=== PATIENT | female | born 1955 | race Caucasian/White ===

== ENCOUNTER → 2017-07-18 | Outpatient (CLI) | payer BC | LOC: RESP 10:21 | PROVIDERS: ATTEND Internal Medicine Endocrinology, Diabetes & Metabolism | DX: J45.909 Unspecified asthma, uncomplicated (principal) | CPT/HCPCS: 94060; 94727; 94729 ==

== ENCOUNTER 2018-08-12 12:48 | Inpatient (IN) | payer MEDICARE, BC ==
[~2018-08-12] VITALS: Ht 160 cm; Wt 75.9 kg
--- OUTSIDE RECORDS SUMMARY | 2018-08-12 12:55 | XMS REPORT | Continuity of Care Document ---
Author Author [facility] Interface Address Unknown Phone Unavailable Problems Problem Status Onset Date Classification Date Reported Comments Source CCL / ALPINE PATROLLER LEFT COMMON FEMORAL SFA / LEFT Active 08/02/2018 [facility] S02.2XXA FRACTURE OF NASAL BONES, INITIA Active 08/24/2017 [facility] Encounter for screening for malignant neoplasm of colon 07/27/2017 10/26/2017 [facility] COLORECTAL CANCER SCREENING Active 07/10/2017 [facility] COLON CONSULT - PRE OP COLOSTOMY REVERSA Active 07/06/2017 [facility] I50.9 Active 02/26/2017 [facility] ABD ABSCESS Active 11/17/2016 [facility] R10 - ABDOMINAL AND PELVIC PAIN [facility] ACUTE DIVERTICULITIS, ABDOMINAL PAIN/FEV Active 11/08/2016 [facility] ABDOMINAL PAIN/FEVER Active 11/08/2016 [facility] CHRONIC SYSTOLIC HF Active 05/24/2016 [facility] CCL/SINGLE CHAMBER ICD IMPLANT/MEDTRONIC Active 05/24/2016 [facility] PAD, CLAUDICATION Active 05/01/2016 [facility] CCL/LEFT LEG ANGIO/ALPINE PATROLLER/STENT/DX: PAD, CL Active 05/01/2016 [facility] CCL/BILATERAL LOWER EXTREMITY ANGIO/RIGH Active 04/04/2016 [facility] R91.1 - SOLITARY PULMONARY NODULE Active 07/06/2015 [facility] M[facility] CCL / R Active 09/02/2014 [facility] DX: DYSPNEA L HEART FAILURE Active 09/02/2014 [facility] 786.05 Active 07/08/2014 [facility] V12.69, 786.05 Active 07/08/2014 [facility] Asthma Resolved Problem 08/09/2018 TURNER Augustine,[facility] Cardiomyopathy Resolved Problem 08/09/2018 [facility], [facility] COPD (<span ID="[id number]</span>) Resolved Problem 08/09/2018 [facility] Claudication Resolved Problem 08/09/2018 [facility] CHF (<span ID="[id number]">Confirmed</span>) Resolved Problem 08/09/2018 [facility] Diabetes mellitus Resolved Problem 08/09/2018 [facility] Shortness of breath Resolved Problem 08/09/2018 [facility] Hyperlipemia Resolved Problem 08/09/2018 [facility] Hypertension Resolved Problem 08/09/2018 [facility] Skin cancer Resolved Problem 08/09/2018 [facility] Obesity Resolved Problem 08/09/2018 [facility] Peripheral vascular disease Resolved Problem 08/09/2018 [facility] Psoriasis Resolved Problem 11/17/2016 [facility] Asthma Resolved Problem 03/04/2017 OP[facility] Gilbert,[facility] Diverticulosis of large intestine without perforation or abscess without bleeding 10/15/2017 [facility] Obesity, unspecified 10/15/2017 [facility] Body mass index 27.0-27.9, adult 10/15/2017 [facility] Hypertensive heart disease with heart failure 10/26/2017 [facility] Chronic systolic heart failure 10/15/2017 [facility] Hyperlipidemia, unspecified 10/15/2017 [facility] Cardiomyopathy, unspecified 10/26/2017 [facility] Chronic obstructive pulmonary disease, unspecified 10/15/2017 [facility] Type 2 diabetes mellitus with diabetic peripheral angiopathy without gangrene 10/15/2017 [facility] Presence of cardiac pacemaker 10/15/2017 [facility] Nicotine dependence, cigarettes, uncomplicated 10/15/2017 [facility] Presence of automatic cardiac defibrillator 10/26/2017 [facility] Eczema Resolved Problem 08/09/2018 [facility] Heart failure, unspecified 10/26/2017 [facility] Peripheral vascular disease, unspecified 10/26/2017 [facility] Obstructive sleep apnea (pediatric) 10/26/2017 [facility] Emphysema, unspecified 10/26/2017 [facility] Gastro-esophageal reflux disease without esophagitis 10/26/2017 [facility] Prediabetes 10/26/2017 [facility] Acquired absence of other specified parts of digestive tract 10/26/2017 [facility] Colostomy status 10/26/2017 [facility]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 10/26/2017 [facility] USP use of aspirin 10/26/2017 [facility] Parastomal hernia without obstruction or gangrene 09/26/2017 [facility] Peritoneal adhesions (postinfection) 09/26/2017 [facility] Elevated white blood cell count, unspecified 09/26/2017 [facility] Personal history of nicotine dependence 09/26/2017 [facility] DVTRCLI OF INTEST, PART UNSP, W/O PERF O Active [facility] Medications Medication Details Route Status Patient Instructions Ordering Provider Order Date Source Morphine 2 mg, Route: IVP, ONCE, Dosing Weight 66.818, kg, Start date: 08/07/18 15:04:00 CDT, Stop date: 08/07/18 15:04:00 CDT Inactive 08/07/2018 [facility] clopidogrel 75 MG Oral Tablet [Plavix] 75 mg=1 tab, PO, Daily, # 90 tab, 3 Refill(s) Active 08/07/2018 [facility] Nitroglycerin 0.4 mg, 1 tab, Route: SL, Drug form: TAB, Q5Min, Dosing Weight 66.818, kg, PRN Chest Pain, Start date: 08/07/18 14:41:00 CDT, Duration: 3 doses or times, Stop date: Limited # of timesNotes: (Same as: Nitroquick, Nitrostat) "Do Not Crush" Sublingual tablet Inactive 08/07/2018 [facility] normal saline 0.9% IV 250 mL 250 mL, Rate: 250 ml/hr, Infuse over: 1 hr, Route: IV, Dosing Weight 66.818 kg, Total Volume: 250, Start date: 08/07/18 12:28:00 CDT, Duration: 30 day, Stop date: 09/06/18 12:27:00 CDT, 1.74, m2 Inactive 08/07/2018 [facility] Docusate Sodium 100 MG Oral Capsule [Colace] 100 mg=1 cap, PO, BID, # 60 cap, 0 Refill(s) Active 09/17/2017 [facility] gabapentin 300 MG Oral Capsule 300 mg=1 cap, PO, Q8H, # 90 cap, 0 Refill(s) Active 09/17/2017 [facility] tramadol hydrochloride 50 MG Oral Tablet 50 mg=1 tab, PO, Q4H, PRN Pain Score 1-5, # 24 tab, 0 Refill(s) Active 09/17/2017 [facility] vitamin A 10,000 units oral capsule 10,000 IntlUnit=1 cap, PO, Daily, # 30 cap, 0 Refill(s) Active 09/17/2017 [facility] Oxycodone Hydrochloride 5 MG Oral Tablet 10 mg, 2 tab, Route: PO, Drug form: TAB, Q4H, Dosing Weight 72.727, kg, PRN Pain Score 6-10, Start date: 09/17/17 11:32:00 CDT, Duration: 30 day, Stop date: 10/17/17 11:31:00 CDTNotes: (Same as: Roxicodone) Inactive 09/17/2017 [facility] tramadol hydrochloride 50 MG Oral Tablet 50 mg, 1 tab, Route: PO, Drug form: TAB, Q4H, Dosing Weight 72.727, kg, Start date: 09/17/17 4:00:00 CDT, Duration: 30 day, Stop date: 10/17/17 0:00:00 CDTNotes: Not to exceed 400mg/day. (Same As: Ultram) Inactive 09/17/2017 [facility] Albuterol 0.833 MG/ML / Ipratropium Mcgehee 0.167 MG/ML Inhalant Solution [DuoNeb] 3 ml, Route: NEB, Drug Form: SOLN, Dosing Weight 72.727, kg, RQ4H, Start date: 09/15/17 11:00:00 CDT, Duration: 30 day, Stop date: 10/15/17 7:00:00 CDTNotes: (Same as: Duoneb) No Longer Active 09/15/2017 [facility] 24 HR tramadol hydrochloride 100 MG Extended Release Tablet 100 mg, 2 tab, Route: PO, Drug form: TAB, Q12H, Priority: NOW, Start date: 09/15/17 10:30:00 CDT, Duration: 30 day, Stop date: 10/15/17 9:00:00 CDTNotes: Not to exceed 400mg/day. (Same As: Ultram) No Longer Active 09/15/2017 [facility] potassium chloride 20 mEq oral tablet, extended release 40 mEq, 2 tab, Route: PO, Drug form: ERTAB, ONCE, Dosing Weight 72.727, kg, Start date: 09/14/17 18:36:00 CDT, Stop date: 09/14/17 18:36:00 CDTNotes: (Same as: K-Dur 20) "Do Not Crush" For patients unable to swallow tablet, dissolve in one half glass of water. Allow about 2 minutes for the tablets to disintegrate. Stir before giving to prepare slurry and administer. Please exclude Patient’s with feeding tube less than 14 [place] (Dobhoff, J-tube etc) and pediatric and patients. With food and full glass of water Inactive 09/14/2017 [facility] carvedilol 6.25 mg, Route: PO, Drug form: TAB, BID, Dosing Weight 72.727, kg, Start date: 09/13/17 17:00:00 CDT, Duration: 30 day, Stop date: 10/13/17 9:00:00 CDT Inactive 09/13/2017 [facility] remove patch 1 patch, Route: TOP, Bedtime, Drug form: ERFILM, Start date: 09/13/17 15:00:00 CDT, Duration: 30 day, Stop date: 10/12/17 15:00:00 CDT No Longer Active 09/13/2017 [facility] albuterol 90 mcg/inh inhalation aerosol 2 puff, Route: INHALATION, Drug Form: AERO/A, Dosing Weight 72.727, kg, QID, PRN Shortness of breath, Start date: 09/13/17 12:59:00 CDT, Duration: 30 day, Stop date: 10/13/17 12:58:00 CDTNotes: Albuterol 90 microgram/inh 8gm HFA WASTE: Aerosol - Return to Pharmacy Same as: Rufus Jessica No Longer Active 09/13/2017 [facility] Aspirin 81 MG Enteric Coated Tablet 81 mg, 1 tab, Route: PO, Drug form: CHEWTAB, Daily, Dosing Weight 72.727, kg, Start date: 09/13/17 11:00:00 CDT, Duration: 30 day, Stop date: 10/13/17 9:00:00 CDTNotes: Take with food. No Longer Active 09/13/2017 [facility] Ativan 1 mg, 1 tab, Route: PO, Drug form: TAB, BID, Dosing Weight 72.727, kg, Start date: 09/13/17 11:00:00 CDT, Duration: 30 day, Stop date: 10/13/17 9:00:00 CDTNotes: (Same as: Ativan) No Longer Active 09/13/2017 [facility] Vitamin D3 1000 intl units oral tablet 1,000 IntlUnit, 1 tab, Route: PO, Drug form: TAB, Daily, Dosing Weight 72.727, kg, Start date: 09/13/17 11:00:00 CDT, Duration: 30 day, Stop date: 10/13/17 9:00:00 CDTNotes: Same as : Vitamin D3 No Longer Active 09/13/2017 [facility] budesonide-formoterol 80 mcg-4.5 mcg/inh inhalation aerosol with adapter 2 inhalation, Route: INHALATION, Drug Form: AERO/A, RBID, Start date: 09/13/17 10:56:00 CDT, Duration: 30 day, Stop date: 10/13/17 8:00:00 CDTNotes: (Same as: Symbicort) WASTE: Aerosol - Return to Pharmacy No Longer Active 09/13/2017 [facility] Acetaminophen 325 MG / Oxycodone Hydrochloride 10 MG Oral Tablet [Percocet 10/325] 1 tab, PO, Q8H, PRN Pain Score 1-3, # 20 tab, 0 Refill(s) No Longer Active 09/13/2017 [facility] Fluticasone propionate 0.1 MG/ACTUAT / salmeterol 0.05 MG/ACTUAT Dry Powder Inhaler 2 inhalation, Route: INHALER, Drug Form: PWDR, Dosing Weight 72.727, kg, RBID, Start date: 09/13/17 10:17:00 CDT, Duration: 30 day, Stop date: 10/13/17 8:00:00 CDT Inactive 09/13/2017 [facility] phenol 1 spray, Route: TOP, ONCE, Drug form: SPRY, PRN as needed for sore throat, Start date: 09/13/17 10:15:00 CDTNotes: Chloraseptic Philipp (Same as: Chloraseptic, Sore Throat Philipp) WASTE: F/P - Black; E - Municipal Trash Bin No Longer Active 09/13/2017 [facility] Albuterol 0.83 MG/ML Inhalant Solution 1.245 mg, 1.5 mL, Route: PO, Drug form: SOLN, RQ4H, Dosing Weight 72.727, kg, PRN Wheezing, Start date: 09/13/17 10:12:00 CDT, Duration: 30 day, Stop date: 10/13/17 10:11:00 CDTNotes: SEE RT DOCUMENTATION (Same as: Proventil) Inactive 09/13/2017 [facility] pantoprazole 40 mg, Route: IVP, Drug form: INJ, Daily, Dosing Weight 72.727, kg, Start date: 09/13/17 10:00:00 CDT, Duration: 30 day, Stop date: 10/13/17 9:00:00 CDTNotes: For IV push reconstitute with 10 ml 0.9% sodium chloride and push over 2 minutes. (Same as: Protonix) No Longer Active 09/13/2017 [facility] Lidocaine 0.05 MG/MG Transdermal Patch 1 patch, Route: TOP, Daily, Drug form: FILM, Start date: 09/13/17 9:00:00 CDT, Duration: 30 day, Stop date: 10/12/17 9:00:00 CDT Inactive 09/13/2017 [facility] Protonix 40 mg, 1 tab, Route: PO, Drug form: ECTAB, Daily, Start date: 09/13/17 9:00:00 CDT, Duration: 30 day, Stop date: 10/12/17 9:00:00 CDT Inactive 09/13/2017 [facility] Vitamin A 10,000 unit, 1 cap, Route: PO, Drug form: CAP, Daily, Dosing Weight 72.727, kg, Start date: 09/13/17 9:00:00 CDT, Duration: 2 week, Stop date: 09/26/17 9:00:00 CDT No Longer Active 09/13/2017 [facility] Lisinopril 5 mg, 1 tab, Route: PO, Drug form: TAB, Daily, Dosing Weight 72.727, kg, Start date: 09/13/17 9:00:00 CDT, Stop date: 10/12/17 9:00:00 CDTNotes: (Same as: Prinivil, Zestril) No Longer Active 09/13/2017 [facility] Docusate Sodium 100 MG Oral Capsule [Colace] 100 mg, 1 cap, Route: PO, Drug form: CAP, BID, Dosing Weight 72.727, kg, Start date: 09/13/17 9:00:00 CDT, Stop date: 10/12/17 17:00:00 CDTNotes: (Same as: Colace) (Do Not Crush) No Longer Active 09/13/2017 [facility] carvedilol 6.25 mg, 1 tab, Route: PO, Drug form: TAB, Q12H, Dosing Weight 72.727, kg, Start date: 09/13/17 9:00:00 CDT, Duration: 30 day, Stop date: 10/12/17 21:00:00 CDT No Longer Active 09/13/2017 [facility] Prednisone 10 mg, 1 tab, Route: PO, Drug form: TAB, Daily, Dosing Weight 72.727, kg, Start date: 09/13/17 9:00:00 CDT, Duration: 30 day, Stop date: 10/12/17 9:00:00 CDT No Longer Active 09/13/2017 [facility] Lidocaine 0.05 MG/MG Transdermal Patch 1 patch, Route: TOP, Daily, Drug form: FILM, Start date: 09/13/17 3:00:00 CDT, Duration: 30 day, Stop date: 10/12/17 3:00:00 CDTNotes: Apply only once for up to 12 hours in a 24-hour period (12 hours on and 12 hours off). (Same as: Lidoderm) "Remove old patch before application of new patch" No Longer Active 09/13/2017 [facility] Morphine 2 mg, 0.5 mL, Route: IVP, Drug form: SOLN, Q2H, Dosing Weight 72.727, kg, PRN Pain Score 7-10, Start date: 09/13/17 1:11:00 CDT, Duration: 30 day, Stop date: 10/13/17 1:10:00 CDTNotes: (Same as:MORPhine Sulfate) No Longer Active 09/13/2017 [facility] gabapentin 300 MG Oral Capsule 300 mg, 1 cap, Route: PO, Drug form: CAP, Q8H, Dosing Weight 72.727, kg, (CrCl > 60 ml/min), Start date: 09/13/17 0:00:00 CDT, Stop date: 10/12/17 16:00:00 CDTNotes: (Same as: Neurontin) No Longer Active 09/13/2017 [facility] Tramadol 100 mg, 2 tab, Route: PO, Drug form: TAB, Q6H, Dosing Weight 72.727, kg, Start date: 09/13/17 0:00:00 CDT, Duration: 30 day, Stop date: 10/12/17 18:00:00 CDT Inactive 09/13/2017 [facility] Ofirmev 1,000 mg, 100 mL, Route: IVPB, Drug form: INJ, Q6H, Dosing Weight 72.727, kg, for > or=50 kg, Start date: 09/13/17 0:00:00 CDT, Duration: 30 day, Stop date: 10/14/17 18:00:00 CDTNotes: MEDICATION WASTE Product Size: 1000 mg Product Wasted: ___ mg No Longer Active 09/13/2017 [facility] Pravastatin 20 mg, 1 tab, Route: PO, Drug form: TAB, Bedtime, Dosing Weight 72.727, kg, Start date: 09/12/17 21:00:00 CDT, Duration: 30 day, Stop date: 10/11/17 21:00:00 CDTNotes: (Same as: Pravachol) No Longer Active 09/13/2017 [facility] ondansetron (ANES) Route: IV, Drug form: INJ, ONCE, Stop date: 09/12/17 20:06:00 CDT Inactive 09/13/2017 [facility] Ondansetron 4 mg, 2 mL, Route: IVP, Drug form: INJ, ONCE, Dosing Weight 72.727, kg, PRN Nausea & Vomiting, Start date: 09/12/17 20:03:00 CDTNotes: (Same as: Zofran) MEDICATION WASTE Product Size: 4 mg Product Wasted: ___ mg Inactive 09/13/2017 [facility] Naloxone 0.4 mg, 1 mL, Route: IVP, Drug form: INJ, Q2MIN, Dosing Weight 72.727, kg, PRN Narcotic Reversal, Start date: 09/12/17 20:03:00 CDT, Duration: 8 doses or times, Stop date: 09/13/17 0:00:00 CDTNotes: Same as Narcan Inactive 09/13/2017 [facility] Flumazenil 0.2 mg, 2 mL, Route: IVP, Drug form: INJ, PRN, Dosing Weight 72.727, kg, PRN Benzodiazepine Reversal, Initial dose, Start date: 09/12/17 20:03:00 CDT, Duration: 1 day, Stop date: 09/13/17 20:02:00 CD TNotes: (Same as: Romazicon) Inactive 09/13/2017 [facility] Hydromorphone 0.5 mg, 0.25 mL, Route: IVP, Drug form: INJ, Q5Min, Dosing Weight 72.727, kg, PRN Pain Score 7-10, Start date: 09/12/17 20:03:00 CDT, Duration: 4 doses or times, Stop date: 09/13/17 0:00:00 CDTNotes: Same as Dilaudid Inactive 09/13/2017 [facility] Ketorolac 30 mg, Route: IVP, ONCE, Dosing Weight 72.727, kg, Start date: 09/12/17 20:03:00 CDT, Stop date: 09/12/17 20:03:00 CDT Inactive 09/13/2017 [facility] Flagyl 500 mg, 100 mL, Route: IVPB, Drug form: INJ, ABXQ8H, Dosing Weight 72.727, kg, Start date: 09/12/17 20:00:00 CDT, Duration: 3 day, Stop date: 09/15/17 13:00:00 CDT, ABX Indication: Intra-abdominal Infec tionNotes: (Same as: Flagyl) Avoid alcohol. No Longer Active 09/13/2017 [facility] Ancef 2 gm, 20 mL, Route: IVPB, Drug form: SOLN, ABXQ8H, Dosing Weight 72.727, kg, Start date: 09/12/17 20:00:00 CDT, Stop date: 09/15/17 14:00:00 CDT, ABX Indication: Intra-abdominal InfectionNotes: (Same as Ancef) No Longer Active 09/13/2017 [facility] Enoxaparin 40 mg, 0.4 mL, Route: SUB-Q, Drug form: INJ, rttrQ64D, Dosing Weight 72.727, kg, Start date: 09/12/17 20:00:00 CDT, Stop date: 10/11/17 20:00:00 CDTNotes: (Same as: Lovenox) No Longer Active 09/13/2017 [facility] ketAMINE (ANES) Route: IV, Drug form: INJ, ONCE, Stop date: 09/12/17 19:43:00 CDT Inactive 09/13/2017 [facility] dexmedetomidine (ANES) + Sodium Chloride 0.9% IV (ANES) 98 mL Route: IV, Drug form: INJ, ONCE, Stop date: 09/12/17 19:33:00 CDT Inactive 09/13/2017 [facility] Morphine 2 mg, 0.5 mL, Route: IVP, Drug form: SOLN, Q4H, Dosing Weight 72.727, kg, PRN Pain Score 7-10, Start date: 09/12/17 19:23:00 CDT, Duration: 30 day, Stop date: 10/12/17 19:22:00 CDTNotes: (Same as:MORPhine Sulfate) No Longer Active 09/13/2017 [facility] Oxycodone Hydrochloride 5 MG Oral Tablet 5 mg, 5 mL, Route: PO, Drug form: LIQ, Q4H, Dosing Weight 72.727, kg, PRN Pain Score 4-6, Start date: 09/12/17 19:23:00 CDT, Stop date: 10/12/17 19:22:00 CDTNotes: (Same as: 'Roxicodone) No Longer Active 09/13/2017 [facility] Isolyte S PH 7.4 1,000 mL 1,000 mL, Rate: 125 ml/hr, Infuse over: 8 hr, Route: IV, Dosing Weight 72.727 kg, Total Volume: 1,000, Start date: 09/12/17 19:19:00 CDT, Duration: 30 day, Stop date: 10/12/17 19:18:00 CDT, 1.82, [id number]: (Same as: Isolyte S PH 7.4) No Longer Active 09/13/2017 [facility] rocuronium (ANES) Route: IV, Drug form: INJ, ONCE, Stop date: 09/12/17 17:53:00 CDT Inactive 09/12/2017 [facility] niCARdipine (ANES) + sodium chloride (ANES) 9 mL Route: IV, Drug form: INJ, ONCE, Stop date: 09/12/17 16:38:00 CDT Inactive 09/12/2017 [facility] dexmedetomidine (ANES) + Sodium Chloride 0.9% IV (ANES) 98 mL Route: IV, Drug form: INJ, ONCE, Stop date: 09/12/17 16:38:00 CDT Inactive 09/12/2017 [facility] esmolol (ANES) Route: IV, Drug form: INJ, ONCE, Stop date: 09/12/17 16:12:00 CDT Inactive 09/12/2017 [facility] metoprolol (ANES) Route: IV, Drug form: INJ, ONCE, Stop date: 09/12/17 16:12:00 CDT Inactive 09/12/2017 [facility] hydromorphone (ANES) Route: IV, Drug form: INJ, ONCE, Stop date: 09/12/17 16:02:00 CDT Inactive 09/12/2017 [facility] hydromorphone (ANES) Route: IV, Drug form: INJ, ONCE, Stop date: 09/12/17 15:12:00 CDT Inactive 09/12/2017 [facility] propofol (ANES) Route: IV, Drug form: INJ, ONCE, Stop date: 09/12/17 15:12:00 CDT Inactive 09/12/2017 [facility] lidocaine (ANES) Route: IV, Drug form: INJ, ONCE, Stop date: 09/12/17 15:12:00 CDT Inactive 09/12/2017 [facility] midazolam (ANES) Route: IV, Drug form: SOLN, ONCE, Stop date: 09/12/17 15:12:00 CDT Inactive 09/12/2017 [facility] ketAMINE (ANES) Route: IV, Drug form: INJ, ONCE, Stop date: 09/12/17 15:07:00 CDT Inactive 09/12/2017 [facility] hydrocortisone (ANES) Route: IV, Drug form: INJ, ONCE, Stop date: 09/12/17 14:57:00 CDT Inactive 09/12/2017 [facility] ertapenem (ANES) Route: IV, Drug form: INJ, ONCE, Stop date: 09/12/17 14:57:00 CDT Inactive 09/12/2017 [facility] Lactated Ringers Injection IV (ANES) 1000 mL Route: IV, Total Volume: 1,000, Start date: 09/12/17 13:57:00 CDT, Stop date: 09/12/17 14:57:00 CDT Inactive 09/12/2017 [facility] INVanz 1 gm, Route: IV, Drug form: INJ, PRE OP, Start date: 09/12/17 12:00:00 CDT, Duration: 1 day, Stop date: 09/13/17 11:59:00 CDT, ABX Indication: Surgical ProphylaxisNotes: (Same as: INVanz) Refrigerate. NOT COMPATIBLE WITH D5W. Stable in refrigerator for 24 hours MEDICATION WASTE Product Size: 1000 mg Product Wasted: ___ mg No Longer Active 09/12/2017 [facility] Naloxone 0.4 mg, 1 mL, Route: IVP, Drug form: INJ, Q2MIN, Dosing Weight 72.727, kg, PRN Narcotic Reversal, Start date: 07/20/17 10:32:00 MONUMENT LETTERER, Duration: 8 doses or times, Stop date: 07/21/17 0:00:00 CSTNotes: Same as Narcan No Longer Active 07/20/2017 [facility] Ondansetron 4 mg, 2 mL, Route: IVP, Drug form: INJ, ONCE, Dosing Weight 72.727, kg, PRN Nausea & Vomiting, Start date: 07/20/17 10:32:00 CSTNotes: (Same as: Zofran) MEDICATION WASTE Product Size: 4 mg Product Wasted: ___ mg No Longer Active 07/20/2017 [facility] Hydralazine 10 mg, 0.5 mL, Route: IVP, Drug form: INJ, Q20Min, Dosing Weight 72.727, kg, PRN Elevated BP, Start date: 07/20/17 10:32:00 MONUMENT LETTERER, Duration: 2 doses or times, Stop date: 07/21/17 0:00:00 CSTNotes: (Same as: Apresoline) Push over 5 minutes No Longer Active 07/20/2017 [facility] Flumazenil 0.2 mg, 2 mL, Route: IVP, Drug form: INJ, PRN, Dosing Weight 72.727, kg, PRN Benzodiazepine Reversal, Initial dose, Start date: 07/20/17 10:32:00 MONUMENT LETTERER, Duration: 30 day, Stop date: 08/19/17 11:31:00 C DTNotes: (Same as: Romazicon) No Longer Active 07/20/2017 [facility] Acetaminophen 1,000 mg, 2 tab, Route: PO, Drug form: TAB, ONCE, Dosing Weight 72.727, kg, PRN Pain Score 1-3, Start date: 07/20/17 10:32:00 CSTNotes: Max acetaminophen 4000 mg/day (4 gm/day). (Same as: Tylenol Extra Strength) No Longer Active 07/20/2017 [facility] Carisoprodol 350 MG Oral Tablet [Soma] 350 mg=1 tab, PO, QID, 0 Refill(s) Active 07/18/2017 [facility] Lorazepam 1 MG Oral Tablet [Ativan] 1 mg=1 tab, PO, TID, 0 Refill(s) Active 07/18/2017 [facility] pantoprazole 20 MG Enteric Coated Tablet [Protonix] 20 mg=1 tab, PO, Daily, 0 Refill(s) Active 07/18/2017 [facility] Vitamin D3 1000 intl units oral tablet 1,000 IntlUnit=1 tab, PO, Daily, # 30 tab, 0 Refill(s) Active 07/18/2017 [facility] Ventolin HFA 2 puff, INHALATION, QID, 0 Refill(s) Active 07/18/2017 [facility] GoLYTELY oral powder for reconstitution 240 mL, PO, Q15Min, # 4,000 mL, 0 Refill(s), Pharmacy: [facility] [id number] Active 07/09/2017 [facility] Amoxicillin 875 MG / Clavulanate 125 MG Oral Tablet [Augmentin 875-mg] 1 tab, PO, Q12H, X 5 day, # 10 tab, 0 Refill(s) Active 11/29/2016 [facility] psyllium 3.4 g/3.7 g oral powder 3.4 gm=, PO, Daily, X 30 day, # 300 gm, 0 Refill(s) Active 11/29/2016 [facility] Docusate Sodium 100 MG Oral Capsule 100 mg=1 cap, PO, Q12H, # 60 cap, 0 Refill(s) Active 11/29/2016 [facility] gabapentin 300 MG Oral Capsule 300 mg=1 cap, PO, TID, # 90 cap, 0 Refill(s) Active 11/29/2016 [facility] acetaminophen 500 mg oral tablet 1,000 mg=2 tab, PO, Q6H, PRN Pain Score 4-6, not to exceed 3000 mg/day Only take as needed for pain, X 14 day, # 112 tab, 0 Refill(s) Active 11/29/2016 [facility] Oxycodone Hydrochloride 5 MG Oral Tablet 10 mg=2 tab, PO, Q4H, PRN Pain Score 6-10, 0 Refill(s) Active 11/29/2016 [facility] senna 8.6 mg oral tablet 8.6 mg=1 tab, PO, BID, X 14 day, # 28 tab, 0 Refill(s) Active 11/29/2016 [facility] tramadol hydrochloride 50 MG Oral Tablet 100 mg=2 tab, PO, Q6Hnow, X 30 day, # 240 tab, 0 Refill(s) Active 11/29/2016 [facility] Unasyn 3 gm, 1 ea, Route: IVPB, Drug form: PDR/INJ, ABXQ6H, Start date: 11/28/16 12:00:00 CDT, Duration: 30 day, Stop date: 12/28/16 6:00:00 CDTNotes: Dosing based on Ampicillin component (Same as: Unasyn) No Longer Active 11/28/2016 [facility] Dilaudid 0.5 mg, 0.25 mL, Route: IV, Drug form: INJ, Q24H, Dosing Weight 68.182, kg, PRN Other -See Comment, Start date: 11/26/16 12:41:00 CDT, Duration: 10 day, Stop date: 12/06/16 12:40:00 CDTNotes: Same as: Dilaudid Inactive 11/26/2016 [facility] Celebrex 200 mg, 1 cap, Route: PO, Drug form: CAP, BID, Dosing Weight 68.182, kg, Start date: 11/25/16 17:00:00 CDT, Duration: 30 day, Stop date: 12/25/16 9:00:00 CDTNotes: NSAID. Please check indication. Not for seizure. (Same As: CeleBREX) No Longer Active 11/25/2016 [facility] gabapentin 300 MG Oral Capsule 300 mg, 1 cap, Route: PO, Drug form: CAP, Q12H, Dosing Weight 68.182, kg, (CrCl 30 - 59 ml/min), Start date: 11/25/16 14:00:00 CDT, Duration: 30 day, Stop date: 12/25/16 9:00:00 CDTNotes: (Same as: Neurontin) No Longer Active 11/25/2016 [facility] Oxycodone Hydrochloride 5 MG Oral Tablet 10 mg, 2 tab, Route: PO, Drug form: TAB, Q4H, Dosing Weight 68.182, kg, PRN Pain Score 6-10, Start date: 11/25/16 12:45:00 CDT, Duration: 30 day, Stop date: 12/25/16 12:44:00 CDTNotes: (Same as: Roxicodone) No Longer Active 11/25/2016 [facility] Oxycodone Hydrochloride 5 MG Oral Tablet 10 mg, 2 tab, Route: PO, Drug form: TAB, Q6H, Dosing Weight 68.182, kg, PRN Pain Score 7-10, Start date: 11/25/16 10:47:00 CDT, Duration: 30 day, Stop date: 12/25/16 10:46:00 CDTNotes: (Same as: Roxicodone) Inactive 11/25/2016 [facility] Ampicillin 1 gm, Route: IVPB, Drug form: PDR/INJ, ABXQ6H, Dosing Weight 68.182, kg, Start date: 11/24/16 18:00:00 CDT, Duration: 30 day, Stop date: 12/24/16 14:00:00 CDTNotes: (Same as: Von) MEDICATION WASTE Product Size: 1000 mg Product Wasted: ___ mg No Longer Active 11/24/2016 [facility] Ibuprofen 400 MG Oral Tablet 400 mg, 1 tab, Route: PO, Drug form: TAB, Q6H-02, Dosing Weight 68.182, kg, Start date: 11/24/16 14:00:00 CDT, Duration: 30 day, Stop date: 12/24/16 8:00:00 CDTNotes: (Same as: Motrin) "Do Not Crush" Give with food. No Longer Active 11/24/2016 [facility] ketOROLAC 30 mg/mL injectable solution 30 mg, 1 mL, Route: IV, Drug form: INJ, ONCE, Dosing Weight 68.182, kg, Start date: 11/24/16 9:37:00 CDT, Stop date: 11/24/16 9:37:00 CDTNotes: (Same as:Toradol) IV bolus must be given >15 seconds. Give IM administration slowly and deeply into the muscle. Not for use > 4 days MEDICATION WASTE Product Size: 30 mg Product Wasted: ___ mg Inactive 11/24/2016 [facility] Ketorolac 15 mg, 1 mL, Route: IVP, Drug form: INJ, Q6H, Dosing Weight 68.182, kg, PRN Pain Score 4-6, Start date: 11/24/16 8:27:00 CDT, Duration: 4 day, Stop date: 11/28/16 8:26:00 CDTNotes: (Same as:Toradol) IV bolus must be given >15 seconds. Give IM administration slowly and deeply into the muscle. Not for use > 4 days. Inactive 11/24/2016 [facility] Unasyn 1.5 gm, 1 ea, Route: IVPB, Drug form: PDR/INJ, ABXQ6H, Dosing Weight 68.182, kg, Start date: 11/23/16 12:00:00 CDT, Duration: 7 day, Stop date: 11/30/16 6:00:00 CDTNotes: Dosing based on Ampicillin component (Same as: Unasyn) No Longer Active 11/23/2016 [facility] Fluconazole 400 mg, 2 tab, Route: PO, Drug form: TAB, [id number], Dosing Weight 68.182, kg, Start date: 11/22/16 12:00:00 CDT, Stop date: 11/24/16 12:00:00 CDTNotes: (Same as: Diflucan) No Longer Active 11/22/2016 [facility] Psyllium 3.4 gm, 1 pkt, Route: PO, Drug Form: PDR/REC, Dosing Weight 68.182, kg, Daily, Start date: 11/22/16 9:00:00 CDT, Duration: 30 day, Stop date: 12/21/16 9:00:00 CDTNotes: (Same as: Metamucil) Mix in 8 oz liquid with meal. No Longer Active 11/22/2016 [facility] Pravastatin 20 mg, 1 tab, Route: PO, Drug form: TAB, Bedtime, Dosing Weight 68.182, kg, Start date: 11/21/16 21:00:00 CDT, Duration: 30 day, Stop date: 12/20/16 21:00:00 CDTNotes: (Same as: Pravachol) No Longer Active 11/22/2016 [facility] Oxycodone Hydrochloride 5 MG Oral Tablet 5 mg, 1 tab, Route: PO, Drug form: TAB, Q6H, Dosing Weight 68.182, kg, Start date: 11/21/16 12:00:00 CDT, Duration: 30 day, Stop date: 12/21/16 6:00:00 CDTNotes: (Same as: Roxicodone) No Longer Active 11/21/2016 [facility] Acetaminophen 1,000 mg, 2 tab, Route: PO, Drug form: TAB, Q6H, Dosing Weight 68.182, kg, Start date: 11/21/16 12:00:00 CDT, Duration: 30 day, Stop date: 12/21/16 6:00:00 CDTNotes: Max acetaminophen 4000 mg/day (4 gm/day). (Same as: Tylenol Extra Strength) No Longer Active 11/21/2016 [facility] Miralax 17 gm, 1 pkt, Route: PO, Drug form: PWDR, Daily, Dosing Weight 68.182, kg, Start date: 11/21/16 9:00:00 CDT, Duration: 30 day, Stop date: 12/20/16 9:00:00 CDTNotes: Dissolve in 8 oz of water or juice. (Same as: Miralax) No Longer Active 11/21/2016 [facility] Docusate Sodium 100 MG Oral Capsule 100 mg, 1 cap, Route: PO, Drug form: CAP, BID, Dosing Weight 68.182, kg, Start date: 11/21/16 9:00:00 CDT, Duration: 30 day, Stop date: 12/20/16 17:00:00 CDTNotes: (Same as: Colace) (Do Not Crush) No Longer Active 11/21/2016 [facility] Zosyn 3.375 gm, Route: IVPB, Drug form: PDR/INJ, ABXQ8H, Dosing Weight 68.182, kg, CrCl >=20 ml/min infuse over 4 hours, Start date: 11/21/16 9:00:00 CDT, Duration: 4 day, Stop date: 11/25/16 1:00:00 CDT, ABX Indication: Intra-abdominal InfectionNotes: (Same as: Zosyn) Dosing based on Piperacillin component MEDICATION WASTE Product Size: 3375 mg Product Wasted: ___ mg No Longer Active 11/21/2016 [facility] aspirin 81 mg tablet, enteric coated 81 mg, 1 tab, Route: PO, Drug form: CHEWTAB, Daily, Dosing Weight 68.182, kg, Start date: 11/21/16 9:00:00 CDT, Duration: 30 day, Stop date: 12/20/16 9:00:00 CDTNotes: Take with food. No Longer Active 11/21/2016 [facility] Lisinopril 5 mg, 1 tab, Route: PO, Drug form: TAB, Daily, Dosing Weight 68.182, kg, Start date: 11/21/16 9:00:00 CDT, Duration: 30 day, Stop date: 12/20/16 9:00:00 CDTNotes: (Same as: Prinivil, Zestril) No Longer Active 11/21/2016 [facility] Lovenox 40 mg, 0.4 mL, Route: SUB-Q, Drug form: INJ, [id number], Dosing Weight 68.182, kg, Start date: 11/21/16 9:00:00 CDT, Duration: 30 day, Stop date: 12/20/16 9:00:00 CDTNotes: (Same as: Lovenox) No Longer Active 11/21/2016 [facility] sennosides, [facility] 8.6 mg, 1 tab, Route: PO, Drug Form: TAB, Dosing Weight 68.182, kg, BID, Start date: 11/21/16 9:00:00 CDT, Duration: 30 day, Stop date: 12/20/16 17:00:00 CDTNotes: (Same as: Senokot) No Longer Active 11/21/2016 [facility] Oxycodone Hydrochloride 5 MG Oral Tablet 5 mg, 1 tab, Route: PO, Drug form: TAB, Q6H, Dosing Weight 68.182, kg, PRN Pain Score 4-6, Start date: 11/21/16 8:21:00 CDT, Duration: 30 day, Stop date: 12/21/16 8:20:00 CDTNotes: (Same as: Roxicodone) No Longer Active 11/21/2016 [facility] Albuterol 0.833 MG/ML / Ipratropium Mcgehee 0.167 MG/ML Inhalant Solution 3 ml, Route: NEB, Drug Form: SOLN, Dosing Weight 68.182, kg, PRN, PRN Respiratory Protocol, Start date: 11/21/16 8:16:00 CDT, Duration: 30 day, Stop date: 12/21/16 8:15:00 CDTNotes: (Same as: Duoneb) No Longer Active 11/21/2016 [facility] Oxycodone Hydrochloride 5 MG Oral Tablet 5 mg, Route: PO, Drug form: TAB, Q6H, Dosing Weight 68.182, kg, PRN Pain Score 4-6, Start date: 11/21/16 8:14:00 CDT, Duration: 30 day, Stop date: 12/21/16 8:13:00 CDT Inactive 11/21/2016 [facility] Ofirmev 1 gm, Route: IV, Drug form: SOLN, Q6H, Dosing Weight 68.182, kg, PRN Pain Score 1-3, Start date: 11/21/16 8:10:00 CDT, Duration: 30 day, Stop date: 12/21/16 8:09:00 CDT, pain Inactive 11/21/2016 [facility] Hydrocortisone 100 mg, 2 mL, Route: IV, Drug form: PDR/INJ, ONCE, Dosing Weight 68.182, kg, Start date: 11/21/16 6:30:00 CDT, Stop date: 11/21/16 6:30:00 CDTNotes: (Same as: Solu-CORTEF) Inactive 11/21/2016 [facility] Insulin regular 8 unit, 0.08 mL, Route: SUB-Q, Drug form: SOLN, PRN, Dosing Weight 68.182, kg, PRN Abnormal Lab Result, Start date: 11/21/16 6:19:00 CDT, Duration: 30 day, Stop date: 12/21/16 6:18:00 CDT, For FSBG 175 mg/dL - 199 mg/dLNotes: (Same as: Humulin R) Roll in palms of hands gently; Do not shake vigorously. "single patient use only" (Restricted to patients requiring a dose > 60 units) WASTE: F/P - Black; E - Municipal Trash Bin Stable for 28 days at room temperature Expires in days from Date No Longer Active 11/21/2016 [facility] Dextrose 50% Syringe 12.5 gm, 25 mL, Route: IVP, Drug Form: INJ, Dosing Weight 68.182, kg, PRN, PRN Abnormal Lab Result, Start date: 11/21/16 6:19:00 CDT, Duration: 30 day, Stop date: 12/21/16 6:18:00 CDT, For FSBG 40 mg/dL - 60 mg/dL No Longer Active 11/21/2016 [facility] ketOROLAC 15 mg/mL injectable solution 15 mg, 1 mL, Route: IVP, Drug form: INJ, Q6H, Dosing Weight 68.182, kg, Start date: 11/21/16 6:00:00 CDT, Duration: 4 day, Stop date: 11/25/16 0:00:00 CDTNotes: (Same as:Toradol) IV bolus must be given >15 seconds. Give IM administration slowly and deeply into the muscle. Not for use > 4 days. Inactive 11/21/2016 [facility] Methadone 10 mg, Route: IV, ONCE, Dosing Weight 68.182, kg, Start date: 11/21/16 5:55:00 CDT, Stop date: 11/21/16 5:55:00 CDT Inactive 11/21/2016 [facility] Zofran 4 mg, 2 mL, Route: IV, Drug form: INJ, Q6H, Dosing Weight 68.182, kg, PRN Nausea, Start date: 11/21/16 5:50:00 CDT, Duration: 30 day, Stop date: 12/21/16 5:49:00 CDTNotes: (Same as: Zofran) MEDICATION WASTE Product Size: 4 mg Product Wasted: ___ mg No Longer Active 11/21/2016 [facility] Methadone 10 mg, 1 tab, Route: PO, Drug form: TAB, ONCE, Dosing Weight 68.182, kg, Start date: 11/21/16 5:48:00 CDT, Stop date: 11/21/16 5:48:00 CDTNotes: (Same as: Dolophine) Inactive 11/21/2016 [facility] Ofirmev 650 mg, 65 mL, Route: IV, Drug form: SOLN, Q6H, Dosing Weight 68.182, kg, PRN Pain Score 1-3, Start date: 11/21/16 4:25:00 CDT, Duration: 30 day, Stop date: 12/21/16 4:24:00 CDT, painNotes: (Same as: Ofirmev) Inactive 11/21/2016 [facility] Zofran 4 mg, 2 mL, Route: IV, Drug form: INJ, Q6H, Dosing Weight 68.182, kg, Start date: 11/21/16 0:00:00 CDT, Duration: 30 day, Stop date: 12/20/16 18:00:00 CDTNotes: (Same as: Zofran) MEDICATION WASTE Product Size: 4 mg Product Wasted: ___ mg Inactive 11/21/2016 [facility] Acetaminophen 1,000 mg, 100 mL, Route: IV, Drug form: INJ, Q6H, Dosing Weight 68.182, kg, Start date: 11/21/16 0:00:00 CDT, Duration: 30 day, Stop date: 12/20/16 18:00:00 CDTNotes: Infuse over 15 minutes Do not exce ed 4gm/day of acetaminophen MEDICATION WASTE Product Size: 1000 mg Product Wasted: ___ mg No Longer Active 11/21/2016 [facility] Methadone 10 mg, 1 mL, Route: IV, Drug form: INJ, Q6H, Dosing Weight 68.182, kg, Start date: 11/21/16 0:00:00 CDT, Duration: 30 day, Stop date: 12/20/16 18:00:00 CDTNotes: (Same as: Dolophine) Inactive 11/21/2016 [facility] Ketorolac 15 mg, 1 mL, Route: IVP, Drug form: INJ, Q6H, Dosing Weight 68.182, kg, Start date: 11/21/16 0:00:00 CDT, Duration: 4 day, Stop date: 11/24/16 18:00:00 CDTNotes: (Same as:Toradol) IV bolus must be given >15 seconds. Give IM administration slowly and deeply into the muscle. Not for use > 4 days. No Longer Active 11/21/2016 [facility] Lovenox 30 mg, 0.3 mL, Route: SUB-Q, Drug form: INJ, Q12H, Dosing Weight 68.182, kg, Start date: 11/20/16 23:19:00 CDT, Duration: 30 day, Stop date: 12/20/16 16:00:00 CDTNotes: (Same as: Lovenox) No Longer Active 11/21/2016 [facility] Hydrocortisone 100 mg, 2 mL, Route: IV, Drug form: PDR/INJ, ONCE, Dosing Weight 68.182, kg, Start date: 11/20/16 22:30:00 CDT, Stop date: 11/20/16 22:30:00 CDTNotes: (Same as: Apryl-JULIA) Inactive 11/21/2016 [facility] Morphine 1 mg, 0.5 mL, Route: IVP, Drug form: INJ, Q2H, Dosing Weight 68.182, kg, PRN Pain Score 4-6, Start date: 11/20/16 21:50:00 CDT, Duration: 30 day, Stop date: 12/20/16 21:49:00 CDTNotes: (Same as:MORPhine Sulfate) No Longer Active 11/21/2016 [facility] Isolyte S (PH 7.4) 1000 mL 1,000 mL 1,000 mL, Rate: 50 ml/hr, Infuse over: 20 hr, Route: IV, Dosing Weight 68.182 kg, Total Volume: 1,000, Start date: 11/20/16 21:28:00 CDT, Duration: 30 day, Stop date: 12/20/16 21:27:00 CDTNotes: (Same as: Isolyte S PH 7.4) No Longer Active 11/21/2016 [facility] Tramadol 100 mg, 2 tab, Route: PO, Drug form: TAB, Q6Hnow, Dosing Weight 68.182, kg, Start date: 11/20/16 21:00:00 CDT, Duration: 30 day, Stop date: 12/20/16 15:00:00 CDTNotes: Not to exceed 400mg/day. (Same As: Ultram) No Longer Active 11/21/2016 [facility] Ketorolac 30 mg, 1 mL, Route: IVP, Drug form: INJ, Q6Hnow, Dosing Weight 68.182, kg, Start date: 11/20/16 21:00:00 CDT, Duration: 4 day, Stop date: 11/24/16 15:00:00 CDTNotes: (Same as:Toradol) IV bolus must be given >15 seconds. Give IM administration slowly and deeply into the muscle. Not for use > 4 days MEDICATION WASTE Product Size: 30 mg Product Wasted: ___ mg Inactive 11/21/2016 [facility] Ofirmev 650 mg, Route: IV, Drug form: INJ, Q4H, Dosing Weight 68.182, kg, PRN Pain Score 4-6, for > or=50 kg, Start date: 11/20/16 20:32:00 CDT, Duration: 30 day, Stop date: 12/20/16 20:31:00 CDT Inactive 11/21/2016 [facility] Morphine 1 mg, 0.5 mL, Route: IVP, Drug form: INJ, Q2H, Dosing Weight 68.182, kg, PRN Pain Score 7-10, Start date: 11/20/16 20:31:00 CDT, Duration: 30 day, Stop date: 12/20/16 20:30:00 CDTNotes: (Same as:MORPhine Sulfate) No Longer Active 11/21/2016 [facility] Oxycodone Hydrochloride 5 MG Oral Tablet 5 mg, 1 tab, Route: PO, Drug form: TAB, Q4H, Dosing Weight 68.182, kg, PRN Pain Score 4-6, Start date: 11/20/16 20:05:00 CDT, Duration: 30 day, Stop date: 12/20/16 20:04:00 CDTNotes: (Same as: Roxicodone) Inactive 11/21/2016 [facility] Oxycodone Hydrochloride 5 MG Oral Tablet 5 mg, Route: PO, Drug form: TAB, Q4H, Dosing Weight 68.182, kg, PRN Pain Score 4-6, Start date: 11/20/16 19:38:00 CDT, Duration: 30 day, Stop date: 12/20/16 19:37:00 CDT Inactive 11/21/2016 [facility] celecoxib 200 mg, Route: PO, Q12H, Dosing Weight 68.182, kg, Priority: NOW, Start date: 11/20/16 19:38:00 CDT, Duration: 48 hr, Stop date: 11/22/16 9:00:00 CDT Inactive 11/21/2016 [facility] Acetaminophen 1,000 mg, Route: PO, Q6H, Dosing Weight 68.182, kg, Priority: NOW, Start date: 11/20/16 19:38:00 CDT, Duration: 30 day, Stop date: 12/20/16 18:00:00 CDT Inactive 11/21/2016 [facility] Ketorolac 30 mg, 1 mL, Route: IVP, Drug form: INJ, Q6H, Dosing Weight 68.182, kg, PRN Pain Score 4-6, Start date: 11/20/16 19:29:00 CDT, Duration: 4 day, Stop date: 11/24/16 19:28:00 CDTNotes: (Same as:Toradol) IV bolus must be given >15 seconds. Give IM administration slowly and deeply into the muscle. Not for use > 4 days MEDICATION WASTE Product Size: 30 mg Product Wasted: ___ mg Inactive 11/21/2016 [facility] Flumazenil 0.2 mg, 2 mL, Route: IVP, Drug form: INJ, PRN, Dosing Weight 68.182, kg, PRN Benzodiazepine Reversal, Initial dose, Start date: 11/20/16 16:40:00 CDT, Stop date: 11/21/16 0:00:00 CDTNotes: (Same as: Romazicon) Inactive 11/20/2016 [facility] Naloxone 0.4 mg, 1 mL, Route: IVP, Drug form: INJ, Q2MIN, Dosing Weight 68.182, kg, PRN Narcotic Reversal, Start date: 11/20/16 16:40:00 CDT, Duration: 8 doses or times, Stop date: 11/21/16 0:00:00 CDTNotes: Same as Narcan Inactive 11/20/2016 [facility] Ondansetron 4 mg, 2 mL, Route: IVP, Drug form: INJ, ONCE, Dosing Weight 68.182, kg, PRN Nausea & Vomiting, Start date: 11/20/16 16:40:00 CDTNotes: (Same as: Zofran) MEDICATION WASTE Product Size: 4 mg Product Wasted: ___ mg Inactive 11/20/2016 [facility] Hydromorphone 0.5 mg, 0.25 mL, Route: IVP, Drug form: INJ, Q5Min, Dosing Weight 68.182, kg, PRN Pain Score 7-10, Start date: 11/20/16 16:40:00 CDT, Duration: 4 doses or times, Stop date: 11/21/16 0:00:00 CDTNotes: Same as: Dilaudid Inactive 11/20/2016 [facility] albuterol (ANES) Route: INHALATION, Drug form: AERO/A, ONCE, Stop date: 11/20/16 16:29:00 CDT Inactive 11/20/2016 [facility] neostigmine (ANES) Route: IV, Drug form: INJ, ONCE, Stop date: 11/20/16 16:29:00 CDT Inactive 11/20/2016 [facility] glycopyrrolate (ANES) Route: IV, Drug form: INJ, ONCE, Stop date: 11/20/16 16:29:00 CDT Inactive 11/20/2016 [facility] ondansetron (ANES) Route: IV, Drug form: INJ, ONCE, Stop date: 11/20/16 16:29:00 CDT Inactive 11/20/2016 [facility] metoprolol (ANES) Route: IV, Drug form: INJ, ONCE, Stop date: 11/20/16 16:15:00 CDT Inactive 11/20/2016 [facility] rocuronium (ANES) Route: IV, Drug form: INJ, ONCE, Stop date: 11/20/16 15:55:00 CDT Inactive 11/20/2016 [facility] acetaminophen (ANES) (ANES) Route: IV, Drug form: INJ, Start date: 11/20/16 15:52:00 CDT, Stop date: 11/20/16 16:52:00 CDT Inactive 11/20/2016 [facility] fentaNYL (ANES) Route: IV, Drug form: INJ, ONCE, Stop date: 11/20/16 15:50:00 CDT Inactive 11/20/2016 [facility] sodium chloride 0.9% 50 ml INJ (ANES) + dexmedetomidine (ANES) (ANES) Route: IV, Drug form: INJ, Start date: 11/20/16 15:20:00 CDT, Stop date: 11/20/16 16:20:00 CDT Inactive 11/20/2016 [facility] metoprolol (ANES) Route: IV, Drug form: INJ, ONCE, Stop date: 11/20/16 15:11:00 CDT Inactive 11/20/2016 [facility] rocuronium (ANES) Route: IV, Drug form: INJ, ONCE, Stop date: 11/20/16 14:51:00 CDT Inactive 11/20/2016 [facility] hydrocortisone (ANES) Route: IV, Drug form: INJ, ONCE, Stop date: 11/20/16 14:24:00 CDT Inactive 11/20/2016 [facility] propofol (ANES) Route: IV, Drug form: INJ, ONCE, Stop date: 11/20/16 14:19:00 CDT Inactive 11/20/2016 [facility] rocuronium (ANES) Route: IV, Drug form: INJ, ONCE, Stop date: 11/20/16 14:19:00 CDT Inactive 11/20/2016 [facility] lidocaine (ANES) Route: IV, Drug form: INJ, ONCE, Stop date: 11/20/16 14:19:00 CDT Inactive 11/20/2016 [facility] fentaNYL (ANES) Route: IV, Drug form: INJ, ONCE, Stop date: 11/20/16 14:19:00 CDT Inactive 11/20/2016 [facility] midazolam (ANES) Route: IV, Drug form: SOLN, ONCE, Stop date: 11/20/16 14:19:00 CDT Inactive 11/20/2016 [facility] piperacillin-tazobactam (ANES) (ANES) Route: IV, Drug form: INJ, Start date: 11/20/16 13:45:00 CDT, Stop date: 11/20/16 14:45:00 CDT Inactive 11/20/2016 [facility] LR 1000 mL INJ (ANES) Route: IV, Total Volume: 1,000, Start date: 11/20/16 13:15:00 CDT, Stop date: 11/20/16 14:15:00 CDT Inactive 11/20/2016 [facility] heparin 5,000 unit, 1 mL, Route: SUB-Q, Drug form: INJ, Q8H, Dosing Weight 68.182, kg, Start date: 11/19/16 12:00:00 CDT, Duration: 30 day, Stop date: 12/19/16 4:00:00 CDTNotes: porcine heparin No Longer Active 11/19/2016 [facility] carvedilol 6.25 mg, 1 tab, Route: PO, Drug form: TAB, BID, Dosing Weight 68.182, kg, Start date: 11/18/16 21:00:00 CDT, Duration: 30 day, Stop date: 12/18/16 9:00:00 CDTNotes: Give with food. (Same As: Coreg) No Longer Active 11/19/2016 [facility] Prednisone 10 mg, 1 tab, Route: PO, Drug form: TAB, Daily, Dosing Weight 68.182, kg, Start date: 11/18/16 9:00:00 CDT, Duration: 30 day, Stop date: 12/17/16 9:00:00 CDTNotes: (Same as: PredniSONE) Take with food. No Longer Active 11/18/2016 [facility] pantoprazole 40 mg, 1 tab, Route: PO, Drug form: ECTAB, Daily, Dosing Weight 68.182, kg, Start date: 11/18/16 9:00:00 CDT, Duration: 30 day, Stop date: 12/17/16 9:00:00 CDTNotes: Tablet should not be chewed or cr ushed. (Same as: Protonix) No Longer Active 11/18/2016 [facility] Iohexol 100 mL, Route: IVP, Drug Form: SOLN, Dosing Weight 68.182, kg, ONCALL, STAT, Start date: 11/18/16 1:49:00 CDT, Duration: 1 doses or times, Dose=2.2ml/kg, Max aotp=[id number] -- "To be infused by Radiology Staff ONLY"Notes: (same as:Omnipaque 350). WASTE: F/P - Black; E - Municipal Trash Bin No Longer Active 11/18/2016 [facility] Acetaminophen 650 mg, 2 tab, Route: PO, Drug form: TAB, Q6H, Dosing Weight 68.182, kg, PRN For Temp > 100.4 F, Start date: 11/17/16 21:09:00 CDT, Duration: 30 day, Stop date: 12/17/16 21:08:00 CDTNotes: Do not exceed 4 gm/day. (Same as: Tylenol) No Longer Active 11/18/2016 [facility] Morphine 2 mg, 1 mL, Route: IVP, Drug form: INJ, Q4H, Dosing Weight 68.182, kg, PRN Pain Score 7-10, Start date: 11/17/16 21:03:00 CDT, Duration: 30 day, Stop date: 12/17/16 21:02:00 CDTNotes: (Same as:MORPhine Sulfate) No Longer Active 11/18/2016 [facility] Acetaminophen 325 MG / Hydrocodone Bitartrate 5 MG Oral Tablet [Purdy 5/325] 1 tab, Route: PO, Drug Form: TAB, Dosing Weight 68.182, kg, Q4H, PRN Pain Score 1-3, Start date: 11/17/16 21:02:00 CDT, Duration: 30 day, Stop date: 12/17/16 21:01:00 CDTNotes: (Same as: Purdy 325/5) Do not exceed 4gm/day of acetaminophen. No Longer Active 11/18/2016 [facility] Lactated Ringers 1,000 mL 1,000 mL, Rate: 125 ml/hr, Infuse over: 8 hr, Route: IV, Dosing Weight 68.182 kg, Total Volume: 1,000, Start date: 11/17/16 18:58:00 CDT, Duration: 30 day, Stop date: 12/17/16 18:57:00 CDT No Longer Active 11/17/2016 [facility] Symbicort 160/4.5 inhalation aerosol with adapter 2 puff, Route: INHALATION, Drug Form: AERO/A, Dosing Weight 68.182, kg, RBID, Start date: 11/17/16 18:23:00 CDT, Duration: 30 day, Stop date: 12/17/16 8:00:00 CDTNotes: (Same as: Symbicort) WASTE: Aerosol - Return to Pharmacy No Longer Active 11/17/2016 [facility] Zosyn 3.375 gm, Route: IVPB, Drug form: PDR/INJ, [id number], Dosing Weight 68.182, kg, CrCl >=20 ml/min infuse over 4 hours, Start date: 11/17/16 18:00:00 CDT, Duration: 14 day, Stop date: 12/01/16 10:00:00 CDT, ABX Indication: Intra-abdominal InfectionNotes: (Same as: Zosyn) Dosing based on Piperacillin component MEDICATION WASTE Product Size: 3375 mg Product Wasted: ___ mg No Longer Active 11/17/2016 [facility] tramadol hydrochloride 50 MG Oral Tablet 100 mg, 2 tab, Route: PO, Drug form: TAB, Q6H, Dosing Weight 68.182, kg, PRN Pain Score 4-6, Start date: 11/17/16 17:58:00 CDT, Duration: 30 day, Stop date: 12/17/16 17:57:00 CDTNotes: Not to exceed 400mg/day. (Same As: Ultram) No Longer Active 11/17/2016 [facility] Fluticasone propionate 0.1 MG/ACTUAT / salmeterol 0.05 MG/ACTUAT Dry Powder Inhaler 2 inhalation, Route: INHALER, Drug Form: AERO, Dosing Weight 68.182, kg, RBID, Start date: 11/17/16 17:58:00 CDT, Duration: 30 day, Stop date: 12/17/16 8:00:00 CDTNotes: Non-Formulary Drug (Same as: Advair) No Longer Active 11/17/2016 [facility] Fluticasone propionate 0.1 MG/ACTUAT / salmeterol 0.05 MG/ACTUAT Dry Powder Inhaler 2 inhalation, INHALER, RBID, 0 Refill(s) Active 11/14/2016 [facility] tramadol hydrochloride 50 MG Oral Tablet 100 mg=2 tab, PO, Q6H, PRN Pain Score 4-6, X 7 day, # 56 tab, 0 Refill(s) Active 11/14/2016 [facility] psyllium 3.4 g/3.7 g oral powder 3.4 gm=, PO, Daily, X 30 day, # 300 gm, 0 Refill(s) Active 11/14/2016 [facility] ciprofloxacin 500 mg oral tablet 500 mg=1 tab, PO, [id number], X 7 day, # 14 tab, 0 Refill(s) Active 11/14/2016 [facility] clopidogrel 75 mg oral tablet 75 mg=1 tab, PO, Q24H, 0 Refill(s) Active 11/14/2016 [facility] Docusate Sodium 100 MG Oral Capsule 100 mg=1 cap, PO, Q12H, # 60 cap, 0 Refill(s) Active 11/14/2016 [facility] carvedilol 6.25 mg oral tablet 6.25 mg=1 tab, PO, BID, 0 Refill(s) Active 11/14/2016 [facility] aspirin 81 mg tablet, enteric coated 81 mg=1 tab, PO, Daily, 0 Refill(s) Active 11/14/2016 [facility] Metronidazole 500 MG Oral Tablet 500 mg=1 tab, PO, Q8H, X 7 day, # 21 tab, 0 Refill(s) Active 11/14/2016 [facility] methocarbamol 500 mg oral tablet 1,000 mg=2 tab, PO, Q8H, X 14 day, # 84 tab, 0 Refill(s) Active 11/14/2016 [facility] predniSONE 10 mg oral tablet 10 mg=1 tab, PO, Daily, 0 Refill(s) Active 11/14/2016 [facility] pravastatin 20 mg oral tablet 20 mg=1 tab, PO, Bedtime, 0 Refill(s) Active 11/14/2016 [facility] pantoprazole 40 mg oral enteric coated tablet 40 mg=1 tab, PO, Daily, 0 Refill(s) Active 11/14/2016 [facility] lisinopril 5 mg oral tablet 5 mg=1 tab, PO, Daily, 0 Refill(s) Active 11/14/2016 [facility] glycerin adult rectal suppository 1 supp, Route: WA, Drug Form: SUPP, Dosing Weight 70.909, kg, ONCE, NOW, Start date: 11/14/16 10:24:00 CDT, Stop date: 11/14/16 10:24:00 CDT Inactive 11/14/2016 [facility] Celebrex 200 mg, 1 cap, Route: PO, Drug form: CAP, BID, Dosing Weight 70.909, kg, Start date: 11/13/16 17:00:00 CDT, Duration: 30 day, Stop date: 12/13/16 9:00:00 CDTNotes: NSAID. Please check indication. Not for seizure. (Same As: CeleBREX) No Longer Active 11/13/2016 [facility] Acetaminophen 325 mg, 1 tab, Route: PO, Drug form: TAB, Q6H, Dosing Weight 70.909, kg, PRN Pain Score 1-3, Start date: 11/13/16 15:50:00 CDT, Duration: 30 day, Stop date: 12/13/16 15:49:00 CDTNotes: Do not exceed 4 gm/day. (Same as: Tylenol) No Longer Active 11/13/2016 [facility] Roxicodone 5 mg, 1 tab, Route: PO, Drug form: TAB, Q6H, PRN Pain Score 7-10, Start date: 11/13/16 9:33:00 CDT, Duration: 30 day, Stop date: 12/13/16 9:32:00 CDTNotes: (Same as: Roxicodone) Inactive 11/13/2016 [facility] Metamucil 3.4 gm, 1 pkt, Route: PO, Drug Form: PDR/REC, Dosing Weight 70.909, kg, Daily, Start date: 11/13/16 9:00:00 CDT, Duration: 30 day, Stop date: 12/12/16 9:00:00 CDTNotes: (Same as: Metamucil) Mix in 8 oz liquid with meal. No Longer Active 11/13/2016 [facility] Ibuprofen 400 mg, Route: PO, Drug form: TAB, Q4H, Dosing Weight 70.909, kg, PRN Pain Score 1-3, Start date: 11/13/16 8:56:00 CDT, Duration: 30 day, Stop date: 12/13/16 8:55:00 CDT Inactive 11/13/2016 [facility] Tramadol 100 mg, 2 tab, Route: PO, Drug form: TAB, Q6H, Dosing Weight 70.909, kg, PRN Pain Score 4-6, Start date: 11/13/16 8:55:00 CDT, Duration: 30 day, Stop date: 12/13/16 8:54:00 CDTNotes: Not to exceed 400mg/day. (Same As: Ultram) No Longer Active 11/13/2016 [facility] Flagyl 500 mg, 1 tab, Route: PO, Drug form: TAB, Q8H, Dosing Weight 70.909, kg, Start date: 11/11/16 16:00:00 CDT, Duration: 7 day, Stop date: 11/18/16 8:00:00 CDT, ABX Indication: Intra-abdominal InfectionNotes: (Same as: Flagyl) Take with food/ avoid alcohol No Longer Active 11/11/2016 [facility] Robaxin 1,000 mg, 2 tab, Route: PO, Drug form: TAB, Q8H, Start date: 11/11/16 16:00:00 CDT, Duration: 30 day, Stop date: 12/11/16 8:00:00 CDTNotes: (Same as:Robaxin) No Longer Active 11/11/2016 [facility] Lisinopril 5 mg, 1 tab, Route: PO, Drug form: TAB, Daily, Dosing Weight 70.909, kg, Start date: 11/11/16 14:00:00 CDT, Duration: 30 day, Stop date: 12/11/16 9:00:00 CDTNotes: (Same as: Prinivil, Zestril) No Longer Active 11/11/2016 [facility] fluticasone-salmeterol 2 inhalation, Route: INHALER, Drug Form: AERO, RBID, Start date: 11/11/16 14:00:00 CDT, Duration: 30 day, Stop date: 12/11/16 8:00:00 CDTNotes: Non-Formulary Drug (Same as: Advair) No Longer Active 11/11/2016 [facility] Cipro 500 mg, 1 tab, Route: PO, Drug form: TAB, [id number], Dosing Weight 70.909, kg, Start date: 11/11/16 10:00:00 CDT, Duration: 7 day, Stop date: 11/17/16 22:00:00 CDT, ABX Indication: Intra-abdominal Infecti onNotes: May interfere w/enteral feedings - Take 1 hr before or 2 hrs after antacids, dairy pdt & minerals. On empty stomach. No Longer Active 11/11/2016 [facility] clopidogrel 75 mg, Route: PO, Drug form: TAB, Daily, Dosing Weight 70.909, kg, Start date: 11/11/16 9:00:00 CDT, Duration: 30 day, Stop date: 12/10/16 9:00:00 CDT No Longer Active 11/11/2016 [facility] Hydrocortisone 5 mg, Route: PO, Daily, Dosing Weight 70.909, kg, Start date: 11/11/16 9:00:00 CDT, Duration: 30 day, Stop date: 12/10/16 9:00:00 CDT No Longer Active 11/11/2016 [facility] Advair Diskus 100 mcg-50 mcg inhalation powder 1 puff, Route: INHALATION, Drug Form: PWDR, Dosing Weight 70.909, kg, BID, Start date: 11/11/16 9:00:00 CDT, Duration: 30 day, Stop date: 12/10/16 17:00:00 CDT Inactive 11/11/2016 [facility] Pravastatin 20 mg, 1 tab, Route: PO, Drug form: TAB, Bedtime, Dosing Weight 70.909, kg, Start date: 11/10/16 21:00:00 CDT, Duration: 30 day, Stop date: 12/09/16 21:00:00 CDTNotes: (Same as: Pravachol) No Longer Active 11/11/2016 [facility] clopidogrel 75 mg, 1 tab, Route: PO, Drug form: TAB, Q24H, Dosing Weight 70.909, kg, Start date: 11/10/16 17:13:00 CDT, Duration: 30 day, Stop date: 12/09/16 17:13:00 CDTNotes: (Same As: Plavix) No Longer Active 11/10/2016 [facility] Prednisone 10 mg, 1 tab, Route: PO, Drug form: TAB, Daily, Dosing Weight 70.909, kg, Start date: 11/10/16 9:00:00 CDT, Stop date: 12/11/16 9:00:00 CDTNotes: (Same as: PredniSONE) Take with food. No Longer Active 11/10/2016 [facility] pantoprazole 40 mg, 1 tab, Route: PO, Drug form: ECTAB, Daily, Dosing Weight 70.909, kg, Start date: 11/10/16 9:00:00 CDT, Duration: 30 day, Stop date: 12/09/16 9:00:00 CDTNotes: Tablet should not be chewed or cr ushed. (Same as: Protonix) No Longer Active 11/10/2016 [facility] Advair Diskus 100 mcg-50 mcg inhalation powder 1 puff, Route: INHALATION, Drug Form: PWDR, Dosing Weight 70.909, kg, BID, Start date: 11/10/16 9:00:00 CDT, Duration: 30 day, Stop date: 12/09/16 17:00:00 CDT Inactive 11/10/2016 [facility] Symbicort 160/4.5 inhalation aerosol with adapter 2 inhalation, Route: INHALATION, Drug Form: AERO/A, Dosing Weight 70.909, kg, BID, Start date: 11/10/16 9:00:00 CDT, Duration: 30 day, Stop date: 12/09/16 17:00:00 CDTNotes: (Same as: Symbicort) WASTE: Aerosol - Return to Pharmacy No Longer Active 11/10/2016 [facility] carvedilol 6.25 mg, 1 tab, Route: PO, Drug form: TAB, BID, Dosing Weight 70.909, kg, Start date: 11/10/16 9:00:00 CDT, Duration: 30 day, Stop date: 12/09/16 17:00:00 CDTNotes: Give with food. (Same As: Coreg) No Longer Active 11/10/2016 [facility] aspirin 81 mg tablet, enteric coated 81 mg, 1 tab, Route: PO, Drug form: CHEWTAB, Daily, Dosing Weight 70.909, kg, Start date: 11/10/16 9:00:00 CDT, Duration: 30 day, Stop date: 12/09/16 9:00:00 CDTNotes: Take with food. No Longer Active 11/10/2016 [facility] predniSONE 5 mg oral tablet 10 mg=2 tab, PO, Daily, Give with food., # 30 tab, 0 Refill(s) No Longer Active 11/10/2016 [facility] Lovenox 40 mg, 0.4 mL, Route: SUB-Q, Drug form: INJ, [id number], Dosing Weight 70.909, kg, Priority: Routine, Start date: 11/09/16 16:00:00 CDT, Duration: 30 day, Stop date: 12/08/16 16:00:00 CDTNotes: (Same as: Lovenox) No Longer Active 11/09/2016 [facility] Miralax 17 gm, 1 pkt, Route: PO, Drug form: PWDR, Daily, Dosing Weight 70.909, kg, Start date: 11/09/16 9:00:00 CDT, Duration: 30 day, Stop date: 12/08/16 9:00:00 CDTNotes: Dissolve in 8 oz of water or juice. (Same as: Miralax) No Longer Active 11/09/2016 [facility] cefepime 1 gm, Route: IVPB, Drug form: INJ, [id number], Dosing Weight 70.909, kg, (CrCl >/=50 ml/min), Start date: 11/08/16 23:00:00 CDT, Duration: 14 day, Stop date: 11/22/16 11:00:00 CDT, ABX Indication: Intra- abdominal InfectionNotes: (Same As: Maxipime) MEDICATION WASTE Product Size: 1000 mg Product Wasted: ___ mg No Longer Active 11/09/2016 [facility] Ofirmev 1,000 mg, 100 mL, Route: IV, Drug form: INJ, Q6H, Dosing Weight 70.909, kg, for > or=50 kg, Priority: STAT, Start date: 11/08/16 22:01:00 CDT, Duration: 48 hr, Stop date: 11/10/16 18:00:00 CDTNotes: Infuse over 15 minutes Do not exceed 4gm/day of acetaminophen MEDICATION WASTE Product Size: 1000 mg Product Wasted: ___ mg No Longer Active 11/09/2016 [facility] Dilaudid 0.2 mg, 0.1 mL, Route: IVP, Drug form: INJ, Q3H, Dosing Weight 70.909, kg, PRN Pain Score 7-10, Start date: 11/08/16 21:59:00 CDT, Duration: 30 day, Stop date: 12/08/16 21:58:00 CDTNotes: Same as: Dilaudid No Longer Active 11/09/2016 [facility] Flagyl 500 mg, 100 mL, Route: IVPB, Drug form: INJ, [id number], Dosing Weight 70.909, kg, Start date: 11/08/16 19:00:00 CDT, Duration: 14 day, Stop date: 11/22/16 10:00:00 CDT, ABX Indication: Intra-abdominal Infe ctionNotes: (Same as: Flagyl) Avoid alcohol. No Longer Active 11/09/2016 [facility] Hydrocortisone 100 mg, 2 mL, Route: IV, Drug form: PDR/INJ, Q8H, Dosing Weight 70.909, kg, Priority: NOW, Start date: 11/08/16 18:24:00 CDT, Duration: 30 day, Stop date: 12/08/16 18:00:00 CDTNotes: (Same as: Apple FUNG) No Longer Active 11/08/2016 [facility] Ofirmev 1,000 mg, 100 mL, Route: IV, Drug form: INJ, Q6H, Dosing Weight 70.909, kg, for > or=50 kg, Start date: 11/08/16 18:00:00 CDT, Stop date: 11/10/16 12:00:00 CDTNotes: Infuse over 15 minutes Do not exceed 4gm/day of acetaminophen MEDICATION WASTE Product Size: 1000 mg Product Wasted: ___ mg Inactive 11/08/2016 [facility] Docusate 100 mg, 1 cap, Route: PO, Drug form: CAP, Q12H, Dosing Weight 70.909, kg, Start date: 11/08/16 17:00:00 CDT, Stop date: 12/08/16 9:00:00 CDTNotes: (Same as: Colace) (Do Not Crush) No Longer Active 11/08/2016 [facility] Insulin regular 5 unit, 0.05 mL, Route: SUB-Q, Drug form: SOLN, Sliding Scale, Dosing Weight 70.909, kg, PRN Blood Glucose Results, Start date: 11/08/16 16:48:00 CDT, Stop date: 12/08/16 16:47:00 CDTNotes: (Same as: Rony Beth) Roll in palms of hands gently; Do not shake vigorously. "single patient use only" (Restricted to patients requiring a dose > 60 units) WASTE: F/P - Black; E - Municipal Trash Bin Stable for 28 days at room temperature Expires in days from Date No Longer Active 11/08/2016 [facility] Glucagon 1 mg, Route: IM, Drug form: PDR/INJ, PRN, Dosing Weight 70.909, kg, PRN Blood Glucose Results, Start date: 11/08/16 16:48:00 CDT, Stop date: 12/08/16 16:47:00 CDT No Longer Active 11/08/2016 [facility] Dextrose 50% Syringe 12.5 gm, 25 mL, Route: IVP, Drug Form: INJ, Dosing Weight 70.909, kg, PRN, PRN Blood Glucose Results, Start date: 11/08/16 16:48:00 CDT, Stop date: 12/08/16 16:47:00 CDT No Longer Active 11/08/2016 [facility] Robaxin 1,000 mg, 10 mL, Route: IV, Drug form: INJ, Q8H, Dosing Weight 70.909, kg, Start date: 11/08/16 16:00:00 CDT, Stop date: 12/08/16 8:00:00 CDTNotes: (Same as:Robaxin) No Longer Active 11/08/2016 [facility] Fluconazole 200 mg, 100 mL, Route: IVPB, Drug form: INJ, [id number], Dosing Weight 70.909, kg, Start date: 11/08/16 16:00:00 CDT, Stop date: 11/21/16 16:00:00 CDTNotes: (Same as: Diflucan) No Longer Active 11/08/2016 [facility] Rocephin 1 gm, Route: IVPB, Drug form: PDR/INJ, [id number], Dosing Weight 70.909, kg, Start date: 11/08/16 16:00:00 CDT, Duration: 14 day, Stop date: 11/21/16 16:00:00 CDT, ABX Indication: Intra-abdominal Infection Notes: (Same As: Rocephin). Use with 100 mL NS and infuse over 30 min MEDICATION WASTE Product Size: 1000 mg Product Wasted: ___ mg Inactive 11/08/2016 [facility] Saline Flush 0.9% 10 ml, Route: IVP, Drug Form: INJ, Dosing Weight 70.909, kg, PRN, PRN Line Flush, Start date: 11/08/16 15:30:00 CDT, Stop date: 12/08/16 15:29:00 CDTNotes: (Same as: BD Posiflush) No Longer Active 11/08/2016 [facility] Lactated Ringers 1,000 mL 1,000 mL, Rate: 75 ml/hr, Infuse over: 13.3 hr, Route: IV, Dosing Weight 70.909 kg, Total Volume: 1,000, Start date: 11/08/16 15:30:00 CDT, Stop date: 12/08/16 15:29:00 CDT No Longer Active 11/08/2016 [facility] Bisacodyl 10 mg, 1 supp, Route: WA, Drug form: SUPP, Daily, Dosing Weight 70.909, kg, PRN Constipation, Start date: 11/08/16 15:30:00 CDT, Stop date: 12/08/16 15:29:00 CDTNotes: (Same As: Dulcolax, Bisco-Lax) No Longer Active 11/08/2016 [facility] Dilaudid 0.2 mg, 0.1 mL, Route: IVP, Drug form: INJ, Q3H, Dosing Weight 70.909, kg, PRN Pain Score 7-10, Start date: 11/08/16 15:30:00 CDT, Stop date: 12/08/16 15:29:00 CDTNotes: Same as: Dilaudid Inactive 11/08/2016 [facility] Lovenox 40 mg, 0.4 mL, Route: SUB-Q, Drug form: INJ, [id number], Dosing Weight 70.909, kg, Priority: STAT, Start date: 11/08/16 15:30:00 CDT, Stop date: 12/07/16 15:30:00 CDTNotes: (Same as: Lovenox) No Longer Active 11/08/2016 [facility] Tylenol 1,000 mg, Route: PO, ONCE, Dosing Weight 70.909, kg, Start date: 11/08/16 14:40:00 CDT, Stop date: 11/08/16 14:40:00 CDT Inactive 11/08/2016 [facility] Albuterol 0.833 MG/ML / Ipratropium Mcgehee 0.167 MG/ML Inhalant Solution [DuoNeb] 3 ml, Route: NEB, Drug Form: SOLN, Dosing Weight 70.909, kg, PRN, PRN Respiratory Protocol, Start date: 11/08/16 12:32:00 CDT, Stop date: 12/08/16 12:31:00 CDTNotes: (Same as: Duoneb) No Longer Active 11/08/2016 [facility] iodixanol 100 mL, Route: IVP, Drug Form: SOLN, Dosing Weight 70.909, kg, ONCALL, STAT, Start date: 11/08/16 11:18:00 CDT, Duration: 1 doses or times, Dose=2.2ml/kg, Max [id number] -- "To be infused by Radiology Staff ONLY" Inactive 11/08/2016 [facility] cefepime 1 gm, Route: IVPB, Drug form: INJ, ONCE, Dosing Weight 70.909, kg, Priority: STAT, Start date: 11/08/16 10:45:00 CDT, Duration: 1 doses or times, Stop date: 11/08/16 10:45:00 CDT, ABX Indication: Intra- abdominal InfectionNotes: (Same As: Maxipime) MEDICATION WASTE Product Size: 1000 mg Product Wasted: ___ mg Inactive 11/08/2016 [facility] Vancomycin 1,500 mg, Route: IVPB, ONCE, Dosing Weight 70.909, kg, Priority: STAT, Start date: 11/08/16 10:45:00 CDT, Duration: 1 doses or times, Stop date: 11/08/16 10:45:00 CDT, ABX Indication: Intra-abdominal In fectionNotes: TIME CRITICAL MEDICATION (Same As: Vancocin) Infusion rate 2001 mg: infuse over 2.5 hours MEDICATION WASTE Product Size: 1000 mg Product Wasted: ___ mg Inactive 11/08/2016 [facility] Flagyl 500 mg, 100 mL, Route: IVPB, Drug form: INJ, ONCE, Dosing Weight 70.909, kg, Priority: STAT, Start date: 11/08/16 10:45:00 CDT, Duration: 1 doses or times, Stop date: 11/08/16 10:45:00 CDT, ABX Indication: Intra-abdominal InfectionNotes: (Same as: Flagyl) Avoid alcohol. Inactive 11/08/2016 [facility] Saline Flush 0.9% 10 mL, Route: IVP, Drug Form: INJ, Dosing Weight 70.909, kg, PRN, PRN Line Flush, Start date: 11/08/16 10:44:00 CDT, Stop date: 12/08/16 10:43:00 CDTNotes: Same as: BD Posiflush Sterile No Longer Active 11/08/2016 [facility] Sodium Chloride 0.154 MEQ/ML Injectable Solution 2,250 mL, 2045.45 ml/hr, Infuse Over: 1.1 hr, Route: IV, 2,250, Drug form: INJ, ONCE, Priority: STAT, Dosing Weight 70.909 kg, Start date: 11/08/16 10:44:00 CDT, Duration: 1 doses or times, Stop date: 11/08/16 10:44:00 CDT Inactive 11/08/2016 [facility] Zofran 4 mg, 2 mL, Route: IVP, Drug form: INJ, ONCE, Dosing Weight 70.909, kg, Priority: STAT, Start date: 11/08/16 10:44:00 CDT, Stop date: 11/08/16 10:44:00 CDTNotes: (Same as: Zofran) MEDICATION WASTE Product Size: 4 mg Product Wasted: ___ mg Inactive 11/08/2016 [facility] pantoprazole 40 mg, 1 tab, Route: PO, Drug form: ECTAB, Daily, Dosing Weight 70.455, kg, Start date: 06/07/16 9:00:00 MONUMENT LETTERER, Duration: 30 day, Stop date: 07/06/16 9:00:00 CSTNotes: Tablet should not be chewed or cr ushed. (Same as: Protonix) Inactive 06/07/2016 [facility] Lisinopril 5 mg, 1 tab, Route: PO, Drug form: TAB, Daily, Dosing Weight 70.455, kg, Start date: 06/07/16 9:00:00 MONUMENT LETTERER, Duration: 30 day, Stop date: 07/06/16 9:00:00 CSTNotes: (Same as: Prinivil, Zestril) Inactive 06/07/2016 [facility] Advair Diskus 100 mcg-50 mcg inhalation powder 1 puff, Route: INHALATION, Drug Form: PWDR, Dosing Weight 70.455, kg, BID, Start date: 06/07/16 9:00:00 MONUMENT LETTERER, Duration: 30 day, Stop date: 07/06/16 17:00:00 MONUMENT LETTERER No Longer Active 06/07/2016 [facility] clopidogrel 75 mg, 1 tab, Route: PO, Drug form: TAB, Daily, Dosing Weight 70.455, kg, Start date: 06/07/16 9:00:00 MONUMENT LETTERER, Duration: 30 day, Stop date: 07/06/16 9:00:00 CSTNotes: (Same As: Plavix) Inactive 06/07/2016 [facility] carvedilol 6.25 mg, 1 tab, Route: PO, Drug form: TAB, BID, Dosing Weight 70.455, kg, Start date: 06/07/16 9:00:00 MONUMENT LETTERER, Duration: 30 day, Stop date: 07/06/16 17:00:00 CSTNotes: Give with food. (Same As: Coreg) Inactive 06/07/2016 [facility] Symbicort 160/4.5 inhalation aerosol with adapter 2 inhalation, Route: INHALATION, Drug Form: AERO/A, Dosing Weight 70.455, kg, BID, Start date: 06/07/16 9:00:00 MONUMENT LETTERER, Duration: 30 day, Stop date: 07/06/16 17:00:00 CSTNotes: (Same as: Symbicort) WASTE: Aerosol - Return to Pharmacy Inactive 06/07/2016 [facility] aspirin 81 mg tablet, enteric coated 81 mg, 1 tab, Route: PO, Drug form: ECTAB, Daily, Dosing Weight 70.455, kg, Start date: 06/07/16 9:00:00 MONUMENT LETTERER, Duration: 30 day, Stop date: 07/06/16 9:00:00 CSTNotes: Do not crush or chew. (Same As: Ecotrin) Inactive 06/07/2016 [facility] Chantix 1 mg, 2 tab, Route: PO, Drug form: TAB, Daily, Dosing Weight 70.455, kg, Start date: 06/07/16 9:00:00 MONUMENT LETTERER, Duration: 30 day, Stop date: 07/06/16 9:00:00 CSTNotes: Same as Chantix Inactive 06/07/2016 [facility] Prednisone 40 mg, 2 tab, Route: PO, Drug form: TAB, Daily, Dosing Weight 70.455, kg, Start date: 06/07/16 9:00:00 MONUMENT LETTERER, Duration: 30 day, Stop date: 07/06/16 9:00:00 CSTNotes: Take with food. Inactive 06/07/2016 [facility] Acetaminophen 300 MG / Codeine Phosphate 30 MG Oral Tablet 2 tab, PO, Q4H, PRN Pain Score 4-6, X 5 day, # 60 tab, 0 Refill(s) Active 06/07/2016 [facility] Pravastatin 20 mg, 1 tab, Route: PO, Drug form: TAB, Bedtime, Dosing Weight 70.455, kg, Start date: 06/06/16 21:00:00 MONUMENT LETTERER, Duration: 30 day, Stop date: 07/05/16 21:00:00 CSTNotes: (Same as: Pravachol) No Longer Active 06/07/2016 [facility] Vancomycin 1,000 mg, Route: IVPB, Drug form: INJ, [id number], Dosing Weight 70.455, kg, Time Critical Medication, Start date: 06/06/16 17:00:00 MONUMENT LETTERER, Duration: 1 day, Stop date: 06/07/16 9:00:00 CSTNotes: TIME CRITI LESLIE MEDICATION (Same As: Vancocin) Infusion rate 2001 mg: infuse over 2.5 hours MEDICATION WASTE Product Size: 1000 mg Product Wasted: ___ mg No Longer Active 06/06/2016 [facility] acetaminophen-codeine #3 2 tab, Route: PO, Drug Form: TAB, Dosing Weight 70.455, kg, Q4H, PRN Pain Score 7-10, Start date: 06/06/16 12:24:00 MONUMENT LETTERER, Duration: 30 day, Stop date: 07/06/16 12:23:00 CSTNotes: Do not exceed 4gm/day of acetaminophen. (Same as: Tylenol with Codeine # 3) No Longer Active 06/06/2016 [facility] Ondansetron 4 mg, 2 mL, Route: IVP, Drug form: INJ, Q8H, Dosing Weight 70.455, kg, PRN Nausea & Vomiting, Start date: 06/06/16 12:24:00 MONUMENT LETTERER, Duration: 30 day, Stop date: 07/06/16 12:23:00 CSTNotes: (Same as: Zofran) MEDICATION WASTE Product Size: 4 mg Product Wasted: ___ mg No Longer Active 06/06/2016 [facility] Chantix 1 mg oral tablet 1 mg=1 tab, PO, Daily, # 30 tab, 0 Refill(s) Active 06/06/2016 [facility] pravastatin 20 mg oral tablet 20 mg=1 tab, PO, Bedtime, # 90 tab, 1 Refill(s) Active 06/06/2016 [facility] Cefazolin 2 gm, 100 mL, Route: IVPB, Drug form: INJ, ONCE, Dosing Weight 70.455, kg, Start date: 06/06/16 6:06:00 MONUMENT LETTERER, Duration: 1 doses or times, Stop date: 06/06/16 6:06:00 MONUMENT LETTERER, Surgical Prophylaxis Only; For patients Notes: Same as: Ancef Inactive 06/06/2016 [facility] sodium chloride 0.9% 1000 ml INJ 1,000 mL 1,000 mL, Rate: 50 ml/hr, Infuse over: 20 hr, Route: IV, Dosing Weight 70.455 kg, Total Volume: 1,000, Start date: 06/06/16 6:04:00 MONUMENT LETTERER, Duration: 30 day, Stop date: 07/06/16 6:03:00 MONUMENT LETTERER No Longer Active 06/06/2016 [facility] pantoprazole 40 mg, 1 tab, Route: PO, Drug form: ECTAB, Daily, Dosing Weight 71.364, kg, Start date: 05/09/16 9:00:00 MONUMENT LETTERER, Duration: 30 day, Stop date: 06/07/16 9:00:00 CSTNotes: Tablet should not be chewed or cr ushed. (Same as: Protonix) No Longer Active 05/09/2016 [facility] multivitamin Route: PO, Drug Form: TAB, Dosing Weight 71.364, kg, Daily, Start date: 05/09/16 9:00:00 MONUMENT LETTERER, Duration: 30 day, Stop date: 06/07/16 9:00:00 MONUMENT LETTERER No Longer Active 05/09/2016 [facility] Lisinopril 5 mg, 1 tab, Route: PO, Drug form: TAB, Daily, Dosing Weight 71.364, kg, Start date: 05/09/16 9:00:00 MONUMENT LETTERER, Duration: 30 day, Stop date: 06/07/16 9:00:00 CSTNotes: (Same as: Prinivil, Zestril) No Longer Active 05/09/2016 [facility] clopidogrel 75 mg, 1 tab, Route: PO, Drug form: TAB, Daily, Dosing Weight 71.364, kg, Start date: 05/09/16 9:00:00 MONUMENT LETTERER, Duration: 30 day, Stop date: 06/07/16 9:00:00 CSTNotes: (Same As: Plavix) No Longer Active 05/09/2016 [facility] aspirin 81 mg tablet, enteric coated 81 mg, 1 tab, Route: PO, Drug form: ECTAB, Daily, Dosing Weight 71.364, kg, Start date: 05/09/16 9:00:00 MONUMENT LETTERER, Duration: 30 day, Stop date: 06/07/16 9:00:00 CSTNotes: Do not crush or chew. (Same As: Ecotrin) No Longer Active 05/09/2016 [facility] Vitamin B 12 1,000 microgram, Route: SL, Drug form: TAB, Daily, Dosing Weight 71.364, kg, Start date: 05/09/16 9:00:00 MONUMENT LETTERER, Duration: 30 day, Stop date: 06/07/16 9:00:00 MONUMENT LETTERER No Longer Active 05/09/2016 [facility] Plavix 75 mg, Route: PO, Drug form: TAB, Daily, Dosing Weight 71.364, kg, Start date: 05/09/16 9:00:00 MONUMENT LETTERER, Duration: 30 day, Stop date: 06/07/16 9:00:00 MONUMENT LETTERER No Longer Active 05/09/2016 [facility] Aspirin 81 mg, Route: PO, Daily, Dosing Weight 71.364, kg, Start date: 05/09/16 9:00:00 MONUMENT LETTERER, Duration: 30 day, Stop date: 06/07/16 9:00:00 MONUMENT LETTERER No Longer Active 05/09/2016 [facility] carvedilol 6.25 mg, 1 tab, Route: PO, Drug form: TAB, Q12H, Dosing Weight 71.364, kg, Start date: 05/08/16 21:00:00 MONUMENT LETTERER, Duration: 30 day, Stop date: 06/07/16 9:00:00 CSTNotes: Give with food. (Same As: Coreg) Inactive 05/09/2016 [facility] Morphine 2 mg, 1 mL, Route: IVP, Drug form: INJ, ONCE, Dosing Weight 71.364, kg, Start date: 05/08/16 20:11:00 MONUMENT LETTERER, Stop date: 05/08/16 20:11:00 CSTNotes: (Same as:MORPhine Sulfate) Inactive 05/09/2016 [facility] aspirin 81 mg tablet, enteric coated 81 mg=1 tab, PO, Daily, 0 Refill(s) Active 05/09/2016 [facility] cilostazol 100 mg oral tablet 100 mg, PO, BID, 0 Refill(s) Active 05/09/2016 [facility] cyanocobalamin 1000 mcg with salcaprozate sodium oral tablet 1,000 microgram, SL, Daily, 0 Refill(s) Active 05/09/2016 [facility] clopidogrel 75 mg oral tablet 75 mg=1 tab, PO, Daily, 0 Refill(s) Active 05/09/2016 [facility] carvedilol 6.25 mg oral tablet 6.25 mg=1 tab, PO, Q12H, 0 Refill(s) Active 05/09/2016 [facility] Symbicort 160/4.5 inhalation aerosol with adapter 2 puff, INHALATION, BID, 0 Refill(s) Active 05/09/2016 [facility] Vitamin B12 with Folic Acid sublingual tablet 50, PO, Daily, 0 Refill(s) Active 05/09/2016 [facility] Dextromethorphan / Doxylamine / Pseudoephedrine 10 mL, PO, Q6H, 0 Refill(s) Active 05/09/2016 [facility] Advair Diskus 100 mcg-50 mcg inhalation powder 1 puff, INHALATION, BID, 0 Refill(s) Active 05/09/2016 [facility] Dextromethorphan / Doxylamine / Pseudoephedrine 10 mL, Route: PO, Dosing Weight 71.364, kg, Q6H, Start date: 05/08/16 18:00:00 MONUMENT LETTERER, Duration: 30 day, Stop date: 06/07/16 12:00:00 MONUMENT LETTERER Inactive 05/09/2016 [facility] Chantix 1 mg, Route: PO, Drug form: TAB, BID, Dosing Weight 71.364, kg, Start date: 05/08/16 17:00:00 MONUMENT LETTERER, Duration: 30 day, Stop date: 06/07/16 9:00:00 MONUMENT LETTERER Inactive 05/08/2016 [facility] Advair Diskus 100 mcg-50 mcg inhalation powder 1 puff, Route: INHALATION, Drug Form: PWDR, Dosing Weight 71.364, kg, BID, Start date: 05/08/16 17:00:00 MONUMENT LETTERER, Duration: 30 day, Stop date: 06/07/16 9:00:00 MONUMENT LETTERER Inactive 05/08/2016 [facility] cilostazol 100 mg, Route: PO, Drug form: TAB, BID, Dosing Weight 71.364, kg, Start date: 05/08/16 17:00:00 MONUMENT LETTERER, Duration: 30 day, Stop date: 06/07/16 9:00:00 MONUMENT LETTERER Inactive 05/08/2016 [facility] Symbicort 160/4.5 inhalation aerosol with adapter 2 puff, Route: INHALATION, Drug Form: AERO/A, Dosing Weight 71.364, kg, BID, Start date: 05/08/16 17:00:00 MONUMENT LETTERER, Duration: 30 day, Stop date: 06/07/16 9:00:00 MONUMENT LETTERER Inactive 05/08/2016 [facility] Nitroglycerin 0.4 mg, 1 tab, Route: SL, Drug form: TAB, Q5Min, Dosing Weight 71.364, kg, PRN Chest Pain, Start date: 05/08/16 16:31:00 MONUMENT LETTERER, Duration: 3 doses or times, Stop date: Limited # of timesNotes: (Same as: Nitroquick, Nitrostat) "Do Not Crush" Sublingual tablet Inactive 05/08/2016 [facility] Sodium Chloride 0.154 MEQ/ML Injectable Solution 250 mL, 250 ml/hr, Infuse Over: 1 hr, Route: IV, 250, Drug form: INJ, ONCE, Dosing Weight 71.364 kg, Start date: 05/08/16 16:31:00 MONUMENT LETTERER, Duration: 1 doses or times, Stop date: 05/08/16 16:31:00 MONUMENT LETTERER Inactive 05/08/2016 [facility] Prednisone 40 mg, 2 tab, Route: PO, Drug form: TAB, Daily, Dosing Weight 72.273, kg, Start date: 04/11/16 9:00:00 MONUMENT LETTERER, Duration: 30 day, Stop date: 05/10/16 9:00:00 MONUMENT LETTERER Inactive 04/11/2016 [facility] pantoprazole 40 mg, 1 tab, Route: PO, Drug form: ECTAB, Daily, Dosing Weight 72.273, kg, Start date: 04/11/16 9:00:00 MONUMENT LETTERER, Duration: 30 day, Stop date: 05/10/16 9:00:00 CSTNotes: Tablet should not be chewed or cr ushed. (Same as: Protonix) Inactive 04/11/2016 [facility] Lisinopril 5 mg, 1 tab, Route: PO, Drug form: TAB, Daily, Dosing Weight 72.273, kg, Start date: 04/11/16 9:00:00 MONUMENT LETTERER, Duration: 30 day, Stop date: 05/10/16 9:00:00 CSTNotes: (Same as: Prinivil, Zestril) Inactive 04/11/2016 [facility] Vitamin B 12 1,000 microgram, 1 tab, Route: PO, Drug form: TAB, Daily, Dosing Weight 72.273, kg, Start date: 04/11/16 9:00:00 MONUMENT LETTERER, Duration: 30 day, Stop date: 05/10/16 9:00:00 CSTNotes: (Same As: Vitamin B-12) Inactive 04/11/2016 [facility] Aspirin 81 mg, 1 tab, Route: PO, Drug form: CHEWTAB, Daily, Dosing Weight 72.273, kg, Start date: 04/11/16 9:00:00 MONUMENT LETTERER, Duration: 30 day, Stop date: 05/10/16 9:00:00 CSTNotes: Take with food. Inactive 04/11/2016 [facility] clopidogrel 75 MG Oral Tablet [Plavix] 75 mg=1 tab, PO, Daily, # 90 tab, 1 Refill(s) Active 04/11/2016 [facility] cilostazol 100 mg, 1 tab, Route: PO, Drug form: TAB, BID, Dosing Weight 72.273, kg, Start date: 04/10/16 21:00:00 MONUMENT LETTERER, Duration: 30 day, Stop date: 05/10/16 9:00:00 CSTNotes: Non-Formulary Drug. (Same As: Pletal) No Longer Active 04/11/2016 [facility] Chantix 1 mg, 2 tab, Route: PO, Drug form: TAB, BID, Dosing Weight 72.273, kg, Start date: 04/10/16 21:00:00 MONUMENT LETTERER, Duration: 30 day, Stop date: 05/10/16 9:00:00 CSTNotes: Same as Chantix No Longer Active 04/11/2016 [facility] carvedilol 6.25 mg, 1 tab, Route: PO, Drug form: TAB, BID, Dosing Weight 72.273, kg, Start date: 04/10/16 21:00:00 MONUMENT LETTERER, Duration: 30 day, Stop date: 05/10/16 9:00:00 MONUMENT LETTERER No Longer Active 04/11/2016 [facility] Symbicort 160/4.5 inhalation aerosol with adapter 2 inhalation, Route: INHALATION, Drug Form: AERO/A, Dosing Weight 72.273, kg, RBID, Start date: 04/10/16 20:00:00 MONUMENT LETTERER, Duration: 30 day, Stop date: 05/10/16 8:00:00 CSTNotes: (Same as: Symbicort) WASTE: Aerosol - Return to Pharmacy No Longer Active 04/11/2016 [facility] Morphine 2 mg, Route: IVP, ONCE, Dosing Weight 72.273, kg, Start date: 04/10/16 18:18:00 MONUMENT LETTERER, Stop date: 04/10/16 18:18:00 MONUMENT LETTERER Inactive 04/11/2016 [facility] Advair Diskus 100 mcg-50 mcg inhalation powder 1 puff, Route: INHALATION, Drug Form: PWDR, Dosing Weight 72.273, kg, BID, Start date: 04/10/16 17:00:00 MONUMENT LETTERER, Duration: 30 day, Stop date: 05/10/16 9:00:00 MONUMENT LETTERER Inactive 04/10/2016 [facility] cilostazol 100 mg oral tablet 100 mg, PO, BID, # 90 tab, 1 Refill(s) Active 04/10/2016 [facility] Nitroglycerin 0.4 mg, 1 tab, Route: SL, Drug form: TAB, Q5Min, Dosing Weight 72.273, kg, PRN Chest Pain, Start date: 04/10/16 16:41:00 MONUMENT LETTERER, Duration: 3 doses or times, Stop date: Limited # of timesNotes: (Same as: Nitroquick, Nitrostat) "Do Not Crush" Sublingual tablet No Longer Active 04/10/2016 [facility] Sodium Chloride 0.154 MEQ/ML Injectable Solution 250 mL, Rate: 20 ml/hr, Infuse over: 12.5 hr, Route: IV, Dosing Weight 72.273 kg, Total Volume: 250, Start date: 04/10/16 16:41:00 MONUMENT LETTERER, Duration: 24 hr, Stop date: 04/11/16 16:40:00 MONUMENT LETTERER No Longer Active 04/10/2016 [facility] sodium chloride 0.9% 1000 ml INJ 1,000 mL 1,000 mL, Rate: 50 ml/hr, Infuse over: 20 hr, Route: IV, Dosing Weight 72.273 kg, Total Volume: 1,000, Start date: 04/10/16 13:09:00 MONUMENT LETTERER, Duration: 30 day, Stop date: 05/10/16 13:08:00 MONUMENT LETTERER No Longer Active 04/10/2016 [facility] sodium chloride 0.9% 1000 ml INJ 250 mL 250 mL, Rate: 250 ml/hr, Infuse over: 1 hr, Route: IV, Dosing Weight 72.273 kg, Total Volume: 250, Start date: 04/10/16 13:07:00 MONUMENT LETTERER, Duration: 1 doses or times, Stop date: 04/10/16 14:06:00 MONUMENT LETTERER Inactive 04/10/2016 [facility] carvedilol 6.25 mg oral tablet 6.25 mg=1 tab, PO, BID, 0 Refill(s) Active 04/10/2016 [facility] predniSONE 20 mg oral tablet 40 mg=2 tab, PO, Daily, 0 Refill(s) Active 04/10/2016 [facility] Advair Diskus 100 mcg-50 mcg inhalation powder 1 puff, INHALATION, BID, 0 Refill(s) Active 04/10/2016 [facility] Sodium Chloride 0.154 MEQ/ML Injectable Solution 750 mL, Rate: 75 ml/hr, Infuse over: 10 hr, Route: IV, Dosing Weight 72.727 kg, Total Volume: 750, Start date: 09/10/14 10:49:00, Duration: 1 doses or times, Stop date: 09/10/14 20:48:00 Inactive 09/10/2014 [facility] Hydroxyzine Hydrochloride 25 MG Oral Tablet 25 mg=1 tab, PO, QID, PRN Itching, # 40 tab, 0 Refill(s) Active 09/10/2014 [facility] Ephedrine hydrochloride 12.5 MG / Guaifenesin 200 MG Oral Tablet [Primatene] PO, 0 Refill(s) Active 09/10/2014 [facility] pantoprazole 40 mg oral enteric coated tablet 40 mg=1 tab, PO, Daily, # 30 tab, 0 Refill(s) Active 09/10/2014 [facility] Vitamin B-12 1000 mcg sublingual tablet 1,000 microgram=1 tab, SL, Daily, 0 Refill(s) Active 09/10/2014 [facility] Loratadine 10 MG Oral Tablet [Claritin] 10 mg=1 tab, PO, Daily, 0 Refill(s) Active 09/10/2014 [facility] One-A-Day 50+ oral tablet 1 tab, PO, Daily, # 30 tab, 0 Refill(s) Active 09/10/2014 [facility] predniSONE 10 mg oral tablet 10 mg=1 tab, PO, as directed, 0 Refill(s)Special Instructions: as directed Active 09/10/2014 [facility] Aspirin Low Dose 81 mg oral tablet =1 tab, PO, Daily, 0 Refill(s) Active 09/10/2014 [facility] Symbicort 160/4.5 inhalation aerosol with adapter 2 puff, INHALATION, BID, # 6 gm, 0 Refill(s) Active 09/10/2014 [facility] Chantix 1 mg oral tablet 1 mg=1 tab, PO, BID, # 60 tab, 0 Refill(s) Active 09/10/2014 [facility] lisinopril 5 mg oral tablet 5 mg=1 tab, PO, Daily, # 30 tab, 0 Refill(s) Active 09/10/2014 [facility] Sodium Chloride 0.154 MEQ/ML Injectable Solution 250 mL, 250 ml/hr, Infuse Over: 1 hr, Route: IV, 250, Drug form: INJ, ONCE, Priority: Routine, Dosing Weight 72.727 kg, Start date: 09/10/14 7:14:00, Duration: 1 doses or times, Stop date: 09/10/14 7:14:00 Inactive 09/10/2014 [facility] Allergies, Adverse Reactions, Alerts Substance Category Reaction Severity Reaction type Status Date Reported Comments Source chlorhexidine topical Assertion Drug allergy Active [facility] statins Assertion Drug allergy Active [facility] Immunizations Immunization Date Given Site Status Last Updated Comments Source Results Order Name Results Value Reference Range Date Interpretation Comments Source HEMATOLOGY POC Activated Clotting Time 179 s 08/07/2018 [facility] BLOOD BANK RESULTS ABO/Rh A POS 08/07/2018 [facility] BLOOD BANK RESULTS Antibody Scrn Negative (08/07/18 10:43 AM) 08/07/2018 [facility] ELECTROLYTES AGAP 9.9 meq/L 10.0 - 20.0 08/07/2018 [facility] ELECTROLYTES eGFR 85 mL/min/1.73m2 08/07/2018 Result Comment: The eGFR is calculated using the CKD-EPI formula. In most young, healthy individuals the eGFR will be >90 mL/min/1.73m2. The eGFR declines with age. An eGFR of 60-89 may be normal in some populations, particularly the elderly, for whom the CKD-EPI formula has not been extensively validated. Use of the eGFR is not recommended in the following populations: Individuals with unstable creatinine concentrations, including patients and those with serious co-morbid conditions. Patients with extremes in muscle mass or diet. The data above are obtained from the National Kidney Disease Education Program (NKDEP) which additionally recommends that when the eGFR is used in patients with extremes of body mass index for purposes of drug dosing, the eGFR should be multiplied by the estimated BMI. [facility] ELECTROLYTES Chloride Lvl 109 meq/L 95 - 109 08/07/2018 [facility] ELECTROLYTES CO2 25 meq/L 24 - 32 08/07/2018 [facility] ELECTROLYTES Creatinine Lvl 0.75 mg/dL 0.50 - 1.40 08/07/2018 [facility] ELECTROLYTES Potassium Lvl 3.9 meq/L 3.5 - 5.1 08/07/2018 [facility] ELECTROLYTES Sodium Lvl 140 meq/L 135 - 145 08/07/2018 [facility] ELECTROLYTES BUN 23 mg/dL 7 - 22 08/07/2018 [facility] ELECTROLYTES Glucose Lvl 92 mg/dL 70 - 99 08/07/2018 [facility] ELECTROLYTES Calcium Lvl 9.1 mg/dL 8.5 - 10.5 08/07/2018 [facility] HEMATOLOGY PT 12.8 s 12.0 - 14.7 08/07/2018 [facility] HEMATOLOGY PTT 27.3 s 22.9 - 35.8 08/07/2018 [facility] HEMATOLOGY INR 0.98 0.85 - 1.17 08/07/2018 [facility] HEMATOLOGY MCV 96.6 fL 80.0 - 98.0 08/07/2018 [facility] HEMATOLOGY Hct 42.1 % 36.0 - 48.0 08/07/2018 [facility] HEMATOLOGY MCHC 32.8 g/dL 32.0 - 36.0 08/07/2018 [facility] HEMATOLOGY MCH 31.7 pg 27.0 - 31.0 08/07/2018 [facility] HEMATOLOGY RDW 14.5 % 11.5 - 14.5 08/07/2018 [facility] HEMATOLOGY Platelet 292 K/CMM 133 - 450 08/07/2018 [facility] HEMATOLOGY MPV 9.7 fL 7.4 - 10.4 08/07/2018 [facility] HEMATOLOGY Hgb 13.8 g/dL 12.0 - 16.0 08/07/2018 [facility] HEMATOLOGY RBC 4.36 M/CMM 4.20 - 5.40 08/07/2018 [facility] HEMATOLOGY WBC 13.1 K/CMM 3.7 - 10.4 08/07/2018 [facility] HEMATOLOGY RBC Morph Normal (08/07/18 10:43 AM) 08/07/2018 [facility] HEMATOLOGY Atypical Lymphs 0.0 % <=0.0 % 08/07/2018 [facility] HEMATOLOGY Eosinophils 1.0 % 0.0 - 4.0 08/07/2018 [facility] HEMATOLOGY Monocytes 7.0 % 2.0 - 12.0 08/07/2018 [facility] HEMATOLOGY Plt Morph Normal (08/07/18 10:43 AM) 08/07/2018 [facility] HEMATOLOGY Lymphocytes 27.0 % 20.0 - 40.0 08/07/2018 [facility] HEMATOLOGY Segs 65.0 % 45.0 - 75.0 08/07/2018 [facility] HEMATOLOGY Eosinophils # 0.1 K/CMM 0.0 - 0.5 08/07/2018 [facility] HEMATOLOGY Bands 0.0 % 0.0 - 11.0 08/07/2018 [facility] HEMATOLOGY Neutrophils # 8.5 K/CMM 1.5 - 8.1 08/07/2018 [facility] HEMATOLOGY Lymphocytes # 3.5 K/CMM 1.0 - 5.5 08/07/2018 [facility] HEMATOLOGY Monocytes # 0.9 K/CMM 0.0 - 0.8 08/07/2018 [facility] HEMATOLOGY Basophils 0.8 % 0.0 - 1.0 09/17/2017 [facility] HEMATOLOGY Segs-Bands # 6.7 K/CMM 1.5 - 8.1 09/17/2017 [facility] HEMATOLOGY Eosinophils 3.1 % 0.0 - 4.0 09/17/2017 [facility] HEMATOLOGY Monocytes 7.7 % 2.0 - 12.0 09/17/2017 [facility] HEMATOLOGY Lymphocytes 27.2 % 20.0 - 40.0 09/17/2017 [facility] HEMATOLOGY Segs 61.2 % 45.0 - 75.0 09/17/2017 [facility] HEMATOLOGY Eosinophils # 0.3 K/CMM 0.0 - 0.5 09/17/2017 [facility] HEMATOLOGY Basophils # 0.1 K/CMM 0.0 - 0.2 09/17/2017 [facility] HEMATOLOGY Monocytes # 0.8 K/CMM 0.0 - 0.8 09/17/2017 [facility] HEMATOLOGY Lymphocytes # 3.0 K/CMM 1.0 - 5.5 09/17/2017 [facility] HEMATOLOGY RDW 17.8 % 11.5 - 14.5 09/17/2017 [facility] HEMATOLOGY Platelet 388 K/CMM 133 - 450 09/17/2017 [facility] HEMATOLOGY MCHC 32.2 g/dL 32.0 - 36.0 09/17/2017 [facility] HEMATOLOGY MCV 87.9 fL 80.0 - 98.0 09/17/2017 [facility] HEMATOLOGY MCH 28.3 pg 27.0 - 31.0 09/17/2017 [facility] HEMATOLOGY MPV 8.7 fL 7.4 - 10.4 09/17/2017 [facility] HEMATOLOGY WBC 11.0 K/CMM 3.7 - 10.4 09/17/2017 [facility] HEMATOLOGY Hgb 10.5 g/dL 12.0 - 16.0 09/17/2017 [facility] HEMATOLOGY Hct 32.6 % 36.0 - 48.0 09/17/2017 [facility] HEMATOLOGY RBC 3.71 M/CMM 4.20 - 5.40 09/17/2017 [facility] ELECTROLYTES AGAP 12.5 meq/L 10.0 - 20.0 09/16/2017 [facility] ELECTROLYTES eGFR 105 mL/min/1.73m2 09/16/2017 Result Comment: The eGFR is calculated using the CKD-EPI formula. In most young, healthy individuals the eGFR will be >90 mL/min/1.73m2. The eGFR declines with age. An eGFR of 60-89 may be normal in some populations, particularly the elderly, for whom the CKD-EPI formula has not been extensively validated. Use of the eGFR is not recommended in the following populations: Individuals with unstable creatinine concentrations, including patients and those with serious co-morbid conditions. Patients with extremes in muscle mass or diet. The data above are obtained from the National Kidney Disease Education Program (NKDEP) which additionally recommends that when the eGFR is used in patients with extremes of body mass index for purposes of drug dosing, the eGFR should be multiplied by the estimated BMI. [facility] ELECTROLYTES CO2 24 meq/L 24 - 32 09/16/2017 [facility] ELECTROLYTES Chloride Lvl 110 meq/L 95 - 109 09/16/2017 [facility] ELECTROLYTES Calcium Lvl 8.0 mg/dL 8.5 - 10.5 09/16/2017 [facility] ELECTROLYTES BUN 6 mg/dL 7 - 22 09/16/2017 [facility] ELECTROLYTES Glucose Lvl 88 mg/dL 70 - 99 09/16/2017 [facility] ELECTROLYTES Creatinine Lvl 0.49 mg/dL 0.50 - 1.40 09/16/2017 [facility] ELECTROLYTES Sodium Lvl 143 meq/L 135 - 145 09/16/2017 [facility] ELECTROLYTES Potassium Lvl 3.5 meq/L 3.5 - 5.1 09/16/2017 [facility] HEMATOLOGY Monocytes # 0.8 K/CMM 0.0 - 0.8 09/16/2017 [facility] HEMATOLOGY Lymphocytes # 2.6 K/CMM 1.0 - 5.5 09/16/2017 [facility] HEMATOLOGY Eosinophils # 0.4 K/CMM 0.0 - 0.5 09/16/2017 [facility] HEMATOLOGY Segs-Bands # 8.3 K/CMM 1.5 - 8.1 09/16/2017 [facility] HEMATOLOGY Monocytes 6.3 % 2.0 - 12.0 09/16/2017 [facility] HEMATOLOGY Segs 68.6 % 45.0 - 75.0 09/16/2017 [facility] HEMATOLOGY Lymphocytes 21.7 % 20.0 - 40.0 09/16/2017 [facility] HEMATOLOGY Eosinophils 3.1 % 0.0 - 4.0 09/16/2017 [facility] HEMATOLOGY Basophils 0.3 % 0.0 - 1.0 09/16/2017 [facility] HEMATOLOGY MPV 9.4 fL 7.4 - 10.4 09/16/2017 [facility] HEMATOLOGY Platelet 309 K/CMM 133 - 450 09/16/2017 [facility] HEMATOLOGY RDW 17.7 % 11.5 - 14.5 09/16/2017 [facility] HEMATOLOGY MCHC 31.9 g/dL 32.0 - 36.0 09/16/2017 [facility] HEMATOLOGY MCH 28.0 pg 27.0 - 31.0 09/16/2017 [facility] HEMATOLOGY MCV 87.9 fL 80.0 - 98.0 09/16/2017 [facility] HEMATOLOGY Hct 29.0 % 36.0 - 48.0 09/16/2017 [facility] HEMATOLOGY Hgb 9.3 g/dL 12.0 - 16.0 09/16/2017 [facility] HEMATOLOGY WBC 12.1 K/CMM 3.7 - 10.4 09/16/2017 [facility] HEMATOLOGY RBC 3.30 M/CMM 4.20 - 5.40 09/16/2017 [facility] CHEM PANEL eGFR 102 mL/min/1.73m2 09/15/2017 Result Comment: The eGFR is calculated using the CKD-EPI formula. In most young, healthy individuals the eGFR will be >90 mL/min/1.73m2. The eGFR declines with age. An eGFR of 60-89 may be normal in some populations, particularly the elderly, for whom the CKD-EPI formula has not been extensively validated. Use of the eGFR is not recommended in the following populations: Individuals with unstable creatinine concentrations, including patients and those with serious co-morbid conditions. Patients with extremes in muscle mass or diet. The data above are obtained from the National Kidney Disease Education Program (NKDEP) which additionally recommends that when the eGFR is used in patients with extremes of body mass index for purposes of drug dosing, the eGFR should be multiplied by the estimated BMI. [facility] CHEM PANEL Calcium Lvl 7.8 mg/dL 8.5 - 10.5 09/15/2017 [facility] CHEM PANEL AGAP 10.9 meq/L 10.0 - 20.0 09/15/2017 [facility] CHEM PANEL Creatinine Lvl 0.53 mg/dL 0.50 - 1.40 09/15/2017 [facility] CHEM PANEL Chloride Lvl 108 meq/L 95 - 109 09/15/2017 [facility] CHEM PANEL CO2 28 meq/L 24 - 32 09/15/2017 [facility] CHEM PANEL Sodium Lvl 143 meq/L 135 - 145 09/15/2017 [facility] CHEM PANEL Potassium Lvl 3.9 meq/L 3.5 - 5.1 09/15/2017 [facility] CHEM PANEL Glucose Lvl 103 mg/dL 70 - 99 09/15/2017 [facility] CHEM PANEL BUN 9 mg/dL 7 - 22 09/15/2017 [facility] HEMATOLOGY MCHC 32.0 g/dL 32.0 - 36.0 09/15/2017 [facility] HEMATOLOGY MCH 28.3 pg 27.0 - 31.0 09/15/2017 [facility] HEMATOLOGY MCV 88.4 fL 80.0 - 98.0 09/15/2017 [facility] HEMATOLOGY Hct 28.2 % 36.0 - 48.0 09/15/2017 [facility] HEMATOLOGY Hgb 9.1 g/dL 12.0 - 16.0 09/15/2017 [facility] HEMATOLOGY WBC 15.0 K/CMM 3.7 - 10.4 09/15/2017 [facility] HEMATOLOGY RBC 3.19 M/CMM 4.20 - 5.40 09/15/2017 [facility] HEMATOLOGY MPV 9.2 fL 7.4 - 10.4 09/15/2017 [facility] HEMATOLOGY RDW 17.6 % 11.5 - 14.5 09/15/2017 [facility] HEMATOLOGY Platelet 312 K/CMM 133 - 450 09/15/2017 [facility] HEMATOLOGY Basophils 0.5 % 0.0 - 1.0 09/15/2017 [facility] HEMATOLOGY Monocytes # 1.1 K/CMM 0.0 - 0.8 09/15/2017 [facility] HEMATOLOGY Lymphocytes # 1.9 K/CMM 1.0 - 5.5 09/15/2017 [facility] HEMATOLOGY Basophils # 0.1 K/CMM 0.0 - 0.2 09/15/2017 [facility] HEMATOLOGY Eosinophils # 0.2 K/CMM 0.0 - 0.5 09/15/2017 [facility] HEMATOLOGY Segs-Bands # 11.8 K/CMM 1.5 - 8.1 09/15/2017 [facility] HEMATOLOGY Monocytes 7.1 % 2.0 - 12.0 09/15/2017 [facility] HEMATOLOGY Lymphocytes 12.8 % 20.0 - 40.0 09/15/2017 [facility] HEMATOLOGY Eosinophils 1.1 % 0.0 - 4.0 09/15/2017 [facility] HEMATOLOGY Segs 78.5 % 45.0 - 75.0 09/15/2017 [facility] Chest 1view DX Chest 1view DX EXAM: XR CHEST 1 VIEW DATE: 09/15/2017 INDICATION: - sob . Comparison is made with 09/13/2017 FINDINGS: The gastric tube has been removed. Cardiomediastinal silhouette and single lead implantable cardiac defibrillator pacemaker in the right ventricle are unchanged. There is a small left pleural effusion. The right costophrenic sulcus is sharp. There is platelike atelectasis at both lung bases. The remainder the lungs are clear IMPRESSION: The gastric tube has been removed. 09/15/2017 - - Read by: Eliane Pierre MD Dictated Date/time: 09/15/17 10:53 Electronically Signed by: Eliane Pierre MD 09/15/17 10:54 FINAL REPORT [facility] CHEM PANEL eGFR 87 mL/min/1.73m2 09/14/2017 Result Comment: The eGFR is calculated using the CKD-EPI formula. In most young, healthy individuals the eGFR will be >90 mL/min/1.73m2. The eGFR declines with age. An eGFR of 60-89 may be normal in some populations, particularly the elderly, for whom the CKD-EPI formula has not been extensively validated. Use of the eGFR is not recommended in the following populations: Individuals with unstable creatinine concentrations, including patients and those with serious co-morbid conditions. Patients with extremes in muscle mass or diet. The data above are obtained from the National Kidney Disease Education Program (NKDEP) which additionally recommends that when the eGFR is used in patients with extremes of body mass index for purposes of drug dosing, the eGFR should be multiplied by the estimated BMI. [facility] CHEM PANEL Chloride Lvl 105 meq/L 95 - 109 09/14/2017 [facility] CHEM PANEL Potassium Lvl 3.4 meq/L 3.5 - 5.1 09/14/2017 [facility] CHEM PANEL Sodium Lvl 143 meq/L 135 - 145 09/14/2017 [facility] CHEM PANEL CO2 28 meq/L 24 - 32 09/14/2017 [facility] CHEM PANEL Calcium Lvl 8.0 mg/dL 8.5 - 10.5 09/14/2017 [facility] CHEM PANEL AGAP 13.4 meq/L 10.0 - 20.0 09/14/2017 [facility] CHEM PANEL Glucose Lvl 90 mg/dL 70 - 99 09/14/2017 [facility] CHEM PANEL Creatinine Lvl 0.74 mg/dL 0.50 - 1.40 09/14/2017 [facility] CHEM PANEL BUN 12 mg/dL 7 - 22 09/14/2017 [facility] CHEM PANEL Magnesium Lvl 2.1 mg/dL 1.8 - 2.4 09/13/2017 [facility] CHEM PANEL Phosphorus 3.5 mg/dL 2.5 - 4.5 09/13/2017 [facility] Chest 1view DX Chest 1view DX EXAM: XR CHEST 1 VIEW DATE: 09/13/2017 3:00 AM CDT INDICATION: - postop COMPARISON: Chest radiograph 11/18/2016 TECHNIQUE: AP chest FINDINGS: Lines, tubes and hardware: Enteric tube has been placed with the tip overlying the proximal stomach and sidehole overlying the gastroesophageal junction. A left chest AICD is present. Lungs and pleura: A left basilar opacity is present with blunting of the left costophrenic sulcus. The right costophrenic sulcus is sharp. There is mild right basilar subsegmental atelectasis. Heart and mediastinum: Cardiomediastinal silhouette is stable. The mediastinal contours are normal. Bones: No acute bony abnormality is identified. IMPRESSION: 1. Left basilar opacity and blunting of the left costophrenic sulcus may represent a combination of effusion, atelectasis, and/or pneumonia. 2. Enteric tube sidehole overlies the gastroesophageal junction. Recommend further advancement for optimal positioning. 09/13/2017 - - This report was dictated by a Supervisor Uranium Processing/Fellow. I have personally reviewed the images as well as the Resident's interpretation and agree with the findings. Read by: Cecil Cast MD Resident: Cecil Cast MD Dictated Date/time: 09/13/17 11:01 Electronically Signed by: Isaias Purcell MD 09/14/17 18:36 FINAL REPORT [facility] URINE AND STOOL UA Ketones TR 09/13/2017 [facility] URINE AND STOOL UA Urobilinogen <=1.0 mg/dL 0.1 - 1.0 09/13/2017 [facility] URINE AND STOOL UA Glucose Negative mg/dL Negative mg/dL 09/13/2017 [facility] URINE AND STOOL UA Blood Moderate *ABN* (09/12/17 9:09 PM) Negative 09/13/2017 [facility] URINE AND STOOL UA Bili Negative *NA* (09/12/17 9:09 PM) Negative 09/13/2017 [facility] URINE AND STOOL UA Protein >=300 mg/dL Negative mg/dL 09/13/2017 [facility] URINE AND STOOL UA Spec Grav 1.017 <=1.030 09/13/2017 [facility] URINE AND STOOL UA Color Yellow *NA* (09/12/17 9:09 PM) Yellow 09/13/2017 [facility] URINE AND STOOL UA pH 6.0 5.0 - 8.0 09/13/2017 [facility] URINE AND STOOL UA Turbidity Slight *ABN* (09/12/17 9:09 PM) Clear 09/13/2017 [facility] URINE AND STOOL UA RBC 87 /HPF 0 - 2 09/13/2017 [facility] URINE AND STOOL UA Hyal Cast 3 /LPF 0 - 2 09/13/2017 [facility] URINE AND STOOL UA Bacteria Occasional /HPF None Seen /HPF 09/13/2017 [facility] URINE AND STOOL UA Mucus Few /LPF None Seen /LPF 09/13/2017 [facility] URINE AND STOOL UA Nitrite Negative (09/12/17 9:09 PM) Negative 09/13/2017 [facility] URINE AND STOOL UA WBC 10 /HPF 0 - 5 09/13/2017 [facility] URINE AND STOOL UA Leuk Est Negative (09/12/17 9:09 PM) Negative 09/13/2017 [facility] URINE AND STOOL UA Sq Epi None Seen 09/13/2017 [facility] BLOOD BANK RESULTS ABO/Rh A POS 09/12/2017 [facility] BLOOD BANK RESULTS Antibody Scrn Negative (09/12/17 12:20 PM) 09/12/2017 [facility] CHEM PANEL A/G Ratio 0.7 0.7 - 1.6 09/12/2017 [facility] CHEM PANEL Globulin 4.6 g/dL 2.7 - 4.2 09/12/2017 [facility] CHEM PANEL B/C Ratio 16 6 - 25 09/12/2017 [facility] CHEM PANEL Alk Phos 92 unit/L 39 - 136 09/12/2017 [facility] CHEM PANEL Bili Total 0.5 mg/dL 0.2 - 1.3 09/12/2017 [facility] CHEM PANEL Albumin Lvl 3.4 g/dL 3.5 - 5.0 09/12/2017 [facility] CHEM PANEL Total Protein 8.0 g/dL 6.4 - 8.4 09/12/2017 [facility] CHEM PANEL AST 11 unit/L 0 - 37 09/12/2017 [facility] CHEM PANEL ALT 21 unit/L 0 - 65 09/12/2017 [facility] HEMATOLOGY Basophils # 0.1 K/CMM 0.0 - 0.2 09/12/2017 [facility] CARDIAC ENZYMES BNP 11 pg/mL <=100 pg/mL 07/18/2017 [facility] CHEM PANEL eGFR 80 mL/min/1.73m2 07/18/2017 Result Comment: The eGFR is calculated using the CKD-EPI formula. In most young, healthy individuals the eGFR will be >90 mL/min/1.73m2. The eGFR declines with age. An eGFR of 60-89 may be normal in some populations, particularly the elderly, for whom the CKD-EPI formula has not been extensively validated. Use of the eGFR is not recommended in the following populations: Individuals with unstable creatinine concentrations, including patients and those with serious co-morbid conditions. Patients with extremes in muscle mass or diet. The data above are obtained from the National Kidney Disease Education Program (NKDEP) which additionally recommends that when the eGFR is used in patients with extremes of body mass index for purposes of drug dosing, the eGFR should be multiplied by the estimated BMI. [facility] CHEM PANEL Calcium Lvl 9.9 mg/dL 8.5 - 10.5 07/18/2017 [facility] CHEM PANEL CO2 29 meq/L 24 - 32 07/18/2017 [facility] CHEM PANEL Chloride Lvl 101 meq/L 95 - 109 07/18/2017 [facility] CHEM PANEL Creatinine Lvl 0.79 mg/dL 0.50 - 1.40 07/18/2017 [facility] CHEM PANEL Potassium Lvl 5.3 meq/L 3.5 - 5.1 07/18/2017 [facility] CHEM PANEL Sodium Lvl 139 meq/L 135 - 145 07/18/2017 [facility] CHEM PANEL BUN 13 mg/dL 7 - 22 07/18/2017 [facility] CHEM PANEL Glucose Lvl 118 mg/dL 70 - 99 07/18/2017 [facility] CHEM PANEL AGAP 14.3 meq/L 10.0 - 20.0 07/18/2017 [facility] HEMATOLOGY Platelet 395 K/CMM 133 - 450 07/18/2017 [facility] HEMATOLOGY MPV 11.0 fL 7.4 - 10.4 07/18/2017 [facility] HEMATOLOGY MCV 86.3 fL 80.0 - 98.0 07/18/2017 [facility] HEMATOLOGY Hgb 12.3 g/dL 12.0 - 16.0 07/18/2017 [facility] HEMATOLOGY Hct 37.9 % 36.0 - 48.0 07/18/2017 [facility] HEMATOLOGY MCH 28.0 pg 27.0 - 31.0 07/18/2017 [facility] HEMATOLOGY MCHC 32.5 g/dL 32.0 - 36.0 07/18/2017 [facility] HEMATOLOGY WBC 14.2 K/CMM 3.7 - 10.4 07/18/2017 [facility] HEMATOLOGY RBC 4.39 M/CMM 4.20 - 5.40 07/18/2017 [facility] HEMATOLOGY RDW 15.9 % 11.5 - 14.5 07/18/2017 [facility] HEMATOLOGY Eosinophils # 0.2 K/CMM 0.0 - 0.5 07/18/2017 [facility] HEMATOLOGY Segs 75.2 % 45.0 - 75.0 07/18/2017 [facility] HEMATOLOGY Segs-Bands # 10.7 K/CMM 1.5 - 8.1 07/18/2017 [facility] HEMATOLOGY Monocytes # 0.9 K/CMM 0.0 - 0.8 07/18/2017 [facility] HEMATOLOGY Lymphocytes # 2.3 K/CMM 1.0 - 5.5 07/18/2017 [facility] HEMATOLOGY Basophils # 0.1 K/CMM 0.0 - 0.2 07/18/2017 [facility] HEMATOLOGY Eosinophils 1.7 % 0.0 - 4.0 07/18/2017 [facility] HEMATOLOGY Basophils 0.6 % 0.0 - 1.0 07/18/2017 [facility] HEMATOLOGY Monocytes 6.4 % 2.0 - 12.0 07/18/2017 [facility] HEMATOLOGY Lymphocytes 16.1 % 20.0 - 40.0 07/18/2017 [facility] SPECIAL CHEMISTRY Hgb A1C 6.6 % <=5.6 % 07/18/2017 [facility] Abdomen/Pelvis w IV contrast CT Abdomen/Pelvis w IV contrast CT EXAM: CT ABDOMEN WITH CONTRAST DATE: 11/28/2016 8:37 AM CDT INDICATION: New abdominal pain, Postoperative day 8 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 Axial, coronal and sagittal reconstructions. Postcontrast phases: Venous and delayed. IV contrast: 98 mL of Omnipaque 350 Enteric contrast: None. DLP: 1114 mGy-cm FINDINGS: Lines, tubes and hardware: AICD lead seen in the right ventricle. Lower thorax: Subsegmental atelectasis is present in the left lower lobe. Coronary artery calcifications are present. Liver: Normal. Biliary tree: No intra- or extrahepatic biliary ductal dilation. Gallbladder: Normal. No CT evidence of gallstones. Pancreas: Normal. Spleen: Normal. Adrenals: Normal. Kidneys and ureters: Normal. Gastrointestinal tract/Peritoneum/Retroperitoneum: Postsurgical changes of distal colonic resection and diverting colostomy in the left lower quadrant, and Hoyt's pouch are present. No dilated loops of small or large bowel. A moderate amount of focal fat stranding is seen adjacent to a loop of small bowel in the left lower quadrant (series 5, image 55), which may be related to post surgical inflammation changes with adjacent fluid but without organized rim enhancing collections. There is also trace perirectal fluid near the Flaca's pouch without organization. There is fecalization of small bowel contents slightly more proximally, suggestive of slow transit. Some of the collapsed nondilated small bowel loops also seen in the left lower quadrant. Mesenteric fat stranding is present in the lower abdomen. The previously seen large abscess within the lower abdomen is no longer present. No large amount of free intraperitoneal air. Pelvis: There are fibroids are present in the uterus. Lymph nodes: Subcentimeter reactive mesenteric lymph nodes are present. Vasculature: Extensive aortic and iliac atherosclerotic calcifications are present. Bones: Degenerative changes of the lumbar spine are again seen. Soft tissues: An the anterior abdominal wall surgical defect is present. A small amount of fat stranding is present adjacent to the colostomy site. No organized subcutaneous fluid collections. Trace subcutaneous air pockets are present in the left anterior abdominal wall, likely from injection sites and/or postsurgical changes. IMPRESSION: 1. Postsurgical changes of distal colonic resection with creation of a diverging colostomy in the left lower quadrant and Hoyt's pouch without organized fluid collections. Trace fluid near the Flaca's pouch likely reactive. 2. Focal fat stranding adjacent to a loop of small bowel in the left lower quadrant is likely inflammatory. No dilated loops of small bowel to suggest fiona obstruction. Fecalization of small bowel contents slightly more proximally is likely related to slow transit. 3. Anterior abdominal wall surgical defect with a small amount of adjacent inflammatory fat stranding. Findings were communicated with Dr. Bernal at 1650 hours on 11/28/2016. 11/28/2016 - - This report was dictated by a Supervisor Uranium Processing/Fellow. I have personally reviewed the images as well as the Resident's interpretation and agree with the findings. Read by: Chapo Lewis MD Resident: Chapo Lewis MD Dictated Date/time: 11/28/16 17:04 Electronically Signed by: Seb Cheng MD 11/28/16 18:16 FINAL REPORT [facility] CHEM PANEL Phosphorus 3.7 mg/dL 2.5 - 4.5 11/28/2016 [facility] CHEM PANEL eGFR 104 mL/min/1.73m2 11/28/2016 Result Comment: The eGFR is calculated using the CKD-EPI formula. In most young, healthy individuals the eGFR will be >90 mL/min/1.73m2. The eGFR declines with age. An eGFR of 60-89 may be normal in some populations, particularly the elderly, for whom the CKD-EPI formula has not been extensively validated. Use of the eGFR is not recommended in the following populations: Individuals with unstable creatinine concentrations, including patients and those with serious co-morbid conditions. Patients with extremes in muscle mass or diet. The data above are obtained from the National Kidney Disease Education Program (NKDEP) which additionally recommends that when the eGFR is used in patients with extremes of body mass index for purposes of drug dosing, the eGFR should be multiplied by the estimated BMI. [facility] CHEM PANEL Glucose Lvl 76 mg/dL 70 - 99 11/28/2016 [facility] CHEM PANEL BUN 9 mg/dL 7 - 22 11/28/2016 [facility] CHEM PANEL Creatinine Lvl 0.51 mg/dL 0.50 - 1.40 11/28/2016 [facility] CHEM PANEL Potassium Lvl 4.2 meq/L 3.5 - 5.1 11/28/2016 [facility] CHEM PANEL Sodium Lvl 145 meq/L 135 - 145 11/28/2016 [facility] CHEM PANEL Chloride Lvl 109 meq/L 95 - 109 11/28/2016 [facility] CHEM PANEL CO2 27 meq/L 24 - 32 11/28/2016 [facility] CHEM PANEL AGAP 13.2 meq/L 10.0 - 20.0 11/28/2016 [facility] CHEM PANEL Calcium Lvl 8.3 mg/dL 8.5 - 10.5 11/28/2016 [facility] CHEM PANEL Magnesium Lvl 2.0 mg/dL 1.8 - 2.4 11/28/2016 [facility] HEMATOLOGY Eosinophils # 0.2 K/CMM 0.0 - 0.5 11/28/2016 [facility] HEMATOLOGY Basophils # 0.1 K/CMM 0.0 - 0.2 11/28/2016 [facility] HEMATOLOGY Monocytes # 1.2 K/CMM 0.0 - 0.8 11/28/2016 [facility] HEMATOLOGY Eosinophils 1.1 % 0.0 - 4.0 11/28/2016 [facility] HEMATOLOGY Basophils 0.7 % 0.0 - 1.0 11/28/2016 [facility] HEMATOLOGY Segs-Bands # 10.9 K/CMM 1.5 - 8.1 11/28/2016 [facility] HEMATOLOGY Lymphocytes # 2.8 K/CMM 1.0 - 5.5 11/28/2016 [facility] HEMATOLOGY Segs 71.7 % 45.0 - 75.0 11/28/2016 [facility] HEMATOLOGY Lymphocytes 18.6 % 20.0 - 40.0 11/28/2016 [facility] HEMATOLOGY Monocytes 7.9 % 2.0 - 12.0 11/28/2016 [facility] HEMATOLOGY RDW 15.4 % 11.5 - 14.5 11/28/2016 [facility] HEMATOLOGY Platelet 542 K/CMM 133 - 450 11/28/2016 [facility] HEMATOLOGY MPV 9.6 fL 7.4 - 10.4 11/28/2016 [facility] HEMATOLOGY MCH 28.1 pg 27.0 - 31.0 11/28/2016 [facility] HEMATOLOGY MCHC 31.0 g/dL 32.0 - 36.0 11/28/2016 [facility] HEMATOLOGY Hgb 9.2 g/dL 12.0 - 16.0 11/28/2016 [facility] HEMATOLOGY RBC 3.27 M/CMM 4.20 - 5.40 11/28/2016 [facility] HEMATOLOGY WBC 15.2 K/CMM 3.7 - 10.4 11/28/2016 [facility] HEMATOLOGY MCV 90.8 fL 80.0 - 98.0 11/28/2016 [facility] HEMATOLOGY Hct 29.7 % 36.0 - 48.0 11/28/2016 [facility] ELECTROLYTES AGAP 13.6 meq/L 10.0 - 20.0 11/27/2016 [facility] ELECTROLYTES Glucose Lvl 154 mg/dL 70 - 99 11/27/2016 [facility] ELECTROLYTES Creatinine Lvl 0.62 mg/dL 0.50 - 1.40 11/27/2016 [facility] ELECTROLYTES Chloride Lvl 108 meq/L 95 - 109 11/27/2016 [facility] ELECTROLYTES Sodium Lvl 142 meq/L 135 - 145 11/27/2016 [facility] ELECTROLYTES BUN 11 mg/dL 7 - 22 11/27/2016 [facility] ELECTROLYTES Potassium Lvl 4.6 meq/L 3.5 - 5.1 11/27/2016 [facility] ELECTROLYTES CO2 25 meq/L 24 - 32 11/27/2016 [facility] ELECTROLYTES Calcium Lvl 8.1 mg/dL 8.5 - 10.5 11/27/2016 [facility] ELECTROLYTES eGFR 98 mL/min/1.73m2 11/27/2016 Result Comment: The eGFR is calculated using the CKD-EPI formula. In most young, healthy individuals the eGFR will be >90 mL/min/1.73m2. The eGFR declines with age. An eGFR of 60-89 may be normal in some populations, particularly the elderly, for whom the CKD-EPI formula has not been extensively validated. Use of the eGFR is not recommended in the following populations: Individuals with unstable creatinine concentrations, including patients and those with serious co-morbid conditions. Patients with extremes in muscle mass or diet. The data above are obtained from the National Kidney Disease Education Program (NKDEP) which additionally recommends that when the eGFR is used in patients with extremes of body mass index for purposes of drug dosing, the eGFR should be multiplied by the estimated BMI. [facility] HEMATOLOGY Basophils # 0.1 K/CMM 0.0 - 0.2 11/27/2016 [facility] HEMATOLOGY Monocytes # 1.0 K/CMM 0.0 - 0.8 11/27/2016 [facility] HEMATOLOGY Monocytes 4.0 % 2.0 - 12.0 11/27/2016 [facility] HEMATOLOGY Eosinophils # 0.1 K/CMM 0.0 - 0.5 11/27/2016 [facility] HEMATOLOGY Segs-Bands # 20.9 K/CMM 1.5 - 8.1 11/27/2016 [facility] HEMATOLOGY Lymphocytes # 1.8 K/CMM 1.0 - 5.5 11/27/2016 [facility] HEMATOLOGY Basophils 0.3 % 0.0 - 1.0 11/27/2016 [facility] HEMATOLOGY Eosinophils 0.4 % 0.0 - 4.0 11/27/2016 [facility] HEMATOLOGY Lymphocytes 7.5 % 20.0 - 40.0 11/27/2016 [facility] HEMATOLOGY Segs 87.8 % 45.0 - 75.0 11/27/2016 [facility] HEMATOLOGY MCH 28.7 pg 27.0 - 31.0 11/27/2016 [facility] HEMATOLOGY MCV 90.0 fL 80.0 - 98.0 11/27/2016 [facility] HEMATOLOGY Hct 30.0 % 36.0 - 48.0 11/27/2016 [facility] HEMATOLOGY Hgb 9.5 g/dL 12.0 - 16.0 11/27/2016 [facility] HEMATOLOGY Platelet 465 K/CMM 133 - 450 11/27/2016 [facility] HEMATOLOGY MPV 8.4 fL 7.4 - 10.4 11/27/2016 [facility] HEMATOLOGY WBC 23.8 K/CMM 3.7 - 10.4 11/27/2016 [facility] HEMATOLOGY RBC 3.33 M/CMM 4.20 - 5.40 11/27/2016 [facility] HEMATOLOGY RDW 15.8 % 11.5 - 14.5 11/27/2016 [facility] HEMATOLOGY MCHC 31.9 g/dL 32.0 - 36.0 11/27/2016 [facility] CHEM PANEL eGFR 103 mL/min/1.73m2 11/24/2016 Result Comment: The eGFR is calculated using the CKD-EPI formula. In most young, healthy individuals the eGFR will be >90 mL/min/1.73m2. The eGFR declines with age. An eGFR of 60-89 may be normal in some populations, particularly the elderly, for whom the CKD-EPI formula has not been extensively validated. Use of the eGFR is not recommended in the following populations: Individuals with unstable creatinine concentrations, including patients and those with serious co-morbid conditions. Patients with extremes in muscle mass or diet. The data above are obtained from the National Kidney Disease Education Program (NKDEP) which additionally recommends that when the eGFR is used in patients with extremes of body mass index for purposes of drug dosing, the eGFR should be multiplied by the estimated BMI. [facility] CHEM PANEL BUN 10 mg/dL 7 - 22 11/24/2016 [facility] CHEM PANEL Glucose Lvl 75 mg/dL 70 - 99 11/24/2016 [facility] CHEM PANEL Potassium Lvl 3.2 meq/L 3.5 - 5.1 11/24/2016 [facility] CHEM PANEL Creatinine Lvl 0.53 mg/dL 0.50 - 1.40 11/24/2016 [facility] CHEM PANEL Sodium Lvl 144 meq/L 135 - 145 11/24/2016 [facility] CHEM PANEL Chloride Lvl 108 meq/L 95 - 109 11/24/2016 [facility] CHEM PANEL CO2 28 meq/L 24 - 32 11/24/2016 [facility] CHEM PANEL Calcium Lvl 8.3 mg/dL 8.5 - 10.5 11/24/2016 [facility] CHEM PANEL AGAP 11.2 meq/L 10.0 - 20.0 11/24/2016 [facility] HEMATOLOGY RBC 3.11 M/CMM 4.20 - 5.40 11/24/2016 [facility] HEMATOLOGY Hgb 8.6 g/dL 12.0 - 16.0 11/24/2016 [facility] HEMATOLOGY Hct 27.7 % 36.0 - 48.0 11/24/2016 [facility] HEMATOLOGY MCV 89.1 fL 80.0 - 98.0 11/24/2016 [facility] HEMATOLOGY MPV 10.1 fL 7.4 - 10.4 11/24/2016 [facility] HEMATOLOGY MCHC 31.0 g/dL 32.0 - 36.0 11/24/2016 [facility] HEMATOLOGY Platelet 517 K/CMM 133 - 450 11/24/2016 [facility] HEMATOLOGY MCH 27.6 pg 27.0 - 31.0 11/24/2016 [facility] HEMATOLOGY RDW 15.1 % 11.5 - 14.5 11/24/2016 [facility] HEMATOLOGY WBC 16.9 K/CMM 3.7 - 10.4 11/24/2016 [facility] HEMATOLOGY Plt Morph Normal (11/24/16 3:24 AM) 11/24/2016 [facility] HEMATOLOGY Segs 74.0 % 45.0 - 75.0 11/24/2016 [facility] HEMATOLOGY Segs-Bands # 12.5 K/CMM 1.5 - 8.1 11/24/2016 [facility] HEMATOLOGY Eosinophils 0.8 % 0.0 - 4.0 11/24/2016 [facility] HEMATOLOGY Monocytes 6.5 % 2.0 - 12.0 11/24/2016 [facility] HEMATOLOGY Basophils 0.7 % 0.0 - 1.0 11/24/2016 [facility] HEMATOLOGY Monocytes # 1.1 K/CMM 0.0 - 0.8 11/24/2016 [facility] HEMATOLOGY Eosinophils # 0.1 K/CMM 0.0 - 0.5 11/24/2016 [facility] HEMATOLOGY Lymphocytes # 3.1 K/CMM 1.0 - 5.5 11/24/2016 [facility] HEMATOLOGY Basophils # 0.1 K/CMM 0.0 - 0.2 11/24/2016 [facility] HEMATOLOGY Lymphocytes 18.0 % 20.0 - 40.0 11/24/2016 [facility] CHEM PANEL Phosphorus 2.7 mg/dL 2.5 - 4.5 11/22/2016 [facility] CHEM PANEL Magnesium Lvl 2.3 mg/dL 1.8 - 2.4 11/22/2016 [facility] CHEM PANEL Magnesium Lvl 2.0 mg/dL 1.8 - 2.4 11/21/2016 [facility] CHEM PANEL Phosphorus 4.4 mg/dL 2.5 - 4.5 11/21/2016 [facility] HEMATOLOGY RBC Morph Normal (11/21/16 2:50 AM) 11/21/2016 [facility] HEMATOLOGY Plt Morph Normal (11/21/16 2:50 AM) 11/21/2016 [facility] PARATHYROID PROFILE Ca Ion WB 1.05 mMol/L 1.05 - 1.25 11/21/2016 [facility] PARATHYROID PROFILE Ca Norm WB 1.09 mMol/L 1.05 - 1.25 11/21/2016 [facility] CARDIAC ENZYMES proBNP 1850 pg/mL 0 - 125 11/21/2016 [facility] BLOOD BANK RESULTS Antibody Scrn Negative (11/20/16 3:08 AM) 11/20/2016 [facility] BLOOD BANK RESULTS ABO/Rh A POS 11/20/2016 [facility] CHEM PANEL Lactic Acid Lvl 0.8 mMol/L 0.5 - 2.2 11/18/2016 [facility] Abdomen/Pelvis w IV contrast CT Abdomen/Pelvis w IV contrast CT EXAM: CT ABDOMEN AND PELVIS WITH CONTRAST DATE: 11/17/2016 9:03 PM CDT INDICATION: - perf diverticulitis eval for abscess ADDITIONAL INFORMATION: None. COMPARISON: CT abdomen pelvis with IV contrast 11/08/2016. TECHNIQUE: Volumetric CT acquisition of the abdomen and pelvis after the intravenous administration contrast. Axial, coronal and sagittal reconstructions. Postcontrast phases: Venous and delayed. IV contrast: 100 ml Omni-350 Enteric contrast: None. DLP: 1218 mGy-cm FINDINGS: Lines, tubes and hardware: Cardiac lead is seen in the right ventricle with streak artifacts. Lower thorax: Clear. Liver: Normal homogeneous enhancement with no focal lesions. Biliary tree: No intra- or extrahepatic biliary ductal dilation. Gallbladder: Normal. No CT evidence of gallstones. Pancreas: Normal. Spleen: Normal. Adrenals: Normal. Kidneys and ureters: Bilateral kidneys demonstrate normal homogeneous enhancement with normal excretion of contrast. No focal lesion seen. Bladder: Normal. Reproductive organs: Multiple small hyperdense and calcified degenerated fibroids are again noted. Gastrointestinal tract: There is a interval development of complex fluid collection with air-fluid level demonstrating peripheral enhancement in the left pelvis adjacent to the sigmoid colon measuring about 10.8 x 7.0 x 7.9 cm (CC x T x AP). Extensive sigmoid diverticuli with surrounding inflammatory changes is again noted. Duodenum diverticulum is again seen measuring about 2.3 x 1.7 cm (series 4a image 51). Appendix: Normal (Series 3 image 52). Peritoneum, mesentery and retroperitoneum: Normal. No free air, ascites or loculated fluid. Lymph nodes: Normal. Vasculature: Calcific atherosclerotic plaques are seen in the aorto-iliac arteries. Bones: Unchanged degenerative changes of the lumbosacral spine with grade 1 anterolisthesis of L4 over L5. No acute abnormality. Soft tissues: Normal. IMPRESSION: 1. Interval development of large abdominopelvic abscess measuring about 10.8 cm in widest diameter adjacent to the sigmoid colon. 2. Persistent features of sigmoid diverticulitis. No features of obstruction. 3. Redemonstration of a duodenal diverticulum. 4. Multiple small degenerated uterine fibroids. Findings communicated to Dr Turner (Hospitalist) via primordial at 09:25 AM 11/18/2016. 11/18/2016 - - This report was dictated by a Supervisor [employer]/Fellow. I have personally reviewed the images as well as the Resident's interpretation and agree with the findings. Read by: Lynn George MD Resident: Lynn George MD Dictated Date/time: 11/18/16 08:53 Electronically Signed by: Carlee Watkins MD 11/18/16 11:16 FINAL REPORT [facility] URINE AND STOOL UA Sq Epi None Seen 11/18/2016 [facility] URINE AND STOOL UA Urobilinogen <=1.0 mg/dL 0.1 - 1.0 11/18/2016 [facility] URINE AND STOOL UA Leuk Est Negative (11/17/16 9:56 PM) Negative 11/18/2016 [facility] URINE AND STOOL UA WBC 1 /HPF 0 - 5 11/18/2016 [facility] URINE AND STOOL UA RBC null 0 - 2 11/18/2016 [facility] URINE AND STOOL UA Mucus Few /LPF None Seen /LPF 11/18/2016 [facility] URINE AND STOOL UA Glucose Negative mg/dL Negative mg/dL 11/18/2016 [facility] URINE AND STOOL UA Ketones 60 mg/dL Negative mg/dL 11/18/2016 [facility] URINE AND STOOL UA Bili Negative *NA* (11/17/16 9:56 PM) Negative 11/18/2016 [facility] URINE AND STOOL UA Blood Negative (11/17/16 9:56 PM) Negative 11/18/2016 [facility] URINE AND STOOL UA Nitrite Negative (11/17/16 9:56 PM) Negative 11/18/2016 [facility] URINE AND STOOL UA Color Yellow *NA* (11/17/16 9:56 PM) Yellow 11/18/2016 [facility] URINE AND STOOL UA Turbidity Clear (11/17/16 9:56 PM) Clear 11/18/2016 [facility] URINE AND STOOL UA Spec Grav 1.013 <=1.030 11/18/2016 [facility] URINE AND STOOL UA pH 6.0 5.0 - 8.0 11/18/2016 [facility] URINE AND STOOL UA Protein 20 mg/dL Negative mg/dL 11/18/2016 [facility] Chest 2 views DX Chest 2 views DX EXAM: XR CHEST 2 VIEWS DATE: 11/17/2016 5:58 PM CDT INDICATION: - sob FINDINGS: Comparison is made to November 09. The cardiomediastinal silhouette is stable with a left subclavian ICD in place. There is platelike atelectasis in the bilateral lower lobes. Note is made of biapical scarring. No pleural effusions are seen. IMPRESSION: Bibasilar platelike atelectasis. 11/18/2016 - - Read by: Diane Moser MD Dictated Date/time: 11/18/16 11:59 Electronically Signed by: Diane Moser MD 11/18/16 12:00 FINAL REPORT [facility] CHEM PANEL A/G Ratio 0.5 0.7 - 1.6 11/18/2016 [facility] CHEM PANEL B/C Ratio 16 6 - 25 11/18/2016 [facility] CHEM PANEL Globulin 4.3 g/dL 2.7 - 4.2 11/18/2016 [facility] CHEM PANEL Alk Phos 84 unit/L 39 - 136 11/18/2016 [facility] CHEM PANEL Bili Total 0.2 mg/dL 0.2 - 1.3 11/18/2016 [facility] CHEM PANEL AST 8 unit/L 0 - 37 11/18/2016 [facility] CHEM PANEL Albumin Lvl 2.2 g/dL 3.5 - 5.0 11/18/2016 [facility] CHEM PANEL ALT 15 unit/L 0 - 65 11/18/2016 [facility] CHEM PANEL Total Protein 6.5 g/dL 6.4 - 8.4 11/18/2016 [facility] CHEM PANEL Lactic Acid Lvl 1.2 mMol/L 0.5 - 2.2 11/18/2016 [facility] HEMATOLOGY INR 1.27 0.85 - 1.17 11/18/2016 [facility] HEMATOLOGY PT 16.2 s 12.0 - 14.7 11/18/2016 [facility] HEMATOLOGY PTT 33.8 s 22.9 - 35.8 11/18/2016 [facility] CHEM PANEL eGFR 96 mL/min/1.73m2 11/14/2016 Result Comment: The eGFR is calculated using the CKD-EPI formula. In most young, healthy individuals the eGFR will be >90 mL/min/1.73m2. The eGFR declines with age. An eGFR of 60-89 may be normal in some populations, particularly the elderly, for whom the CKD-EPI formula has not been extensively validated. Use of the eGFR is not recommended in the following populations: Individuals with unstable creatinine concentrations, including patients and those with serious co-morbid conditions. Patients with extremes in muscle mass or diet. The data above are obtained from the National Kidney Disease Education Program (NKDEP) which additionally recommends that when the eGFR is used in patients with extremes of body mass index for purposes of drug dosing, the eGFR should be multiplied by the estimated BMI. [facility] CHEM PANEL CO2 28 meq/L 24 - 32 11/14/2016 [facility] CHEM PANEL AGAP 13.3 meq/L 10.0 - 20.0 11/14/2016 [facility] CHEM PANEL Sodium Lvl 141 meq/L 135 - 145 11/14/2016 [facility] CHEM PANEL Potassium Lvl 3.3 meq/L 3.5 - 5.1 11/14/2016 [facility] CHEM PANEL Chloride Lvl 103 meq/L 95 - 109 11/14/2016 [facility] CHEM PANEL Calcium Lvl 8.3 mg/dL 8.5 - 10.5 11/14/2016 [facility] CHEM PANEL Glucose Lvl 119 mg/dL 70 - 99 11/14/2016 [facility] CHEM PANEL Creatinine Lvl 0.66 mg/dL 0.50 - 1.40 11/14/2016 [facility] CHEM PANEL BUN 11 mg/dL 7 - 22 11/14/2016 [facility] CHEM PANEL Magnesium Lvl 2.1 mg/dL 1.8 - 2.4 11/14/2016 [facility] CHEM PANEL Phosphorus 3.0 mg/dL 2.5 - 4.5 11/14/2016 [facility] HEMATOLOGY Eosinophils 0.5 % 0.0 - 4.0 11/14/2016 [facility] HEMATOLOGY Lymphocytes 12.7 % 20.0 - 40.0 11/14/2016 [facility] HEMATOLOGY Monocytes 9.5 % 2.0 - 12.0 11/14/2016 [facility] HEMATOLOGY Segs 75.8 % 45.0 - 75.0 11/14/2016 [facility] HEMATOLOGY Segs-Bands # 12.7 K/CMM 1.5 - 8.1 11/14/2016 [facility] HEMATOLOGY Basophils # 0.2 K/CMM 0.0 - 0.2 11/14/2016 [facility] HEMATOLOGY Eosinophils # 0.1 K/CMM 0.0 - 0.5 11/14/2016 [facility] HEMATOLOGY Basophils 1.5 % 0.0 - 1.0 11/14/2016 [facility] HEMATOLOGY Monocytes # 1.6 K/CMM 0.0 - 0.8 11/14/2016 [facility] HEMATOLOGY Lymphocytes # 2.1 K/CMM 1.0 - 5.5 11/14/2016 [facility] HEMATOLOGY Platelet 362 K/CMM 133 - 450 11/14/2016 [facility] HEMATOLOGY MPV 10.3 fL 7.4 - 10.4 11/14/2016 [facility] HEMATOLOGY WBC 16.8 K/CMM 3.7 - 10.4 11/14/2016 [facility] HEMATOLOGY RBC 4.01 M/CMM 4.20 - 5.40 11/14/2016 [facility] HEMATOLOGY MCV 89.5 fL 80.0 - 98.0 11/14/2016 [facility] HEMATOLOGY Hct 35.9 % 36.0 - 48.0 11/14/2016 [facility] HEMATOLOGY RDW 14.5 % 11.5 - 14.5 11/14/2016 [facility] HEMATOLOGY MCH 29.3 pg 27.0 - 31.0 11/14/2016 [facility] HEMATOLOGY MCHC 32.8 g/dL 32.0 - 36.0 11/14/2016 [facility] HEMATOLOGY Hgb 11.8 g/dL 12.0 - 16.0 11/14/2016 [facility] HEMATOLOGY Segs 76.6 % 45.0 - 75.0 11/13/2016 [facility] HEMATOLOGY Monocytes 7.6 % 2.0 - 12.0 11/13/2016 [facility] HEMATOLOGY Eosinophils 0.5 % 0.0 - 4.0 11/13/2016 [facility] HEMATOLOGY Lymphocytes 15.0 % 20.0 - 40.0 11/13/2016 [facility] HEMATOLOGY Segs-Bands # 12.9 K/CMM 1.5 - 8.1 11/13/2016 [facility] HEMATOLOGY Basophils 0.3 % 0.0 - 1.0 11/13/2016 [facility] HEMATOLOGY Monocytes # 1.3 K/CMM 0.0 - 0.8 11/13/2016 [facility] HEMATOLOGY Eosinophils # 0.1 K/CMM 0.0 - 0.5 11/13/2016 [facility] HEMATOLOGY Lymphocytes # 2.5 K/CMM 1.0 - 5.5 11/13/2016 [facility] HEMATOLOGY Basophils # 0.1 K/CMM 0.0 - 0.2 11/13/2016 [facility] HEMATOLOGY WBC 16.8 K/CMM 3.7 - 10.4 11/13/2016 [facility] HEMATOLOGY RDW 14.5 % 11.5 - 14.5 11/13/2016 [facility] HEMATOLOGY Platelet 334 K/CMM 133 - 450 11/13/2016 [facility] HEMATOLOGY MPV 8.8 fL 7.4 - 10.4 11/13/2016 [facility] HEMATOLOGY Hgb 11.3 g/dL 12.0 - 16.0 11/13/2016 [facility] HEMATOLOGY Hct 34.3 % 36.0 - 48.0 11/13/2016 [facility] HEMATOLOGY RBC 3.88 M/CMM 4.20 - 5.40 11/13/2016 [facility] HEMATOLOGY MCH 29.1 pg 27.0 - 31.0 11/13/2016 [facility] HEMATOLOGY MCHC 32.9 g/dL 32.0 - 36.0 11/13/2016 [facility] HEMATOLOGY MCV 88.4 fL 80.0 - 98.0 11/13/2016 [facility] CHEM PANEL Magnesium Lvl 1.8 mg/dL 1.8 - 2.4 11/13/2016 [facility] CHEM PANEL Phosphorus 2.9 mg/dL 2.5 - 4.5 11/13/2016 [facility] ELECTROLYTES AGAP 15.7 meq/L 10.0 - 20.0 11/13/2016 [facility] ELECTROLYTES eGFR 104 mL/min/1.73m2 11/13/2016 Result Comment: The eGFR is calculated using the CKD-EPI formula. In most young, healthy individuals the eGFR will be >90 mL/min/1.73m2. The eGFR declines with age. An eGFR of 60-89 may be normal in some populations, particularly the elderly, for whom the CKD-EPI formula has not been extensively validated. Use of the eGFR is not recommended in the following populations: Individuals with unstable creatinine concentrations, including patients and those with serious co-morbid conditions. Patients with extremes in muscle mass or diet. The data above are obtained from the National Kidney Disease Education Program (NKDEP) which additionally recommends that when the eGFR is used in patients with extremes of body mass index for purposes of drug dosing, the eGFR should be multiplied by the estimated BMI. [facility] ELECTROLYTES Calcium Lvl 8.2 mg/dL 8.5 - 10.5 11/13/2016 [facility] ELECTROLYTES Creatinine Lvl 0.51 mg/dL 0.50 - 1.40 11/13/2016 [facility] ELECTROLYTES Sodium Lvl 137 meq/L 135 - 145 11/13/2016 [facility] ELECTROLYTES Chloride Lvl 107 meq/L 95 - 109 11/13/2016 [facility] ELECTROLYTES CO2 18 meq/L 24 - 11/13/2016 [facility] ELECTROLYTES Potassium Lvl 3.7 meq/L 3.5 - 5.1 11/13/2016 [facility] ELECTROLYTES Glucose Lvl 85 mg/dL 70 - 99 11/13/2016 [facility] ELECTROLYTES BUN 7 mg/dL 7 - 11/13/2016 [facility] CHEM PANEL Phosphorus 2.7 mg/dL 2.5 - 4.5 11/12/2016 [facility] CHEM PANEL eGFR 100 mL/min/1.73m2 11/12/2016 Result Comment: The eGFR is calculated using the CKD-EPI formula. In most young, healthy individuals the eGFR will be >90 mL/min/1.73m2. The eGFR declines with age. An eGFR of 60-89 may be normal in some populations, particularly the elderly, for whom the CKD-EPI formula has not been extensively validated. Use of the eGFR is not recommended in the following populations: Individuals with unstable creatinine concentrations, including patients and those with serious co-morbid conditions. Patients with extremes in muscle mass or diet. The data above are obtained from the National Kidney Disease Education Program (NKDEP) which additionally recommends that when the eGFR is used in patients with extremes of body mass index for purposes of drug dosing, the eGFR should be multiplied by the estimated BMI. [facility] CHEM PANEL CO2 20 meq/L - 11/12/2016 [facility] CHEM PANEL Calcium Lvl 8.4 mg/dL 8.5 - 10.5 11/12/2016 [facility] CHEM PANEL Chloride Lvl 111 meq/L 95 - 109 11/12/2016 [facility] CHEM PANEL Glucose Lvl 81 mg/dL 70 - 99 11/12/2016 [facility] CHEM PANEL Creatinine Lvl 0.58 mg/dL 0.50 - 1.40 11/12/2016 [facility] CHEM PANEL Potassium Lvl 3.4 meq/L 3.5 - 5.1 11/12/2016 [facility] CHEM PANEL BUN 10 mg/dL 7 - 11/12/2016 [facility] CHEM PANEL Sodium Lvl 140 meq/L 135 - 145 11/12/2016 [facility] CHEM PANEL AGAP 12.4 meq/L 10.0 - 20.0 11/12/2016 [facility] CHEM PANEL Magnesium Lvl 1.9 mg/dL 1.8 - 2.4 11/12/2016 [facility] HEMATOLOGY MCV 90.7 fL 80.0 - 98.0 11/12/2016 [facility] HEMATOLOGY RDW 14.7 % 11.5 - 14.5 11/12/2016 [facility] HEMATOLOGY MCHC 32.8 g/dL 32.0 - 36.0 11/12/2016 [facility] HEMATOLOGY Hct 32.5 % 36.0 - 48.0 11/12/2016 [facility] HEMATOLOGY MCH 29.7 pg 27.0 - 31.0 11/12/2016 [facility] HEMATOLOGY MPV 9.9 fL 7.4 - 10.4 11/12/2016 [facility] HEMATOLOGY Platelet 285 K/CMM 133 - 450 11/12/2016 [facility] HEMATOLOGY WBC 15.5 K/CMM 3.7 - 10.4 11/12/2016 [facility] HEMATOLOGY Hgb 10.7 g/dL 12.0 - 16.0 11/12/2016 [facility] HEMATOLOGY RBC 3.58 M/CMM 4.20 - 5.40 11/12/2016 [facility] HEMATOLOGY Eosinophils # 0.1 K/CMM 0.0 - 0.5 11/12/2016 [facility] HEMATOLOGY Monocytes # 1.5 K/CMM 0.0 - 0.8 11/12/2016 [facility] HEMATOLOGY Lymphocytes 14.1 % 20.0 - 40.0 11/12/2016 [facility] HEMATOLOGY Segs 75.2 % 45.0 - 75.0 11/12/2016 [facility] HEMATOLOGY Lymphocytes # 2.2 K/CMM 1.0 - 5.5 11/12/2016 [facility] HEMATOLOGY Eosinophils 0.4 % 0.0 - 4.0 11/12/2016 [facility] HEMATOLOGY Monocytes 10.0 % 2.0 - 12.0 11/12/2016 [facility] HEMATOLOGY Segs-Bands # 11.6 K/CMM 1.5 - 8.1 11/12/2016 [facility] HEMATOLOGY Basophils 0.3 % 0.0 - 1.0 11/12/2016 [facility] HEMATOLOGY Basophils # 0.1 K/CMM 0.0 - 0.2 11/11/2016 [facility] CHEM PANEL Lactic Acid Lvl 0.8 mMol/L 0.5 - 2.2 11/09/2016 [facility] Chest 1view DX Chest 1view DX EXAM: XR CHEST 1 VIEW DATE: 11/09/2016 3:00 AM CDT INDICATION: - CHF COMPARISON: 11/08/2016 TECHNIQUE: AP chest, semierect. FINDINGS: Lines and tubes, and life support devices: Unchanged. Lungs and pleura: Bilateral infrahilar opacities are seen, which may represent atelectasis/infection. Mild chronic appearing interstitial with biapical emphysematous changes. No pneumothorax or pleural fluid is identified. Heart and mediastinum: Unchanged, considering differences in technique. Bones and soft tissues: Unchanged. IMPRESSION: Bilateral infrahilar opacities may represent atelectasis/infection. Pulmonary emphysema. 11/09/2016 - - Read by: Clarence Myrick Dictated Date/time: 11/09/16 07:04 Electronically Signed by: Clarence Myrick 11/09/16 07:06 FINAL REPORT [facility] CHEM PANEL Lactic Acid WB 1.6 mmol/L 0.5 - 2.2 11/08/2016 [facility] BLOOD BANK RESULTS Antibody Scrn Negative (11/08/16 3:20 PM) 11/08/2016 [facility] BLOOD BANK RESULTS ABO/Rh A POS 11/08/2016 [facility] URINE AND STOOL UA Spec Grav 1.070 <=1.030 11/08/2016 [facility] URINE AND STOOL UA Nitrite Negative (11/08/16 2:30 PM) Negative 11/08/2016 [facility] URINE AND STOOL UA Urobilinogen 0.2 EU/dL 0.1 - 1.0 11/08/2016 [facility] URINE AND STOOL UA Leuk Est Small *ABN* (11/08/16 2:30 PM) Negative 11/08/2016 [facility] URINE AND STOOL UA Bili Negative *NA* (11/08/16 2:30 PM) Negative 11/08/2016 [facility] URINE AND STOOL UA Ketones Negative *NA* (11/08/16 2:30 PM) Negative 11/08/2016 [facility] URINE AND STOOL UA Blood Small *ABN* (11/08/16 2:30 PM) Negative 11/08/2016 [facility] URINE AND STOOL UA pH 6.0 5.0 - 8.0 11/08/2016 [facility] URINE AND STOOL UA Protein 30 mg/dL Negative mg/dL 11/08/2016 [facility] URINE AND STOOL UA Glucose Negative (11/08/16 2:30 PM) Negative 11/08/2016 [facility] URINE AND STOOL UA Turbidity Slight Cloudy (11/08/16 2:30 PM) Clear 11/08/2016 [facility] URINE AND STOOL UA Color Yellow *NA* (11/08/16 2:30 PM) Yellow 11/08/2016 [facility] URINE AND STOOL UA WBC 21-50 /HPF None Seen /HPF 11/08/2016 [facility] URINE AND STOOL UA Sq Epi Moderate /LPF Few /LPF 11/08/2016 [facility] URINE AND STOOL UA Bacteria Moderate /HPF None Seen /HPF 11/08/2016 [facility] URINE AND STOOL UA RBC 3-5 /HPF 0 - 2 11/08/2016 [facility] CARDIAC ENZYMES Troponin-I null 0.00 - 0.40 11/08/2016 [facility] CHEM PANEL B/C Ratio 9 6 - 25 11/08/2016 [facility] CHEM PANEL A/G Ratio 0.6 0.7 - 1.6 11/08/2016 [facility] CHEM PANEL Globulin 4.7 g/dL 2.7 - 4.2 11/08/2016 [facility] CHEM PANEL Alk Phos 77 unit/L 39 - 136 11/08/2016 [facility] CHEM PANEL AST 21 unit/L 0 - 37 11/08/2016 [facility] CHEM PANEL Albumin Lvl 3.0 g/dL 3.5 - 5.0 11/08/2016 [facility] CHEM PANEL Total Protein 7.7 g/dL 6.4 - 8.4 11/08/2016 [facility] CHEM PANEL ALT 22 unit/L 0 - 65 11/08/2016 [facility] CHEM PANEL Bili Total 0.8 mg/dL 0.2 - 1.3 11/08/2016 [facility] HEMATOLOGY PT 15.7 s 12.0 - 14.7 11/08/2016 [facility] HEMATOLOGY INR 1.22 0.85 - 1.17 11/08/2016 [facility] HEMATOLOGY PTT 28.5 s 22.9 - 35.8 11/08/2016 [facility] CHEM PANEL Lactic Acid WB 2.5 mmol/L 0.5 - 2.2 11/08/2016 [facility] HEMATOLOGY Bands 0.0 % 0.0 - 11.0 11/08/2016 [facility] HEMATOLOGY Atypical Lymphs 0.0 % <=0.0 % 11/08/2016 [facility] HEMATOLOGY Anisocyte 1+ *ABN* (11/08/16 10:48 AM) None Seen 11/08/2016 [facility] HEMATOLOGY Tot Cell Ct 200 11/08/2016 [facility] HEMATOLOGY Plt Morph See Note 1 (11/08/16 10:48 AM) 11/08/2016 Result Comment: Due to occassional clumps, the actual count may be slightly higher. [facility] Abdomen/Pelvis w IV contrast CT Abdomen/Pelvis w IV contrast CT EXAM: CT ABDOMEN AND PELVIS WITH CONTRAST DATE: 11/08/2016 10:47 AM CDT INDICATION: - concern for diverticulitis; abscess? Perforation? ADDITIONAL INFORMATION: None. COMPARISON: CXR 11/08/[address] chest 07/09/2015 TECHNIQUE: Volumetric CT acquisition of the abdomen and pelvis after the intravenous administration contrast. Axial, coronal and sagittal reconstructions. IV CONTRAST: 100 ml of Visipaque 300 ORAL CONTRAST: None RADIATION DOSE: Total DLP: 1193 mGy*cm Estimated effective dose: DLP x 0.015 mSv COMPLICATIONS: None FINDINGS: Lines and tubes: Partially visualized left chest wall automatic implantable cardiac defibrillator with cardiac lead within the right ventricle. Lower thorax: Clear. Liver: Hepatic steatosis. Focal fatty infiltration at the ligamentum teres. No focal hepatic lesions. Biliary tree: No intra- or extrahepatic biliary ductal dilation. Gallbladder: No radiopaque gallstones. No wall thickening or pericholecystic fluid. Pancreas: No ductal dilatation. No obvious focal lesions. No peripancreatic stranding. Spleen: No splenomegaly or focal lesions. Adrenals: No nodules. Kidneys and ureters: Bilateral kidneys enhance symmetrically with mild perinephric stranding. No renal stones or hydronephrosis. No obvious cystic or solid renal lesions. No hydroureter. In the delayed phase, no significant contrast opacification of the bilateral renal collecting systems. Bladder: Collapsed without large radiopaque stones. Reproductive organs: Anteflexed uterus with fundal fibroid. Ovaries unremarkable. No large adnexal lesions. Gastrointestinal tract/peritoneum/retroperitoneum: Extensive sigmoid and rectosigmoid segment wall thickening and diverticula with prominent pericolonic stranding and multiple foci of air within the sigmoid mesocolon compatible with diverticulitis with perforation and trace fluid. No rim enhancing fluid collections. Mesentery stranding extends to portions of the right lower quadrant and central mesentery. A structure measuring approximately 2.6 x 2.5 x 2.9 cm adjacent to the 3rd stage of the duodenum, with a couple of foci in the duodenal wall, most likely represents a focal diverticulum with frothy contents, indicating retained contents in the diverticulum. No bowel obstruction. The stomach is partially distended. Partially visualized appendix is within normal limits in caliber. Lymph nodes: No retroperitoneal, mesenteric, or pelvic lymphadenopathy. Vasculature: Visualized abdominal aorta and IVC within normal limits in caliber. Extensive calcific and noncalcific atheromatous changes of the abdominal aorta and bilateral common iliac arteries and branches including the visceral branches. Extensive vascular calcifications of the bilateral common femoral arteries and branches. The visualized celiac trunk, SMA, bilateral renal arteries, and SAMEERA are patent. Portal system is intact. Bones: Degenerative changes of the lumbosacral spine with vacuum phenomena at L5-S1. Grade 1 anterolisthesis of L4 over L5 without chronic pars defect. Facet arthrosis. Soft tissues: Thinning of the bilateral rectus muscle IMPRESSION: 1. Extensive sigmoid diverticulosis with multiple air foci within the sigmoid mesocolon compatible with perforated diverticulitis with stranding and trace fluid but without rim enhancing fluid collections. 2. No bowel obstruction. 3. Duodenal diverticulum with retained frothy contents. 4. No lymphadenopathy. 5. Extensive atherosclerotic disease. These findings were discussed with Dr. Kahn, [facility] on 11/08/2016 at 12:[address] Seb Cheng. 11/08/2016 - - Read by: Seb Cheng MD Dictated Date/time: 11/08/16 12:19 Electronically Signed by: Seb Cheng MD 11/08/16 12:49 FINAL REPORT [facility] Chest 1view DX Chest 1view DX EXAM: XR CHEST 1 VIEW DATE: 11/08/2016 10:23 AM CDT INDICATION: - abd pian x2day low bp 70s/ COMPARISON: 06/17/2016, PA and lateral examination TECHNIQUE: AP chest FINDINGS: Lines and tubes: Left subclavian implantable defibrillator has right ventricular lead unchanged in position. Electrocardiogram leads and electrodes overlie portions of the chest. Lungs and pleura: No pulmonary or pleural based abnormality is identified. Apical scarring seen on the PA radiograph is not apparent on the AP projection. Heart and mediastinum: The heart size is normal for technique. The mediastinal contours are normal. Bones: No acute bony abnormality is identified. IMPRESSION: 1. No change in the position of the implantable defibrillator. 2. No acute cardiopulmonary abnormality is evident. 11/08/2016 - - Read by: Jose Ozuna MD Dictated Date/time: 11/08/16 11:11 Electronically Signed by: Jose Ozuna MD 11/08/16 11:12 FINAL REPORT [facility] CHEM PANEL eGFR 96 mL/min/1.73m2 06/07/2016 Result Comment: The eGFR is calculated using the CKD-EPI formula. In most young, healthy individuals the eGFR will be >90 mL/min/1.73m2. The eGFR declines with age. An eGFR of 60-89 may be normal in some populations, particularly the elderly, for whom the CKD-EPI formula has not been extensively validated. Use of the eGFR is not recommended in the following populations: Individuals with unstable creatinine concentrations, including patients and those with serious co-morbid conditions. Patients with extremes in muscle mass or diet. The data above are obtained from the National Kidney Disease Education Program (NKDEP) which additionally recommends that when the eGFR is used in patients with extremes of body mass index for purposes of drug dosing, the eGFR should be multiplied by the estimated BMI. [facility] CHEM PANEL BUN 11 mg/dL 7 - 22 06/07/2016 [facility] CHEM PANEL Calcium Lvl 8.1 mg/dL 8.5 - 10.5 06/07/2016 [facility] CHEM PANEL CO2 26 meq/L 24 - 32 06/07/2016 [facility] CHEM PANEL AGAP 10.7 meq/L 10.0 - 20.0 06/07/2016 [facility] CHEM PANEL Chloride Lvl 109 meq/L 95 - 109 06/07/2016 [facility] CHEM PANEL Sodium Lvl 142 meq/L 135 - 145 06/07/2016 [facility] CHEM PANEL Creatinine Lvl 0.65 mg/dL 0.50 - 1.40 06/07/2016 [facility] CHEM PANEL Potassium Lvl 3.7 meq/L 3.5 - 5.1 06/07/2016 [facility] CHEM PANEL Glucose Lvl 100 mg/dL 70 - 99 06/07/2016 [facility] HEMATOLOGY RBC 3.65 M/CMM 4.20 - 5.40 06/07/2016 [facility] HEMATOLOGY WBC 11.0 K/CMM 3.7 - 10.4 06/07/2016 [facility] HEMATOLOGY MCHC 32.5 g/dL 32.0 - 36.0 06/07/2016 [facility] HEMATOLOGY MCH 30.6 pg 27.0 - 31.0 06/07/2016 [facility] HEMATOLOGY MCV 93.9 fL 80.0 - 98.0 06/07/2016 [facility] HEMATOLOGY Hct 34.3 % 36.0 - 48.0 06/07/2016 [facility] HEMATOLOGY Hgb 11.2 g/dL 12.0 - 16.0 06/07/2016 [facility] HEMATOLOGY MPV 9.0 fL 7.4 - 10.4 06/07/2016 [facility] HEMATOLOGY Platelet 241 K/CMM 133 - 450 06/07/2016 [facility] HEMATOLOGY RDW 14.3 % 11.5 - 14.5 06/07/2016 [facility] HEMATOLOGY Segs-Bands # 6.8 K/CMM 1.5 - 8.1 06/07/2016 [facility] HEMATOLOGY Basophils 1.5 % 0.0 - 1.0 06/07/2016 [facility] HEMATOLOGY Eosinophils 2.0 % 0.0 - 4.0 06/07/2016 [facility] HEMATOLOGY Monocytes 9.3 % 2.0 - 12.0 06/07/2016 [facility] HEMATOLOGY Lymphocytes 25.5 % 20.0 - 40.0 06/07/2016 [facility] HEMATOLOGY Segs 61.7 % 45.0 - 75.0 06/07/2016 [facility] HEMATOLOGY Basophils # 0.2 K/CMM 0.0 - 0.2 06/07/2016 [facility] HEMATOLOGY Eosinophils # 0.2 K/CMM 0.0 - 0.5 06/07/2016 [facility] HEMATOLOGY Monocytes # 1.0 K/CMM 0.0 - 0.8 06/07/2016 [facility] HEMATOLOGY Lymphocytes # 2.8 K/CMM 1.0 - 5.5 06/07/2016 [facility] Chest 2 views DX Chest 2 views DX EXAM: XR CHEST 2 VIEWS DATE: 06/07/2016 5:00 AM MONUMENT LETTERER INDICATION: Line Placement COMPARISON: Previous Day FINDINGS: Single lead left chest wall implantable cardiac defibrillator with lead overlying the right ventricle present. The cardiomediastinal silhouette is stable. Biapical scarring, aortic catheters chronic changes, and basilar atelectasis present. IMPRESSION: 1. Left chest wall implantable cardiac defibrillator with lead overlying right ventricle. 2. Basilar atelectasis. 06/07/2016 - - Read by: Lalo Hamilton MD Dictated Date/time: 06/07/16 09:43 Electronically Signed by: Lalo Hamilton MD 06/07/16 09:47 FINAL REPORT [facility] Chest 1view DX Chest 1view DX EXAM: XR CHEST 1 VIEW DATE: 06/06/2016 12:24 PM MONUMENT LETTERER INDICATION: Line Placement. FINDINGS: Comparison is made to June 06 at 8:26 AM. A new left subclavian ICD has its tip over the right ventricle. This can be confirmed with a lateral view. The cardiomediastinal silhouette is otherwise stable. Note is made of mild biapical scarring. The lungs are clear and well-expanded. No pleural effusions are identified. IMPRESSION: New, single lead, left subclavian ICD. 06/06/2016 - - Read by: Diane Moser MD Dictated Date/time: 06/06/16 13:47 Electronically Signed by: Diane Moser MD 06/06/16 13:48 FINAL REPORT [facility] BLOOD BANK RESULTS ABO/Rh A POS 06/06/2016 [facility] BLOOD BANK RESULTS Antibody Scrn Negative (06/06/16 6:03 AM) 06/06/2016 [facility] CHEM PANEL Magnesium Lvl 2.0 mg/dL 1.8 - 2.4 06/06/2016 [facility] ELECTROLYTES AGAP 11.7 meq/L 10.0 - 20.0 06/06/2016 [facility] ELECTROLYTES eGFR 88 mL/min/1.73m2 06/06/2016 Result Comment: The eGFR is calculated using the CKD-EPI formula. In most young, healthy individuals the eGFR will be >90 mL/min/1.73m2. The eGFR declines with age. An eGFR of 60-89 may be normal in some populations, particularly the elderly, for whom the CKD-EPI formula has not been extensively validated. Use of the eGFR is not recommended in the following populations: Individuals with unstable creatinine concentrations, including patients and those with serious co-morbid conditions. Patients with extremes in muscle mass or diet. The data above are obtained from the National Kidney Disease Education Program (NKDEP) which additionally recommends that when the eGFR is used in patients with extremes of body mass index for purposes of drug dosing, the eGFR should be multiplied by the estimated BMI. [facility] ELECTROLYTES CO2 27 meq/L 24 - 32 06/06/2016 [facility] ELECTROLYTES Chloride Lvl 104 meq/L 95 - 109 06/06/2016 [facility] ELECTROLYTES Calcium Lvl 9.0 mg/dL 8.5 - 10.5 06/06/2016 [facility] ELECTROLYTES Glucose Lvl 144 mg/dL 70 - 99 06/06/2016 [facility] ELECTROLYTES Sodium Lvl 139 meq/L 135 - 145 06/06/2016 [facility] ELECTROLYTES BUN 16 mg/dL 7 - 22 06/06/2016 [facility] ELECTROLYTES Creatinine Lvl 0.74 mg/dL 0.50 - 1.40 06/06/2016 [facility] ELECTROLYTES Potassium Lvl 3.7 meq/L 3.5 - 5.1 06/06/2016 [facility] HEMATOLOGY Eosinophils 1.0 % 0.0 - 4.0 06/06/2016 [facility] HEMATOLOGY Basophils 0.4 % 0.0 - 1.0 06/06/2016 [facility] HEMATOLOGY Segs-Bands # 14.7 K/CMM 1.5 - 8.1 06/06/2016 [facility] HEMATOLOGY Lymphocytes # 2.0 K/CMM 1.0 - 5.5 06/06/2016 [facility] HEMATOLOGY Monocytes # 1.2 K/CMM 0.0 - 0.8 06/06/2016 [facility] HEMATOLOGY Basophils # 0.1 K/CMM 0.0 - 0.2 06/06/2016 [facility] HEMATOLOGY Eosinophils # 0.2 K/CMM 0.0 - 0.5 06/06/2016 [facility] HEMATOLOGY Segs 80.9 % 45.0 - 75.0 06/06/2016 [facility] HEMATOLOGY Monocytes 6.8 % 2.0 - 12.0 06/06/2016 [facility] HEMATOLOGY Lymphocytes 10.9 % 20.0 - 40.0 06/06/2016 [facility] HEMATOLOGY MCHC 32.4 g/dL 32.0 - 36.0 06/06/2016 [facility] HEMATOLOGY RBC 3.94 M/CMM 4.20 - 5.40 06/06/2016 [facility] HEMATOLOGY WBC 18.1 K/CMM 3.7 - 10.4 06/06/2016 [facility] HEMATOLOGY MCH 30.1 pg 27.0 - 31.0 06/06/2016 [facility] HEMATOLOGY MCV 92.6 fL 80.0 - 98.0 06/06/2016 [facility] HEMATOLOGY RDW 14.6 % 11.5 - 14.5 06/06/2016 [facility] HEMATOLOGY Platelet 306 K/CMM 133 - 450 06/06/2016 [facility] HEMATOLOGY MPV 8.6 fL 7.4 - 10.4 06/06/2016 [facility] HEMATOLOGY Hgb 11.8 g/dL 12.0 - 16.0 06/06/2016 [facility] HEMATOLOGY Hct 36.5 % 36.0 - 48.0 06/06/2016 [facility] HEMATOLOGY INR 0.97 0.85 - 1.17 06/06/2016 [facility] HEMATOLOGY PT 13.1 s 12.0 - 14.7 06/06/2016 [facility] HEMATOLOGY PTT 26.3 s 22.9 - 35.8 06/06/2016 [facility] Chest 1view DX Chest 1view DX EXAM: XR CHEST 1 VIEW DATE: 06/06/2016 8:08 AM MONUMENT LETTERER INDICATION: Coughing COMPARISON: Chest CT dated 07/09/2015 TECHNIQUE: AP chest FINDINGS: Lines, tubes and hardware: None. Lungs and pleura: Biapical fibrotic changes again seen. Otherwise, both lungs are clear. Costophrenic sulci are sharp. Heart and mediastinum: normal for technique. Bones: No acute bony abnormality is identified. IMPRESSION: 1. No acute cardiopulmonary abnormality. 06/06/2016 - - Read by: Isaias Purcell MD Dictated Date/time: 06/06/16 09:18 Electronically Signed by: Isaias Purcell MD 06/06/16 09:19 FINAL REPORT [facility] HEMATOLOGY POC Activated Clotting Time 179 s 05/09/2016 [facility] HEMATOLOGY POC Activated Clotting Time 246 s 05/08/2016 [facility] BLOOD BANK RESULTS ABO/Rh A POS 05/08/2016 [facility] BLOOD BANK RESULTS Antibody Scrn Negative (05/08/16 11:12 AM) 05/08/2016 [facility] CHEM PANEL eGFR 67 mL/min/1.73m2 05/08/2016 Result Comment: The eGFR is calculated using the CKD-EPI formula. In most young, healthy individuals the eGFR will be >90 mL/min/1.73m2. The eGFR declines with age. An eGFR of 60-89 may be normal in some populations, particularly the elderly, for whom the CKD-EPI formula has not been extensively validated. Use of the eGFR is not recommended in the following populations: Individuals with unstable creatinine concentrations, including patients and those with serious co-morbid conditions. Patients with extremes in muscle mass or diet. The data above are obtained from the National Kidney Disease Education Program (NKDEP) which additionally recommends that when the eGFR is used in patients with extremes of body mass index for purposes of drug dosing, the eGFR should be multiplied by the estimated BMI. [facility] CHEM PANEL BUN 16 mg/dL 7 - 22 05/08/2016 [facility] CHEM PANEL Creatinine Lvl 0.92 mg/dL 0.50 - 1.40 05/08/2016 [facility] CHEM PANEL Glucose Lvl 95 mg/dL 70 - 99 05/08/2016 [facility] CHEM PANEL CO2 29 meq/L 24 - 32 05/08/2016 [facility] CHEM PANEL Chloride Lvl 108 meq/L 95 - 109 05/08/2016 [facility] CHEM PANEL Potassium Lvl 3.9 meq/L 3.5 - 5.1 05/08/2016 [facility] CHEM PANEL Sodium Lvl 145 meq/L 135 - 145 05/08/2016 [facility] CHEM PANEL Calcium Lvl 8.9 mg/dL 8.5 - 10.5 05/08/2016 [facility] CHEM PANEL AGAP 11.9 meq/L 10.0 - 20.0 05/08/2016 [facility] CHEM PANEL Magnesium Lvl 2.0 mg/dL 1.8 - 2.4 05/08/2016 [facility] HEMATOLOGY Hgb 13.2 g/dL 12.0 - 16.0 05/08/2016 [facility] HEMATOLOGY Hct 40.7 % 36.0 - 48.0 05/08/2016 [facility] HEMATOLOGY MCV 93.3 fL 80.0 - 98.0 05/08/2016 [facility] HEMATOLOGY WBC 14.9 K/CMM 3.7 - 10.4 05/08/2016 [facility] HEMATOLOGY RBC 4.37 M/CMM 4.20 - 5.40 05/08/2016 [facility] HEMATOLOGY MCH 30.2 pg 27.0 - 31.0 05/08/2016 [facility] HEMATOLOGY MCHC 32.4 g/dL 32.0 - 36.0 05/08/2016 [facility] HEMATOLOGY RDW 15.2 % 11.5 - 14.5 05/08/2016 [facility] HEMATOLOGY MPV 9.5 fL 7.4 - 10.4 05/08/2016 [facility] HEMATOLOGY Platelet 266 K/CMM 133 - 450 05/08/2016 [facility] HEMATOLOGY PT 13.1 s 12.0 - 14.7 05/08/2016 [facility] HEMATOLOGY PTT 25.2 s 22.9 - 35.8 05/08/2016 [facility] HEMATOLOGY INR 0.97 0.85 - 1.17 05/08/2016 [facility] HEMATOLOGY Monocytes # 1.0 K/CMM 0.0 - 0.8 05/08/2016 [facility] HEMATOLOGY Eosinophils # 0.1 K/CMM 0.0 - 0.5 05/08/2016 [facility] HEMATOLOGY Basophils # 0.1 K/CMM 0.0 - 0.2 05/08/2016 [facility] HEMATOLOGY Lymphocytes # 2.0 K/CMM 1.0 - 5.5 05/08/2016 [facility] HEMATOLOGY Basophils 0.5 % 0.0 - 1.0 05/08/2016 [facility] HEMATOLOGY Segs-Bands # 11.6 K/CMM 1.5 - 8.1 05/08/2016 [facility] HEMATOLOGY Monocytes 6.9 % 2.0 - 12.0 05/08/2016 [facility] HEMATOLOGY Eosinophils 1.0 % 0.0 - 4.0 05/08/2016 [facility] HEMATOLOGY Lymphocytes 13.6 % 20.0 - 40.0 05/08/2016 [facility] HEMATOLOGY Segs 78.0 % 45.0 - 75.0 05/08/2016 [facility] CHEM PANEL Creatinine Lvl 0.77 mg/dL 0.50 - 1.40 04/11/2016 [facility] CHEM PANEL eGFR 84 mL/min/1.73m2 04/11/2016 Result Comment: The eGFR is calculated using the CKD-EPI formula. In most young, healthy individuals the eGFR will be >90 mL/min/1.73m2. The eGFR declines with age. An eGFR of 60-89 may be normal in some populations, particularly the elderly, for whom the CKD-EPI formula has not been extensively validated. Use of the eGFR is not recommended in the following populations: Individuals with unstable creatinine concentrations, including patients and those with serious co-morbid conditions. Patients with extremes in muscle mass or diet. The data above are obtained from the National Kidney Disease Education Program (NKDEP) which additionally recommends that when the eGFR is used in patients with extremes of body mass index for purposes of drug dosing, the eGFR should be multiplied by the estimated BMI. [facility] HEMATOLOGY POC Activated Clotting Time 214 s 04/10/2016 [facility] BLOOD BANK RESULTS ABO/Rh A POS 04/10/2016 [facility] BLOOD BANK RESULTS Antibody Scrn Negative (04/10/16 11:33 AM) 04/10/2016 [facility] CHEM PANEL Magnesium Lvl 2.0 mg/dL 1.8 - 2.4 04/10/2016 [facility] ELECTROLYTES AGAP 16.2 meq/L 10.0 - 20.0 04/10/2016 [facility] ELECTROLYTES eGFR 67 mL/min/1.73m2 04/10/2016 Result Comment: The eGFR is calculated using the CKD-EPI formula. In most young, healthy individuals the eGFR will be >90 mL/min/1.73m2. The eGFR declines with age. An eGFR of 60-89 may be normal in some populations, particularly the elderly, for whom the CKD-EPI formula has not been extensively validated. Use of the eGFR is not recommended in the following populations: Individuals with unstable creatinine concentrations, including patients and those with serious co-morbid conditions. Patients with extremes in muscle mass or diet. The data above are obtained from the National Kidney Disease Education Program (NKDEP) which additionally recommends that when the eGFR is used in patients with extremes of body mass index for purposes of drug dosing, the eGFR should be multiplied by the estimated BMI. [facility] ELECTROLYTES Glucose Lvl 154 mg/dL 70 - 99 04/10/2016 [facility] ELECTROLYTES BUN 20 mg/dL 7 - 22 04/10/2016 [facility] ELECTROLYTES Creatinine Lvl 0.92 mg/dL 0.50 - 1.40 04/10/2016 [facility] ELECTROLYTES Calcium Lvl 9.5 mg/dL 8.5 - 10.5 04/10/2016 [facility] [facility] ELECTROLYTES Potassium Lvl 4.2 meq/L 3.5 - 5.1 04/10/2016 [facility] ELECTROLYTES Sodium Lvl 142 meq/L 135 - 145 04/10/2016 [facility] ELECTROLYTES Chloride Lvl 104 meq/L 95 - 109 04/10/2016 [facility] ELECTROLYTES CO2 26 meq/L 24 - 32 04/10/2016 [facility] HEMATOLOGY Monocytes # 0.5 K/CMM 0.0 - 0.8 04/10/2016 [facility] HEMATOLOGY Segs-Bands # 11.2 K/CMM 1.5 - 8.1 04/10/2016 [facility] HEMATOLOGY Lymphocytes # 1.2 K/CMM 1.0 - 5.5 04/10/2016 [facility] HEMATOLOGY Basophils # 0.1 K/CMM 0.0 - 0.2 04/10/2016 [facility] HEMATOLOGY Eosinophils 0.2 % 0.0 - 4.0 04/10/2016 [facility] HEMATOLOGY Basophils 0.4 % 0.0 - 1.0 04/10/2016 [facility] HEMATOLOGY Lymphocytes 9.1 % 20.0 - 40.0 04/10/2016 [facility] HEMATOLOGY Monocytes 4.1 % 2.0 - 12.0 04/10/2016 [facility] HEMATOLOGY Segs 86.2 % 45.0 - 75.0 04/10/2016 [facility] HEMATOLOGY RDW 14.5 % 11.5 - 14.5 04/10/2016 [facility] HEMATOLOGY MPV 9.3 fL 7.4 - 10.4 04/10/2016 [facility] HEMATOLOGY Platelet 277 K/CMM 133 - 450 04/10/2016 [facility] HEMATOLOGY MCH 30.1 pg 27.0 - 31.0 04/10/2016 [facility] HEMATOLOGY MCV 91.7 fL 80.0 - 98.0 04/10/2016 [facility] HEMATOLOGY Hct 38.6 % 36.0 - 48.0 04/10/2016 [facility] HEMATOLOGY MCHC 32.8 g/dL 32.0 - 36.0 04/10/2016 [facility] HEMATOLOGY Hgb 12.7 g/dL 12.0 - 16.0 04/10/2016 [facility] HEMATOLOGY WBC 13.1 K/CMM 3.7 - 10.4 04/10/2016 [facility] HEMATOLOGY RBC 4.21 M/CMM 4.20 - 5.40 04/10/2016 [facility] HEMATOLOGY INR 1.05 0.85 - 1.17 04/10/2016 [facility] HEMATOLOGY PT 13.9 s 12.0 - 14.7 04/10/2016 [facility] HEMATOLOGY PTT 27.4 s 22.9 - 35.8 04/10/2016 [facility] Chest wo contrast CT Chest wo contrast CT EXAM: Chest wo contrast CT HISTORY: R91.1 Pulmonary Nodule COMPARISON: 07/10/2014 Technique: CT scan of the chest was performed from the thoracic inlet to the lung bases without intravenous contrast administration. Images are presented in the axial, sagittal, and coronal planes. The total DLP for this examination is 731 mGycm. FINDINGS: The visualized thyroid gland appears normal. There is significant coronary calcific atherosclerotic disease. Aortic valve calcifications are again noted. There is no mediastinal, hilar or axillary adenopathy within the confines of noncontrast technique. There is no pericardial or pleural effusion. No endotracheal or endobronchial lesions are present. Paraseptal emphysema again noted in the upper lobes. Both upper lobes demonstrate scattered areas of ground glass opacity which are minimally improved in areas but mostly unchanged. Previously described nodules are stable: 2 mm nodule in the right lower lobe on image 49 series 3 and 2 mm nodule in the superior segment of the right lower lobe on image 30 is stable. 2 mm nodule near the left lung apex on image 15 of series 3 is stable. No new abnormality. Bone windows demonstrate no worrisome lytic or blastic osseous lesions. Hepatic steatosis again noted with stable appearance of an area of relative hypoattenuation centrally, probably fat. IMPRESSION: Stable to minimal improvement of findings within the lungs which again are suggestive of smoking-related lung injury: respiratory bronchiolitis interstitial lung disease (RB-ILD) or residual atypical infectious changes. Stable tiny pulmonary nodules over the last year, probably benign in the absence of known malignancy. 07/09/2015 - - Read by: Perez Yu MD Dictated Date/time: 07/09/15 08:36 Electronically Signed by: Perez Yu MD 07/09/15 08:57 FINAL REPORT [facility] BLOOD BANK RESULTS ABO/Rh A POS 09/10/2014 [facility] BLOOD BANK RESULTS Antibody Scrn Negative (09/10/14 7:24 AM) 09/10/2014 [facility] CHEM PANEL Magnesium Lvl 2.0 mg/dL 1.8 - 2.4 09/10/2014 [facility] ELECTROLYTES AGAP 14.4 meq/L 10.0 - 20.0 09/10/2014 [facility] ELECTROLYTES eGFR 95 mL/min/1.73m2 09/10/2014 1Result Comment: The eGFR is calculated using the CKD-EPI formula. In most young, healthy individuals the eGFR will be >90 mL/min/1.73m2. The eGFR declines with age. An eGFR of 60-89 may be normal in some populations, particularly the elderly, for whom the CKD-EPI formula has not been extensively validated. Use of the eGFR is not recommended in the following populations: Individuals with unstable creatinine concentrations, including patients and those with serious co-morbid conditions. Patients with extremes in muscle mass or diet. The data above are obtained from the National Kidney Disease Education Program (NKDEP) which additionally recommends that when the eGFR is used in patients with extremes of body mass index for purposes of drug dosing, the eGFR should be multiplied by the estimated BMI. [facility] ELECTROLYTES Glucose Lvl 139 mg/dL 70 - 99 09/10/2014 2Interpretive Data: Adult reference range values reflect the clinical guidelines of the [place] [employer]. [facility] ELECTROLYTES Sodium Lvl 142 meq/L 135 - 145 09/10/2014 [facility] ELECTROLYTES BUN 14 mg/dL 7 - 22 09/10/2014 [facility] ELECTROLYTES Creatinine Lvl 0.7 mg/dL 0.5 - 1.4 09/10/2014 [facility] ELECTROLYTES Potassium Lvl 4.4 meq/L 3.5 - 5.1 09/10/2014 [facility] ELECTROLYTES Chloride Lvl 106 meq/L 95 - 109 09/10/2014 [facility] ELECTROLYTES CO2 26 meq/L 24 - 32 09/10/2014 [facility] ELECTROLYTES Calcium Lvl 9.2 mg/dL 8.5 - 10.5 09/10/2014 [facility] HEMATOLOGY MPV 9.6 fL 7.4 - 10.4 09/10/2014 [facility] HEMATOLOGY RBC 4.24 M/CMM 4.20 - 5.40 09/10/2014 [facility] HEMATOLOGY WBC 12.5 K/CMM 3.7 - 10.4 09/10/2014 [facility] HEMATOLOGY RDW 14.5 % 11.5 - 14.5 09/10/2014 [facility] HEMATOLOGY Platelet 277 K/CMM 133 - 450 09/10/2014 [facility] HEMATOLOGY Hct 40.2 % 36.0 - 48.0 09/10/2014 [facility] HEMATOLOGY Hgb 13.0 g/dL 12.0 - 16.0 09/10/2014 [facility] HEMATOLOGY MCHC 32.3 g/dL 32.0 - 36.0 09/10/2014 [facility] HEMATOLOGY MCV 94.8 fL 80.0 - 98.0 09/10/2014 [facility] HEMATOLOGY MCH 30.6 pg 27.0 - 31.0 09/10/2014 [facility] HEMATOLOGY PT 13.4 s 12.0 - 14.7 09/10/2014 [facility] HEMATOLOGY PTT 26.0 s 22.9 - 35.8 09/10/2014 5Interpretive Data: Heparin Therapeutic Range: 57 - 92 Seconds [facility] HEMATOLOGY INR 1.02 0.85 - 1.17 09/10/2014 4Interpretive Data: RECOMMENDED RANGES FOR PROTIME INR: 2.0-3.0 for most medical and surgical thromboembolic states. 2.5-3.5 for artificial heart valves and recurrent embolism. INR SHOULD BE USED ONLY FOR PATIENTS ON STABLE ANTICOAGULANT THERAPY. [facility] HEMATOLOGY Monocytes # 0.9 K/CMM 0.0 - 0.8 09/10/2014 [facility] HEMATOLOGY Eosinophils # 0.1 K/CMM 0.0 - 0.5 09/10/2014 [facility] HEMATOLOGY Lymphocytes # 1.4 K/CMM 1.0 - 5.5 09/10/2014 [facility] HEMATOLOGY Segs-Bands # 10.1 K/CMM 1.5 - 8.1 09/10/2014 [facility] HEMATOLOGY Basophils 0.2 % 0.0 - 1.0 09/10/2014 [facility] HEMATOLOGY RBC Morph Normal (09/10/14 7:24 AM) 09/10/2014 [facility] HEMATOLOGY Eosinophils 0.5 % 0.0 - 4.0 09/10/2014 [facility] HEMATOLOGY Monocytes 7.6 % 2.0 - 12.0 09/10/2014 [facility] HEMATOLOGY Lymphocytes 11.0 % 20.0 - 40.0 09/10/2014 [facility] HEMATOLOGY Plt Morph See Note 3 (09/10/14 7:24 AM) 09/10/2014 3Result Comment: Due to occassional clumps, the actual count may be slightly higher. [facility] HEMATOLOGY Segs 80.7 % 45.0 - 75.0 09/10/2014 [facility] HEMATOLOGY Basophils # 0.4 K/CMM 0.0 - 0.2 09/10/2014 [facility] Chest wo contrast CT Chest wo contrast CT EXAM: CT chest without contrast DATE: 2014-07-10 08:12:15 INDICATION: HISTORY OF CHRONIC COUGH; SHORTNESS OF BREATH COMPARISON: Chest 2 views February 08, 2012. Liver ultrasound January 24, 2013. TECHNIQUE: The chest CT was requested and performed without intravenous contrast. The chest was scanned from apices to bases. Reformatted sagittal and coronal images were obtained and reviewed. FINDINGS: Evaluation of the chest is limited without IV contrast. The visualized thyroid is unremarkable. The heart is normal in size and there is no pericardial effusion. There is calcification of aortic valve. There is dense calcification of the left anterior descending coronary artery. There are also calcifications of the circumflex and right coronary arteries. There is paraseptal emphysema in both upper lobes. Both upper lobes demonstrate scattered areas of ground glass opacity with areas of faint centrilobular groundglass micronodularity. These findings are much more notable in the upper lobes as compared to the lower lobes. 2 mm nodule in the right lower lobe on image 135 series 3 and 2 mm nodule in the superior segment of the right lower lobe on image 82. 2 mm nodule near the left lung apex on image 39. No focal consolidation within the lungs. There is no pleural effusion. The upper abdomen shows diffuse hypoattenuation of the liver compared to the spleen compatible with steatosis. There is an ill-defined hypoattenuating lesion centrally located within the liver as seen on image 191 series 3 and 75 series 4 measuring up to 2.5 cm. The bones are unremarkable. No history was available in the EMR at the time of this dictation. IMPRESSION: 1. If the patient has a history of smoking, the findings within the lungs are suggestive of smoking-related lung injury: respiratory bronchiolitis interstitial lung disease (RB-ILD). Note that infection cannot be excluded including atypical infection. This can be followed for clearing. 2. A few scattered 2 mm pulmonary nodules (image 135, 82, 39 series 3). The Fleischner Society guidelines for followup of an incidentally detected 4 mm or smaller pulmonary nodule are as follows: If the patient is a low risk patient (non- smoker and no known tumor), a 4 mm nodule does not need followup. If the patient is a high risk patient (smoker or has an extrathoracic primary), followup chest CT in one year is recommended. If unchanged, no further follow-up is recommended. If the patient has a primary extra thoracic tumor or hematogenous infection, nodule(s) cannot be ignored as it/they could represent metastasis or septic embolus. 3. Three vessel coronary artery disease. Calcification of the aortic valve. 4. Irregular hypoattenuating lesion centrally within the liver (image 191 series 3) measuring up to 2.5 cm. Recommend correlation with liver protocol CT or MRI. 5. Hepatic steatosis. 07/10/2014 - - This report was dictated by a Supervisor [employer]/Fellow. I have personally reviewed the images as well as the Resident's interpretation and agree with the findings. Read by: Cecil Hackett MD Resident: Cecil Hackett MD Dictated Date/time: 07/10/14 08:53 Electronically Signed by: Diane Moser MD 07/10/14 10:22 FINAL REPORT [facility] Vital Signs Vital Sign Value Date Comments Source Systolic (mm Hg) 93 08/07/2018 [facility] Diastolic (mm Hg) 60 08/07/2018 [facility] Systolic (mm Hg) 104 08/07/2018 [facility] Diastolic (mm Hg) 55 08/07/2018 [facility] Systolic (mm Hg) 97 08/07/2018 [facility] Diastolic (mm Hg) 59 08/07/2018 [facility] BMI Calculated 26.09 08/07/2018 [facility] Weight 66.818 08/07/2018 [facility] Height 160.02 cm 08/07/2018 [facility] Systolic (mm Hg) 147 09/17/2017 [facility] Diastolic (mm Hg) 87 09/17/2017 [facility] Respitory Rate 18 09/17/2017 [facility] Heart Rate 88 09/17/2017 [facility] Temperature Oral (F) 98.3 F 09/17/2017 [facility] Systolic (mm Hg) 154 09/17/2017 [facility] Diastolic (mm Hg) 93 09/17/2017 [facility] Temperature Oral (F) 98.4 F 09/17/2017 [facility] Heart Rate 84 09/17/2017 [facility] Respitory Rate 18 09/17/2017 [facility] Temperature Oral (F) 98.4 F 09/17/2017 [facility] Systolic (mm Hg) 164 09/17/2017 [facility] Diastolic (mm Hg) 89 09/17/2017 [facility] Respitory Rate 18 09/17/2017 [facility] Heart Rate 78 09/17/2017 [facility] Height 160.02 cm 09/13/2017 [facility] Weight 72.727 09/13/2017 [facility] BMI Calculated 28.4 09/13/2017 [facility] BMI Calculated 28.4 09/07/2017 [facility] Height 160.02 cm 09/07/2017 [facility] Weight 72.727 09/07/2017 [facility] Systolic (mm Hg) 120 07/20/2017 [facility] Diastolic (mm Hg) 74 07/20/2017 [facility] Respitory Rate 17 07/20/2017 [facility] Respitory Rate 23 07/20/2017 [facility] Systolic (mm Hg) 115 07/20/2017 [facility] Diastolic (mm Hg) 71 07/20/2017 [facility] Systolic (mm Hg) 115 07/20/2017 [facility] Diastolic (mm Hg) 74 07/20/2017 [facility] Respitory Rate 23 07/20/2017 [facility] Heart Rate 95 07/20/2017 [facility] Weight 72.727 07/20/2017 [facility] BMI Calculated 28.4 07/20/2017 [facility] Height 160.02 cm 07/20/2017 [facility] BMI Calculated 27.96 07/18/2017 [facility] Weight 72.727 07/18/2017 [facility] Height 161.29 cm 07/18/2017 [facility] Height 161.29 cm 07/09/2017 [facility] BMI Calculated 27.96 07/09/2017 [facility] Weight 72.727 07/09/2017 [facility] Heart Rate 89 07/09/2017 [facility] Respitory Rate 16 07/09/2017 [facility] Systolic (mm Hg) 124 07/09/2017 [facility] Diastolic (mm Hg) 79 07/09/2017 [facility] BMI Calculated 26.98 03/01/2017 [facility] Weight 69.091 03/01/2017 [facility] Height 160.02 cm 03/01/2017 [facility] Respitory Rate 18 11/29/2016 [facility] Systolic (mm Hg) 120 11/29/2016 [facility] Diastolic (mm Hg) 69 11/29/2016 [facility] Heart Rate 88 11/29/2016 [facility] Temperature Oral (F) 98.6 F 11/29/2016 [facility] Systolic (mm Hg) 152 11/29/2016 [facility] Diastolic (mm Hg) 76 11/29/2016 [facility] Respitory Rate 18 11/29/2016 [facility] Heart Rate 99 11/29/2016 [facility] Temperature Oral (F) 98.2 F 11/29/2016 [facility] Respitory Rate 18 11/29/2016 [facility] Systolic (mm Hg) 145 11/29/2016 [facility] Diastolic (mm Hg) 92 11/29/2016 [facility] Heart Rate 83 11/29/2016 [facility] Temperature Oral (F) 97.6 F 11/29/2016 [facility] Weight 68.182 11/17/2016 [facility] Height 160.02 cm 11/17/2016 [facility] BMI Calculated 26.63 11/17/2016 [facility] Heart Rate 80 11/14/2016 [facility] Respitory Rate 18 11/14/2016 [facility] Systolic (mm Hg) 116 11/14/2016 [facility] Diastolic (mm Hg) 72 11/14/2016 [facility] Temperature Oral (F) 98.5 F 11/14/2016 [facility] Respitory Rate 18 11/14/2016 [facility] Respitory Rate 18 11/14/2016 [facility] Heart Rate 90 11/14/2016 [facility] Systolic (mm Hg) 148 11/14/2016 [facility] Diastolic (mm Hg) 88 11/14/2016 [facility] Temperature Oral (F) 98.5 F 11/14/2016 [facility] Systolic (mm Hg) 116 11/14/2016 [facility] Diastolic (mm Hg) 70 11/14/2016 [facility] Temperature Oral (F) 98.1 F 11/14/2016 [facility] Heart Rate 88 11/14/2016 [facility] Weight 70.909 11/08/2016 [facility] Height 160.02 cm 11/08/2016 [facility] BMI Calculated 27.69 11/08/2016 [facility] Systolic (mm Hg) 130 06/07/2016 [facility] Diastolic (mm Hg) 78 06/07/2016 [facility] Systolic (mm Hg) 132 06/07/2016 [facility] Diastolic (mm Hg) 63 06/07/2016 [facility] Systolic (mm Hg) 128 06/07/2016 [facility] Diastolic (mm Hg) 66 06/07/2016 [facility] Temperature Oral (F) 97.7 F 06/07/2016 [facility] Temperature Oral (F) 97.8 F 06/06/2016 [facility] Temperature Oral (F) 98.2 F 06/06/2016 [facility] Weight 70.455 06/06/2016 [facility] Height 160.02 cm 06/06/2016 [facility] BMI Calculated 27.51 06/06/2016 [facility] Systolic (mm Hg) 134 05/09/2016 [facility] Diastolic (mm Hg) 79 05/09/2016 [facility] Systolic (mm Hg) 134 05/09/2016 [facility] Diastolic (mm Hg) 83 05/09/2016 [facility] Systolic (mm Hg) 174 05/09/2016 [facility] Diastolic (mm Hg) 94 05/09/2016 [facility] Respitory Rate 28 05/09/2016 [facility] Respitory Rate 26 05/08/2016 [facility] Respitory Rate 26 05/08/2016 [facility] Weight 71.364 05/08/2016 [facility] Height 161.29 cm 05/08/2016 [facility] BMI Calculated 27.43 05/08/2016 [facility] Temperature Oral (F) 97.8 F 05/08/2016 [facility] Temperature Oral (F) 98.0 F 04/11/2016 [facility] Respitory Rate 18 04/11/2016 [facility] Systolic (mm Hg) 121 04/11/2016 [facility] Diastolic (mm Hg) 73 04/11/2016 [facility] Systolic (mm Hg) 120 04/11/2016 [facility] Diastolic (mm Hg) 67 04/11/2016 [facility] Systolic (mm Hg) 136 04/11/2016 [facility] Diastolic (mm Hg) 82 04/11/2016 [facility] Height 160.02 cm 04/10/2016 [facility] BMI Calculated 28.22 04/10/2016 [facility] Weight 72.273 04/10/2016 [facility] Systolic (mm Hg) 134 09/10/2014 [facility] Diastolic (mm Hg) 82 09/10/2014 [facility] Systolic (mm Hg) 134 09/10/2014 [facility] Diastolic (mm Hg) 82 09/10/2014 [facility] Systolic (mm Hg) 124 09/10/2014 [facility] Diastolic (mm Hg) 77 09/10/2014 [facility] Temperature Oral (F) 97.5 F 09/10/2014 [facility] Weight 72.727 09/10/2014 [facility] Height 160.02 cm 09/10/2014 [facility] BMI Calculated 28.4 09/10/2014 [facility] Weight 72.727 09/10/2014 [facility] BMI Calculated 28.4 09/10/2014 [facility] Height 160.02 cm 09/10/2014 [facility] Encounters Location Location Details Encounter Type Encounter Number Reason For Visit Attending Provider ADM Date DC Date Status Source [facility] Outpatient [id number] Timmy Hill 07/10/2014 07/11/2014 [facility] Outpatient [id number] Timmy Hill 07/16/2014 07/17/2014 [facility] Bedded Outpatient [id number] Natasha Juarez 09/10/2014 09/10/2014 [facility] [place] [facility] [id number] Adelfo Graf Jr 07/09/2015 07/10/2015 [facility] Bedded Outpatient [id number] Natasha Juarez 04/10/2016 04/11/2016 [facility] Bedded Outpatient [id number] Natasha Juarez 05/08/2016 05/09/2016 [facility] Bedded Outpatient [id number] Tami Bolton 06/06/2016 06/07/2016 [facility] Inpatient [id number] Chilo Reina 11/08/2016 11/14/2016 [facility] Inpatient [id number] Catherine Turner 11/17/2016 11/29/2016 [facility] Outpatient [id number] Jaime Dorantes 03/01/2017 03/02/2017 [facility] Outpatient [id number] Lyle Thosani 07/09/2017 07/10/2017 [facility] Day Surgery [id number] Lyle Thosani 07/20/2017 07/21/2017 [facility] Inpatient [id number] Chilo Reina 09/12/2017 09/17/2017 [facility] Bedded Outpatient [id number] Natasha Ashleyin 08/07/2018 08/07/2018 [facility] Procedures Procedure Code Date Perfomer Comments Source Atherectomy [id number] [facility] Corneal transplant [id number] [facility] Tubal ligation [id number] [facility] Atherectomy [id number] [id number] [facility] [id number] [facility] ICD - Internal cardiac defibrillator procedure [id number] [facility]
--- OUTSIDE RECORDS SUMMARY | 2018-08-12 12:56 | XMS REPORT | Summary of Care ---
Author Author [facility] Organization [facility] Address Unknown Phone Unavailable Encounter TOO Helms(JUDD) [id number] Date(s): 09/12/17 - 09/17/17 [facility] [address] [employer] provided by [facility] [place] [address]- Discharge Disposition: Home or Self Care Attending Physician: Chilo Reina MD Admitting Physician: Chilo Reina MD Referring Physician: Chilo Reina MD Vital Signs 1 2 3 Most recent to oldest [Reference Range]: 160.02 cm (09/12/17 11:22 PM) 160.02 cm (09/07/17 3:51 PM) Height 98.3 DegF (09/17/17 11:45 AM) 98.4 DegF (09/17/17 7:30 AM) 98.4 DegF (09/17/17 5:03 AM) Temperature Oral [96.4-99.1 DegF] 147/87 mmHg *HI* (09/17/17 11:45 AM) 154/93 mmHg 1 *HI* (09/17/17 7:30 AM) 164/89 mmHg *HI* (09/17/17 5:03 AM) Blood Pressure [90-140/60-90 mmHg] 18 BRMIN (09/17/17 11:45 AM) 18 BRMIN (09/17/17 7:30 AM) 18 BRMIN (09/17/17 5:03 AM) Respiratory Rate [14-20 BRMIN] 88 bpm (09/17/17 11:45 AM) 84 bpm (09/17/17 7:30 AM) 78 bpm (09/17/17 5:03 AM) Peripheral Pulse Rate [60-100 bpm] 72.727 kg (09/12/17 11:22 PM) 72.727 kg (09/07/17 3:51 PM) Weight 28.4 m2 (09/12/17 11:22 PM) 28.4 m2 (09/07/17 3:51 PM) Body Mass Index 1Result Comment: Notified Raad Issa RN. Problem List Condition Effective Dates Status Health Status Informant Asthma(Confirmed) Resolved Cardiomyopathy(Confi Resolved rmed) COPD (chronic Resolved obstructive pulmonary disease)(Confirmed) Claudication(Confirm Resolved ed) CHF (congestive Resolved heart failure)(Confirmed) Diabetes Resolved mellitus(Confirmed) Shortness of Resolved breath(Confirmed) Eczema(Confirmed) Resolved Hyperlipemia(Confirm Resolved ed) Hypertension(Confirm Resolved ed) Skin Resolved cancer(Confirmed) Obesity(Confirmed) Resolved Peripheral vascular Resolved disease(Confirmed) Allergies, Adverse Reactions, Alerts Substance Reaction Severity Status chlorhexidine topical Active Medications albuterol 0.083% inhalation solution 1.245 mg, 1.5 mL, Route: PO, Drug form: SOLN, RQ4H, Dosing Weight 72.727, kg, CA N Wheezing, Start date: 09/13/17 10:12:00 CDT, Duration: 30 day, Stop date: 09/19 11/05 10:11:00 CDT Notes: SEE RT DOCUMENTATION (Same as: Rufus) Start Date: 09/13/17 Stop Date: 09/13/17 Status: Discontinued albuterol 90 mcg/inh inhalation aerosol 2 puff, Route: INHALATION, Drug Form: AERO/A, Dosing Weight 72.727, kg, QID, PRN Shortness of breath, Start date: 09/13/17 12:59:00 CDT, Duration: 30 day, Stop date: 10/13/17 12:58:00 CDT Notes: Albuterol 90 microgram/inh 8gm HFAWASTE: Aerosol - Return to Pharmacy Sa ne as: Rufus Jessica Start Date: 09/13/17 Stop Date: 09/17/17 Status: Discontinued Ancef 2 gm, 20 mL, Route: IVPB, Drug form: SOLN, ABXQ8H, Dosing Weight 72.727, kg, Sta rt date: 09/12/17 20:00:00 CDT, Stop date: 09/15/17 14:00:00 CDT, ABX Indication : Intra-abdominal Infection Notes: (Same as Ancef) Start Date: 09/12/17 Stop Date: 09/15/17 Status: Completed ANES flumazenil 0.2 mg, 2 mL, Route: IVP, Drug form: INJ, PRN, Dosing Weight 72.727, kg, PRN Binh zodiazepine Reversal, Initial dose, Start date: 09/12/17 20:03:00 CDT, Duration: 1 day, Stop date: 09/13/17 20:02:00 CDT Notes: (Same as: Romazicon) Start Date: 09/12/17 Stop Date: 09/12/17 Status: Discontinued ANES HYDROmorphone 0.5 mg, 0.25 mL, Route: IVP, Drug form: INJ, Q5Min, Dosing Weight 72.727, kg, CA N Pain Score 7-10, Start date: 09/12/17 20:03:00 CDT, Duration: 4 doses or times , Stop date: 09/13/17 0:00:00 CDT Notes: Same as Dilaudid Start Date: 09/12/17 Stop Date: 09/12/17 Status: Discontinued ANES ketOROLAC 30 mg, Route: IVP, ONCE, Dosing Weight 72.727, kg, Start date: 09/12/17 20:03:00 CDT, Stop date: 09/12/17 20:03:00 CDT Start Date: 09/12/17 Stop Date: 09/12/17 Status: Completed ANES naloxone 0.4 mg, 1 mL, Route: IVP, Drug form: INJ, Q2MIN, Dosing Weight 72.727, kg, PRN N arcotic Reversal, Start date: 09/12/17 20:03:00 CDT, Duration: 8 doses or times, Stop date: 09/13/17 0:00:00 CDT Notes: Same as Narcan Start Date: 09/12/17 Stop Date: 09/12/17 Status: Discontinued ANES ondansetron 4 mg, 2 mL, Route: IVP, Drug form: INJ, ONCE, Dosing Weight 72.727, kg, PRN Naus ea & Vomiting, Start date: 09/12/17 20:03:00 CDT Notes: (Same as: Zofran) MEDICATION WASTE Product Size: 4 mgProduct Was jaswinder: ___ mg Start Date: 09/12/17 Stop Date: 09/12/17 Status: Discontinued aspirin 81 mg tablet, chewable 81 mg, 1 tab, Route: PO, Drug form: CHEWTAB, Daily, Dosing Weight 72.727, kg, St art date: 09/13/17 11:00:00 CDT, Duration: 30 day, Stop date: 10/13/17 9:00:00 C DT Notes: Take with food. Start Date: 09/13/17 Stop Date: 09/17/17 Status: Discontinued Ativan 1 mg, 1 tab, Route: PO, Drug form: TAB, BID, Dosing Weight 72.727, kg, Start christian e: 09/13/17 11:00:00 CDT, Duration: 30 day, Stop date: 10/13/17 9:00:00 CDT Notes: (Same as: Ativan) Start Date: 09/13/17 Stop Date: 09/17/17 Status: Discontinued budesonide-formoterol 80 mcg-4.5 mcg/inh inhalation aerosol with adapter 2 inhalation, Route: INHALATION, Drug Form: AERO/A, RBID, Start date: 09/13/17 1 0:56:00 CDT, Duration: 30 day, Stop date: 10/13/17 8:00:00 CDT Notes: (Same as: Symbicort)WASTE: Aerosol - Return to Pharmacy Start Date: 09/13/17 Stop Date: 09/17/17 Status: Discontinued carvedilol 6.25 mg, Route: PO, Drug form: TAB, BID, Dosing Weight 72.727, kg, Start date: 0 09/13/17 17:00:00 CDT, Duration: 30 day, Stop date: 10/13/17 9:00:00 CDT Start Date: 09/13/17 Stop Date: 09/13/17 Status: Canceled carvedilol 6.25 mg, 1 tab, Route: PO, Drug form: TAB, Q12H, Dosing Weight 72.727, kg, Start date: 09/13/17 9:00:00 CDT, Duration: 30 day, Stop date: 10/12/17 21:00:00 CDT Start Date: 09/13/17 Stop Date: 09/17/17 Status: Discontinued Chloraseptic 1.4% spray 1 spray, Route: TOP, ONCE, Drug form: SPRY, PRN as needed for sore throat, Start date: 09/13/17 10:15:00 CDT Notes: Chloraseptic [place](Same as: Chloraseptic, Sore Throat [place])WASTE: F/P - Black; E - Municipal Trash Bin Start Date: 09/13/17 Stop Date: 09/17/17 Status: Discontinued Colace 100 mg oral capsule 100 mg=1 cap, PO, BID, # 60 cap, 0 Refill(s) Start Date: 09/17/17 Stop Date: 10/17/17 Status: Ordered dexmedetomidine (ANES) + Sodium Chloride 0.9% IV (ANES) 98 mL Route: IV, Drug form: INJ, ONCE, Stop date: 09/12/17 16:38:00 CDT Start Date: 09/12/17 Stop Date: 09/12/17 Status: Completed dexmedetomidine (ANES) + Sodium Chloride 0.9% IV (ANES) 98 mL Route: IV, Drug form: INJ, ONCE, Stop date: 09/12/17 19:33:00 CDT Start Date: 09/12/17 Stop Date: 09/12/17 Status: Completed docusate 100 mg, 1 cap, Route: PO, Drug form: CAP, BID, Dosing Weight 72.727, kg, Start d ate: 09/13/17 9:00:00 CDT, Stop date: 10/12/17 17:00:00 CDT Notes: (Same as: Colace) (Do Not Crush) Start Date: 09/13/17 Stop Date: 09/17/17 Status: Discontinued DuoNeb inhalation solution 3 ml, Route: NEB, Drug Form: SOLN, Dosing Weight 72.727, kg, RQ4H, Start date: 0 09/15/17 11:00:00 CDT, Duration: 30 day, Stop date: 10/15/17 7:00:00 CDT Notes: (Same as: Duoneb) Start Date: 09/15/17 Stop Date: 09/17/17 Status: Discontinued enoxaparin 40 mg, 0.4 mL, Route: SUB-Q, Drug form: INJ, [id number], Dosing Weight 72.727, kg, Start date: 09/12/17 20:00:00 CDT, Stop date: 10/11/17 20:00:00 CDT Notes: (Same as: Lovenox) Start Date: 09/12/17 Stop Date: 09/17/17 Status: Discontinued ertapenem (ANES) Route: IV, Drug form: INJ, ONCE, Stop date: 09/12/17 14:57:00 CDT Start Date: 09/12/17 Stop Date: 09/12/17 Status: Completed esmolol (ANES) Route: IV, Drug form: INJ, ONCE, Stop date: 09/12/17 16:12:00 CDT Start Date: 09/12/17 Stop Date: 09/12/17 Status: Completed Flagyl 500 mg, 100 mL, Route: IVPB, Drug form: INJ, ABXQ8H, Dosing Weight 72.727, kg, S tart date: 09/12/17 20:00:00 CDT, Duration: 3 day, Stop date: 09/15/17 13:00:00 CDT, ABX Indication: Intra-abdominal Infection Notes: (Same as: Flagyl) Avoid alcohol. Start Date: 09/12/17 Stop Date: 09/15/17 Status: Completed fluticasone-salmeterol 100 mcg-50 mcg MDI 2 inhalation, Route: INHALER, Drug Form: PWDR, Dosing Weight 72.727, kg, RBID, S tart date: 09/13/17 10:17:00 CDT, Duration: 30 day, Stop date: 10/13/17 8:00:00 CDT Start Date: 09/13/17 Stop Date: 09/13/17 Status: Deleted gabapentin 300 mg, 1 cap, Route: PO, Drug form: CAP, Q8H, Dosing Weight 72.727, kg, (CrCl > 60 ml/min), Start date: 09/13/17 0:00:00 CDT, Stop date: 10/12/17 16:00:00 CDT Notes: (Same as: Neurontin) Start Date: 09/13/17 Stop Date: 09/17/17 Status: Discontinued gabapentin 300 mg oral capsule 300 mg=1 cap, PO, Q8H, # 90 cap, 0 Refill(s) Start Date: 09/17/17 Stop Date: 10/17/17 Status: Ordered hydrocortisone (ANES) Route: IV, Drug form: INJ, ONCE, Stop date: 09/12/17 14:57:00 CDT Start Date: 09/12/17 Stop Date: 09/12/17 Status: Completed hydromorphone (ANES) Route: IV, Drug form: INJ, ONCE, Stop date: 09/12/17 15:12:00 CDT Start Date: 09/12/17 Stop Date: 09/12/17 Status: Completed hydromorphone (ANES) Route: IV, Drug form: INJ, ONCE, Stop date: 09/12/17 16:02:00 CDT Start Date: 09/12/17 Stop Date: 09/12/17 Status: Completed INVanz 1 gm, Route: IV, Drug form: INJ, PRE OP, Start date: 09/12/17 12:00:00 CDT, Dura tion: 1 day, Stop date: 09/13/17 11:59:00 CDT, ABX Indication: Surgical Prophyla xis Notes: (Same as: INVanz) Refrigerate. NOT COMPATIBLE WITH D5W.Stable in refrige rator for 24 hours MEDICATION WASTE Product Size: 1000 mgProduct Wasted : ___ mg Start Date: 09/12/17 Stop Date: 09/13/17 Status: Discontinued Isolyte S PH 7.4 1,000 mL 1,000 mL, Rate: 125 ml/hr, Infuse over: 8 hr, Route: IV, Dosing Weight 72.727 kg , Total Volume: 1,000, Start date: 09/12/17 19:19:00 CDT, Duration: 30 day, Stop date: 10/12/17 19:18:00 CDT, 1.82, m2 Notes: (Same as: Isolyte S PH 7.4) Start Date: 09/12/17 Stop Date: 09/17/17 Status: Discontinued ketAMINE (ANES) Route: IV, Drug form: INJ, ONCE, Stop date: 09/12/17 19:43:00 CDT Start Date: 09/12/17 Stop Date: 09/12/17 Status: Completed ketAMINE (ANES) Route: IV, Drug form: INJ, ONCE, Stop date: 09/12/17 15:07:00 CDT Start Date: 09/12/17 Stop Date: 09/12/17 Status: Completed Lactated Ringers Injection IV (ANES) 1000 mL Route: IV, Total Volume: 1,000, Start date: 09/12/17 13:57:00 CDT, Stop date: 14:57:00 CDT Start Date: 09/12/17 Stop Date: 09/12/17 Status: Completed lidocaine (ANES) Route: IV, Drug form: INJ, ONCE, Stop date: 09/12/17 15:12:00 CDT Start Date: 09/12/17 Stop Date: 09/12/17 Status: Completed lidocaine topical patch (5% film) 1 patch, Route: TOP, Daily, Drug form: FILM, Start date: 09/13/17 3:00:00 CDT, D uration: 30 day, Stop date: 10/12/17 3:00:00 CDT Notes: Apply only once for up to 12 hours in [id number] period (12 hours on and 12 hours off).(Same as: Lidoderm)"Remove old patch before application of new patch" Start Date: 09/13/17 Stop Date: 09/17/17 Status: Discontinued lidocaine topical patch (5% film) 1 patch, Route: TOP, Daily, Drug form: FILM, Start date: 09/13/17 9:00:00 CDT, D uration: 30 day, Stop date: 10/12/17 9:00:00 CDT Start Date: 09/13/17 Stop Date: 09/13/17 Status: Canceled lisinopril 5 mg, 1 tab, Route: PO, Drug form: TAB, Daily, Dosing Weight 72.727, kg, Start d ate: 09/13/17 9:00:00 CDT, Stop date: 10/12/17 9:00:00 CDT Notes: (Same as: Prinivil, Zestril) Start Date: 09/13/17 Stop Date: 09/17/17 Status: Discontinued metoprolol (ANES) Route: IV, Drug form: INJ, ONCE, Stop date: 09/12/17 16:12:00 CDT Start Date: 09/12/17 Stop Date: 09/12/17 Status: Completed midazolam (ANES) Route: IV, Drug form: SOLN, ONCE, Stop date: 09/12/17 15:12:00 CDT Start Date: 09/12/17 Stop Date: 09/12/17 Status: Completed morphine Sulfate 2 mg, 0.5 mL, Route: IVP, Drug form: SOLN, Q4H, Dosing Weight 72.727, kg, PRN Pa in Score 7-10, Start date: 09/12/17 19:23:00 CDT, Duration: 30 day, Stop date: 0 10/12/17 19:22:00 CDT Notes: (Same as:MORPhine Sulfate) Start Date: 09/12/17 Stop Date: 09/13/17 Status: Discontinued morphine Sulfate 2 mg, 0.5 mL, Route: IVP, Drug form: SOLN, Q2H, Dosing Weight 72.727, kg, PRN Pa in Score 7-10, Start date: 09/13/17 1:11:00 CDT, Duration: 30 day, Stop date: 1:10:00 CDT Notes: (Same as:MORPhine Sulfate) Start Date: 09/13/17 Stop Date: 09/17/17 Status: Discontinued morphine Sulfate 2 mg, Route: IVP, ONCE, Dosing Weight 72.727, kg, Start date: 09/13/17 1:11:00 C DT, Stop date: 09/13/17 1:11:00 CDT Start Date: 09/13/17 Stop Date: 09/13/17 Status: Completed niCARdipine (ANES) + sodium chloride (ANES) 9 mL Route: IV, Drug form: INJ, ONCE, Stop date: 09/12/17 16:38:00 CDT Start Date: 09/12/17 Stop Date: 09/12/17 Status: Completed Ofirmev 1,000 mg, 100 mL, Route: IVPB, Drug form: INJ, Q6H, Dosing Weight 72.727, kg, fo r > or=50 kg, Start date: 09/13/17 0:00:00 CDT, Duration: 30 day, Stop date: 10/14/17 18:00:00 CDT Notes: MEDICATION WASTE Product Size: 1000 mgProduct Wasted: ___ mg Start Date: 09/13/17 Stop Date: 09/17/17 Status: Discontinued ondansetron (ANES) Route: IV, Drug form: INJ, ONCE, Stop date: 09/12/17 20:06:00 CDT Start Date: 09/12/17 Stop Date: 09/12/17 Status: Completed oxyCODONE 5 mg oral tablet 10 mg, 2 tab, Route: PO, Drug form: TAB, Q4H, Dosing Weight 72.727, kg, PRN Pain Score 6-10, Start date: 09/17/17 11:32:00 CDT, Duration: 30 day, Stop date: 11:31:00 CDT Notes: (Same as: Roxicodone) Start Date: 09/17/17 Stop Date: 09/17/17 Status: Discontinued oxyCODONE 5 mg/5 mL oral solution 5 mg, 5 mL, Route: PO, Drug form: LIQ, Q4H, Dosing Weight 72.727, kg, PRN Pain S core 4-6, Start date: 09/12/17 19:23:00 CDT, Stop date: 10/12/17 19:22:00 CDT Notes: (Same as: 'Roxicodone) Start Date: 09/12/17 Stop Date: 09/17/17 Status: Discontinued pantoprazole 40 mg, Route: IVP, Drug form: INJ, Daily, Dosing Weight 72.727, kg, Start date: 09/13/17 10:00:00 CDT, Duration: 30 day, Stop date: 10/13/17 9:00:00 CDT Notes: For IV push reconstitute with 10 ml 0.9% sodium chloride and push over 2 minutes. (Same as: Protonix) Start Date: 09/13/17 Stop Date: 09/17/17 Status: Discontinued Percocet 10/325 oral tablet 1 tab, PO, Q8H, PRN Pain Score 1-3, # 20 tab, 0 Refill(s) Start Date: 09/13/17 Stop Date: 09/17/17 Status: Discontinued potassium chloride 20 mEq oral tablet, extended release 40 mEq, 2 tab, Route: PO, Drug form: ERTAB, ONCE, Dosing Weight 72.727, kg, Star t date: 09/14/17 18:36:00 CDT, Stop date: 09/14/17 18:36:00 CDT Notes: (Same as: K-Dur 20)"Do Not Crush"For patients unable to swallow tablet, d issolve in one half glass of water. Allow about 2 minutes for the tablets to dis integrate. Stir before giving to prepare slurry and administer.Please exclude Pa tients with feeding tube less than 14 [place] ([place]obhoff, J-tube etc) and pediat dolly and patients. With food and full glass of water Start Date: 09/14/17 Stop Date: 09/14/17 Status: Completed pravastatin 20 mg, 1 tab, Route: PO, Drug form: TAB, Bedtime, Dosing Weight 72.727, kg, Star t date: 09/12/17 21:00:00 CDT, Duration: 30 day, Stop date: 10/11/17 21:00:00 CD T Notes: (Same as: Pravachol) Start Date: 09/12/17 Stop Date: 09/17/17 Status: Discontinued predniSONE 10 mg, 1 tab, Route: PO, Drug form: TAB, Daily, Dosing Weight 72.727, kg, Start date: 09/13/17 9:00:00 CDT, Duration: 30 day, Stop date: 10/12/17 9:00:00 CDT Start Date: 09/13/17 Stop Date: 09/17/17 Status: Discontinued propofol (ANES) Route: IV, Drug form: INJ, ONCE, Stop date: 09/12/17 15:12:00 CDT Start Date: 09/12/17 Stop Date: 09/12/17 Status: Completed Protonix 40 mg, 1 tab, Route: PO, Drug form: ECTAB, Daily, Start date: 09/13/17 9:00:00 C DT, Duration: 30 day, Stop date: 10/12/17 9:00:00 CDT Start Date: 09/13/17 Stop Date: 09/13/17 Status: Discontinued Protonix 20 mg, Route: PO, Drug form: ECTAB, Daily, Dosing Weight 72.727, kg, Start date: 09/13/17 9:00:00 CDT, Duration: 30 day, Stop date: 10/12/17 9:00:00 CDT Start Date: 09/13/17 Stop Date: 09/12/17 Status: Deleted remove patch 1 patch, Route: TOP, Bedtime, Drug form: ERFILM, Start date: 09/13/17 15:00:00 C DT, Duration: 30 day, Stop date: 10/12/17 15:00:00 CDT Start Date: 09/13/17 Stop Date: 09/17/17 Status: Discontinued rocuronium (ANES) Route: IV, Drug form: INJ, ONCE, Stop date: 09/12/17 17:53:00 CDT Start Date: 09/12/17 Stop Date: 09/12/17 Status: Completed tramadol 100 mg, 2 tab, Route: PO, Drug form: TAB, Q6H, Dosing Weight 72.727, kg, Start d ate: 09/13/17 0:00:00 CDT, Duration: 30 day, Stop date: 10/12/17 18:00:00 CDT Start Date: 09/13/17 Stop Date: 09/13/17 Status: Deleted tramadol 50 mg oral tablet 50 mg, 1 tab, Route: PO, Drug form: TAB, Q4H, Dosing Weight 72.727, kg, Start da te: 09/17/17 4:00:00 CDT, Duration: 30 day, Stop date: 10/17/17 0:00:00 CDT Notes: Not to exceed 400mg/day. (Same As: Ultram) Start Date: 09/17/17 Stop Date: 09/17/17 Status: Discontinued tramadol 50 mg oral tablet 50 mg=1 tab, PO, Q4H, PRN Pain Score 1-5, # 24 tab, 0 Refill(s) Start Date: 09/17/17 Stop Date: 09/30/17 Status: Ordered tramadol 50 mg oral tablet 100 mg, 2 tab, Route: PO, Drug form: TAB, Q12H, Priority: NOW, Start date: 09/15 10:30:00 CDT, Duration: 30 day, Stop date: 10/15/17 9:00:00 CDT Notes: Not to exceed 400mg/day. (Same As: Ultram) Start Date: 09/15/17 Stop Date: 09/17/17 Status: Discontinued vitamin A 10,000 unit, 1 cap, Route: PO, Drug form: CAP, Daily, Dosing Weight 72.727, kg, Start date: 09/13/17 9:00:00 CDT, Duration: 2 week, Stop date: 09/26/17 9:00:00 CDT Start Date: 09/13/17 Stop Date: 09/17/17 Status: Discontinued vitamin A 10,000 units oral capsule 10,000 IntlUnit=1 cap, PO, Daily, # 30 cap, 0 Refill(s) Start Date: 09/17/17 Status: Ordered Vitamin D3 1000 intl units oral tablet 1,000 IntlUnit, 1 tab, Route: PO, Drug form: TAB, Daily, Dosing Weight 72.727, k g, Start date: 09/13/17 11:00:00 CDT, Duration: 30 day, Stop date: 10/13/17 9:00 :00 CDT Notes: Same as : Vitamin D3 Start Date: 09/13/17 Stop Date: 09/17/17 Status: Discontinued Results BLOOD BANK RESULTS 1 2 3 Most recent to oldest [Reference Range]: A POS *Unknown* (09/12/17 12:20 PM) ABO/Rh Negative (09/12/17 12:20 PM) Antibody Scrn ELECTROLYTES 1 2 3 Most recent to oldest [Reference Range]: 143 mEq/L (09/16/17 3:25 AM) 143 mEq/L (09/15/17 3:16 AM) 143 mEq/L (09/14/17 4:06 AM) Sodium Lvl [135-145 mEq/L] 3.5 mEq/L (09/16/17 3:25 AM) 3.9 mEq/L (09/15/17 3:16 AM) 3.4 mEq/L *LOW* (09/14/17 4:06 AM) Potassium Lvl [3.5-5.1 mEq/L] 110 mEq/L *HI* (09/16/17 3:25 AM) 108 mEq/L (09/15/17 3:16 AM) 105 mEq/L (09/14/17 4:06 AM) Chloride Lvl [95-109 mEq/L] 24 mEq/L (09/16/17 3:25 AM) 28 mEq/L (09/15/17 3:16 AM) 28 mEq/L (09/14/17 4:06 AM) CO2 [24-32 mEq/L] 12.5 mEq/L (09/16/17 3:25 AM) 10.9 mEq/L (09/15/17 3:16 AM) 13.4 mEq/L (09/14/17 4:06 AM) AGAP [10.0-20.0 mEq/L] CHEM PANEL 1 2 3 Most recent to oldest [Reference Range]: 0.49 mg/dL *LOW* (09/16/17 3:25 AM) 0.53 mg/dL (09/15/17 3:16 AM) 0.74 mg/dL (09/14/17 4:06 AM) Creatinine Lvl [0.50-1.40 mg/dL] 105 mL/min/1.73m2 1 *NA* (09/16/17 3:25 AM) 102 mL/min/1.73m2 2 *NA* (09/15/17 3:16 AM) 87 mL/min/1.73m2 3 *NA* (09/14/17 4:06 AM) eGFR 6 mg/dL *LOW* (09/16/17 3:25 AM) 9 mg/dL (09/15/17 3:16 AM) 12 mg/dL (09/14/17 4:06 AM) BUN [7-22 mg/dL] 16 (09/12/17 12:20 PM) B/C Ratio [6-25] 88 mg/dL (09/16/17 3:25 AM) 103 mg/dL *HI* (09/15/17 3:16 AM) 90 mg/dL (09/14/17 4:06 AM) Glucose Lvl [70-99 mg/dL] 8.0 g/dL (09/12/17 12:20 PM) Total Protein [6.4-8.4 g/dL] 3.4 g/dL *LOW* (09/12/17 12:20 PM) Albumin Lvl [3.5-5.0 g/dL] 4.6 g/dL *HI* (09/12/17 12:20 PM) Globulin [2.7-4.2 g/dL] 0.7 (09/12/17 12:20 PM) A/G Ratio [0.7-1.6] 8.0 mg/dL *LOW* (09/16/17 3:25 AM) 7.8 mg/dL *LOW* (09/15/17 3:16 AM) 8.0 mg/dL *LOW* (09/14/17 4:06 AM) Calcium Lvl [8.5-10.5 mg/dL] 3.5 mg/dL (09/13/17 4:10 AM) Phosphorus [2.5-4.5 mg/dL] 2.1 mg/dL (09/13/17 4:10 AM) Magnesium Lvl [1.8-2.4 mg/dL] 21 unit/L (09/12/17 12:20 PM) ALT [0-65 unit/L] 11 unit/L (09/12/17 12:20 PM) AST [0-37 unit/L] 92 unit/L (09/12/17 12:20 PM) Alk Phos [39-136 unit/L] 0.5 mg/dL (09/12/17 12:20 PM) Bili Total [0.2-1.3 mg/dL] 1Result Comment: The eGFR is calculated using [...] from the National Kid[employer] Disease Education Program ( NKDEP) which additionally recommends that when the eGFR is used in patients with extremes of body mass index for purposes of drug dosing, the eGFR should be mul tiplied by the estimated BMI. 2Result Comment: The eGFR is calculated using the [...] from the National Kid[employer] Disease Education Program ( NKDEP) which additionally recommends that when the eGFR is used in patients with extremes of body mass index for purposes of drug dosing, the eGFR should be mul tiplied by the estimated BMI. 3Result Comment: The eGFR is calculated using the [...] from the National Kidney Disease Education Program ( NKDEP) which additionally recommends that when the eGFR is used in patients with extremes of body mass index for purposes of drug dosing, the eGFR should be mul tiplied by the estimated BMI. URINE AND STOOL 1 2 3 Most recent to oldest [Reference Range]: Slight *ABN* (09/12/17 9:09 PM) UA Turbidity [Clear] Yellow *NA* (09/12/17 9:09 PM) UA Color [Yellow] 6.0 (09/12/17 9:09 PM) UA pH [5.0-8.0] 1.017 (09/12/17 9:09 PM) UA Spec Grav [<=1.030] Negative mg/dL *NA* (09/12/17 9:09 PM) UA Glucose [Negative mg/dL] Moderate *ABN* (09/12/17 9:09 PM) UA Blood [Negative] TR *NA* (09/12/17 9:09 PM) UA Ketones >=300 mg/dL *ABN* (09/12/17 9:09 PM) UA Protein [Negative mg/dL] <=1.0 mg/dL *NA* (09/12/17 9:09 PM) UA Urobilinogen [0.1-1.0 mg/dL] Negative *NA* (09/12/17 9:09 PM) UA Bili [Negative] Negative (09/12/17 9:09 PM) UA Leuk Est [Negative] Negative (09/12/17 9:09 PM) UA Nitrite [Negative] 10 /HPF *HI* (09/12/17 9:09 PM) UA WBC [0-5 /HPF] 87 /HPF *HI* (09/12/17 9:09 PM) UA RBC [0-2 /HPF] Occasional /HPF *NA* (09/12/17 9:09 PM) UA Bacteria [None Seen /HPF] None Seen *NA* (09/12/17 9:09 PM) UA Sq Epi 3 /LPF *HI* (09/12/17 9:09 PM) UA Hyal Cast [0-2 /LPF] Few /LPF *NA* (09/12/17 9:09 PM) UA Mucus [None Seen /LPF] HEMATOLOGY 1 2 3 Most recent to oldest [Reference Range]: 11.0 K/CMM *HI* (09/17/17 3:10 AM) 12.1 K/CMM *HI* (09/16/17 3:25 AM) 15.0 K/CMM *HI* (09/15/17 3:16 AM) WBC [3.7-10.4 K/CMM] 3.71 M/CMM *LOW* (09/17/17 3:10 AM) 3.30 M/CMM *LOW* (09/16/17 3:25 AM) 3.19 M/CMM *LOW* (09/15/17 3:16 AM) RBC [4.20-5.40 M/CMM] 10.5 g/dL *LOW* (09/17/17 3:10 AM) 9.3 g/dL *LOW* (09/16/17 3:25 AM) 9.1 g/dL *LOW* (09/15/17 3:16 AM) Hgb [12.0-16.0 g/dL] 32.6 % *LOW* (09/17/17 3:10 AM) 29.0 % *LOW* (09/16/17 3:25 AM) 28.2 % *LOW* (09/15/17 3:16 AM) Hct [36.0-48.0 %] 87.9 fL (09/17/17 3:10 AM) 87.9 fL (09/16/17 3:25 AM) 88.4 fL (09/15/17 3:16 AM) MCV [80.0-98.0 fL] 28.3 pg (09/17/17 3:10 AM) 28.0 pg (09/16/17 3:25 AM) 28.3 pg (09/15/17 3:16 AM) MCH [27.0-31.0 pg] 32.2 g/dL (09/17/17 3:10 AM) 31.9 g/dL *LOW* (09/16/17 3:25 AM) 32.0 g/dL (09/15/17 3:16 AM) MCHC [32.0-36.0 g/dL] 17.8 % *HI* (09/17/17 3:10 AM) 17.7 % *HI* (09/16/17 3:25 AM) 17.6 % *HI* (09/15/17 3:16 AM) RDW [11.5-14.5 %] 8.7 fL (09/17/17 3:10 AM) 9.4 fL (09/16/17 3:25 AM) 9.2 fL (09/15/17 3:16 AM) MPV [7.4-10.4 fL] 388 K/CMM (09/17/17 3:10 AM) 309 K/CMM (09/16/17 3:25 AM) 312 K/CMM (09/15/17 3:16 AM) Platelet [133-450 K/CMM] 61.2 % (09/17/17 3:10 AM) 68.6 % (09/16/17 3:25 AM) 78.5 % *HI* (09/15/17 3:16 AM) Segs [45.0-75.0 %] 27.2 % (09/17/17 3:10 AM) 21.7 % (09/16/17 3:25 AM) 12.8 % *LOW* (09/15/17 3:16 AM) Lymphocytes [20.0-40.0 %] 7.7 % (09/17/17 3:10 AM) 6.3 % (09/16/17 3:25 AM) 7.1 % (09/15/17 3:16 AM) Monocytes [2.0-12.0 %] 3.1 % (09/17/17 3:10 AM) 3.1 % (09/16/17 3:25 AM) 1.1 % (09/15/17 3:16 AM) Eosinophils [0.0-4.0 %] 0.8 % (09/17/17 3:10 AM) 0.3 % (09/16/17 3:25 AM) 0.5 % (09/15/17 3:16 AM) Basophils [0.0-1.0 %] 6.7 K/CMM (09/17/17 3:10 AM) 8.3 K/CMM *HI* (09/16/17 3:25 AM) 11.8 K/CMM *HI* (09/15/17 3:16 AM) Segs-Bands # [1.5-8.1 K/CMM] 3.0 K/CMM (09/17/17 3:10 AM) 2.6 K/CMM (09/16/17 3:25 AM) 1.9 K/CMM (09/15/17 3:16 AM) Lymphocytes # [1.0-5.5 K/CMM] 0.8 K/CMM (09/17/17 3:10 AM) 0.8 K/CMM (09/16/17 3:25 AM) 1.1 K/CMM *HI* (09/15/17 3:16 AM) Monocytes # [0.0-0.8 K/CMM] 0.3 K/CMM (09/17/17 3:10 AM) 0.4 K/CMM (09/16/17 3:25 AM) 0.2 K/CMM (09/15/17 3:16 AM) Eosinophils # [0.0-0.5 K/CMM] 0.1 K/CMM (09/17/17 3:10 AM) 0.1 K/CMM (09/15/17 3:16 AM) 0.1 K/CMM (09/12/17 12:20 PM) Basophils # [0.0-0.2 K/CMM] Immunizations No data available for this section Procedures Procedure Date Related Diagnosis Body Site Status Atherectomy Completed Corneal transplant Completed ICD - Internal cardiac defibrillator Completed procedure Tubal ligation Completed Social History Social History Type Response Substance Abuse Use: None. Alcohol Current, Frequency: 1-2 times per week. Smoking Status Former smoker; Type: Cigarettes; Previous treatment: None; Ready to change: No; Concerns about tobacco use in household: No; Exposure to Tobacco Smoke None; Cigarette Smoking Last 365 Days Yes; Reg Smoking Cessation Counseling No1 entered on: 09/12/17 1QUIT APPROX A WEEK AGO PER PT Assessment and Plan Extracted from: Title: ESG Progress Note Author: Lucas Pereira MD Date: 09/16/17 62 yo F with PMH of COPD, Flaca's procedure for perforated diverticulitispresented 09/12 for scheduled colostomy reversal Previous Hoyt's procedure s/p colostomy reversal - Continue abdominal binder at all times - OOB, PT/OT - IS, RT - MMPR increased - Mason removed - Advance to carb controlled diet COPD - Continue home inhalers - Continue prednisone 10 mg daily - Duonebs q4hr - CXR normal Leukocytosis Improving, WBC 12.1 today UA with negative leukcyte esterase, 10 WBC Incision appears clean, buttresses in place Continue to monitor Lovenox Pending clinical improvement Extracted from: Title: APMS Consult Note Author: Zoe Briceno MD Date: 09/13/17 Patient: HERMILO VERDE Age: 62 years Sex: Female : 1955 Associated Diagnoses: None Author: Zoe Briceno MD Basic Information Referral source Reason for consultation: Complex Acute Pain Chief Complaint complex pain History of Present Illness The patient presents with Location: abdomen Quality: sharp Severity: 7 Timing: minutes Duration: intermittent Context: post-op Modifying factors: movement 62 yo F s/p colostomy reversal s/p BL QL ss. APMS following for post block check. . Histories Past Medical History: Resolved Asthma (277044819): Resolved. Peripheral vascular disease (0320183542): Resolved. CHF (congestive heart failure) (885508572): Resolved. COPD (chronic obstructive pulmonary disease) (06679149): Resolved. Cardiomyopathy (313394618): Resolved. Claudication (356087076): Resolved. Hyperlipemia (50267752): Resolved. Shortness of breath (445578647): Resolved. Diabetes mellitus (796588687): Resolved. Obesity (6014015584): Resolved. Skin cancer (3786503765): Resolved. Hypertension (6996032598): Resolved. Eczema (66241312): Resolved. Family History: Cancer Father Heart failure Mother Sarcoma Brother CHF (congestive heart failure) Mother Procedure history: Corneal transplant (411306318). Tubal ligation (069461757). Atherectomy (65448302). ICD - Internal cardiac defibrillator procedure (744821456). Social History Social & Psychosocial Habits Alcohol 09/07/2017 Use: Current Frequency: 1-2 times per week Substance Abuse 07/18/2017 Use: None Tobacco 11/08/2016 Use: Current every day smoker Type: Cigarettes Number of years: 40 Exposure to Tobacco Smoke None Cigarette Smoking Last 365 Days Yes Reg Smoking Cessation Counseling Yes Comment: takes chantix - 11/08/2016 18:44 - Frank Vegas RN 09/12/2017 Use: Former smoker Type: Cigarettes Previous treatment: None Ready to change: No Concerns about tobacco use in household: No Exposure to Tobacco Smoke None Cigarette Smoking Last 365 Days Yes Reg Smoking Cessation Counseling No Comment: QUIT APPROX A WEEK AGO PER PT - 07/18/2017 14:42 - Palak Miranda RN . Health Status Allergies: Allergic Reactions (All) Severity Not Documented Chlorhexidine topical- No reactions were documented. Canceled/Inactive Reactions (All) Severity Not Documented NKDA- Chg liquid/wipes and chlorhexidine gluconate,miscellaneous routes,solution. Statins- No reactions were documented., Allergies (1) ActiveReaction chlorhexidine topicalNone Documented Current medications: (Selected) Inpatient Medications Ordered Ancef: 2 gm, 20 mL, 200 ml/hr, IVPB, ABXQ8H Colace 100 mg oral capsule: 100 mg, 1 cap, PO, BID Flagyl: 500 mg, 100 mL, 200 ml/hr, IVPB, ABXQ8H INVanz: 1 gm, IV, PRE OP Isolyte S PH 7.4 1,000 mL: 125 ml/hr, IV, Stop: 10/12/17 19:18:00 CDT Ofirmev: 1,000 mg, 100 mL, 400 ml/hr, IVPB, Q6H Protonix: 40 mg, 1 tab, PO, Daily carvedilol: 6.25 mg, 1 tab, PO, Q12H enoxaparin: 40 mg, 0.4 mL, SUB-Q, [id number] gabapentin 300 mg oral capsule: 300 mg, 1 cap, PO, Q8H lidocaine topical patch (5% film): 1 patch, TOP, Daily lisinopril: 5 mg, 1 tab, PO, Daily morphine Sulfate: 2 mg, 0.5 mL, IVP, Q2H, PRN: Pain Score 7-10 oxyCODONE 5 mg oral tablet: 5 mg, 1 tab, PO, Q4H, PRN: Pain Score 4-6 predniSONE: 10 mg, 1 tab, PO, Daily remove patch: 1 patch, TOP, Bedtime Suspended pravastatin: 20 mg, 1 tab, PO, Bedtime tramadol: 100 mg, 2 tab, PO, Q6H vitamin A: 10,000 unit, 1 cap, PO, Daily Prescriptions Prescribed GoLYTELY oral powder for reconstitution: 240 mL, PO, Q15Min, for 1 day, 4,000 mL, 0 Refill(s) Documented Medications Documented Ativan 1 mg oral tablet: 1 mg, 1 tab, PO, TID, 0 Refill(s) Chantix 1 mg oral tablet: 1 mg, 1 tab, PO, Daily, for 30 day, 30 tab, 0 Refill(s) One-A-Day 50+ oral tablet: 1 tab, PO, Daily, 30 tab, 0 Refill(s) Primatene oral tablet: PO, 0 Refill(s) Soma 350 mg oral tablet: 350 mg, 1 tab, PO, QID, 0 Refill(s) Ventolin HFA: 2 puff, INHALATION, QID, 0 Refill(s) Vitamin D3 1000 intl units oral tablet: 1,000 IntlUnit, 1 tab, PO, Daily, 30 tab, 0 Refill(s) aspirin 81 mg tablet, enteric coated: 81 mg, 1 tab, PO, Daily, 0 Refill(s) fluticasone-salmeterol 100 mcg-50 mcg MDI: 2 inhalation, INHALER, RBID, 0 Refill(s) oxyCODONE 5 mg oral tablet: 10 mg, 2 tab, PO, Q4H, PRN: Pain Score 6-10, 0 Refill(s) Suspended Protonix 20 mg oral enteric coated tablet: 20 mg, 1 tab, PO, Daily, 0 Refill(s) carvedilol 6.25 mg oral tablet: 6.25 mg, 1 tab, PO, BID, 0 Refill(s) lisinopril 5 mg oral tablet: 5 mg, 1 tab, PO, Daily, 0 Refill(s) pravastatin 20 mg oral tablet: 20 mg, 1 tab, PO, Bedtime, 0 Refill(s) predniSONE 10 mg oral tablet: 10 mg, 1 tab, PO, Daily, 0 Refill(s), Medications (16) Active Scheduled: (13) Acetaminophen 10 mg/ml 100 ml IV 1,000 mg 100 mL, IVPB, Q6H carvedilol 6.25 mg TAB 6.25 mg 1 tab, PO, Q12H ceFAZolin 2 gm/20 mL SWFI SYR premix 2 gm 20 mL, IVPB, ABXQ8H docusate sodium 100 mg CAP 100 mg 1 cap, PO, BID enoxaparin 40 mg/0.4 ml INJ 40 mg 0.4 mL, SUB-Q, [id number] ertapenem sodium 1 gm VIAL 1 gm, IV, PRE OP gabapentin 300 mg CAP 300 mg 1 cap, PO, Q8H lidocaine 5% top patch 1 patch, TOP, Daily lidocaine patch removal 1 patch, TOP, Bedtime lisinopril 5 mg TAB 5 mg 1 tab, PO, Daily metroNIDAZOLE (5mg/ml) premix INJ 500 mg 100 mL, IVPB, ABXQ8H pantoprazole 40 mg ECT 40 mg 1 tab, PO, Daily predniSONE 10 mg TAB 10 mg 1 tab, PO, Daily Continuous: (1) Isolyte S (PH 7.4) 1000 mL 1,000 mL 1,000 mL, IV, 125 ml/hr PRN: (2) MORPhine sulfate PF 4 mg/mL INJ VL 2 mg 0.5 mL, IVP, Q2H oxyCODONE IR 5 mg TAB 5 mg 1 tab, PO, Q4H Problem list: No qualifying data available Review of Systems Constitutional: Negative except as documented in history of present illness. Cardiovascular: Negative except as documented in history of present illness. Ear/Nose/Mouth/Throat: Negative except as documented in history of present illness. Respiratory: Negative except as documented in history of present illness. Gastrointestinal: Negative except as documented in history of present illness. Musculoskeletal: Negative except as documented in history of present illness. Neurologic: Negative except as documented in history of present illness. Psychiatric: Negative except as documented in history of present illness. Endocrine: Negative except as documented in history of present illness. Hematology/Lymphatics: Negative except as documented in history of present illness. Physical Examination VS/Measurements Measurements from flowsheet : Measurements 09/12/2017 23:22 Heparin Dosing Weight (kg) 60.53 09/12/2017 23:22 Height 160.02 cm Height Collection Method Stated Weight 72.727 kg Dosing Weight Difference Percent 0 % Dosing Weight Collection Method Estimated Body Surface Area 1.798 m2 Body Mass Index 28.4 m2 09/12/2017 12:25 Dosing Weight Difference Percent In Error % Normal (In Error) , Vital Signs (last 24 hrs) Last Charted Temp Oral98.5 DegF (SEP 13 03:00) Heart Rate Sanyzvtasx94 bpm (SEP 13 03:00) Resp Rate H 58BRMIN (SEP 12 21:15) QQW238 mmHg (SEP 13 03:00) DBP72 mmHg (SEP 13 03:00) EbV680 % (SEP 13 03:00) Xqgdnd11.727 kg (SEP 12:22) Ujsoeh545.02 cm (SEP 12 23:22) BMI28.4 (SEP 12 23:22) General: Alert and oriented. Eye: Pupils are equal, round and reactive to light. Respiratory: Symmetrical chest wall expansion. Cardiovascular: Normal peripheral perfusion. Musculoskeletal Normal range of motion. Integumentary: Warm, Dry. Neurologic: Alert, Oriented. Cognition and Speech: Oriented, Speech clear and coherent. Psychiatric: Cooperative, Appropriate mood & affect. Review / Management Results review: Labs (Last four charted values) WBC H 14.3(SEP 13)H 19.7(SEP 12) Hgb L 11.8(SEP 13)12.3(SEP 12) Hct 36.7(SEP 13)37.4(SEP 12) Plt 294(SEP 13)310(SEP 12) Na 140(SEP 13)138(SEP 12) K 4.1(SEP 13)4.0(SEP 12) CO2 25(SEP 13)28(SEP 12) Cl 103(SEP 13)102(SEP 12) Cr 0.90(SEP 13)0.81(SEP 12) BUN 16(SEP 13)13(SEP 12) Glucose Random H 136(SEP 13)H 159(SEP 12) Mg 2.1(SEP 13) Phos 3.5(SEP 13) Ca L 8.0(SEP 13)9.0(SEP 12). Chest x-ray results ECG interpretation Impression and Plan Diagnosis Orders Education and Follow-up: Counseled: Regarding treatment, Regarding medications. 62 yo F s/p colostomy reversal s/p BL QL ss. APMS following for post block check. On encounter patient is comfortable with her current pain regimen and is without residual sensorimotor deficits throughout block area. APMS will sign off, please call [phone] with questions Zoe Briceno MD PGY-3 Anesthesia Addendum TEACHING PHYSICIAN ADDENDUM: I saw and personally examined this patient and discussed the by plan of care with this resident. I have reviewed the note below and agree with the Bog[place]ol[place], history, examination findings and the plan of care. Medhat Almaraz MD on 09/13/2017 10:08
--- OUTSIDE RECORDS SUMMARY | 2018-08-12 12:56 | XMS REPORT | Summary of Care ---
Author Author [facility] Organization [facility] Address Unknown Phone Unavailable Encounter TOO Helms(JUDD) [id number] Date(s): 07/09/17 - 07/09/17 [facility] [address] [place] [address]- [facility] [phone] Encounter Diagnosis Encounter for screening for malignant neoplasm of colon (Final) - 07/13/17 Diverticulosis of large intestine without perforation or abscess without bleedin g (Final) - Obesity, unspecified (Final) - Body mass index (BMI) 27.0-27.9, adult (Final) - Hypertensive heart disease with heart failure (Final) - Chronic systolic (congestive) heart failure (Final) - Hyperlipidemia, unspecified (Final) - Cardiomyopathy, unspecified (Final) - Chronic obstructive pulmonary disease, unspecified (Final) - Type 2 diabetes mellitus with diabetic peripheral angiopathy without gangrene (Final) - Presence of cardiac pacemaker (Final) - Nicotine dependence, cigarettes, uncomplicated (Final) - Presence of automatic (implantable) cardiac defibrillator (Final) - Discharge Disposition: Home or Self Care Attending Physician: Lyle Sheridan MD Referring Physician: Lyle Sheridan MD Vital Signs Most recent to 1 oldest [Reference Range]: Height 161.29 cm (07/09/17 3:41 PM) Blood Pressure 124/79 mmHg [90-140/60-90 mmHg] (07/09/17 3:41 PM) Respiratory Rate 16 BRMIN [14-20 BRMIN] (07/09/17 3:41 PM) Peripheral Pulse 89 bpm Rate [60-100 bpm] (07/09/17 3:41 PM) Weight 72.727 kg (07/09/17 3:41 PM) Body Mass Index 27.96 m2 (07/09/17 3:41 PM) Problem List Condition Effective Dates Status Health [...] Reaction Severity Status chlorhexidine topical Active Medications GoLYTELY oral powder for reconstitution 240 mL, PO, Q15Min, # 4,000 mL, 0 Refill(s), Pharmacy: [facility] [id number] Start Date: 07/09/17 Stop Date: 07/10/17 Status: Ordered Results No data available for this section Immunizations No data available for this section [...] WEEK AGO PER PT Assessment and Plan No data available for this section
--- OUTSIDE RECORDS SUMMARY | 2018-08-12 12:56 | XMS REPORT | Summary of Care ---
Author Author [facility] Organization [facility] Address Unknown Phone Unavailable Encounter HQ Analia(JUDD) [id number] Date(s): 11/08/16 - 11/14/16 [facility] [address] [employer] provided by [employer] [facility] [employer] [place] [address]- Discharge Disposition: Home or Self Care Attending Physician: Chilo Reina MD Admitting Physician: Chilo Reina MD Vital Signs 1 2 3 Most recent to oldest [Reference Range]: 160.02 cm (11/08/16 10:02 AM) Height 98.5 DegF (11/14/16 11:29 AM) 98.5 DegF (11/14/16 8:16 AM) 98.1 DegF (11/14/16 4:43 AM) Temperature Oral [96.4-99.1 DegF] 116/72 mmHg (11/14/16 11:29 AM) 148/88 mmHg *HI* (11/14/16 8:16 AM) 116/70 mmHg (11/14/16 4:43 AM) Blood Pressure [90-140/60-90 mmHg] 18 BRMIN (11/14/16 11:29 AM) 18 BRMIN (11/14/16 8:36 AM) 18 BRMIN (11/14/16 8:16 AM) Respiratory Rate [14-20 BRMIN] 80 bpm (11/14/16 11:29 AM) 90 bpm (11/14/16 8:16 AM) 88 bpm (11/14/16 4:43 AM) Peripheral Pulse Rate [60-100 bpm] 70.909 kg (11/08/16 10:02 AM) Weight 27.69 m2 (11/08/16 10:02 AM) Body Mass Index Problem List Condition Effective Dates Status Health Status Informant Asthma(Confirmed) Resolved Cardiomyopathy(Confi Resolved rmed) COPD (chronic Resolved obstructive pulmonary disease)(Confirmed) Claudication(Confirm Resolved ed) CHF (congestive Resolved heart failure)(Confirmed) Diabetes Resolved mellitus(Confirmed) Shortness of Resolved breath(Confirmed) Hyperlipemia(Confirm Resolved ed) Hypertension(Confirm Resolved ed) Skin Resolved cancer(Confirmed) Obesity(Confirmed) Resolved Peripheral vascular Resolved disease(Confirmed) Psoriasis(Confirmed) Resolved Allergies, Adverse Reactions, Alerts Substance Reaction Severity Status chlorhexidine topical Active statins Resolved Medications acetaminophen 325 mg, 1 tab, Route: PO, Drug form: TAB, Q6H, Dosing Weight 70.909, kg, PRN Dale n Score 1-3, Start date: 11/13/16 15:50:00 CDT, Duration: 30 day, Stop date: 15:49:00 CDT Notes: Do not exceed 4 gm/day. (Same as: Tylenol) Start Date: 11/13/16 Stop Date: 11/14/16 Status: Discontinued Advair Diskus 100 mcg-50 mcg inhalation powder 1 puff, Route: INHALATION, Drug Form: PWDR, Dosing Weight 70.909, kg, BID, Start date: 11/10/16 9:00:00 CDT, Duration: 30 day, Stop date: 12/09/16 17:00:00 CDT Start Date: 11/10/16 Stop Date: 11/10/16 Status: Deleted Advair Diskus 100 mcg-50 mcg inhalation powder 1 puff, Route: INHALATION, Drug Form: PWDR, Dosing Weight 70.909, kg, BID, Start date: 11/11/16 9:00:00 CDT, Duration: 30 day, Stop date: 12/10/16 17:00:00 CDT Start Date: 11/11/16 Stop Date: 11/11/16 Status: Canceled aspirin 81 mg tablet, enteric coated 81 mg, 1 tab, Route: PO, Drug form: CHEWTAB, Daily, Dosing Weight 70.909, kg, St art date: 11/10/16 9:00:00 CDT, Duration: 30 day, Stop date: 12/09/16 9:00:00 CD T Notes: Take with food. Start Date: 11/10/16 Stop Date: 11/14/16 Status: Discontinued aspirin 81 mg tablet, enteric coated 81 mg=1 tab, PO, Daily, 0 Refill(s) Start Date: 11/14/16 Status: Ordered bisacodyl 10 mg, 1 supp, Route: MA, Drug form: SUPP, Daily, Dosing Weight 70.909, kg, PRN Constipation, Start date: 11/08/16 15:30:00 CDT, Stop date: 12/08/16 15:29:00 CD T Notes: (Same As: Dulcolax, Bisco-Lax) Start Date: 11/08/16 Stop Date: 11/14/16 Status: Discontinued carvedilol 6.25 mg, 1 tab, Route: PO, Drug form: TAB, BID, Dosing Weight 70.909, kg, Start date: 11/10/16 9:00:00 CDT, Duration: 30 day, Stop date: 12/09/16 17:00:00 CDT Notes: Give with food. (Same As: Coreg) Start Date: 11/10/16 Stop Date: 11/14/16 Status: Discontinued carvedilol 6.25 mg oral tablet 6.25 mg=1 tab, PO, BID, 0 Refill(s) Start Date: 11/14/16 Status: Ordered cefepime 1 gm, Route: IVPB, Drug form: INJ, ONCE, Dosing Weight 70.909, kg, Priority: STA T, Start date: 11/08/16 10:45:00 CDT, Duration: 1 doses or times, Stop date: 10:45:00 CDT, ABX Indication: Intra-abdominal Infection Notes: (Same As: Maxipime) MEDICATION WASTE Product Size: 1000 mgProduc t Wasted: ___ mg Start Date: 11/08/16 Stop Date: 11/08/16 Status: Completed cefepime 1 gm, Route: IVPB, Drug form: INJ, [id number], Dosing Weight 70.909, kg, (CrCl > /=50 ml/min), Start date: 11/08/16 23:00:00 CDT, Duration: 14 day, Stop date: 11:00:00 CDT, ABX Indication: Intra-abdominal Infection Notes: (Same As: Maxipime) MEDICATION WASTE Product Size: 1000 mgProduc t Wasted: ___ mg Start Date: 11/08/16 Stop Date: 11/11/16 Status: Discontinued CeleBREX 200 mg, 1 cap, Route: PO, Drug form: CAP, BID, Dosing Weight 70.909, kg, Start d ate: 11/13/16 17:00:00 CDT, Duration: 30 day, Stop date: 12/13/16 9:00:00 CDT Notes: NSAID. Please check indication. Not for seizure. (Same As: CeleBREX) Start Date: 11/13/16 Stop Date: 11/14/16 Status: Discontinued Cipro 500 mg, 1 tab, Route: PO, Drug form: TAB, [id number], Dosing Weight 70.909, kg, Sta rt date: 11/11/16 10:00:00 CDT, Duration: 7 day, Stop date: 11/17/16 22:00:00 CD T, ABX Indication: Intra-abdominal Infection Notes: May interfere w/enteral feedings - Take 1 hr before or 2 hrs after anta cids, dairy pdt & minerals. On empty stomach. Start Date: 11/11/16 Stop Date: 11/14/16 Status: Discontinued ciprofloxacin 500 mg oral tablet 500 mg=1 tab, PO, [id number], X 7 day, # 14 tab, 0 Refill(s) Start Date: 11/14/16 Stop Date: 11/21/16 Status: Ordered clopidogrel 75 mg, 1 tab, Route: PO, Drug form: TAB, Q24H, Dosing Weight 70.909, kg, Start d ate: 11/10/16 17:13:00 CDT, Duration: 30 day, Stop date: 12/09/16 17:13:00 CDT Notes: (Same As: Plavix) Start Date: 11/10/16 Stop Date: 11/14/16 Status: Discontinued clopidogrel 75 mg, Route: PO, Drug form: TAB, Daily, Dosing Weight 70.909, kg, Start date: 0 11/11/16 9:00:00 CDT, Duration: 30 day, Stop date: 12/10/16 9:00:00 CDT Start Date: 11/11/16 Stop Date: 11/10/16 Status: Canceled clopidogrel 75 mg oral tablet 75 mg=1 tab, PO, Q24H, 0 Refill(s) Start Date: 11/14/16 Status: Ordered Dextrose 50% Syringe 12.5 gm, 25 mL, Route: IVP, Drug Form: INJ, Dosing Weight 70.909, kg, PRN, PRN B lood Glucose Results, Start date: 11/08/16 16:48:00 CDT, Stop date: 12/08/16 16: 47:00 CDT Start Date: 11/08/16 Stop Date: 11/14/16 Status: Discontinued Dextrose 50% Syringe 25 gm, 50 mL, Route: IVP, Drug Form: INJ, Dosing Weight 70.909, kg, PRN, PRN Blo od Glucose Results, Start date: 11/08/16 16:48:00 CDT, Stop date: 12/08/16 16:47 :00 CDT Start Date: 11/08/16 Stop Date: 11/14/16 Status: Discontinued Dilaudid 0.2 mg, 0.1 mL, Route: IVP, Drug form: INJ, Q3H, Dosing Weight 70.909, kg, PRN P ain Score 7-10, Start date: 11/08/16 15:30:00 CDT, Stop date: 12/08/16 15:29:00 CDT Notes: Same as: Dilaudid Start Date: 11/08/16 Stop Date: 11/08/16 Status: Discontinued Dilaudid 0.2 mg, 0.1 mL, Route: IVP, Drug form: INJ, Q3H, Dosing Weight 70.909, kg, PRN P ain Score 7-10, Start date: 11/08/16 21:59:00 CDT, Duration: 30 day, Stop date: 12/08/16 21:58:00 CDT Notes: Same as: Dilaudid Start Date: 11/08/16 Stop Date: 11/13/16 Status: Discontinued docusate 100 mg, 1 cap, Route: PO, Drug form: CAP, Q12H, Dosing Weight 70.909, kg, Start date: 11/08/16 17:00:00 CDT, Stop date: 12/08/16 9:00:00 CDT Notes: (Same as: Rupesh) (Do Not Crush) Start Date: 11/08/16 Stop Date: 11/14/16 Status: Discontinued docusate sodium 100 mg oral capsule 100 mg=1 cap, PO, Q12H, # 60 cap, 0 Refill(s) Start Date: 11/14/16 Stop Date: 12/14/16 Status: Ordered DuoNeb inhalation solution 3 ml, Route: NEB, Drug Form: SOLN, Dosing Weight 70.909, kg, PRN, PRN Respirator y Protocol, Start date: 11/08/16 12:32:00 CDT, Stop date: 12/08/16 12:31:00 CDT Notes: (Same as: Duoneb) Start Date: 11/08/16 Stop Date: 11/14/16 Status: Discontinued Flagyl 500 mg, 100 mL, Route: IVPB, Drug form: INJ, [id number], Dosing Weight 70.909, kg, S tart date: 11/08/16 19:00:00 CDT, Duration: 14 day, Stop date: 11/22/16 10:00:00 CDT, ABX Indication: Intra-abdominal Infection Notes: (Same as: Flagyl) Avoid alcohol. Start Date: 11/08/16 Stop Date: 11/11/16 Status: Discontinued Flagyl 500 mg, 1 tab, Route: PO, Drug form: TAB, Q8H, Dosing Weight 70.909, kg, Start d ate: 11/11/16 16:00:00 CDT, Duration: 7 day, Stop date: 11/18/16 8:00:00 CDT, AB X Indication: Intra-abdominal Infection Notes: (Same as: Flagyl) Take with food/ avoid alcohol Start Date: 11/11/16 Stop Date: 11/14/16 Status: Discontinued Flagyl 500 mg, 100 mL, Route: IVPB, Drug form: INJ, ONCE, Dosing Weight 70.909, kg, Marycarmen ority: STAT, Start date: 11/08/16 10:45:00 CDT, Duration: 1 doses or times, Stop date: 11/08/16 10:45:00 CDT, ABX Indication: Intra-abdominal Infection Notes: (Same as: Flagyl) Avoid alcohol. Start Date: 11/08/16 Stop Date: 11/08/16 Status: Completed fluconazole 200 mg, 100 mL, Route: IVPB, Drug form: INJ, [id number], Dosing Weight 70.909, kg, Start date: 11/08/16 16:00:00 CDT, Stop date: 11/21/16 16:00:00 CDT Notes: (Same as: Diflucan) Start Date: 11/08/16 Stop Date: 11/09/16 Status: Discontinued fluticasone-salmeterol 2 inhalation, Route: INHALER, Drug Form: AERO, RBID, Start date: 11/11/16 14:00: 00 CDT, Duration: 30 day, Stop date: 12/11/16 8:00:00 CDT Notes: Non-Formulary Drug(Same as: Advair) Start Date: 11/11/16 Stop Date: 11/14/16 Status: Discontinued fluticasone-salmeterol 100 mcg-50 mcg MDI 2 inhalation, INHALER, RBID, 0 Refill(s) Start Date: 11/14/16 Status: Ordered glucagon 1 mg, Route: IM, Drug form: PDR/INJ, PRN, Dosing Weight 70.909, kg, PRN Blood Gl ucose Results, Start date: 11/08/16 16:48:00 CDT, Stop date: 12/08/16 16:47:00 C DT Start Date: 11/08/16 Stop Date: 11/14/16 Status: Discontinued glycerin adult rectal suppository 1 supp, Route: MA, Drug Form: SUPP, Dosing Weight 70.909, kg, ONCE, NOW, Start d ate: 11/14/16 10:24:00 CDT, Stop date: 11/14/16 10:24:00 CDT Start Date: 11/14/16 Stop Date: 11/14/16 Status: Completed hydrocortisone 5 mg, Route: PO, Daily, Dosing Weight 70.909, kg, Start date: 11/11/16 9:00:00 C DT, Duration: 30 day, Stop date: 12/10/16 9:00:00 CDT Start Date: 11/11/16 Stop Date: 11/10/16 Status: Canceled hydrocortisone 100 mg, 2 mL, Route: IV, Drug form: PDR/INJ, Q8H, Dosing Weight 70.909, kg, Prio rity: NOW, Start date: 11/08/16 18:24:00 CDT, Duration: 30 day, Stop date: 12/08 18:00:00 CDT Notes: (Same as: Rolando) Start Date: 11/08/16 Stop Date: 11/10/16 Status: Discontinued ibuprofen 400 mg, Route: PO, Drug form: TAB, Q4H, Dosing Weight 70.909, kg, PRN Pain Score 1-3, Start date: 11/13/16 8:56:00 CDT, Duration: 30 day, Stop date: 12/13/16 8: 55:00 CDT Start Date: 11/13/16 Stop Date: 11/13/16 Status: Canceled Insulin regular 5 unit, 0.05 mL, Route: SUB-Q, Drug form: SOLN, Sliding Scale, Dosing Weight 70. 909, kg, PRN Blood Glucose Results, Start date: 11/08/16 16:48:00 CDT, Stop date : 12/08/16 16:47:00 CDT Notes: (Same as: Humulin R) Roll in palms of hands gently; Do not shake vigorou sly. "single patient use only"(Restricted to patients requiring a dose > 60 units)WASTE: F/P - Black; E - Municipal Trash Bin Stable for 28 days at room temperatureExpires in days from Date Start Date: 11/08/16 Stop Date: 11/14/16 Status: Discontinued Insulin regular 3 unit, 0.03 mL, Route: SUB-Q, Drug form: SOLN, Sliding Scale, Dosing Weight 70. 909, kg, PRN Blood Glucose Results, Start date: 11/08/16 16:48:00 CDT, Stop date : 12/08/16 16:47:00 CDT Notes: (Same as: Humulin R) Roll in palms of hands gently; Do not shake vigorou sly. "single patient use only"(Restricted to patients requiring a dose > 60 units)WASTE: F/P - Black; E - Municipal Trash Bin Stable for 28 days at room temperatureExpires in days from Date Start Date: 11/08/16 Stop Date: 11/14/16 Status: Discontinued Insulin regular 4 unit, 0.04 mL, Route: SUB-Q, Drug form: SOLN, Sliding Scale, Dosing Weight 70. 909, kg, PRN Blood Glucose Results, Start date: 11/08/16 16:48:00 CDT, Stop date : 12/08/16 16:47:00 CDT Notes: (Same as: Humulin R) Roll in palms of hands gently; Do not shake vigorou sly. "single patient use only"(Restricted to patients requiring a dose > 60 units)WASTE: F/P - Black; E - Municipal Trash Bin Stable for 28 days at room temperatureExpires in days from Date Start Date: 11/08/16 Stop Date: 11/14/16 Status: Discontinued Insulin regular 1 unit, 0.01 mL, Route: SUB-Q, Drug form: SOLN, Sliding Scale, Dosing Weight 70. 909, kg, PRN Blood Glucose Results, Start date: 11/08/16 16:48:00 CDT, Stop date : 12/08/16 16:47:00 CDT Notes: (Same as: Humulin R) Roll in palms of hands gently; Do not shake vigorou sly. "single patient use only"(Restricted to patients requiring a dose > 60 units)WASTE: F/P - Black; E - Municipal Trash Bin Stable for 28 days at room temperatureExpires in days from Date Start Date: 11/08/16 Stop Date: 11/14/16 Status: Discontinued Insulin regular 2 unit, 0.02 mL, Route: SUB-Q, Drug form: SOLN, Sliding Scale, Dosing Weight 70. 909, kg, PRN Blood Glucose Results, Start date: 11/08/16 16:48:00 CDT, Stop date : 12/08/16 16:47:00 CDT Notes: (Same as: Humulin R) Roll in palms of hands gently; Do not shake vigorou sly. "single patient use only"(Restricted to patients requiring a dose > 60 units)WASTE: F/P - Black; E - Municipal Trash Bin Stable for 28 days at room temperatureExpires in days from Date Start Date: 11/08/16 Stop Date: 11/14/16 Status: Discontinued Lactated Ringers 1,000 mL 1,000 mL, Rate: 75 ml/hr, Infuse over: 13.3 hr, Route: IV, Dosing Weight 70.909 kg, Total Volume: 1,000, Start date: 11/08/16 15:30:00 CDT, Stop date: 12/08/16 15:29:00 CDT Start Date: 11/08/16 Stop Date: 11/12/16 Status: Discontinued lisinopril 5 mg, 1 tab, Route: PO, Drug form: TAB, Daily, Dosing Weight 70.909, kg, Start d ate: 11/11/16 14:00:00 CDT, Duration: 30 day, Stop date: 12/11/16 9:00:00 CDT Notes: (Same as: Prinivil, Zestril) Start Date: 11/11/16 Stop Date: 11/14/16 Status: Discontinued lisinopril 5 mg oral tablet 5 mg=1 tab, PO, Daily, 0 Refill(s) Start Date: 11/14/16 Status: Ordered Lovenox 40 mg, 0.4 mL, Route: SUB-Q, Drug form: INJ, [id number], Dosing Weight 70.909, kg, Priority: STAT, Start date: 11/08/16 15:30:00 CDT, Stop date: 12/07/16 15:30:00 CDT Notes: (Same as: Lovenox) Start Date: 11/08/16 Stop Date: 11/09/16 Status: Discontinued Lovenox 40 mg, 0.4 mL, Route: SUB-Q, Drug form: INJ, [id number], Dosing Weight 70.909, kg, Priority: Routine, Start date: 11/09/16 16:00:00 CDT, Duration: 30 day, Stop da te: 12/08/16 16:00:00 CDT Notes: (Same as: Lovenox) Start Date: 11/09/16 Stop Date: 11/14/16 Status: Discontinued Metamucil 3.4 gm, 1 pkt, Route: PO, Drug Form: PDR/REC, Dosing Weight 70.909, kg, Daily, S tart date: 11/13/16 9:00:00 CDT, Duration: 30 day, Stop date: 12/12/16 9:00:00 C DT Notes: (Same as: Metamucil) Mix in 8 oz liquid with meal. Start Date: 11/13/16 Stop Date: 11/14/16 Status: Discontinued methocarbamol 500 mg oral tablet 1,000 mg=2 tab, PO, Q8H, X 14 day, # 84 tab, 0 Refill(s) Start Date: 11/14/16 Stop Date: 11/28/16 Status: Ordered metroNIDAZOLE 500 mg oral tablet 500 mg=1 tab, PO, Q8H, X 7 day, # 21 tab, 0 Refill(s) Start Date: 11/14/16 Stop Date: 11/21/16 Status: Ordered MiraLax 17 gm, 1 pkt, Route: PO, Drug form: PWDR, Daily, Dosing Weight 70.909, kg, Start date: 11/09/16 9:00:00 CDT, Duration: 30 day, Stop date: 12/08/16 9:00:00 CDT Notes: Dissolve in 8 oz of water or juice.(Same as: Miralax) Start Date: 11/09/16 Stop Date: 11/14/16 Status: Discontinued Ofirmev 1,000 mg, 100 mL, Route: IV, Drug form: INJ, Q6H, Dosing Weight 70.909, kg, for > or=50 kg, Start date: 11/08/16 18:00:00 CDT, Stop date: 11/10/16 12:00:00 CDT Notes: Infuse over 15 minutesDo not exceed 4gm/day of acetaminophen MEDICAT ION WASTE Product Size: 1000 mgProduct Wasted: ___ mg Start Date: 11/08/16 Stop Date: 11/08/16 Status: Discontinued Ofirmev 1,000 mg, 100 mL, Route: IV, Drug form: INJ, Q6H, Dosing Weight 70.909, kg, for > or=50 kg, Priority: STAT, Start date: 11/08/16 22:01:00 CDT, Duration: 48 hr, Stop date: 11/10/16 18:00:00 CDT Notes: Infuse over 15 minutesDo not exceed 4gm/day of acetaminophen MEDICAT ION WASTE Product Size: 1000 mgProduct Wasted: ___ mg Start Date: 11/08/16 Stop Date: 11/10/16 Status: Completed pantoprazole 40 mg, 1 tab, Route: PO, Drug form: ECTAB, Daily, Dosing Weight 70.909, kg, Star t date: 11/10/16 9:00:00 CDT, Duration: 30 day, Stop date: 12/09/16 9:00:00 CDT Notes: Tablet should not be chewed or crushed.(Same as: Protonix) Start Date: 11/10/16 Stop Date: 11/14/16 Status: Discontinued pantoprazole 40 mg oral enteric coated tablet 40 mg=1 tab, PO, Daily, 0 Refill(s) Start Date: 11/14/16 Status: Ordered pravastatin 20 mg, 1 tab, Route: PO, Drug form: TAB, Bedtime, Dosing Weight 70.909, kg, Star t date: 11/10/16 21:00:00 CDT, Duration: 30 day, Stop date: 12/09/16 21:00:00 CD T Notes: (Same as: Pravachol) Start Date: 11/10/16 Stop Date: 11/14/16 Status: Discontinued pravastatin 20 mg oral tablet 20 mg=1 tab, PO, Bedtime, 0 Refill(s) Start Date: 11/14/16 Status: Ordered predniSONE 10 mg, 1 tab, Route: PO, Drug form: TAB, Daily, Dosing Weight 70.909, kg, Start date: 11/10/16 9:00:00 CDT, Stop date: 12/11/16 9:00:00 CDT Notes: (Same as: PredniSONE) Take with food. Start Date: 11/10/16 Stop Date: 11/14/16 Status: Discontinued predniSONE 10 mg oral tablet 10 mg=1 tab, PO, Daily, 0 Refill(s) Start Date: 11/14/16 Status: Ordered predniSONE 5 mg oral tablet 10 mg=2 tab, PO, Daily, Give with food., # 30 tab, 0 Refill(s) Start Date: 11/10/16 Stop Date: 11/14/16 Status: Discontinued psyllium 3.4 g/3.7 g oral powder 3.4 gm=, PO, Daily, X 30 day, # 300 gm, 0 Refill(s) Start Date: 11/14/16 Stop Date: 12/14/16 Status: Ordered Robaxin 1,000 mg, 2 tab, Route: PO, Drug form: TAB, Q8H, Start date: 11/11/16 16:00:00 C DT, Duration: 30 day, Stop date: 12/11/16 8:00:00 CDT Notes: (Same as:Robaxin) Start Date: 11/11/16 Stop Date: 11/14/16 Status: Discontinued Robaxin + sodium chloride 0.9% INJ 100 mL 1,000 mg, 10 mL, Route: IV, Drug form: INJ, Q8H, Dosing Weight 70.909, kg, Start date: 11/08/16 16:00:00 CDT, Stop date: 12/08/16 8:00:00 CDT Notes: (Same as:Robaxin) Start Date: 11/08/16 Stop Date: 11/11/16 Status: Discontinued Rocephin 1 gm, Route: IVPB, Drug form: PDR/INJ, [id number], Dosing Weight 70.909, kg, Start date: 11/08/16 16:00:00 CDT, Duration: 14 day, Stop date: 11/21/16 16:00:00 CDT, ABX Indication: Intra-abdominal Infection Notes: (Same As: Rocephin).Use with 100 mL NS and infuse over 30 min MEDICA TION WASTE Product Size: 1000 mgProduct Wasted: ___ mg Start Date: 11/08/16 Stop Date: 11/08/16 Status: Discontinued Roxicodone 5 mg, 1 tab, Route: PO, Drug form: TAB, Q6H, PRN Pain Score 7-10, Start date: 9:33:00 CDT, Duration: 30 day, Stop date: 12/13/16 9:32:00 CDT Notes: (Same as: Roxicodone) Start Date: 11/13/16 Stop Date: 11/13/16 Status: Discontinued Saline Flush 0.9% 10 mL, Route: IVP, Drug Form: INJ, Dosing Weight 70.909, kg, PRN, PRN Line Flush , Start date: 11/08/16 10:44:00 CDT, Stop date: 12/08/16 10:43:00 CDT Notes: Same as: BD Posiflush Sterile Start Date: 11/08/16 Stop Date: 11/14/16 Status: Discontinued Saline Flush 0.9% 10 ml, Route: IVP, Drug Form: INJ, Dosing Weight 70.909, kg, PRN, PRN Line Flush , Start date: 11/08/16 15:30:00 CDT, Stop date: 12/08/16 15:29:00 CDT Notes: (Same as: BD Posiflush) Start Date: 11/08/16 Stop Date: 11/14/16 Status: Discontinued Sodium Chloride 0.9% IV (Sodium Chloride 0.9% (Bolus) IV) 2,250 mL, 2045.45 ml/hr, Infuse Over: 1.1 hr, Route: IV, 2,250, Drug form: INJ, ONCE, Priority: STAT, Dosing Weight 70.909 kg, Start date: 11/08/16 10:44:00 CDT , Duration: 1 doses or times, Stop date: 11/08/16 10:44:00 CDT Start Date: 11/08/16 Stop Date: 11/08/16 Status: Completed Symbicort 160/4.5 inhalation aerosol with adapter 2 inhalation, Route: INHALATION, Drug Form: AERO/A, Dosing Weight 70.909, kg, BI D, Start date: 11/10/16 9:00:00 CDT, Duration: 30 day, Stop date: 12/09/16 17:00 :00 CDT Notes: (Same as: Symbicort)WASTE: Aerosol - Return to Pharmacy Start Date: 11/10/16 Stop Date: 11/11/16 Status: Discontinued tramadol 100 mg, 2 tab, Route: PO, Drug form: TAB, Q6H, Dosing Weight 70.909, kg, PRN Dale n Score 4-6, Start date: 11/13/16 8:55:00 CDT, Duration: 30 day, Stop date: 11/19 11/04 8:54:00 CDT Notes: Not to exceed 400mg/day. (Same As: Ultram) Start Date: 11/13/16 Stop Date: 11/14/16 Status: Discontinued tramadol 50 mg oral tablet 100 mg=2 tab, PO, Q6H, PRN Pain Score 4-6, X 7 day, # 56 tab, 0 Refill(s) Start Date: 11/14/16 Stop Date: 11/21/16 Status: Ordered Tylenol 1,000 mg, Route: PO, ONCE, Dosing Weight 70.909, kg, Start date: 11/08/16 14:40: 00 CDT, Stop date: 11/08/16 14:40:00 CDT Start Date: 11/08/16 Stop Date: 11/08/16 Status: Completed vancomycin + sodium chloride 0.9% INJ 250 mL 1,500 mg, Route: IVPB, ONCE, Dosing Weight 70.909, kg, Priority: STAT, Start christian e: 11/08/16 10:45:00 CDT, Duration: 1 doses or times, Stop date: 11/08/16 10:45: 00 CDT, ABX Indication: Intra-abdominal Infection Notes: TIME CRITICAL MEDICATION(Same As: Vancocin)Infusion rate< 1000 mg: infuse over 1 [id number] - 1500 mg: infuse over 1.5 hoursVancomycin FOR IV SET [id number] - 2000 mg: infuse over 2 hours> 2001 mg: infuse over 2.5 hours MEDICATION WASTE Product Size: 1000 mgProduct Wasted: ___ mg Start Date: 11/08/16 Stop Date: 11/08/16 Status: Completed Visipaque 320mg/ml 100 mL, Route: IVP, Drug Form: SOLN, Dosing Weight 70.909, kg, ONCALL, STAT, Sta rt date: 11/08/16 11:18:00 CDT, Duration: 1 doses or times, Dose=2.2ml/kg, Max [id number] -- "To be infused by Radiology Staff ONLY" Start Date: 11/08/16 Stop Date: 11/08/16 Status: Completed Zofran 4 mg, 2 mL, Route: IVP, Drug form: INJ, ONCE, Dosing Weight 70.909, kg, Priority : STAT, Start date: 11/08/16 10:44:00 CDT, Stop date: 11/08/16 10:44:00 CDT Notes: (Same as: Zofran) MEDICATION WASTE Product Size: 4 mgProduct Was jaswinder: ___ mg Start Date: 11/08/16 Stop Date: 11/08/16 Status: Completed Results BLOOD BANK RESULTS 1 2 3 Most recent to oldest [Reference Range]: A POS *Unknown* (11/08/16 3:20 PM) ABO/Rh Negative (11/08/16 3:20 PM) Antibody Scrn ELECTROLYTES 1 2 3 Most recent to oldest [Reference Range]: 141 mEq/L (11/14/16 12:38 AM) 137 mEq/L (11/13/16 4:28 AM) 140 mEq/L (11/12/16 3:05 AM) Sodium Lvl [135-145 mEq/L] 3.3 mEq/L *LOW* (11/14/16 12:38 AM) 3.7 mEq/L (11/13/16 4:28 AM) 3.4 mEq/L *LOW* (11/12/16 3:05 AM) Potassium Lvl [3.5-5.1 mEq/L] 103 mEq/L (11/14/16 12:38 AM) 107 mEq/L (11/13/16 4:28 AM) 111 mEq/L *HI* (11/12/16 3:05 AM) Chloride Lvl [95-109 mEq/L] 28 mEq/L (11/14/16 12:38 AM) 18 mEq/L *LOW* (11/13/16 4:28 AM) 20 mEq/L *LOW* (11/12/16 3:05 AM) CO2 [24-32 mEq/L] 13.3 mEq/L (11/14/16 12:38 AM) 15.7 mEq/L (11/13/16 4:28 AM) 12.4 mEq/L (11/12/16 3:05 AM) AGAP [10.0-20.0 mEq/L] CHEM PANEL 1 2 3 Most recent to oldest [Reference Range]: 0.66 mg/dL (11/14/16 12:38 AM) 0.51 mg/dL (11/13/16 4:28 AM) 0.58 mg/dL (11/12/16 3:05 AM) Creatinine Lvl [0.50-1.40 mg/dL] 96 mL/min/1.73m2 1 *NA* (11/14/16 12:38 AM) 104 mL/min/1.73m2 2 *NA* (11/13/16 4:28 AM) 100 mL/min/1.73m2 3 *NA* (11/12/16 3:05 AM) eGFR 11 mg/dL (11/14/16 12:38 AM) 7 mg/dL (11/13/16 4:28 AM) 10 mg/dL (11/12/16 3:05 AM) BUN [7-22 mg/dL] 9 (11/08/16 11:05 AM) B/C Ratio [6-25] 119 mg/dL *HI* (11/14/16 12:38 AM) 85 mg/dL (11/13/16 4:28 AM) 81 mg/dL (11/12/16 3:05 AM) Glucose Lvl [70-99 mg/dL] 7.7 g/dL (11/08/16 11:05 AM) Total Protein [6.4-8.4 g/dL] 3.0 g/dL *LOW* (11/08/16 11:05 AM) Albumin Lvl [3.5-5.0 g/dL] 4.7 g/dL *HI* (11/08/16 11:05 AM) Globulin [2.7-4.2 g/dL] 0.6 *LOW* (11/08/16 11:05 AM) A/G Ratio [0.7-1.6] 8.3 mg/dL *LOW* (11/14/16 12:38 AM) 8.2 mg/dL *LOW* (11/13/16 4:28 AM) 8.4 mg/dL *LOW* (11/12/16 3:05 AM) Calcium Lvl [8.5-10.5 mg/dL] 3.0 mg/dL (11/14/16 12:38 AM) 2.9 mg/dL (11/13/16 4:28 AM) 2.7 mg/dL (11/12/16 3:05 AM) Phosphorus [2.5-4.5 mg/dL] 2.1 mg/dL (11/14/16 12:38 AM) 1.8 mg/dL (11/13/16 4:28 AM) 1.9 mg/dL (11/12/16 3:05 AM) Magnesium Lvl [1.8-2.4 mg/dL] 22 unit/L (11/08/16 11:05 AM) ALT [0-65 unit/L] 21 unit/L (11/08/16 11:05 AM) AST [0-37 unit/L] 77 unit/L (11/08/16 11:05 AM) Alk Phos [39-136 unit/L] 0.8 mg/dL (11/08/16 11:05 AM) Bili Total [0.2-1.3 mg/dL] 0.8 mMol/L (11/09/16 2:56 AM) Lactic Acid Lvl [0.5-2.2 mMol/L] 1.6 mmol/L (11/08/16 3:32 PM) 2.5 mmol/L *HI* (11/08/16 10:48 AM) Lactic Acid WB [0.5-2.2 mmol/L] 1Result Comment: The eGFR is calculated using [...] be mul tiplied by the estimated BMI. CARDIAC ENZYMES 1 2 3 Most recent to oldest [Reference Range]: <0.02 ng/mL (11/08/16 11:05 AM) Troponin-I [0.00-0.40 ng/mL] URINE AND STOOL 1 2 3 Most recent to oldest [Reference Range]: Slight Cloudy (11/08/16 2:30 PM) UA Turbidity [Clear] Yellow *NA* (11/08/16 2:30 PM) UA Color [Yellow] 6.0 (11/08/16 2:30 PM) UA pH [5.0-8.0] 1.070 *NA* (11/08/16 2:30 PM) UA Spec Grav [<=1.030] Negative (11/08/16 2:30 PM) UA Glucose [Negative] Small *ABN* (11/08/16 2:30 PM) UA Blood [Negative] Negative *NA* (11/08/16 2:30 PM) UA Ketones [Negative] 30 mg/dL *ABN* (11/08/16 2:30 PM) UA Protein [Negative mg/dL] 0.2 EU/dL (11/08/16 2:30 PM) UA Urobilinogen [0.1-1.0 EU/dL] Negative *NA* (11/08/16 2:30 PM) UA Bili [Negative] Small *ABN* (11/08/16 2:30 PM) UA Leuk Est [Negative] Negative (11/08/16 2:30 PM) UA Nitrite [Negative] 21-50 /HPF *ABN* (11/08/16 2:30 PM) UA WBC [None Seen /HPF] 3-5 /HPF *ABN* (11/08/16 2:30 PM) UA RBC [0-2 /HPF] Moderate /HPF (11/08/16 2:30 PM) UA Bacteria [None Seen /HPF] Moderate /LPF *ABN* (11/08/16 2:30 PM) UA Sq Epi [Few /LPF] HEMATOLOGY 1 2 3 Most recent to oldest [Reference Range]: 16.8 K/CMM *HI* (11/14/16 12:38 AM) 16.8 K/CMM *HI* (11/13/16 6:45 AM) 15.5 K/CMM *HI* (11/12/16 3:05 AM) WBC [3.7-10.4 K/CMM] 4.01 M/CMM *LOW* (11/14/16 12:38 AM) 3.88 M/CMM *LOW* (11/13/16 6:45 AM) 3.58 M/CMM *LOW* (11/12/16 3:05 AM) RBC [4.20-5.40 M/CMM] 11.8 g/dL *LOW* (11/14/16 12:38 AM) 11.3 g/dL *LOW* (11/13/16 6:45 AM) 10.7 g/dL *LOW* (11/12/16 3:05 AM) Hgb [12.0-16.0 g/dL] 35.9 % *LOW* (11/14/16 12:38 AM) 34.3 % *LOW* (11/13/16 6:45 AM) 32.5 % *LOW* (11/12/16 3:05 AM) Hct [36.0-48.0 %] 89.5 fL (11/14/16 12:38 AM) 88.4 fL (11/13/16 6:45 AM) 90.7 fL (11/12/16 3:05 AM) MCV [80.0-98.0 fL] 29.3 pg (11/14/16 12:38 AM) 29.1 pg (11/13/16 6:45 AM) 29.7 pg (11/12/16 3:05 AM) MCH [27.0-31.0 pg] 32.8 g/dL (11/14/16 12:38 AM) 32.9 g/dL (11/13/16 6:45 AM) 32.8 g/dL (11/12/16 3:05 AM) MCHC [32.0-36.0 g/dL] 14.5 % (11/14/16 12:38 AM) 14.5 % (11/13/16 6:45 AM) 14.7 % *HI* (11/12/16 3:05 AM) RDW [11.5-14.5 %] 362 K/CMM (11/14/16 12:38 AM) 334 K/CMM (11/13/16 6:45 AM) 285 K/CMM (11/12/16 3:05 AM) Platelet [133-450 K/CMM] 10.3 fL (11/14/16 12:38 AM) 8.8 fL (11/13/16 6:45 AM) 9.9 fL (11/12/16 3:05 AM) MPV [7.4-10.4 fL] 75.8 % *HI* (11/14/16 12:38 AM) 76.6 % *HI* (11/13/16 6:45 AM) 75.2 % *HI* (11/12/16 3:05 AM) Segs [45.0-75.0 %] 0.0 % (11/08/16 10:48 AM) Bands [0.0-11.0 %] 12.7 % *LOW* (11/14/16 12:38 AM) 15.0 % *LOW* (11/13/16 6:45 AM) 14.1 % *LOW* (11/12/16 3:05 AM) Lymphocytes [20.0-40.0 %] 0.0 % (11/08/16 10:48 AM) Atypical Lymphs [<=0.0 %] 9.5 % (11/14/16 12:38 AM) 7.6 % (11/13/16 6:45 AM) 10.0 % (11/12/16 3:05 AM) Monocytes [2.0-12.0 %] 0.5 % (11/14/16 12:38 AM) 0.5 % (11/13/16 6:45 AM) 0.4 % (11/12/16 3:05 AM) Eosinophils [0.0-4.0 %] 1.5 % *HI* (11/14/16 12:38 AM) 0.3 % (11/13/16 6:45 AM) 0.3 % (11/12/16 3:05 AM) Basophils [0.0-1.0 %] 12.7 K/CMM *HI* (11/14/16 12:38 AM) 12.9 K/CMM *HI* (11/13/16 6:45 AM) 11.6 K/CMM *HI* (11/12/16 3:05 AM) Segs-Bands # [1.5-8.1 K/CMM] 2.1 K/CMM (11/14/16 12:38 AM) 2.5 K/CMM (11/13/16 6:45 AM) 2.2 K/CMM (11/12/16 3:05 AM) Lymphocytes # [1.0-5.5 K/CMM] 1.6 K/CMM *HI* (11/14/16 12:38 AM) 1.3 K/CMM *HI* (11/13/16 6:45 AM) 1.5 K/CMM *HI* (11/12/16 3:05 AM) Monocytes # [0.0-0.8 K/CMM] 0.1 K/CMM (11/14/16 12:38 AM) 0.1 K/CMM (11/13/16 6:45 AM) 0.1 K/CMM (11/12/16 3:05 AM) Eosinophils # [0.0-0.5 K/CMM] 0.2 K/CMM (11/14/16 12:38 AM) 0.1 K/CMM (11/13/16 6:45 AM) 0.1 K/CMM (11/11/16 4:33 AM) Basophils # [0.0-0.2 K/CMM] 200 *NA* (11/08/16 10:48 AM) Tot Cell Ct 1+ *ABN* (11/08/16 10:48 AM) Anisocyte [None Seen] See Note 1 (11/08/16 10:48 AM) Plt Morph 15.7 seconds *HI* (11/08/16 11:05 AM) PT [12.0-14.7 seconds] 1.22 *HI* (11/08/16 11:05 AM) INR [0.85-1.17] 28.5 seconds (11/08/16 11:05 AM) PTT [22.9-35.8 seconds] 1Result Comment: Due to occassional clumps, the actual count may be slightly higher. Immunizations No data available for this section Procedures Procedure Date Related Diagnosis Body Site Atherectomy Corneal transplant Tubal ligation Social History Social History Type Response Smoking Status Current every day smoker; Type: Cigarettes; Number of years: 40; Exposure to Tobacco Smoke None; Cigarette Smoking Last 365 Days Yes; Reg Smoking Cessation Counseling Yes1 1takes chaz Assessment and Plan Extracted from: Title: Progress Note Author: Tanya Delgado MD Date: 11/14/16 Assessment/Plan 61 y/o F with HTN, HLD, DM type 2, CHF s/p AICD, PVD s/p BLE angioplasty, presents with lower abdominal pain 2/2 perforated diverticulitis. 1.Acute diverticulitis - management per primary team -PO cipro and flagyl -multimodal pain control 2.Abdominal pain,Abdominal pain - per primary team - manage as #1 3.Hypertension - hypotensive on admission, responded to IVF and abx. - c/w coreg and lisinopril at home doses 4.DM (diabetes mellitus), type 2 - complicated by peripheral neuropathy -resume oral hypoglycemic agents at discharge - insulin sliding scale 5.Systolic CHF - s/pAICD in May 2016 - euvolemic - c/w aspirin, statin - ECHO on admission unremarkable. HFpEF now. 6.Asthma - c/w advair andalbuterol - not on oxygen - c/w prednisone 10mg daily 7.Acute kidney injury - treated with IV hydration - avoid nephrotoxic agents 8.Hypokalemia - treated with repletion yesterday - 2/2 poor PO intake 9.Anemia - no active bleeding - transfuse if Hb<7 - outpatient w/u if stable 10.Leucocytosis - WBC count trending down with treatment -2/2 diverticulitis 11.Peripheral vascular disease - asymptomatic - hx of bilateral angioplastyDec 2015. - c/w aspirin 12.Hyperlipidemia - c/w statin 13.Smoker - counselled Prophylaxis per primary team Disposition Patient being discharged today per primary team. Please page if any questions or concerns. [facility] Hospitalist will sign off. Addendum by Danny, Patient had chronic systolic heart failure with no acute decompensation and improved EF Tanya NAVARRO upon ECHO at [facility]. on 11/14/2016 16:19 CDT Extracted from: Title: EGS Discharge Summary Author: Tim Bernal DO Date: 11/14/16 Admitting Physician: Dr. Chilo Reina Date of Admission:11/08/2016 Date of Discharge:11/14/2016 Admission Diagnosis:Acute Diverticulitis Discharge Diagnosis: Acute Diverticulitis Consultations:Hospitalist: Dr. Tanya Delgado MD for management of HTN, HLD, CHF, DM type 2, PVD, Asthma (Attending and service) Operative Procedures: None (Procedure and date) History:Mrs. Verde is a 6 y/o woman with PMH of CHF, Type 2 DM, HTN, PVD, and COPD (asthma) on PO steroids, who presented to [facility] today with 3 days of abdominal pain. Pt reports that her symptoms began on Sunday, 2 days prior to admission, with constipation. Pt normally has a soft bowel movement every morning but was unable to defecate on Sunday morning despite the urge to go. She found this very concerning and took a laxative. She also had abdominal pain and cramping. Her symptoms worsened the following day and she had a hard bowel movement followed by diarrhea. Patient suspected that the had diverticulitis so she took doxycycline last night and this morning, which she keeps on hand at home for upper respiratory infections due to her severe asthma. Her symptoms continued to worsen so she went to her PCP today, where she was found to be hypotensive and was sent to the ED. In the ED pt was hypotensive with SBP in the 70s and 80s, but her pressure responded well to 2 L fluid boluses. Labs revealed a leukocytosis of 31 with a left shift and elevated creatinine, MERCY vs CKD. She continues to have abdominal pain which is exacerbated by movement or palpation and improved by laying still. EGS is consulted for surgical evaluation of possible complicated diverticulitis. (BRIEF summary of the pertinent admitting history, physical exam, laboratory and imaging studies that led to the patient s admission) Hospital Course: Patient admitted with a diagnosis of sigmoid diverticulitis which involved a perforation that was contained. Patient was sent to the [facility] and started on cefepime, flagyl, and fluconazole. Patient had multiple bm's and abdominal exam tenderness significantly improved. Patient advanced to clear liquids which she tolerated. Advanced to PO ABX (cipro/flagyl) and a regular diet. On discharge she complained of no pain and was having multiple loose stools for the past 3 days. (BRIEF summary of the pertinent information that will be necessary for the future care of the patient) Discharge Instructions: Follow up with PCP within 5 days. Continue Abx cipro/flagyl for 7 days. Continue on a heart healthy diet. Activity as tolerated. Return to ER if severe abdominal pain, infection, Activity: as tolerated Diet: Heart Healthy Medications (name, dose, route, frequency): see mar Follow-Up: within 5 days. Extracted from: Title: Hospitalist Consult Note Author: Tanya Delgado MD Date: 11/08/16 Assessment/Plan 61 y/o F with HTN, HLD, DM type 2, CHF s/p AICD, PVD s/p BLE angioplasty, presents with lower abdominal pain 2/2 perforated diverticulitis. 1.Acute diverticulitis -management per primary team - received vancomycin,cefepime and flagyl in the ED - c/wvolume resucitation and multimodal pain control -NPO with bowel regimen 2.Hypotension - responded to IVF in the ED - received about 2.5L NS - hold all antihypertensives - goal SBP > 100 mm Hg at this time - 2/2 sepsis due to perforated diverticulitis - patient on prednisone at home for a long time - consider starting stress dose steroids, at Hydrocortisone 100mg IV q8hrs for today, and then taper according to response. 3.Abdominal pain - multimodal pain control -management of acutediverticulitis perprimary team 4.Hypertension - hold antihypertensives, coreg and lisinopril in view of hypotension 5.DM (diabetes mellitus), type 2 - hold metformin in acute care setting - start insulin aspart starting dose sliding scale on NPO regimen (Q6hrs) - If FS consistently elevated to >120, will start lantus in 24 hours accordingly - switch to w/meals and qhs insulin sliding scale when able to tolerate PO intake 6.Systolic CHF - ECHO reviewed.LVEF wnl - s/p AICD in May 2016 - euvolemic, howeverhypotensive 2/2 sepsis - volume resuscitationas #2 - hold lisinopril, coreg due to hypotension - resume aspirin, statin when tolerating PO, and no plans for sx. 7.Asthma - asymptomatic however on chronic steroids - counselled on smoking cessation - c/w advair and albuterol scheduled - on Prednisone 10mg daily at home, however last dose 2 days ago, as patient trying to stop steroids by self, while having been advised by PCP about target reduction to Prednisone 5mg daily - consider stress dose steroids at present. 8.Peripheral vascular disease - asymptomatic -s/p BLE angioplasty inDec 2015 - c/w aspirin 81mg daily when taking PO 9.Hyperlipidemia - resume statin when taking PO 10.Smoker - smokes 10cigs/day - counselled forcessation - c/w chantix at home dose Thank you for this consult. [facility] hospitalist is consulting, and will continue to follow the patient while she remains admitted. Please page if any questions or concerns. Extracted from: Title: EGS History & Physical Author: Marilia Moser MD Date: 11/08/16 EGS History & Physical Name: Krystin Verde Attending Physician: Chilo Reina MD Admission Diagnosis: Acute complicated diverticulitis Chief Complaint: "My tummy hurts" HPI: Mrs. Verde is a 6 y/o woman with PMH of CHF, Type 2 DM, HTN, PVD, and COPD (asthma) on PO steroids, who presented to [facility] today with 3 days of abdominal pain. Pt reports that her symptoms began on Sunday, 2 days prior to admission, with constipation. Pt normally has a soft bowel movement every morning but was unable to defecate on Sunday morning despite the urge to go. She found this very concerning and took a laxative. She also had abdominal pain and cramping. Her symptoms worsened the following day and she had a hard bowel movement followed by diarrhea. Patient suspected that the had diverticulitis so she took doxycycline last night and this morning, which she keeps on hand at home for upper respiratory infections due to her severe asthma. Her symptoms continued to worsen so she went to her PCP today, where she was found to be hypotensive and was sent to the ED. In the ED pt was hypotensive with SBP in the 70s and 80s, but her pressure responded well to 2 L fluid boluses. Labs revealed a leukocytosis of 31 with a left shift and elevated creatinine, MERCY vs CKD. She continues to have abdominal pain which is exacerbated by movement or palpation and improved by laying still. EGS is consulted for surgical evaluation of possible complicated diverticulitis. Past Medical History: CHF (EF reportedly 30-35%) Type 2 DM HTN PVD COPD (asthma) - on PO steroid, has never required intubation Past Surgical History: AICD placement (May 2016) BTL BLE angioplasty (Apr 2016) Allergies: chlorhexidine Meds: aspirin: 81 mg, 1 tab, PO, Daily, 0 Refill(s). budesonide-formoterol: 2 puff, INHALATION, BID, 0 Refill(s). carvedilol: 6.25 mg, 1 tab, PO, BID, 0 Refill(s). clopidogrel: 75 mg, 1 tab, PO, Daily, 0 Refill(s). ePHEDrine-guaifenesin: PO, 0 Refill(s). fluticasone-salmeterol: 1 puff, INHALATION, BID, 0 Refill(s). lisinopril: 5 mg, 1 tab, PO, Daily, 30 tab, 0 Refill(s). multivitamin: 1 tab, PO, Daily, 30 tab, 0 Refill(s). pantoprazole: 40 mg, 1 tab, PO, Daily, 30 tab, 0 Refill(s). pravastatin: 20 mg, 1 tab, PO, Bedtime, 90 tab, 1 Refill(s). predniSONE: 5 mg, 1 tab, PO, Daily, 0 Refill(s). varenicline: 1 mg, 1 tab, PO, Daily, for 30 day, 30 tab, 0 Refill(s). Social History: EtOH: Social Tobacco: 10 cigarettes/day Drugs: Denies Marital Status: ROS: Constitutional: + Fatigue, chills HEENT: No vision changes, hearing loss, or rhinorrhea Respiratory: + wheezing , + shortness of breath Cardiovascular: + orthopnea Gastrointestinal: + per HPI Genitourinary: + urinary incontinence with coughing Integumentary: No rashes, lesions, or skin changes Extremities: No edema, weakness, or claudication Neurologic: No headache, difficulty speaking, or paralysis Heme/Lymph: No easy bruising, easy bleeding, or blood clots Endocrine: No polydipsia, palpitations, or weight gain Psychiatric: No depression, psychosis, or mood changes Physical Exam: VitalsTmp(F)[id number] 11/08 23:00----[id number]--- 11/08 22:00----[id number]--- 11/08 21:29 2498--- 11/08 21:28 98--- 11/08 21:00----[id number]--97--- 24 Hr Tmax: 99.3F (37.39c) at 11/08 19:00Vital Signs are the last 5 in the past 48 hours. General: Awake and oriented to person/place/time. No acute distress. Head: No lacerations, abrasions, or swelling. EENT: Extraocular movements intact. Pupils equally round and reactive to light. Neck: Supple; full ROM. CV: Regular rate and rhythm. Grade 3 systolic murmur. Pulm: Symmetric chest expansion. Deep wet cough. Inspiratory wheezes. On 2 L NC. Breast: Symmetric bilaterally. No palpable breast masses or lymph nodes. Abdomen: Soft, mildly distended, mildly tender to palpation. + Striae and scattered bruises. Rectal: Normal tone. No palpable masses. No blood on exam glove. : Normal external female genitalia. Extremities: No edema. 2+ pulse in RLE, 1+ pulse in LLE, 2+ pulses in BUE. Scattered ecchymoses. Diffuse sun damage and actinic keratoses. Labs: 11/08 1532 Lactic Acid WB1.6 11/08 1520 ABO/RhA POS Antibody ScrnNegative 11/08 1430 UA ColorYellow UA TurbiditySlight Cloudy UA Spec Grav1.070 UA pH6.0 UA Uwgsvuv49 UA GlucoseNegative UA KetonesNegative UA BiliNegative UA BloodSmall UA Urobilinogen0.2 UA NitriteNegative UA Leuk EstSmall UA RBC3-5 UA [id number] UA BacteriaModerate UA Sq EpiModerate 11/08 1105 Sodium Ioe706 Potassium Lvl4.5 Chloride Cvl800 CO222 L AGAP17.5 Glucose Rbp741 H Creatinine Lvl1.43 H BUN13 B/C Ratio9 Total Protein7.7 Albumin Lvl3.0 L Globulin4.7 H A/G Ratio0.6 L Calcium Lvl9.2 ALT22 AST21 Alk Phos77 Bili Total0.8 eGFR40 Troponin-I<0.02 PTT28.5 PT15.7 H INR1.22 H 11/08 1048 Temp Ven37.0 pH Ven7.33 pCO2 Ven44 pO2 Ven32 HCO3 Ven23 BE [place]-3 L O2 Sat Ven56.2 Lactic Acid WB2.5 H WBC31.3 H RBC4.87 Hgb14.0 Hct44.5 MCV91.4 MCH28.8 MCHC31.5 L RDW14.8 H [place] MPV8.7 Segs83.0 H Bands0.0 Qnohgcdofbb04.0 L Atypical Lymphs0.0 Monocytes2.0 Segs-Bands #26.0 H Lymphocytes #4.7 Monocytes #0.6 Plt MorphSee Note Tot Cell Ct200 Anisocyte1+ Imaging: EXAM: CT ABDOMEN AND PELVIS WITH CONTRAST [...] 4. No lymphadenopathy. 5. Extensive atherosclerotic disease. Assessment: Mrs. Verde is a 61 y/o woman who presents with sigmoid diverticulitis. Plan: -Diverticulitis: -Admit to [facility] -NPO/IVF -Abx: Cefepime, flagyl, and fluconazole added due to immunosuppression -Serial abdominal exams and daily CBC -Pain: multimodal therapy -COPD/Asthma: -Continue home asthma medications -Stress dose steroids ordered due to chronic prednisone use -CHF & CAD: -Continue home ASA -TTE for new baseline -Telemetry -DM: -Low dose SSI -Medicine consulted due to extensive medical comorbidities -Bowel regimen -PT/OT consulted -DVT ppx: Lovenox Marilia Moser MD MSO: [id number] Pager: [phone] I have seen and examined the patient. I have reviewed the resident's note and agree with the assessment and plan.
--- OUTSIDE RECORDS SUMMARY | 2018-08-12 12:56 | XMS REPORT | Summary of Care ---
Author Author [facility] Organization [facility] Address Unknown Phone Unavailable Encounter HQ Analia(JUDD) [id number] Date(s): 11/17/16 - 11/29/16 [facility] [address] [employer] provided by [employer] [place] [address]- Discharge Disposition: Home or Self Care Attending Physician: Tim Ayala DO Admitting Physician: Catherine Turner DO Vital Signs 1 2 3 Most recent to oldest [Reference Range]: 160.02 cm (11/17/16 5:25 PM) Height 98.6 DegF (11/29/16 11:47 AM) 98.2 DegF (11/29/16 7:51 AM) 97.6 DegF (11/29/16 4:38 AM) Temperature Oral [96.4-99.1 DegF] 120/69 mmHg (11/29/16 11:47 AM) 152/76 mmHg *HI* (11/29/16 7:51 AM) 145/92 mmHg *HI* (11/29/16 4:38 AM) Blood Pressure [90-140/60-90 mmHg] 18 BRMIN (11/29/16 11:47 AM) 18 BRMIN (11/29/16 7:51 AM) 18 BRMIN (11/29/16 4:38 AM) Respiratory Rate [14-20 BRMIN] 88 bpm (11/29/16 11:47 AM) 99 bpm (11/29/16 7:51 AM) 83 bpm (11/29/16 4:38 AM) Peripheral Pulse Rate [60-100 bpm] 68.182 kg (11/17/16 5:25 PM) Weight 26.63 m2 (11/17/16 5:25 PM) Body Mass Index Problem List Condition Effective [...] Reaction Severity Status chlorhexidine topical Active Medications acetaminophen 1,000 mg, 100 mL, Route: IV, Drug form: INJ, Q6H, Dosing Weight 68.182, kg, Star t date: 11/21/16 0:00:00 CDT, Duration: 30 day, Stop date: 12/20/16 18:00:00 CDT Notes: Infuse over 15 minutesDo not exceed 4gm/day of acetaminophen MEDICAT ION WASTE Product Size: 1000 mgProduct Wasted: ___ mg Start Date: 11/21/16 Stop Date: 11/20/16 Status: Canceled acetaminophen 1,000 mg, Route: PO, Q6H, Dosing Weight 68.182, kg, Priority: NOW, Start date: 0 11/20/16 19:38:00 CDT, Duration: 30 day, Stop date: 12/20/16 18:00:00 CDT Start Date: 11/20/16 Stop Date: 11/20/16 Status: Discontinued acetaminophen 1,000 mg, 2 tab, Route: PO, Drug form: TAB, Q6H, Dosing Weight 68.182, kg, Start date: 11/21/16 12:00:00 CDT, Duration: 30 day, Stop date: 12/21/16 6:00:00 CDT Notes: Max acetaminophen 4000 mg/day (4 gm/day). (Same as: Tylenol Extra Streng th) Start Date: 11/21/16 Stop Date: 11/29/16 Status: Discontinued acetaminophen 650 mg, 2 tab, Route: PO, Drug form: TAB, Q6H, Dosing Weight 68.182, kg, PRN For Temp > 100.4 F, Start date: 11/17/16 21:09:00 CDT, Duration: 30 day, Stop date: 12/17/16 21:08:00 CDT Notes: Do not exceed 4 gm/day. (Same as: Tylenol) Start Date: 11/17/16 Stop Date: 11/20/16 Status: Discontinued acetaminophen (ANES) (ANES) Route: IV, Drug form: INJ, Start date: 11/20/16 15:52:00 CDT, Stop date: 7 16:52:00 CDT Start Date: 11/20/16 Stop Date: 11/20/16 Status: Completed acetaminophen 500 mg oral tablet 1,000 mg=2 tab, PO, Q6H, PRN Pain Score 4-6, not to exceed 3000 mg/day Only emani e as needed for pain, X 14 day, # 112 tab, 0 Refill(s) Start Date: 11/29/16 Stop Date: 12/13/16 Status: Ordered albuterol (ANES) Route: INHALATION, Drug form: AERO/A, ONCE, Stop date: 11/20/16 16:29:00 CDT Start Date: 11/20/16 Stop Date: 11/20/16 Status: Completed albuterol-ipratropium 2.5-0.5 mg inhalation solution 3 ml, Route: NEB, Drug Form: SOLN, Dosing Weight 68.182, kg, PRN, PRN Respirator y Protocol, Start date: 11/21/16 8:16:00 CDT, Duration: 30 day, Stop date: 12/21 8:15:00 CDT Notes: (Same as: Fabiola) Start Date: 11/21/16 Stop Date: 11/29/16 Status: Discontinued ampicillin 1 gm, Route: IVPB, Drug form: PDR/INJ, ABXQ6H, Dosing Weight 68.182, kg, Start d ate: 11/24/16 18:00:00 CDT, Duration: 30 day, Stop date: 12/24/16 14:00:00 CDT Notes: (Same as: Von) MEDICATION WASTE Product Size: [address] Wasted: ___ mg Start Date: 11/24/16 Stop Date: 11/28/16 Status: Discontinued ANES flumazenil 0.2 mg, 2 mL, Route: IVP, Drug form: INJ, PRN, Dosing Weight 68.182, kg, PRN Binh zodiazepine Reversal, Initial dose, Start date: 11/20/16 16:40:00 CDT, Stop date : 11/21/16 0:00:00 CDT Notes: (Same as: Romazicon) Start Date: 11/20/16 Stop Date: 11/20/16 Status: Discontinued ANES HYDROmorphone 0.5 mg, 0.25 mL, Route: IVP, Drug form: INJ, Q5Min, Dosing Weight 68.182, kg, CA N Pain Score 7-10, Start date: 11/20/16 16:40:00 CDT, Duration: 4 doses or times , Stop date: 11/21/16 0:00:00 CDT Notes: Same as: Dilaudid Start Date: 11/20/16 Stop Date: 11/20/16 Status: Discontinued ANES naloxone 0.4 mg, 1 mL, Route: IVP, Drug form: INJ, Q2MIN, Dosing Weight 68.182, kg, PRN N arcotic Reversal, Start date: 11/20/16 16:40:00 CDT, Duration: 8 doses or times, Stop date: 11/21/16 0:00:00 CDT Notes: Same as Narcan Start Date: 11/20/16 Stop Date: 11/20/16 Status: Discontinued ANES ondansetron 4 mg, 2 mL, Route: IVP, Drug form: INJ, ONCE, Dosing Weight 68.182, kg, PRN Naus ea & Vomiting, Start date: 11/20/16 16:40:00 CDT Notes: (Same as: Zoan) MEDICATION WASTE Product Size: 4 mgProduct Was jaswinder: ___ mg Start Date: 11/20/16 Stop Date: 11/20/16 Status: Discontinued aspirin 81 mg tablet, enteric coated 81 mg, 1 tab, Route: PO, Drug form: CHEWTAB, Daily, Dosing Weight 68.182, kg, St art date: 11/21/16 9:00:00 CDT, Duration: 30 day, Stop date: 12/20/16 9:00:00 CD T Notes: Take with food. Start Date: 11/21/16 Stop Date: 11/29/16 Status: Discontinued aspirin 81 mg tablet, enteric coated 81 mg, Route: PO, Drug form: ECTAB, Daily, Dosing Weight 68.182, kg, Start date: 11/21/16 9:00:00 CDT, Duration: 30 day, Stop date: 12/20/16 9:00:00 CDT Start Date: 11/21/16 Stop Date: 11/20/16 Status: Canceled Augmentin 875 mg oral tablet 1 tab, PO, Q12H, X 5 day, # 10 tab, 0 Refill(s) Start Date: 11/29/16 Stop Date: 12/04/16 Status: Ordered carvedilol 6.25 mg, 1 tab, Route: PO, Drug form: TAB, BID, Dosing Weight 68.182, kg, Start date: 11/18/16 21:00:00 CDT, Duration: 30 day, Stop date: 12/18/16 9:00:00 CDT Notes: Give with food. (Same As: Coreg) Start Date: 11/18/16 Stop Date: 11/29/16 Status: Discontinued CeleBREX 200 mg, 1 cap, Route: PO, Drug form: CAP, BID, Dosing Weight 68.182, kg, Start d ate: 11/25/16 17:00:00 CDT, Duration: 30 day, Stop date: 12/25/16 9:00:00 CDT Notes: NSAID. Please check indication. Not for seizure. (Same As: CeleBREX) Start Date: 11/25/16 Stop Date: 11/29/16 Status: Discontinued celecoxib 200 mg, Route: PO, Q12H, Dosing Weight 68.182, kg, Priority: NOW, Start date: 19:38:00 CDT, Duration: 48 hr, Stop date: 11/22/16 9:00:00 CDT Start Date: 11/20/16 Stop Date: 11/20/16 Status: Discontinued Dextrose 50% Syringe 12.5 gm, 25 mL, Route: IVP, Drug Form: INJ, Dosing Weight 68.182, kg, PRN, PRN A bnormal Lab Result, Start date: 11/21/16 6:19:00 CDT, Duration: 30 day, Stop christian e: 12/21/16 6:18:00 CDT, For FSBG 40 mg/dL - 60 mg/dL Start Date: 11/21/16 Stop Date: 11/29/16 Status: Discontinued Dextrose 50% Syringe 25 gm, 50 mL, Route: IVP, Drug Form: INJ, Dosing Weight 68.182, kg, PRN, PRN Abn ormal Lab Result, Start date: 11/21/16 6:19:00 CDT, Duration: 30 day, Stop date: 12/21/16 6:18:00 CDT, For FSBG < 40 mg/dL Start Date: 11/21/16 Stop Date: 11/29/16 Status: Discontinued Dilaudid 0.5 mg, 0.25 mL, Route: IV, Drug form: INJ, Q24H, Dosing Weight 68.182, kg, PRN Other -See Comment, Start date: 11/26/16 12:41:00 CDT, Duration: 10 day, Stop da te: 12/06/16 12:40:00 CDT Notes: Same as: Dilaudid Start Date: 11/26/16 Stop Date: 11/26/16 Status: Discontinued docusate sodium 100 mg oral capsule 100 mg, 1 cap, Route: PO, Drug form: CAP, BID, Dosing Weight 68.182, kg, Start d ate: 11/21/16 9:00:00 CDT, Duration: 30 day, Stop date: 12/20/16 17:00:00 CDT Notes: (Same as: Colace) (Do Not Crush) Start Date: 11/21/16 Stop Date: 11/29/16 Status: Discontinued docusate sodium 100 mg oral capsule 100 mg=1 cap, PO, Q12H, # 60 cap, 0 Refill(s) Start Date: 11/29/16 Stop Date: 12/29/16 Status: Ordered fentaNYL (ANES) Route: IV, Drug form: INJ, ONCE, Stop date: 11/20/16 14:19:00 CDT Start Date: 11/20/16 Stop Date: 11/20/16 Status: Completed fentaNYL (ANES) Route: IV, Drug form: INJ, ONCE, Stop date: 11/20/16 15:50:00 CDT Start Date: 11/20/16 Stop Date: 11/20/16 Status: Completed fluconazole 400 mg, 2 tab, Route: PO, Drug form: TAB, [id number], Dosing Weight 68.182, kg, Sta rt date: 11/22/16 12:00:00 CDT, Stop date: 11/24/16 12:00:00 CDT Notes: (Same as: Diflucan) Start Date: 11/22/16 Stop Date: 11/23/16 Status: Discontinued fluconazole 400 mg, Route: PO, [id number], Dosing Weight 68.182, kg, Start date: 11/22/16 12:00 :00 CDT, Duration: 30 day, Stop date: 12/21/16 12:00:00 CDT Start Date: 11/22/16 Stop Date: 11/22/16 Status: Canceled fluconazole 204.546 mg, Route: IVPB, [id number], Dosing Weight 68.182, kg, Start date: 11/22/16 12:00:00 CDT, Duration: 30 day, Stop date: 12/21/16 12:00:00 CDT Start Date: 11/22/16 Stop Date: 11/22/16 Status: Canceled fluticasone-salmeterol 100 mcg-50 mcg MDI 2 inhalation, Route: INHALER, Drug Form: AERO, Dosing Weight 68.182, kg, RBID, S tart date: 11/17/16 17:58:00 CDT, Duration: 30 day, Stop date: 12/17/16 8:00:00 CDT Notes: Non-Formulary Drug(Same as: Advair) Start Date: 11/17/16 Stop Date: 11/29/16 Status: Discontinued gabapentin 300 mg oral capsule 300 mg=1 cap, PO, TID, # 90 cap, 0 Refill(s) Start Date: 11/29/16 Stop Date: 12/29/16 Status: Ordered gabapentin 300 mg oral capsule 300 mg, 1 cap, Route: PO, Drug form: CAP, Q12H, Dosing Weight 68.182, kg, (CrCl 30 - 59 ml/min), Start date: 11/25/16 14:00:00 CDT, Duration: 30 day, Stop date: 12/25/16 9:00:00 CDT Notes: (Same as: Neurontin) Start Date: 11/25/16 Stop Date: 11/29/16 Status: Discontinued glycopyrrolate (ANES) Route: IV, Drug form: INJ, ONCE, Stop date: 11/20/16 16:29:00 CDT Start Date: 11/20/16 Stop Date: 11/20/16 Status: Completed heparin 5,000 unit, 1 mL, Route: SUB-Q, Drug form: INJ, Q8H, Dosing Weight 68.182, kg, S tart date: 11/19/16 12:00:00 CDT, Duration: 30 day, Stop date: 12/19/16 4:00:00 CDT Notes: porcine heparin Start Date: 11/19/16 Stop Date: 11/20/16 Status: Discontinued hydrocortisone 100 mg, 2 mL, Route: IV, Drug form: PDR/INJ, ONCE, Dosing Weight 68.182, kg, Sta rt date: 11/21/16 6:30:00 CDT, Stop date: 11/21/16 6:30:00 CDT Notes: (Same as: Apryl-JULIA) Start Date: 11/21/16 Stop Date: 11/21/16 Status: Completed hydrocortisone 100 mg, 2 mL, Route: IV, Drug form: PDR/INJ, ONCE, Dosing Weight 68.182, kg, Sta rt date: 11/20/16 22:30:00 CDT, Stop date: 11/20/16 22:30:00 CDT Notes: (Same as: Lee Annu-CORTEF) Start Date: 11/20/16 Stop Date: 11/20/16 Status: Completed hydrocortisone (ANES) Route: IV, Drug form: INJ, ONCE, Stop date: 11/20/16 14:24:00 CDT Start Date: 11/20/16 Stop Date: 11/20/16 Status: Completed ibuprofen 400 mg oral tablet 400 mg, 1 tab, Route: PO, Drug form: TAB, Q6H-02, Dosing Weight 68.182, kg, Star t date: 11/24/16 14:00:00 CDT, Duration: 30 day, Stop date: 12/24/16 8:00:00 CDT Notes: (Same as: Brian)"Do Not Crush" Give with food. Start Date: 11/24/16 Stop Date: 11/25/16 Status: Discontinued Insulin regular 8 unit, 0.08 mL, Route: SUB-Q, Drug form: SOLN, PRN, Dosing Weight 68.182, kg, P RN Abnormal Lab Result, Start date: 11/21/16 6:19:00 CDT, Duration: 30 day, Stop date: 12/21/16 6:18:00 CDT, For FSBG 175 mg/dL - 199 mg/dL Notes: (Same as: Humulin R) Roll in palms of hands gently; Do not shake vigorou sly. "single patient use only"(Restricted to patients requiring a dose > 60 units)WASTE: F/P - Black; E - Municipal Trash Bin Stable for 28 days at room temperatureExpires in days from Date Start Date: 11/21/16 Stop Date: 11/29/16 Status: Discontinued Insulin regular 12 unit, 0.12 mL, Route: SUB-Q, Drug form: SOLN, PRN, Dosing Weight 68.182, kg, PRN Abnormal Lab Result, Start date: 11/21/16 6:19:00 CDT, Duration: 30 day, Sto p date: 12/21/16 6:18:00 CDT, For FSBG >=200 mg/dL Notes: (Same as: Humulin R) Roll in palms of hands gently; Do not shake vigorou sly. "single patient use only"(Restricted to patients requiring a dose > 60 units)WASTE: F/P - Black; E - Municipal Trash Bin Stable for 28 days at room temperatureExpires in days from Date Start Date: 11/21/16 Stop Date: 11/29/16 Status: Discontinued Insulin regular 5 unit, 0.05 mL, Route: SUB-Q, Drug form: SOLN, PRN, Dosing Weight 68.182, kg, P RN Abnormal Lab Result, Start date: 11/21/16 6:19:00 CDT, Duration: 30 day, Stop date: 12/21/16 6:18:00 CDT, For FSBG 150 mg/dL - 174 mg/dL Notes: (Same as: Humulin R) Roll in palms of hands gently; Do not shake vigorou sly. "single patient use only"(Restricted to patients requiring a dose > 60 units)WASTE: F/P - Black; E - Municipal Trash Bin Stable for 28 days at room temperatureExpires in days from Date Start Date: 11/21/16 Stop Date: 11/29/16 Status: Discontinued Isolyte S (PH 7.4) 1000 mL 1,000 mL 1,000 mL, Rate: 50 ml/hr, Infuse over: 20 hr, Route: IV, Dosing Weight 68.182 kg , Total Volume: 1,000, Start date: 11/20/16 21:28:00 CDT, Duration: 30 day, Stop date: 12/20/16 21:27:00 CDT Notes: (Same as: Isolyte S PH 7.4) Start Date: 11/20/16 Stop Date: 11/22/16 Status: Discontinued ketOROLAC 15 mg, 1 mL, Route: IVP, Drug form: INJ, Q6H, Dosing Weight 68.182, kg, PRN Pain Score 4-6, Start date: 11/24/16 8:27:00 CDT, Duration: 4 day, Stop date: 8:26:00 CDT Notes: (Same as:Toradol) IV bolus must be given >15 seconds. Give IM administration slowly and deeply into the muscle. Not for use > 4 days. Start Date: 11/24/16 Stop Date: 11/24/16 Status: Discontinued ketOROLAC 30 mg, 1 mL, Route: IVP, Drug form: INJ, Q6H, Dosing Weight 68.182, kg, PRN Pain Score 4-6, Start date: 11/20/16 19:29:00 CDT, Duration: 4 day, Stop date: 11/24 19:28:00 CDT Notes: (Same as:Toradol) IV bolus must be given >15 seconds. Give IM administration slowly and deeply into the muscle.Not for use > 4 days MEDICATION WASTE Product Size: 30 mgProduct Wasted: ___ mg Start Date: 11/20/16 Stop Date: 11/20/16 Status: Discontinued ketOROLAC 15 mg, 1 mL, Route: IVP, Drug form: INJ, Q6H, Dosing Weight 68.182, kg, Start da te: 11/21/16 0:00:00 CDT, Duration: 4 day, Stop date: 11/24/16 18:00:00 CDT Notes: (Same as:Toradol) IV bolus must be given >15 seconds. Give IM administration slowly and deeply into the muscle. Not for use > 4 days. Start Date: 11/21/16 Stop Date: 11/20/16 Status: Discontinued ketOROLAC 30 mg, 1 mL, Route: IVP, Drug form: INJ, Q6Hnow, Dosing Weight 68.182, kg, Start date: 11/20/16 21:00:00 CDT, Duration: 4 day, Stop date: 11/24/16 15:00:00 CDT Notes: (Same as:Toradol) IV bolus must be given >15 seconds. Give IM administration slowly and deeply into the muscle.Not for use > 4 days MEDICATION WASTE Product Size: 30 mgProduct Wasted: ___ mg Start Date: 11/20/16 Stop Date: 11/20/16 Status: Discontinued ketOROLAC 15 mg/mL injectable solution 15 mg, 1 mL, Route: IVP, Drug form: INJ, Q6H, Dosing Weight 68.182, kg, Start da te: 11/21/16 6:00:00 CDT, Duration: 4 day, Stop date: 11/25/16 0:00:00 CDT Notes: (Same as:Toradol) IV bolus must be given >15 seconds. Give IM administration slowly and deeply into the muscle. Not for use > 4 days. Start Date: 11/21/16 Stop Date: 11/21/16 Status: Discontinued ketOROLAC 30 mg/mL injectable solution 30 mg, 1 mL, Route: IV, Drug form: INJ, ONCE, Dosing Weight 68.182, kg, Start da te: 11/24/16 9:37:00 CDT, Stop date: 11/24/16 9:37:00 CDT Notes: (Same as:Toradol) IV bolus must be given >15 seconds. Give IM administration slowly and deeply into the muscle.Not for use > 4 days MEDICATION WASTE Product Size: 30 mgProduct Wasted: ___ mg Start Date: 11/24/16 Stop Date: 11/24/16 Status: Completed Lactated Ringers 1,000 mL 1,000 mL, Rate: 125 ml/hr, Infuse over: 8 hr, Route: IV, Dosing Weight 68.182 kg , Total Volume: 1,000, Start date: 11/17/16 18:58:00 CDT, Duration: 30 day, Stop date: 12/17/16 18:57:00 CDT Start Date: 11/17/16 Stop Date: 11/20/16 Status: Discontinued lidocaine (ANES) Route: IV, Drug form: INJ, ONCE, Stop date: 11/20/16 14:19:00 CDT Start Date: 11/20/16 Stop Date: 11/20/16 Status: Completed lisinopril 5 mg, 1 tab, Route: PO, Drug form: TAB, Daily, Dosing Weight 68.182, kg, Start d ate: 11/21/16 9:00:00 CDT, Duration: 30 day, Stop date: 12/20/16 9:00:00 CDT Notes: (Same as: Prinivil, Zestril) Start Date: 11/21/16 Stop Date: 11/29/16 Status: Discontinued Lovenox 30 mg, 0.3 mL, Route: SUB-Q, Drug form: INJ, Q12H, Dosing Weight 68.182, kg, Sta rt date: 11/20/16 23:19:00 CDT, Duration: 30 day, Stop date: 12/20/16 16:00:00 C DT Notes: (Same as: Lovenox) Start Date: 11/20/16 Stop Date: 11/21/16 Status: Discontinued Lovenox 40 mg, 0.4 mL, Route: SUB-Q, Drug form: INJ, [id number], Dosing Weight 68.182, kg, Start date: 11/21/16 9:00:00 CDT, Duration: 30 day, Stop date: 12/20/16 9:00:00 CDT Notes: (Same as: Lovenox) Start Date: 11/21/16 Stop Date: 11/29/16 Status: Discontinued LR 1000 mL INJ (ANES) Route: IV, Total Volume: 1,000, Start date: 11/20/16 13:15:00 CDT, Stop date: 14:15:00 CDT Start Date: 11/20/16 Stop Date: 11/20/16 Status: Completed methadone 10 mg, 1 mL, Route: IV, Drug form: INJ, Q6H, Dosing Weight 68.182, kg, Start christian e: 11/21/16 0:00:00 CDT, Duration: 30 day, Stop date: 12/20/16 18:00:00 CDT Notes: (Same as: Dolophine) Start Date: 11/21/16 Stop Date: 11/21/16 Status: Discontinued methadone 10 mg, Route: IV, ONCE, Dosing Weight 68.182, kg, Start date: 11/21/16 5:55:00 C DT, Stop date: 11/21/16 5:55:00 CDT Start Date: 11/21/16 Stop Date: 11/21/16 Status: Completed methadone 10 mg, 1 tab, Route: PO, Drug form: TAB, ONCE, Dosing Weight 68.182, kg, Start d ate: 11/21/16 5:48:00 CDT, Stop date: 11/21/16 5:48:00 CDT Notes: (Same as: Dolophine) Start Date: 11/21/16 Stop Date: 11/21/16 Status: Discontinued metoprolol (ANES) Route: IV, Drug form: INJ, ONCE, Stop date: 11/20/16 15:11:00 CDT Start Date: 11/20/16 Stop Date: 11/20/16 Status: Completed metoprolol (ANES) Route: IV, Drug form: INJ, ONCE, Stop date: 11/20/16 16:15:00 CDT Start Date: 11/20/16 Stop Date: 11/20/16 Status: Completed midazolam (ANES) Route: IV, Drug form: SOLN, ONCE, Stop date: 11/20/16 14:19:00 CDT Start Date: 11/20/16 Stop Date: 11/20/16 Status: Completed MiraLax 17 gm, 1 pkt, Route: PO, Drug form: PWDR, Daily, Dosing Weight 68.182, kg, Start date: 11/21/16 9:00:00 CDT, Duration: 30 day, Stop date: 12/20/16 9:00:00 CDT Notes: Dissolve in 8 oz of water or juice.(Same as: Miralax) Start Date: 11/21/16 Stop Date: 11/29/16 Status: Discontinued morphine Sulfate 2 mg, 1 mL, Route: IVP, Drug form: INJ, Q4H, Dosing Weight 68.182, kg, PRN Pain Score 7-10, Start date: 11/17/16 21:03:00 CDT, Duration: 30 day, Stop date: 11/20 21:02:00 CDT Notes: (Same as:MORPhine Sulfate) Start Date: 11/17/16 Stop Date: 11/20/16 Status: Discontinued morphine Sulfate 1 mg, 0.5 mL, Route: IVP, Drug form: INJ, Q2H, Dosing Weight 68.182, kg, PRN Dale n Score 7-10, Start date: 11/20/16 20:31:00 CDT, Duration: 30 day, Stop date: 20:30:00 CDT Notes: (Same as:MORPhine Sulfate) Start Date: 11/20/16 Stop Date: 11/22/16 Status: Discontinued morphine Sulfate 1 mg, 0.5 mL, Route: IVP, Drug form: INJ, Q2H, Dosing Weight 68.182, kg, PRN Dale n Score 4-6, Start date: 11/20/16 21:50:00 CDT, Duration: 30 day, Stop date: 07/07 21:49:00 CDT Notes: (Same as:MORPhine Sulfate) Start Date: 11/20/16 Stop Date: 11/22/16 Status: Discontinued neostigmine (ANES) Route: IV, Drug form: INJ, ONCE, Stop date: 11/20/16 16:29:00 CDT Start Date: 11/20/16 Stop Date: 11/20/16 Status: Completed Milton 5/325 oral tablet 1 tab, Route: PO, Drug Form: TAB, Dosing Weight 68.182, kg, Q4H, PRN Pain Score 1-3, Start date: 11/17/16 21:02:00 CDT, Duration: 30 day, Stop date: 12/17/16 21 :01:00 CDT Notes: (Same as: Milton 325/5) Do not exceed 4gm/day of acetaminophen. Start Date: 11/17/16 Stop Date: 11/20/16 Status: Discontinued Ofirmev 1 gm, Route: IV, Drug form: SOLN, Q6H, Dosing Weight 68.182, kg, PRN Pain Score 1-3, Start date: 11/21/16 8:10:00 CDT, Duration: 30 day, Stop date: 12/21/16 8:0 9:00 CDT, pain Start Date: 11/21/16 Stop Date: 11/21/16 Status: Discontinued Ofirmev 650 mg, 65 mL, Route: IV, Drug form: SOLN, Q6H, Dosing Weight 68.182, kg, PRN Pa in Score 1-3, Start date: 11/21/16 4:25:00 CDT, Duration: 30 day, Stop date: 08/04 4:24:00 CDT, pain Notes: (Same as: Ofirmev) Start Date: 11/21/16 Stop Date: 11/21/16 Status: Discontinued Ofirmev 650 mg, Route: IV, Drug form: INJ, Q4H, Dosing Weight 68.182, kg, PRN Pain Score 4-6, for > or=50 kg, Start date: 11/20/16 20:32:00 CDT, Duration: 30 day, Stop date: 12/20/16 20:31:00 CDT Start Date: 11/20/16 Stop Date: 11/20/16 Status: Discontinued Omnipaque 350mg/ml 100 mL, Route: IVP, Drug Form: SOLN, Dosing Weight 68.182, kg, ONCALL, STAT, Sta rt date: 11/18/16 1:49:00 CDT, Duration: 1 doses or times, Dose=2.2ml/kg, Max d [id number] -- "To be infused by Radiology Staff ONLY" Notes: (same as:Omnipaque 350).WASTE: F/P - Black; E - Municipal Trash Bin Start Date: 11/18/16 Stop Date: 11/29/16 Status: Discontinued ondansetron (ANES) Route: IV, Drug form: INJ, ONCE, Stop date: 11/20/16 16:29:00 CDT Start Date: 11/20/16 Stop Date: 11/20/16 Status: Completed oxyCODONE 5 mg immediate release 5 mg, Route: PO, Drug form: TAB, Q4H, Dosing Weight 68.182, kg, PRN Pain Score 4 -6, Start date: 11/20/16 19:38:00 CDT, Duration: 30 day, Stop date: 12/20/16 19: 37:00 CDT Start Date: 11/20/16 Stop Date: 11/20/16 Status: Discontinued oxyCODONE 5 mg oral tablet 5 mg, 1 tab, Route: PO, Drug form: TAB, Q6H, Dosing Weight 68.182, kg, Start christian e: 11/21/16 12:00:00 CDT, Duration: 30 day, Stop date: 12/21/16 6:00:00 CDT Notes: (Same as: Roxicodone) Start Date: 11/21/16 Stop Date: 11/25/16 Status: Discontinued oxyCODONE 5 mg oral tablet 5 mg, 1 tab, Route: PO, Drug form: TAB, Q6H, Dosing Weight 68.182, kg, PRN Pain Score 4-6, Start date: 11/21/16 8:21:00 CDT, Duration: 30 day, Stop date: 8:20:00 CDT Notes: (Same as: Roxicodone) Start Date: 11/21/16 Stop Date: 11/29/16 Status: Discontinued oxyCODONE 5 mg oral tablet 10 mg=2 tab, PO, Q4H, PRN Pain Score 6-10, 0 Refill(s) Start Date: 11/29/16 Status: Ordered oxyCODONE 5 mg oral tablet 5 mg, 1 tab, Route: PO, Drug form: TAB, Q4H, Dosing Weight 68.182, kg, PRN Pain Score 4-6, Start date: 11/20/16 20:05:00 CDT, Duration: 30 day, Stop date: 12/20 20:04:00 CDT Notes: (Same as: Roxicodone) Start Date: 11/20/16 Stop Date: 11/20/16 Status: Discontinued oxyCODONE 5 mg oral tablet 10 mg, 2 tab, Route: PO, Drug form: TAB, Q6H, Dosing Weight 68.182, kg, PRN Pain Score 7-10, Start date: 11/25/16 10:47:00 CDT, Duration: 30 day, Stop date: 12/04 10:46:00 CDT Notes: (Same as: Roxicodone) Start Date: 11/25/16 Stop Date: 11/25/16 Status: Discontinued oxyCODONE 5 mg oral tablet 5 mg, Route: PO, Drug form: TAB, Q6H, Dosing Weight 68.182, kg, PRN Pain Score 4 -6, Start date: 11/21/16 8:14:00 CDT, Duration: 30 day, Stop date: 12/21/16 8:13 :00 CDT Start Date: 11/21/16 Stop Date: 11/21/16 Status: Discontinued oxyCODONE 5 mg oral tablet 10 mg, 2 tab, Route: PO, Drug form: TAB, Q4H, Dosing Weight 68.182, kg, PRN Pain Score 6-10, Start date: 11/25/16 12:45:00 CDT, Duration: 30 day, Stop date: 12/04 12:44:00 CDT Notes: (Same as: Roxicodone) Start Date: 11/25/16 Stop Date: 11/29/16 Status: Discontinued pantoprazole 40 mg, 1 tab, Route: PO, Drug form: ECTAB, Daily, Dosing Weight 68.182, kg, Star t date: 11/18/16 9:00:00 CDT, Duration: 30 day, Stop date: 12/17/16 9:00:00 CDT Notes: Tablet should not be chewed or crushed.(Same as: Protonix) Start Date: 11/18/16 Stop Date: 11/29/16 Status: Discontinued piperacillin-tazobactam (ANES) (ANES) Route: IV, Drug form: INJ, Start date: 11/20/16 13:45:00 CDT, Stop date: 7 14:45:00 CDT Start Date: 11/20/16 Stop Date: 11/20/16 Status: Completed pravastatin 20 mg, 1 tab, Route: PO, Drug form: TAB, Bedtime, Dosing Weight 68.182, kg, Star t date: 11/21/16 21:00:00 CDT, Duration: 30 day, Stop date: 12/20/16 21:00:00 CD T Notes: (Same as: Pravachol) Start Date: 11/21/16 Stop Date: 11/29/16 Status: Discontinued predniSONE 10 mg, 1 tab, Route: PO, Drug form: TAB, Daily, Dosing Weight 68.182, kg, Start date: 11/18/16 9:00:00 CDT, Duration: 30 day, Stop date: 12/17/16 9:00:00 CDT Notes: (Same as: PredniSONE) Take with food. Start Date: 11/18/16 Stop Date: 11/29/16 Status: Discontinued propofol (ANES) Route: IV, Drug form: INJ, ONCE, Stop date: 11/20/16 14:19:00 CDT Start Date: 11/20/16 Stop Date: 11/20/16 Status: Completed psyllium 3.4 gm, 1 pkt, Route: PO, Drug Form: PDR/REC, Dosing Weight 68.182, kg, Daily, S tart date: 11/22/16 9:00:00 CDT, Duration: 30 day, Stop date: 12/21/16 9:00:00 C DT Notes: (Same as: Metamucil) Mix in 8 oz liquid with meal. Start Date: 11/22/16 Stop Date: 11/29/16 Status: Discontinued psyllium 3.4 g/3.7 g oral powder 3.4 gm=, PO, Daily, X 30 day, # 300 gm, 0 Refill(s) Start Date: 11/29/16 Stop Date: 12/29/16 Status: Ordered rocuronium (ANES) Route: IV, Drug form: INJ, ONCE, Stop date: 11/20/16 14:51:00 CDT Start Date: 11/20/16 Stop Date: 11/20/16 Status: Completed rocuronium (ANES) Route: IV, Drug form: INJ, ONCE, Stop date: 11/20/16 14:19:00 CDT Start Date: 11/20/16 Stop Date: 11/20/16 Status: Completed rocuronium (ANES) Route: IV, Drug form: INJ, ONCE, Stop date: 11/20/16 15:55:00 CDT Start Date: 11/20/16 Stop Date: 11/20/16 Status: Completed senna 8.6 mg, 1 tab, Route: PO, Drug Form: TAB, Dosing Weight 68.182, kg, BID, Start d ate: 11/21/16 9:00:00 CDT, Duration: 30 day, Stop date: 12/20/16 17:00:00 CDT Notes: (Same as: Senokot) Start Date: 11/21/16 Stop Date: 11/29/16 Status: Discontinued senna 8.6 mg oral tablet 8.6 mg=1 tab, PO, BID, X 14 day, # 28 tab, 0 Refill(s) Start Date: 11/29/16 Stop Date: 12/13/16 Status: Ordered sodium chloride 0.9% 50 ml INJ (ANES) + dexmedetomidine (ANES) (ANES) Route: IV, Drug form: INJ, Start date: 11/20/16 15:20:00 CDT, Stop date: 7 16:20:00 CDT Start Date: 11/20/16 Stop Date: 11/20/16 Status: Completed Symbicort 160/4.5 inhalation aerosol with adapter 2 puff, Route: INHALATION, Drug Form: AERO/A, Dosing Weight 68.182, kg, RBID, St art date: 11/17/16 18:23:00 CDT, Duration: 30 day, Stop date: 12/17/16 8:00:00 C DT Notes: (Same as: Symbicort)WASTE: Aerosol - Return to Pharmacy Start Date: 11/17/16 Stop Date: 11/18/16 Status: Discontinued tramadol 100 mg, 2 tab, Route: PO, Drug form: TAB, Q6Hnow, Dosing Weight 68.182, kg, Star t date: 11/20/16 21:00:00 CDT, Duration: 30 day, Stop date: 12/20/16 15:00:00 CD T Notes: Not to exceed 400mg/day. (Same As: Ultram) Start Date: 11/20/16 Stop Date: 11/29/16 Status: Discontinued tramadol 50 mg oral tablet 100 mg=2 tab, PO, Q6Hnow, X 30 day, # 240 tab, 0 Refill(s) Start Date: 11/29/16 Stop Date: 12/29/16 Status: Ordered tramadol 50 mg oral tablet 100 mg, 2 tab, Route: PO, Drug form: TAB, Q6H, Dosing Weight 68.182, kg, PRN Dale n Score 4-6, Start date: 11/17/16 17:58:00 CDT, Duration: 30 day, Stop date: 17:57:00 CDT Notes: Not to exceed 400mg/day. (Same As: Ultram) Start Date: 11/17/16 Stop Date: 11/20/16 Status: Discontinued Unasyn 1.5 gm, 1 ea, Route: IVPB, Drug form: PDR/INJ, ABXQ6H, Dosing Weight 68.182, kg, Start date: 11/23/16 12:00:00 CDT, Duration: 7 day, Stop date: 11/30/16 6:00:00 CDT Notes: Dosing based on Ampicillin component(Same as: Unasyn) Start Date: 11/23/16 Stop Date: 11/24/16 Status: Discontinued Unasyn 3 gm, 1 ea, Route: IVPB, Drug form: PDR/INJ, ABXQ6H, Start date: 11/28/16 12:00: 00 CDT, Duration: 30 day, Stop date: 12/28/16 6:00:00 CDT Notes: Dosing based on Ampicillin component (Same as: Unasyn) Start Date: 11/28/16 Stop Date: 11/29/16 Status: Discontinued Zofran 4 mg, 2 mL, Route: IV, Drug form: INJ, Q6H, Dosing Weight 68.182, kg, Start date : 11/21/16 0:00:00 CDT, Duration: 30 day, Stop date: 12/20/16 18:00:00 CDT Notes: (Same as: Zofran) MEDICATION WASTE Product Size: 4 mgProduct Was jaswinder: ___ mg Start Date: 11/21/16 Stop Date: 11/21/16 Status: Discontinued Zofran 4 mg, 2 mL, Route: IV, Drug form: INJ, Q6H, Dosing Weight 68.182, kg, PRN Nausea , Start date: 11/21/16 5:50:00 CDT, Duration: 30 day, Stop date: 12/21/16 5:49:0 0 CDT Notes: (Same as: Zofran) MEDICATION WASTE Product Size: 4 mgProduct Was jaswinder: ___ mg Start Date: 11/21/16 Stop Date: 11/29/16 Status: Discontinued Zosyn 3.375 gm, Route: IVPB, Drug form: PDR/INJ, ABXQ8H, Dosing Weight 68.182, kg, CrC l >=20 ml/min infuse over 4 hours, Start date: 11/17/16 18:00:00 CDT, Duration: 14 day, Stop date: 12/01/16 10:00:00 CDT, ABX Indication: Intra-abdominal Infection Notes: (Same as: Zosyn)Dosing based on Piperacillin component MEDICATION WA JONO Product Size: 3375 mgProduct Wasted: ___ mg Start Date: 11/17/16 Stop Date: 11/21/16 Status: Discontinued Zosyn 3.375 gm, Route: IVPB, Drug form: PDR/INJ, ABXQ8H, Dosing Weight 68.182, kg, CrC l >=20 ml/min infuse over 4 hours, Start date: 11/21/16 9:00:00 CDT, Duration: 4 day, Stop date: 11/25/16 1:00:00 CDT, ABX Indication: Intra-abdominal Infection Notes: (Same as: Zosyn)Dosing based on Piperacillin component MEDICATION WA JONO Product Size: 3375 mgProduct Wasted: ___ mg Start Date: 11/21/16 Stop Date: 11/23/16 Status: Discontinued Results BLOOD BANK RESULTS 1 2 3 Most recent to oldest [Reference Range]: A POS *Unknown* (11/20/16 3:08 AM) ABO/Rh Negative (11/20/16 3:08 AM) Antibody Scrn ELECTROLYTES 1 2 3 Most recent to oldest [Reference Range]: 145 mEq/L (11/28/16 4:48 AM) 142 mEq/L (11/27/16 3:06 PM) 144 mEq/L (11/24/16 3:24 AM) Sodium Lvl [135-145 mEq/L] 4.2 mEq/L (11/28/16 4:48 AM) 4.6 mEq/L (11/27/16 3:06 PM) 3.2 mEq/L *LOW* (11/24/16 3:24 AM) Potassium Lvl [3.5-5.1 mEq/L] 109 mEq/L (11/28/16 4:48 AM) 108 mEq/L (11/27/16 3:06 PM) 108 mEq/L (11/24/16 3:24 AM) Chloride Lvl [95-109 mEq/L] 27 mEq/L (11/28/16 4:48 AM) 25 mEq/L (11/27/16 3:06 PM) 28 mEq/L (11/24/16 3:24 AM) CO2 [24-32 mEq/L] 13.2 mEq/L (11/28/16 4:48 AM) 13.6 mEq/L (11/27/16 3:06 PM) 11.2 mEq/L (11/24/16 3:24 AM) AGAP [10.0-20.0 mEq/L] CHEM PANEL 1 2 3 Most recent to oldest [Reference Range]: 0.51 mg/dL (11/28/16 4:48 AM) 0.62 mg/dL (11/27/16 3:06 PM) 0.53 mg/dL (11/24/16 3:24 AM) Creatinine Lvl [0.50-1.40 mg/dL] 104 mL/min/1.73m2 1 *NA* (11/28/16 4:48 AM) 98 mL/min/1.73m2 2 *NA* (11/27/16 3:06 PM) 103 mL/min/1.73m2 3 *NA* (11/24/16 3:24 AM) eGFR 9 mg/dL (11/28/16 4:48 AM) 11 mg/dL (11/27/16 3:06 PM) 10 mg/dL (11/24/16 3:24 AM) BUN [7-22 mg/dL] 16 (11/17/16 9:05 PM) B/C Ratio [6-25] 76 mg/dL (11/28/16 4:48 AM) 154 mg/dL *HI* (11/27/16 3:06 PM) 75 mg/dL (11/24/16 3:24 AM) Glucose Lvl [70-99 mg/dL] 6.5 g/dL (11/17/16 9:05 PM) Total Protein [6.4-8.4 g/dL] 2.2 g/dL *LOW* (11/17/16 9:05 PM) Albumin Lvl [3.5-5.0 g/dL] 4.3 g/dL *HI* (11/17/16 9:05 PM) Globulin [2.7-4.2 g/dL] 0.5 *LOW* (11/17/16 9:05 PM) A/G Ratio [0.7-1.6] 8.3 mg/dL *LOW* (11/28/16 4:48 AM) 8.1 mg/dL *LOW* (11/27/16 3:06 PM) 8.3 mg/dL *LOW* (11/24/16 3:24 AM) Calcium Lvl [8.5-10.5 mg/dL] 3.7 mg/dL (11/28/16 4:48 AM) 2.7 mg/dL (11/22/16 1:48 AM) 4.4 mg/dL (11/21/16 2:50 AM) Phosphorus [2.5-4.5 mg/dL] 2.0 mg/dL (11/28/16 4:48 AM) 2.3 mg/dL (11/22/16 1:48 AM) 2.0 mg/dL (11/21/16 2:50 AM) Magnesium Lvl [1.8-2.4 mg/dL] 15 unit/L (11/17/16 9:05 PM) ALT [0-65 unit/L] 8 unit/L (11/17/16 9:05 PM) AST [0-37 unit/L] 84 unit/L (11/17/16 9:05 PM) Alk Phos [39-136 unit/L] 0.2 mg/dL (11/17/16 9:05 PM) Bili Total [0.2-1.3 mg/dL] 0.8 mMol/L (11/18/16 9:49 AM) 1.2 mMol/L (11/17/16 9:05 PM) Lactic Acid Lvl [0.5-2.2 mMol/L] 1Result Comment: The eGFR is calculated using [...] 3 Most recent to oldest [Reference Range]: 1850 pg/mL *HI* (11/20/16 7:00 PM) proBNP [0-125 pg/mL] PARATHYROID PROFILE 1 2 3 Most recent to oldest [Reference Range]: 1.05 mMol/L (11/21/16 2:50 AM) Ca Ion WB [1.05-1.25 mMol/L] 1.09 mMol/L (11/21/16 2:50 AM) Ca Norm WB [1.05-1.25 mMol/L] URINE AND STOOL 1 2 3 Most recent to oldest [Reference Range]: Clear (11/17/16 9:56 PM) UA Turbidity [Clear] Yellow *NA* (11/17/16 9:56 PM) UA Color [Yellow] 6.0 (11/17/16 9:56 PM) UA pH [5.0-8.0] 1.013 (11/17/16 9:56 PM) UA Spec Grav [<=1.030] Negative mg/dL *NA* (11/17/16 9:56 PM) UA Glucose [Negative mg/dL] Negative (11/17/16 9:56 PM) UA Blood [Negative] 60 mg/dL *ABN* (11/17/16 9:56 PM) UA Ketones [Negative mg/dL] 20 mg/dL *ABN* (11/17/16 9:56 PM) UA Protein [Negative mg/dL] <=1.0 mg/dL *NA* (11/17/16 9:56 PM) UA Urobilinogen [0.1-1.0 mg/dL] Negative *NA* (11/17/16 9:56 PM) UA Bili [Negative] Negative (11/17/16 9:56 PM) UA Leuk Est [Negative] Negative (11/17/16 9:56 PM) UA Nitrite [Negative] 1 /HPF (11/17/16 9:56 PM) UA WBC [0-5 /HPF] <1 /HPF (11/17/16 9:56 PM) UA RBC [0-2 /HPF] None Seen *NA* (11/17/16 9:56 PM) UA Sq Epi Few /LPF *NA* (11/17/16 9:56 PM) UA Mucus [None Seen /LPF] HEMATOLOGY 1 2 3 Most recent to oldest [Reference Range]: 15.2 K/CMM *HI* (11/28/16 4:48 AM) 23.8 K/CMM *HI* (11/27/16 3:06 PM) 16.9 K/CMM *HI* (11/24/16 3:24 AM) WBC [3.7-10.4 K/CMM] 3.27 M/CMM *LOW* (11/28/16 4:48 AM) 3.33 M/CMM *LOW* (11/27/16 3:06 PM) 3.11 M/CMM *LOW* (11/24/16 3:24 AM) RBC [4.20-5.40 M/CMM] 9.2 g/dL *LOW* (11/28/16 4:48 AM) 9.5 g/dL *LOW* (11/27/16 3:06 PM) 8.6 g/dL *LOW* (11/24/16 3:24 AM) Hgb [12.0-16.0 g/dL] 29.7 % *LOW* (11/28/16 4:48 AM) 30.0 % *LOW* (11/27/16 3:06 PM) 27.7 % *LOW* (11/24/16 3:24 AM) Hct [36.0-48.0 %] 90.8 fL (11/28/16 4:48 AM) 90.0 fL (11/27/16 3:06 PM) 89.1 fL (11/24/16 3:24 AM) MCV [80.0-98.0 fL] 28.1 pg (11/28/16 4:48 AM) 28.7 pg (11/27/16 3:06 PM) 27.6 pg (11/24/16 3:24 AM) MCH [27.0-31.0 pg] 31.0 g/dL *LOW* (11/28/16 4:48 AM) 31.9 g/dL *LOW* (11/27/16 3:06 PM) 31.0 g/dL *LOW* (11/24/16 3:24 AM) MCHC [32.0-36.0 g/dL] 15.4 % *HI* (11/28/16 4:48 AM) 15.8 % *HI* (11/27/16 3:06 PM) 15.1 % *HI* (11/24/16 3:24 AM) RDW [11.5-14.5 %] 542 K/CMM *HI* (11/28/16 4:48 AM) 465 K/CMM *HI* (11/27/16 3:06 PM) 517 K/CMM *HI* (11/24/16 3:24 AM) Platelet [133-450 K/CMM] 9.6 fL (11/28/16 4:48 AM) 8.4 fL (11/27/16 3:06 PM) 10.1 fL (11/24/16 3:24 AM) MPV [7.4-10.4 fL] 71.7 % (11/28/16 4:48 AM) 87.8 % *HI* (11/27/16 3:06 PM) 74.0 % (11/24/16 3:24 AM) Segs [45.0-75.0 %] 18.6 % *LOW* (11/28/16 4:48 AM) 7.5 % *LOW* (11/27/16 3:06 PM) 18.0 % *LOW* (11/24/16 3:24 AM) Lymphocytes [20.0-40.0 %] 7.9 % (11/28/16 4:48 AM) 4.0 % (11/27/16 3:06 PM) 6.5 % (11/24/16 3:24 AM) Monocytes [2.0-12.0 %] 1.1 % (11/28/16 4:48 AM) 0.4 % (11/27/16 3:06 PM) 0.8 % (11/24/16 3:24 AM) Eosinophils [0.0-4.0 %] 0.7 % (11/28/16 4:48 AM) 0.3 % (11/27/16 3:06 PM) 0.7 % (11/24/16 3:24 AM) Basophils [0.0-1.0 %] 10.9 K/CMM *HI* (11/28/16 4:48 AM) 20.9 K/CMM *HI* (11/27/16 3:06 PM) 12.5 K/CMM *HI* (11/24/16 3:24 AM) Segs-Bands # [1.5-8.1 K/CMM] 2.8 K/CMM (11/28/16 4:48 AM) 1.8 K/CMM (11/27/16 3:06 PM) 3.1 K/CMM (11/24/16 3:24 AM) Lymphocytes # [1.0-5.5 K/CMM] 1.2 K/CMM *HI* (11/28/16 4:48 AM) 1.0 K/CMM *HI* (11/27/16 3:06 PM) 1.1 K/CMM *HI* (11/24/16 3:24 AM) Monocytes # [0.0-0.8 K/CMM] 0.2 K/CMM (11/28/16 4:48 AM) 0.1 K/CMM (11/27/16 3:06 PM) 0.1 K/CMM (11/24/16 3:24 AM) Eosinophils # [0.0-0.5 K/CMM] 0.1 K/CMM (11/28/16 4:48 AM) 0.1 K/CMM (11/27/16 3:06 PM) 0.1 K/CMM (11/24/16 3:24 AM) Basophils # [0.0-0.2 K/CMM] Normal (11/21/16 2:50 AM) RBC Morph Normal (11/24/16 3:24 AM) Normal (11/21/16 2:50 AM) Plt Morph 16.2 seconds *HI* (11/17/16 9:05 PM) PT [12.0-14.7 seconds] 1.27 *HI* (11/17/16 9:05 PM) INR [0.85-1.17] 33.8 seconds (11/17/16 9:05 PM) PTT [22.9-35.8 seconds] Immunizations No data available for this section Procedures Procedure Date Related Diagnosis Body Site Atherectomy Corneal transplant Tubal ligation Social History Social History Type Response Smoking Status Former smoker; Previous treatment: None; Ready to change: No; Concerns about tobacco use in household: No; Exposure to Tobacco Smoke None; Cigarette Smoking Last 365 Days No; Reg Smoking Cessation Counseling No Assessment and Plan Extracted from: Title: EGS Progress Author: Tim Bernal DO Date: 11/28/16 Progress Daily [facility] Completed: Nov, 17:30 by Tim Bernal DO RM: [id number] - 01, 3[facility]YST[facility] We[facility] S61y (: 1955) F Attending: Tim Ayala DOPhone: Service: Surgery Reason for Admission: ABD ABSCESS Working DRG: Infectious & parasitic diseases w O.R. procedure w CC Code status: Full Code [Ordered]Current diet: Isolation: None Documented Allergies: chlorhexidine topical SUBJECTIVE Mrs verde was seen at bedside this morning. She developed a new crampy lower abdominal pain. This pain is worse when she gets up and walks out of bed. She is tolerating food well, no N/V. Ostomy is producing 400mL of stool overnight and gas. No fevers or chills. OBJECTIVE General: alert and oriented in no acute distress abdomen: Soft, mildly tender around incision sites, 4x4 [address], not saturated and not actively bleeding. Wet to dry dressing changes on central abdominal incision. Colostomy is clean and dry non erythematous. abdominal binder around stomach CV: RRR Lungs: non labored, coarse breath sounds. Skin: no lesions or rashes : No zuniga ASSESSMENT & EXAM 61 year old female who failed conservative antibiotic treatment for intra-abdominal abscess due to Hinchey 1 diverticulitis s/p sigmoidectomy with colostomy placement and abscess draining and washout (11/20). PLAN & TREATMENT -Patient developed new cramping abdominal pain overnight. Her WBC went from 23 to 15 this morning. Abdominal/pelvis CT was preformed which showed mild diffuse stranding in the LLQ with no organized fluid collection, and no signs of bowel obstruction and some collapsed loops of bowel around sigmoidectomy. -Patient to be discharged tomorrow. Will give PO augmentin after 1 more night of unasyn -Home health is involved for ostomy care and incisional wound care. Patient would like ostomy/wound care nurse to come by and talk with her about home care again tomorrow before discharge. Tim Bernal, DO PGY-1 EGS [id number] 24hr Labs 11/28 1151 Glucose WSN912 H 11/28 0739 Glucose POC90 11/28 0448 Magnesium Lvl2.0 Phosphorus3.7 Glucose Lvl76 BUN9 Creatinine Lvl0.51 Sodium Yar274 Potassium Lvl4.2 Chloride Ktv270 CO227 AGAP13.2 Calcium Lvl8.3 L cWAE538 WBC15.2 H RBC3.27 L Hgb9.2 L Hct29.7 L MCV90.8 MCH28.1 MCHC31.0 L RDW15.4 H Ooslnksm881 H MPV9.6 Segs71.7 Monocytes7.9 Dlslyhhiegt64.6 L Eosinophils1.1 Basophils0.7 Segs-Bands #10.9 H Lymphocytes #2.8 Monocytes #1.2 H Eosinophils #0.2 Basophils #0.1 11/27 2115 Glucose OZZ566 H 11/27 1506 Segs87.8 H Monocytes4.0 Lymphocytes7.5 L Eosinophils0.4 Basophils0.3 Segs-Bands #20.9 H Lymphocytes #1.8 Monocytes #1.0 H Eosinophils #0.1 Basophils #0.1 VitalsTmp(F)[id number] 11/28 15:2497.864921/495701--- 11/28 11:3198.162504/079703--- 11/28 07:4098.402673/628131--- 11/28 04:4198.500785/704133--- 11/28 01:0198.066966/865837--- 24 Hr Tmax: 98.6F (37.00c) at 11/28 11:31Vital Signs are the last 5 in the past 48 hours. DateWt(kg)Wt(lb)Ht(cm)Ht(in)Method 11/17 (initial) 68.18 150.98918.02 63.00Estimated I&ORecordInOutBal 4hr Tot 480 402 78 1024hr Tot 240 320 -80 Medications (27) Active Scheduled Meds (17): 11/21/16 acetaminophen 1,000 mg PO Q6H 11/28/16 ampicillin-sulbactam (Unasyn) 3 gm IVPB ABXQ6H 11/21/16 aspirin (aspirin 81 mg tablet, enteric coated) 81 mg PO Daily 11/18/16 carvedilol 6.25 mg PO BID 11/25/16 celecoxib (CeleBREX) 200 mg PO BID 11/21/16 docusate (docusate sodium 100 mg oral capsule) 100 mg PO BID 11/21/16 enoxaparin (Lovenox) 40 mg SUB-Q [id number] 11/17/16 fluticasone-salmeterol (fluticasone-salmeterol 100 mcg-50 mcg MDI) 2 inhalation INHALER RBID 11/25/16 gabapentin (gabapentin 300 mg oral capsule) 300 mg PO Q12H 11/21/16 lisinopril 5 mg PO Daily 11/18/16 pantoprazole 40 mg PO Daily 11/21/16 polyethylene glycol 3350 (MiraLax) 17 gm PO Daily 11/21/16 pravastatin 20 mg PO Bedtime 11/18/16 predniSONE 10 mg PO Daily 11/22/16 psyllium 3.4 gm PO Daily 11/21/16 senna 8.6 mg PO BID 11/20/16 tramadol 100 mg PO Q6Hnow Unscheduled Meds (1): 11/18/16 iohexol (Omnipaque 350mg/ml) 100 mL IVP ONCALL PRN Meds (9): 11/21/16 Dextrose 50% in Water IV (Dextrose 50% Syringe) 12.5 gm IVP PRN 11/21/16 Dextrose 50% in Water IV (Dextrose 50% Syringe) 25 gm IVP PRN 11/21/16 Insulin regular 5 unit SUB-Q PRN 11/21/16 Insulin regular 8 unit SUB-Q PRN 11/21/16 Insulin regular 12 unit SUB-Q PRN 11/21/16 albuterol-ipratropium (albuterol-ipratropium 2.5-0.5 mg inhalation solution) 3 ml NEB PRN 11/21/16 ondansetron (Zofran) 4 mg IV Q6H 11/21/16 oxyCODONE (oxyCODONE 5 mg oral tablet) 5 mg PO Q6H 11/25/16 oxyCODONE (oxyCODONE 5 mg oral tablet) 10 mg PO Q4H One Time Meds: None Continuous Infusions: None Extracted from: Title: EGS Consult H/P Author: Tanner Fulton MD Date: 11/17/16 EGS Consult Patient: Krystin Verde Reason for Consult: Diverticulitis and possible abdominal abscess Source of Consult: Consulting Physician: Manju Ibrahim M MD EGS Attending: Chilo Reina MD Time from consult until patient seen: 15 minutes Chief Complaint: Abdominal pain HPI: Mrs Verde is a 61 yo woman history of DM, CHF s/p AICD, PVD s/p angioplasty presents as a direct admissoin from [place] ED due to acute abdominal pain. Patient states since discharge from [facility] on 11/14/16 following her diverticulitis disagnosis, her pain has worsened. She states that she has not eaten or used the bathroom since sunday. She denies nausea or vomiting. States that she has some symptomatic relief when passing gas. Has fevers at home. At OSH CT abd/pelvis was performed w/o contrast which showed large extraluminal collecion of air/fluid in pelvis up to 7.4 cm. She received zosyn and 2 L IVF and requested transfer to [facility]. Review of Systems Past Medical History: Asthma Cardiomyopathy CHF (congestive heart failure) Claudication COPD (chronic obstructive pulmonary disease) Diabetes mellitus Eczema Hyperlipemia Hypertension Obesity Peripheral vascular disease Skin cancer Past Surgical History Atherectomy Corneal transplant Tubal ligation Allergies: chlorhexidine Meds: See MAR Family History: Noncontributory Social History: EtOH: Denies Tobacco: Denies Drugs: Denies ROS: Constitutional: Pt state she has fever and chills with weight lose due to inability to eat. HEENT: No vision changes, hearing loss, or rhinorrhea Respiratory: No cough, wheezing or shortness of breath Cardiovascular: No angina, palpitations, or orthopnea Gastrointestinal: States she has nausea but no vomiting. Genitourinary: No dysuria, polyuria, or oliguria Extremities: No edema, weakness, or claudication Psychiatric: No depression, psychosis, or mood changes Physical Exam: Abdomen: Pts abdomen is soft and distended. Diffusely tender to deep palpation. More tender in LLQ. Mild rebound tenderness. No masses felt. Vitals: VitalsTmp(F)Tmp(C)[id number] 11/17 17:5198.637.27vfqb878/71---[id number]------ 24 Hr Tmax: 98.6F (37.00c) at 11/17 17:5124 Hr Tmin: 98.6F (37.00c) at 11/17 17:51 36 Hr Tmax: 98.6F (37.00c) at 11/17 17:5136 Hr Tmin: 98.6F (37.00c) at 11/17 17:51 Vital Signs are the last 5 in the past 48 hours. Weights are the last 5 in 60 days, plus initial. General: Awake and oriented to person/place/time. No acute distress. EENT: Extraocular movements intact. Pupils equally round and reactive to light. _ Neck: Supple; full ROM. CV: Regular rate and rhythm. No gallops or murmurs. Pulm: Unlabored respirations on room air. Symmetric chest expansion Extremities: No edema. 2+ pulses in all 4 extremities. _ Neuro: CN II-XII grossly intact Labs: None avaiable at this time. Imaging: OSH Ct report for abdominal CT reports diverticulitis with potential for abscess. Study was done without contrast so it is no conclusive. Will repeat Assessment: 61 yo woman history of DM, CHF s/p AICD, PVD s/p angioplasty presents as a direct admissoin from [place] ED due to acute abdominal pain in setting of recent discharge from [facility] for diverticulitis treatment. Plan: -Follow up CT scan with contrast pending lab results - Serial abdominal exams - Will discuss surgical options further once imagining is back For questions call #[phone] Tanner Fulton MD Anesthesiology PGY-1 MSO [phone] Pager [phone] ATTENDING ATTESTATION: I have seen and examined the patient with the above provider (resident/fellow). Futhermore, I concur with their findings and plan as noted above. Extracted from: Title: History and Physical Author: Manju Ibrahim MD Date: 11/17/16 Assessment/Plan 1.Sepsis secondary to perforated sigmoid diverticulitis and possible abscess On presentation in ED, SBP 88/63, WBC 27.5 and lactic acid 2.44. Started on IVF here, zosyn and repeat cxr, blood cultures pending. No CT image sent upon transfer to upload.If renal function recovered will obtain ct abd/pelvis w/contrast. General surgery consulted. 2.Abdominal pain due to above. continue pain control. Ordered: Admit/Condition, 11/17/16 17:42:00 CDT, Status: Inpatient, Acute, Expected LOS: 3 or [facility], Manju Ibrahim MD, Admit MD Review/Approve Yes, Isolation: No Isolation/Standard Precautions 3.Acute kidney injury Continue IVF 4.Hypertension hold home meds due to hypotension 5.Nonischemic cardiomyopathy EF improved on last EF to 55% 6.AICD present, double chamber 7.Peripheral vascular disease s/p angioplasty. resume asa, plavix if no surgical plan 8.Anemia likely due to chronic disease, repeat hgb pending 9.Emphysema/COPD continue outptmeds. no acute exacerbations. 10.Psoriasis continue prednisone. Prophylaxis scds, start lovenox based on pending labs Disposition pending treatment w/IV Abx and surgical evaluation Hospitalist is Primary, pager [phone]
--- OUTSIDE RECORDS SUMMARY | 2018-08-12 12:56 | XMS REPORT | Summary of Care ---
Author Author [facility] Organization [facility] Address Unknown Phone Unavailable Encounter TOO Helms(JUDD) [id number] Date(s): 03/01/17 - 03/01/17 [facility] [id number] [place] [address]- Discharge Disposition: Home or Self Care Attending Physician: Jaime Dorantes MD Referring Physician: Jaime Dorantes MD Vital Signs Most recent to 1 oldest [Reference Range]: Height 160.02 cm (03/01/17 11:16 AM) Weight 69.091 kg (03/01/17 11:16 AM) Body Mass Index 26.98 m2 (03/01/17 11:16 AM) Problem List Condition Effective Dates Status Health [...] Reaction Severity Status chlorhexidine topical Active Medications No data available for this section Results No data available for this section [...] Smoking Cessation Counseling No Assessment and Plan No data available for this section
--- OUTSIDE RECORDS SUMMARY | 2018-08-12 12:57 | XMS REPORT | Summary of Care ---
Author Author [facility] Organization [facility] Address Unknown Phone Unavailable Encounter TOO Helms(JUDD) [id number] Date(s): 07/20/17 - 07/20/17 [facility] [address] [place] [address]- Encounter Diagnosis Encounter for screening for malignant neoplasm of colon (Final) - 07/26/17 Hypertensive heart disease with heart failure (Final) - Heart failure, unspecified (Final) - Cardiomyopathy, unspecified (Final) - Peripheral vascular disease, unspecified (Final) - Obstructive sleep apnea (adult) (pediatric) (Final) - Emphysema, unspecified (Final) - Gastro-esophageal reflux disease without esophagitis (Final) - Prediabetes (Final) - Acquired absence of other specified parts of digestive tract (Final) - Colostomy status (Final) - 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 (Final) - Presence of automatic (implantable) cardiac defibrillator (Final) - ad terminal makeup operator (current) use of aspirin (Final) - Discharge Disposition: Home or Self Care Attending Physician: Lyle Sheridan MD Referring Physician: Lyle Sheridan MD Vital Signs 1 2 3 Most recent to oldest [Reference Range]: 160.02 cm (07/20/17 7:46 AM) 161.29 cm (07/18/17 3:10 PM) Height 120/74 mmHg (07/20/17 11:45 AM) 115/71 mmHg (07/20/17 11:00 AM) 115/74 mmHg (07/20/17 10:45 AM) Blood Pressure [90-140/60-90 mmHg] 17 BRMIN (07/20/17 11:45 AM) 23 BRMIN *HI* (07/20/17 11:00 AM) 23 BRMIN *HI* (07/20/17 10:45 AM) Respiratory Rate [14-20 BRMIN] 95 bpm (07/20/17 7:46 AM) Peripheral Pulse Rate [60-100 bpm] 72.727 kg (07/20/17 7:46 AM) 72.727 kg (07/18/17 3:10 PM) Weight 28.4 m2 (07/20/17 7:46 AM) 27.96 m2 (07/18/17 3:10 PM) Body Mass Index Problem List Condition [...] Reaction Severity Status chlorhexidine topical Active Medications ANES acetaminophen 1,000 mg, 2 tab, Route: PO, Drug form: TAB, ONCE, Dosing Weight 72.727, kg, PRN Pain Score 1-3, Start date: 07/20/17 10:32:00 GREEN ME[employer] PACKER Notes: Max acetaminophen 4000 mg/day (4 gm/day). (Same as: Tylenol Extra Streng th) Start Date: 07/20/17 Stop Date: 07/21/17 Status: Discontinued ANES flumazenil 0.2 mg, 2 mL, Route: IVP, Drug form: INJ, PRN, Dosing Weight 72.727, kg, PRN Binh zodiazepine Reversal, Initial dose, Start date: 07/20/17 10:32:00 GREEN ME[employer] PACKER, Duration: 30 day, Stop date: 08/19/17 11:31:00 CDT Notes: (Same as: Romazicon) Start Date: 07/20/17 Stop Date: 07/21/17 Status: Discontinued ANES hydrALAZINE 10 mg, 0.5 mL, Route: IVP, Drug form: INJ, Q20Min, Dosing Weight 72.727, kg, PRN Elevated BP, Start date: 07/20/17 10:32:00 GREEN MEAT PACKER, Duration: 2 doses or times, Stop date: 07/21/17 0:00:00 GREEN ME[employer] PACKER Notes: (Same as: Apresoline)Push over 5 minutes Start Date: 07/20/17 Stop Date: 07/21/17 Status: Completed ANES naloxone 0.4 mg, 1 mL, Route: IVP, Drug form: INJ, Q2MIN, Dosing Weight 72.727, kg, PRN N arcotic Reversal, Start date: 07/20/17 10:32:00 GREEN MEAT PACKER, Duration: 8 doses or times, Stop date: 07/21/17 0:00:00 GREEN ME[employer] PACKER Notes: Same as Narcan Start Date: 07/20/17 Stop Date: 07/21/17 Status: Completed ANES ondansetron 4 mg, 2 mL, Route: IVP, Drug form: INJ, ONCE, Dosing Weight 72.727, kg, PRN Naus ea & Vomiting, Start date: 07/20/17 10:32:00 GREEN ME[employer] PACKER Notes: (Same as: Zofran) MEDICATION WASTE Product Size: 4 mgProduct Was jaswinder: ___ mg Start Date: 07/20/17 Stop Date: 07/21/17 Status: Discontinued Ativan 1 mg oral tablet 1 mg=1 tab, PO, TID, 0 Refill(s) Start Date: 07/18/17 Status: Ordered Protonix 20 mg oral enteric coated tablet 20 mg=1 tab, PO, Daily, 0 Refill(s) Start Date: 07/18/17 Status: Ordered Soma 350 mg oral tablet 350 mg=1 tab, PO, QID, 0 Refill(s) Start Date: 07/18/17 Status: Ordered Ventolin HFA 2 puff, INHALATION, QID, 0 Refill(s) Start Date: 07/18/17 Status: Ordered Vitamin D3 1000 intl units oral tablet 1,000 IntlUnit=1 tab, PO, Daily, # 30 tab, 0 Refill(s) Start Date: 07/18/17 Status: Ordered Results ELECTROLYTES Most recent to 1 oldest [Reference Range]: Sodium Lvl [135-145 139 mEq/L mEq/L] (07/18/17 4:00 PM) Potassium Lvl 5.3 mEq/L [3.5-5.1 mEq/L] *HI* (07/18/17 4:00 PM) Chloride Lvl [95-109 101 mEq/L mEq/L] (07/18/17 4:00 PM) CO2 [24-32 mEq/L] 29 mEq/L (07/18/17 4:00 PM) AGAP [10.0-20.0 14.3 mEq/L mEq/L] (07/18/17 4:00 PM) CHEM PANEL Most recent to 1 oldest [Reference Range]: Creatinine Lvl 0.79 mg/dL [0.50-1.40 mg/dL] (07/18/17 4:00 PM) eGFR 80 mL/min/1.73m2 1 *NA* (07/18/17 4:00 PM) BUN [7-22 mg/dL] 13 mg/dL (07/18/17 4:00 PM) Glucose Lvl [70-99 118 mg/dL mg/dL] *HI* (07/18/17 4:00 PM) Calcium Lvl 9.9 mg/dL [8.5-10.5 mg/dL] (07/18/17 4:00 PM) 1Result Comment: The eGFR is calculated using [...] tiplied by the estimated BMI. CARDIAC ENZYMES Most recent to 1 oldest [Reference Range]: BNP [<=100 pg/mL] 11 pg/mL (07/18/17 4:00 PM) SPECIAL CHEMISTRY Most recent to 1 oldest [Reference Range]: Hgb A1C [<=5.6 %] 6.6 % *HI* (07/18/17 4:00 PM) HEMATOLOGY Most recent to 1 oldest [Reference Range]: WBC [3.7-10.4 K/CMM] 14.2 K/CMM *HI* (07/18/17 4:00 PM) RBC [4.20-5.40 4.39 M/CMM M/CMM] (07/18/17 4:00 PM) Hgb [12.0-16.0 g/dL] 12.3 g/dL (07/18/17 4:00 PM) Hct [36.0-48.0 %] 37.9 % (07/18/17 4:00 PM) MCV [80.0-98.0 fL] 86.3 fL (07/18/17 4:00 PM) MCH [27.0-31.0 pg] 28.0 pg (07/18/17 4:00 PM) MCHC [32.0-36.0 32.5 g/dL g/dL] (07/18/17 4:00 PM) RDW [11.5-14.5 %] 15.9 % *HI* (07/18/17 4:00 PM) MPV [7.4-10.4 fL] 11.0 fL *HI* (07/18/17 4:00 PM) Platelet [133-450 395 K/CMM K/CMM] (07/18/17 4:00 PM) Segs [45.0-75.0 %] 75.2 % *HI* (07/18/17 4:00 PM) Lymphocytes 16.1 % [20.0-40.0 %] *LOW* (07/18/17 4:00 PM) Monocytes [2.0-12.0 6.4 % %] (07/18/17 4:00 PM) Eosinophils [0.0-4.0 1.7 % %] (07/18/17 4:00 PM) Basophils [0.0-1.0 0.6 % %] (07/18/17 4:00 PM) Segs-Bands # 10.7 K/CMM [1.5-8.1 K/CMM] *HI* (07/18/17 4:00 PM) Lymphocytes # 2.3 K/CMM [1.0-5.5 K/CMM] (07/18/17 4:00 PM) Monocytes # [0.0-0.8 0.9 K/CMM K/CMM] *HI* (07/18/17 4:00 PM) Eosinophils # 0.2 K/CMM [0.0-0.5 K/CMM] (07/18/17 4:00 PM) Basophils # [0.0-0.2 0.1 K/CMM K/CMM] (07/18/17 4:00 PM) Immunizations No data available for this section [...]
--- OUTSIDE RECORDS SUMMARY | 2018-08-12 12:57 | XMS REPORT | Summary of Care ---
Author Author [facility] Organization [facility] Address Unknown Phone Unavailable Encounter TOO Helms(JUDD) [id number] Date(s): 09/12/17 - 09/17/17 [facility] [address] [employer] provided by [facility] [place] [address]- Encounter Diagnosis Parastomal hernia without obstruction or gangrene (Final) - Peripheral vascular disease, unspecified (Final) - Chronic obstructive pulmonary disease, unspecified (Final) - Heart failure, unspecified (Final) - Peritoneal adhesions (postprocedural) (postinfection) (Final) - Elevated white blood cell count, unspecified (Final) - Type 2 diabetes mellitus with diabetic peripheral angiopathy without gangrene (Final) - Personal history of nicotine dependence (Final) - Hypertensive heart disease with heart failure (Final) - Presence of automatic (implantable) cardiac [...] form: SOLN, RQ4H, Dosing Weight 72.727, kg, TX N Wheezing, Start date: 09/13/17 10:12:00 CDT, [...] HFAWASTE: Aerosol - Return to Pharmacy Sa va as: Ventolin, Proventil Start Date: 09/13/17 Stop Date: 09/17/17 Status: [...] form: INJ, Q5Min, Dosing Weight 72.727, kg, TX N Pain Score 7-10, Start date: 09/12/17 [...] date: 09/12/17 20:03:00 CDT Notes: (Same as: Zopal) MEDICATION WASTE Product Size: 4 mgProduct Was [...] Start date: 09/13/17 10:15:00 CDT Notes: Chloraseptic Gilbert(Same as: Chloraseptic, Sore Throat Gilbert)WASTE: F/P - Black; E - Red Tricycle Trash Bin Start Date: 09/13/17 Stop Date: [...] 0.4 mL, Route: SUB-Q, Drug form: INJ, [id number], Dosing Weight 72.727, kg, Start date: 09/12/17 [...] once for up to 12 hours in [id number] period (12 hours on and 12 hours [...] tients with feeding tube less than 14 Turkmen (Dobhoff, J-tube etc) and pediat dolly and [...] UA Spec Grav [<=1.030] Negative mg/dL *NA* (4/25/18 9:09 PM) UA Glucose [Negative mg/dL] Moderate [...] . Histories Past Medical History: Resolved Asthma (600157136): Resolved. Peripheral vascular disease (4038926706): Resolved. CHF (congestive heart failure) (060194755): Resolved. COPD (chronic obstructive pulmonary disease) (01823331): Resolved. Cardiomyopathy (267151003): Resolved. Claudication (677376846): Resolved. Hyperlipemia (90052612): Resolved. Shortness of breath (395077801): Resolved. Diabetes mellitus (831309313): Resolved. Obesity (8746979177): Resolved. Skin cancer (8030390793): Resolved. Hypertension (1730998517): Resolved. Eczema (96946254): Resolved. Family History: Cancer Father Heart failure Mother Sarcoma Brother CHF (congestive heart failure) Mother Procedure history: Corneal transplant (380063798). Tubal ligation (259667294). Atherectomy (93252111). ICD - Internal cardiac defibrillator procedure (326923899). Social History Social & Psychosocial Habits Alcohol [...] Q12H enoxaparin: 40 mg, 0.4 mL, SUB-Q, [id number] gabapentin 300 mg oral capsule: 300 mg, [...] ml INJ 40 mg 0.4 mL, SUB-Q, [id number] ertapenem sodium 1 gm VIAL 1 gm, [...] Oral98.5 DegF (SEP 13 03:00) Heart Rate Rvxyzdcdgs30 bpm (SEP 13 03:00) Resp Rate H 58BRMIN (SEP 12 21:15) BMO015 mmHg (SEP 13 03:00) DBP72 mmHg (SEP 13 03:00) FtL400 % (SEP 13 03:00) Fjmobd73.727 kg (SEP 12:) Cdnwvi307.02 cm (SEP 12 23:22) BMI28.4 (SEP 12:) General: Alert and oriented. Eye: Pupils are [...] area. APMS will sign off, please call [phone] with questions Zoe Briceno MD PGY-3 Anesthesia Addendum TEACHING PHYSICIAN ADDENDUM: I saw and personally examined this patient and discussed the by plan of care with this resident. I have reviewed the note below and agree with the Bogomolny, history, examination findings and the plan of care. Medhat Almaraz MD on 09/13/2017 10:08 Extracted from: Title: Clinical Document Author: Chilo Reina MD Date: 09/12/17 PATIENT NAME: HERMILO VERDE DATE OF OPERATION/PROCEDURE: 09/12/2017 *_*_* PREOPERATIVE DIAGNOSES: 1. Flaca procedure for perforated sigmoid diverticulitis. 2. COPD. 3. Peripheral vascular disease. POSTOPERATIVE DIAGNOSES: 1. Flaca procedure for perforated sigmoid diverticulitis. 2. COPD. 3. Peripheral vascular disease. 4. Severe atherosclerotic disease. OPERATIONS PERFORMED: 1. Rigid proctosigmoidoscopy to 15 cm with a rectal washout. 2. Fecal disimpaction. 3. Exploratory laparotomy. 4. Extensive lysis of adhesions lasting more than 90 minutes. 5. Takedown of colostomy. 6. Partial colectomy with hand sewn colocolostomy. 7. Mobilization of splenic flexure. 8. Creation of a pedicle omental flap. 9. Scar revision with excision. 10. Nonophthalmic fluorescent vascular angiography indocyanine green with the aim to assess perfusion of colon. 11. Primary repair of peristomal hernia. SPECIMENS: Midline scar and part of the proximal colon. SURGEON: Dr. Fransico Reina. ASSISTANTS: 1. Dr. Agrawal. Colorectal surgeon I asked to assist because of this complex case and the complexity of the patient's problems. 2. Anjum Sahu. ANESTHESIA: General endotracheal. SERVICE: EGS. STAFF: Dr. Fransico Reina scrubbed in the case. OPERATION: After informed consent, the patient was brought to the operating room suite. After satisfactory general endotracheal anesthesia, the patient was placed in lithotomy position and appropriate timeout was called. Next, a rigid proctosigmoidoscopy was carried out to 15 cm. There appeared to be some fecal matter present in the rectal stump. This was manually disimpacted and the rectal stump then washed out with Betadine solution. After this, the abdomen was prepped and draped and the stoma was sutured with a running suture of 2-0 locked silk. Next, a midline skin incision was made. A scar from the patient's previous operation was totally excised. On the midline incision was then deepened down to enter the peritoneal cavity. There were multiple adhesions present between the omentum and the parietal peritoneum and the small bowel which were sharply lysed and taken down. Next, an extensive lysis of the small bowel was carried down from the ileocecal junction up to the ligament of Treitz. There were multiple loops of bowel which were adherent to the rectal stump, which were sharply lysed and released without any serosal injury or iatrogenic perforations. After this had been completed, exploratory laparotomy was carried out. It showed the liver, stomach, pancreas to be normal. The uterus was present. The ovaries were atrophic along with the uterus. There were multiple loose bodies present in the peritoneal cavity, which appeared to be solidified fat. The Prolene sutures on either end of the stump were identified. The retroperitoneal examination showed that the iliac vessels in the aorta were heavily calcified. At this point, after complete lysis of adhesions, the stoma was mobilized from the surroundings skin and subcutaneous tissues and the peristomal hernia was entered. The stoma was released from the surrounding tissues and reduced into the peritoneal cavity. The descending colon and splenic flexure were then mobilized. The omentum was from the underlying colon. A part of the stoma was then divided using a SUJATA stapling device. The rectal stump was then cleared of all of fatty tissues and scar. Using the nonophthalmic fluorescent vascular angiography giving indocyanine green, the vascularity of the stump and the proximal colon was examined. They were both very vascular, without any evidence of ischemia. Because of an adequate rectal stump, a glin-xr-hsxj hand sewn anastomosis was carried out. A posterior layer of interrupted sutures of seromuscular sutures of 3-0 silk were placed. Colotomies were made and the anastomosis completed with running 3-0 PDS suture. The anterior suture line was then inverted with interrupted sutures of 3-0 silk. This was again checked with the dye with excellent vascularity of the anastomosis with no evidence of any tension or rotation of the pedicle. At this point, the whole area was thoroughly irrigated and after adequate hemostasis the stoma and the parastomal hernia was repaired from the inside with interrupted sutures of 0 PDS and the anterior rectus sheath was closed with interrupted ngjxsk-nv-znmyd sutures of 0 PDS. A Caitlyn drain was placed in the wound. The wound was closed with a pursestring suture. Next, preperitoneal retention sutures of 2-0 nylon were placed. These were threaded through rubber bolsters. The fascia was closed with a running suture of 0 PDS. The wound was then thoroughly irrigated. The retention suture was tied over the bolsters after which the skin was closed at intervals with abner and mason of Telfa were placed. This patient's sponge and needle count was correct. The patient tolerated the procedure well. _*_*_ Dictated by: CHILO REINA MD cc: PERMACULTURE CONTRACTOR / M: JAYASHREE PERMACULTURE CONTRACTOR/[id number] Doc#: [id number]//ta/ Signature Line Chilo Reina MD Electronically Signed: 09/23/17 16:03
--- OUTSIDE RECORDS SUMMARY | 2018-08-12 12:57 | XMS REPORT | Summary of Care ---
Author Author [facility] Organization [facility] Address Unknown Phone Unavailable Encounter TOO Helms(JUDD) [id number] Date(s): 08/07/18 - 08/07/18 [facility] [address] [employer] provided by [facility] [employer] [facility] [place] [address]- Discharge Disposition: Home or Self Care Attending Physician: Natasha Juarez MD Referring Physician: Natasha Juarez MD Vital Signs 1 2 3 Most recent to oldest [Reference Range]: 160.02 cm (08/07/18 10:39 AM) Height 93/60 mmHg (08/07/18 5:33 PM) 104/55 mmHg (08/07/18 5:01 PM) 97/59 mmHg (08/07/18 4:00 PM) Blood Pressure [90-140/60-90 mmHg] 66.818 kg (08/07/18 10:39 AM) Weight 26.09 m2 (08/07/18 10:39 AM) Body Mass Index Problem List Condition [...] Reaction Severity Status chlorhexidine topical Active Medications morphine Sulfate 2 mg, Route: IVP, ONCE, Dosing Weight 66.818, kg, Start date: 08/07/18 15:04:00 CDT, Stop date: 08/07/18 15:04:00 CDT Start Date: 08/07/18 Stop Date: 08/07/18 Status: Completed nitroglycerin SL Tab 0.4 mg, 1 tab, Route: SL, Drug form: TAB, Q5Min, Dosing Weight 66.818, kg, PRN C hest Pain, Start date: 08/07/18 14:41:00 CDT, Duration: 3 doses or times, Stop d ate: Limited # of times Notes: (Same as:Nitroquick, Nitrostat)"Do Not Crush" Sublingual tablet Start Date: 08/07/18 Stop Date: 08/07/18 Status: Discontinued normal saline 0.9% IV 250 mL 250 mL, Rate: 250 ml/hr, Infuse over: 1 hr, Route: IV, Dosing Weight 66.818 kg, Total Volume: 250, Start date: 08/07/18 12:28:00 CDT, Duration: 30 day, Stop christian e: 09/06/18 12:27:00 CDT, 1.74, m2 Start Date: 08/07/18 Stop Date: 08/07/18 Status: Discontinued Plavix 75 mg oral tablet 75 mg=1 tab, PO, Daily, # 90 tab, 3 Refill(s) Start Date: 08/07/18 Status: Ordered Results BLOOD BANK RESULTS Most recent to 1 oldest [Reference Range]: ABO/Rh A POS *Unknown* (08/07/18 10:43 AM) Antibody Scrn Negative (08/07/18 10:43 AM) ELECTROLYTES Most recent to 1 oldest [Reference Range]: Sodium Lvl [135-145 140 mEq/L mEq/L] (08/07/18 10:43 AM) Potassium Lvl 3.9 mEq/L [3.5-5.1 mEq/L] (08/07/18 10:43 AM) Chloride Lvl [95-109 109 mEq/L mEq/L] (08/07/18 10:43 AM) CO2 [24-32 mEq/L] 25 mEq/L (08/07/18 10:43 AM) AGAP [10.0-20.0 9.9 mEq/L mEq/L] *LOW* (08/07/18 10:43 AM) CHEM PANEL Most recent to 1 oldest [Reference Range]: Creatinine Lvl 0.75 mg/dL [0.50-1.40 mg/dL] (08/07/18 10:43 AM) eGFR 85 mL/min/1.73m2 1 *NA* (08/07/18 10:43 AM) BUN [7-22 mg/dL] 23 mg/dL *HI* (08/07/18 10:43 AM) Glucose Lvl [70-99 92 mg/dL mg/dL] (08/07/18 10:43 AM) Calcium Lvl 9.1 mg/dL [8.5-10.5 mg/dL] (08/07/18 10:43 AM) 1Result Comment: The eGFR is calculated using [...] be mul tiplied by the estimated BMI. HEMATOLOGY Most recent to 1 oldest [Reference Range]: WBC [3.7-10.4 K/CMM] 13.1 K/CMM *HI* (08/07/18 10:43 AM) RBC [4.20-5.40 4.36 M/CMM M/CMM] (08/07/18 10:43 AM) Hgb [12.0-16.0 g/dL] 13.8 g/dL (08/07/18 10:43 AM) Hct [36.0-48.0 %] 42.1 % (08/07/18 10:43 AM) MCV [80.0-98.0 fL] 96.6 fL (08/07/18 10:43 AM) MCH [27.0-31.0 pg] 31.7 pg *HI* (08/07/18 10:43 AM) MCHC [32.0-36.0 32.8 g/dL g/dL] (08/07/18 10:43 AM) RDW [11.5-14.5 %] 14.5 % (08/07/18 10:43 AM) MPV [7.4-10.4 fL] 9.7 fL (08/07/18 10:43 AM) Platelet [133-450 292 K/CMM K/CMM] (08/07/18 10:43 AM) Segs [45.0-75.0 %] 65.0 % (08/07/18 10:43 AM) Bands [0.0-11.0 %] 0.0 % (08/07/18 10:43 AM) Lymphocytes 27.0 % [20.0-40.0 %] (08/07/18 10:43 AM) Atypical Lymphs 0.0 % [<=0.0 %] (08/07/18 10:43 AM) Monocytes [2.0-12.0 7.0 % %] (08/07/18 10:43 AM) Eosinophils [0.0-4.0 1.0 % %] (08/07/18 10:43 AM) Neutrophils # 8.5 K/CMM [1.5-8.1 K/CMM] *HI* (08/07/18 10:43 AM) Lymphocytes # 3.5 K/CMM [1.0-5.5 K/CMM] (08/07/18 10:43 AM) Monocytes # [0.0-0.8 0.9 K/CMM K/CMM] *HI* (08/07/18 10:43 AM) Eosinophils # 0.1 K/CMM [0.0-0.5 K/CMM] (08/07/18 10:43 AM) RBC Morph Normal (08/07/18 10:43 AM) Plt Morph Normal (08/07/18 10:43 AM) PT [12.0-14.7 12.8 seconds seconds] (08/07/18 10:43 AM) INR [0.85-1.17] 0.98 (08/07/18 10:43 AM) POC Activated 179 seconds Clotting Time *NA* (08/07/18 2:40 PM) PTT [22.9-35.8 27.3 seconds seconds] (08/07/18 10:43 AM) Immunizations No data available for this section Procedures Procedure Date Related Diagnosis Body Site Status Atherectomy Completed Corneal transplant Completed ICD - Internal cardiac defibrillator Completed procedure Tubal ligation Completed Social History Social History Type Response Substance Abuse Use: None. Alcohol Current, Frequency: 1-2 times per week. Smoking Status Current every day smoker; Type: Cigarettes; Previous treatment: None; Ready to change: No; Concerns about tobacco use in household: No; Exposure to Tobacco Smoke None; Cigarette Smoking Last 365 Days Yes; Reg Smoking Cessation Counseling No1 entered on: 08/07/18 1QUIT APPROX A WEEK AGO PER PT Assessment and Plan No data available for this section
--- OUTSIDE RECORDS SUMMARY | 2018-08-12 12:57 | XMS REPORT | Summary of Care ---
Author Organization Unknown Address Unknown Phone Unavailable Encounter HQ Analia(JUDD) [id number] Date(s): 09/10/14 - 09/10/14 [facility] [address] [employer] provided by [facility] [place] [address]- Discharge Disposition: Home Physician Attending: Natasha Juarez MD Physician Admitting: Natasha Juarez MD Physician_Referring: Natasha Juarez MD Vital Signs 1 2 3 Most recent to oldest [Reference Range]: 160.02 cm (09/10/14 6:59 AM) 160.02 cm (09/10/14 6:58 AM) Height 97.5 DegF (09/10/14 7:21 AM) Temperature Oral [96.4-99.1 DegF] 134/82 mmHg (09/10/14 1:00 PM) 134/82 mmHg (09/10/14 12:45 PM) 124/77 mmHg (09/10/14 12:30 PM) Blood Pressure [90-140/60-90 mmHg] 72.727 kg (09/10/14 6:59 AM) 72.727 kg (09/10/14 6:58 AM) Weight 28.4 m2 (09/10/14 6:59 AM) 28.4 m2 (09/10/14 6:58 AM) Body Mass Index Problem List Condition Effective Dates Status Health Status Informant Asthma(Confirmed) Resolved Allergies, Adverse Reactions, Alerts Substance Reaction Severity Status NKDA Active Medications Aspirin Low Dose 81 mg oral tablet =1 tab, PO, Daily, 0 Refill(s) Start Date: 09/10/14 Status: Ordered Chantix 1 mg oral tablet 1 mg=1 tab, PO, BID, # 60 tab, 0 Refill(s) Start Date: 09/10/14 Stop Date: 10/10/14 Status: Ordered Claritin 10 mg oral tablet 10 mg=1 tab, PO, Daily, 0 Refill(s) Start Date: 09/10/14 Status: Ordered hydrOXYzine hydrochloride 25 mg oral tablet 25 mg=1 tab, PO, QID, PRN Itching, # 40 tab, 0 Refill(s) Start Date: 09/10/14 Stop Date: 09/20/14 Status: Ordered lisinopril 5 mg oral tablet 5 mg=1 tab, PO, Daily, # 30 tab, 0 Refill(s) Start Date: 09/10/14 Status: Ordered One-A-Day 50+ oral tablet 1 tab, PO, Daily, # 30 tab, 0 Refill(s) Start Date: 09/10/14 Status: Ordered pantoprazole 40 mg oral enteric coated tablet 40 mg=1 tab, PO, Daily, # 30 tab, 0 Refill(s) Start Date: 09/10/14 Status: Ordered predniSONE 10 mg oral tablet 10 mg=1 tab, PO, as directed, 0 Refill(s) Special Instructions: as directed Start Date: 09/10/14 Status: Ordered Primatene oral tablet PO, 0 Refill(s) Start Date: 09/10/14 Status: Ordered Sodium Chloride 0.9% (Bolus) IV 250 mL, 250 ml/hr, Infuse Over: 1 hr, Route: IV, 250, Drug form: INJ, ONCE, Prio rity: Routine, Dosing Weight 72.727 kg, Start date: 09/10/14 7:14:00, Duration: 1 doses or times, Stop date: 09/10/14 7:14:00 Start Date: 09/10/14 Stop Date: 09/10/14 Status: Completed Sodium Chloride 0.9% IV 750 mL 750 mL, Rate: 75 ml/hr, Infuse over: 10 hr, Route: IV, Dosing Weight 72.727 kg, Total Volume: 750, Start date: 09/10/14 10:49:00, Duration: 1 doses or times, St op date: 09/10/14 20:48:00 Start Date: 09/10/14 Stop Date: 09/10/14 Status: Discontinued Sodium Chloride 0.9% IV 750 mL 750 mL, Rate: 75 ml/hr, Infuse over: 10 hr, Route: IV, Dosing Weight 72.727 kg, Total Volume: 750, Start date: 09/10/14 7:14:00, Duration: 1 doses or times, Sto p date: 09/10/14 17:13:00 Start Date: 09/10/14 Stop Date: 09/10/14 Status: Discontinued Symbicort 160/4.5 inhalation aerosol with adapter 2 puff, INHALATION, BID, # 6 gm, 0 Refill(s) Start Date: 09/10/14 Status: Ordered Vitamin B-12 1000 mcg sublingual tablet 1,000 microgram=1 tab, SL, Daily, 0 Refill(s) Start Date: 09/10/14 Status: Ordered Results BLOOD BANK RESULTS Most recent to 1 oldest [Reference Range]: ABO/Rh A POS *Unknown* (09/10/14 7:24 AM) Antibody Scrn Negative (09/10/14 7:24 AM) ELECTROLYTES Most recent to 1 oldest [Reference Range]: Sodium Lvl [135-145 142 mEq/L mEq/L] (09/10/14 7:24 AM) Potassium Lvl 4.4 mEq/L [3.5-5.1 mEq/L] (09/10/14 7:24 AM) Chloride Lvl [95-109 106 mEq/L mEq/L] (09/10/14 7:24 AM) CO2 [24-32 mEq/L] 26 mEq/L (09/10/14 7:24 AM) AGAP [10.0-20.0 14.4 mEq/L mEq/L] (09/10/14 7:24 AM) CHEM PANEL Most recent to 1 oldest [Reference Range]: Creatinine Lvl 0.7 mg/dL [0.5-1.4 mg/dL] (09/10/14 7:24 AM) eGFR 95 mL/min/1.73m2 1 *NA* (09/10/14 7:24 AM) BUN [7-22 mg/dL] 14 mg/dL (09/10/14 7:24 AM) Glucose Lvl [70-99 139 mg/dL 2 mg/dL] *HI* (09/10/14 7:24 AM) Calcium Lvl 9.2 mg/dL [8.5-10.5 mg/dL] (09/10/14 7:24 AM) Magnesium Lvl 2.0 mg/dL [1.8-2.4 mg/dL] (09/10/14 7:24 AM) 1Result Comment: The eGFR is calculated [...] be mul tiplied by the estimated BMI. 2Interpretive Data: Adult reference range values reflect the clinical guidelines of the [place] [employer]. HEMATOLOGY Most recent to 1 oldest [Reference Range]: WBC [3.7-10.4 K/CMM] 12.5 K/CMM *HI* (09/10/14 7:24 AM) RBC [4.20-5.40 4.24 M/CMM M/CMM] (09/10/14 7:24 AM) Hgb [12.0-16.0 g/dL] 13.0 g/dL (09/10/14 7:24 AM) Hct [36.0-48.0 %] 40.2 % (09/10/14 7:24 AM) MCV [80.0-98.0 fL] 94.8 fL (09/10/14 7:24 AM) MCH [27.0-31.0 pg] 30.6 pg (09/10/14 7:24 AM) MCHC [32.0-36.0 32.3 g/dL g/dL] (09/10/14 7:24 AM) RDW [11.5-14.5 %] 14.5 % (09/10/14 7:24 AM) Platelet [133-450 277 K/CMM K/CMM] (09/10/14 7:24 AM) MPV [7.4-10.4 fL] 9.6 fL (09/10/14 7:24 AM) Segs [45.0-75.0 %] 80.7 % *HI* (09/10/14 7:24 AM) Lymphocytes 11.0 % [20.0-40.0 %] *LOW* (09/10/1424 AM) Monocytes [2.0-12.0 7.6 % %] (09/10/14 7:24 AM) Eosinophils [0.0-4.0 0.5 % %] (09/10/14 7:24 AM) Basophils [0.0-1.0 0.2 % %] (09/10/14 7:24 AM) Segs-Bands # 10.1 K/CMM [1.5-8.1 K/CMM] *HI* (09/10/14 7:24 AM) Lymphocytes # 1.4 K/CMM [1.0-5.5 K/CMM] (09/10/14 7:24 AM) Monocytes # [0.0-0.8 0.9 K/CMM K/CMM] *HI* (09/10/14 7:24 AM) Eosinophils # 0.1 K/CMM [0.0-0.5 K/CMM] (09/10/14 7:24 AM) Basophils # [0.0-0.2 0.4 K/CMM K/CMM] *HI* (09/10/14 7:24 AM) RBC Morph Normal (09/10/14 7:24 AM) Plt Morph See Note 3 (09/10/14 7:24 AM) PT [12.0-14.7 13.4 seconds seconds] (09/10/14 7:24 AM) INR [0.85-1.17] 1.02 4 (09/10/14 7:24 AM) PTT [22.9-35.8 26.0 seconds 5 seconds] (09/10/14 7:24 AM) 3Result Comment: Due to occassional clumps, the actual count may be slightly higher. 4Interpretive Data: RECOMMENDED RANGES FOR PROTIME INR: 2.0-3.0 for most medical and surgical thromboembolic states. 2.5-3.5 for artificial heart valves and recurrent embolism. INR SHOULD BE USED ONLY FOR PATIENTS ON STABLE ANTICOAGULANT THERAPY. 5Interpretive Data: Heparin Therapeutic Range: 57 - 92 Seconds Immunizations No data available for this section Procedures No data available for this section Social History No data available for this section Assessment and Plan No data available for this section
--- OUTSIDE RECORDS SUMMARY | 2018-08-12 12:57 | XMS REPORT | Summary of Care ---
Author Author [facility] Organization [facility] Address Unknown Phone Unavailable Encounter HQ Analia(JUDD) [id number] Date(s): 06/06/16 - 06/07/16 [facility] [address] provided by [facility] [employer] [facility] [place] [address]- Discharge Disposition: Home or Self Care Attending Physician: Tami Bolton MD Admitting Physician: Tami Bolton MD Referring Physician: Tami Bolton MD Vital Signs 1 2 3 Most recent to oldest [Reference Range]: 160.02 cm (06/06/16 5:58 AM) Height 97.7 DegF (06/06/16 9:45 PM) 97.8 DegF (06/06/16 7:00 AM) 98.2 DegF (06/06/16 6:15 AM) Temperature Oral [96.4-99.1 DegF] 130/78 mmHg (06/07/16 4:29 AM) 132/63 mmHg (06/07/16 12:52 AM) 128/66 mmHg (06/06/16 9:45 PM) Blood Pressure [90-140/60-90 mmHg] 70.455 kg (06/06/16 5:58 AM) Weight 27.51 m2 (06/06/16 5:58 AM) Body Mass Index Problem List Condition [...] Status chlorhexidine topical Active statins Resolved Medications acetaminophen-codeine #3 2 tab, Route: PO, Drug Form: TAB, Dosing Weight 70.455, kg, Q4H, PRN Pain Score 7-10, Start date: 06/06/16 12:24:00 [employer], Duration: 30 day, Stop date: 07/06/16 1 2:23:00 [employer] Notes: Do not exceed 4gm/day of acetaminophen. (Same as: Tylenol with Codeine # 3) Start Date: 06/06/16 Stop Date: 06/07/16 Status: Discontinued acetaminophen-codeine #3 1 tab, Route: PO, Drug Form: TAB, Dosing Weight 70.455, kg, Q4H, PRN Pain Score 4-6, Start date: 06/06/16 12:24:00 [employer], Duration: 30 day, Stop date: 07/06/16 12 :23:00 [employer] Notes: Do not exceed 4gm/day of acetaminophen. (Same as: Tylenol with Codeine # 3) Start Date: 06/06/16 Stop Date: 06/07/16 Status: Discontinued acetaminophen-codeine 300 mg-30 mg oral tablet 2 tab, PO, Q4H, PRN Pain Score 4-6, X 5 day, # 60 tab, 0 Refill(s) Start Date: 06/07/16 Stop Date: 06/12/16 Status: Ordered Advair Diskus 100 mcg-50 mcg inhalation powder 1 puff, Route: INHALATION, Drug Form: PWDR, Dosing Weight 70.455, kg, BID, Start date: 06/07/16 9:00:00 [employer], Duration: 30 day, Stop date: 07/06/16 17:00:00 [employer] Start Date: 06/07/16 Stop Date: 06/06/16 Status: Discontinued aspirin 81 mg tablet, enteric coated 81 mg, 1 tab, Route: PO, Drug form: ECTAB, Daily, Dosing Weight 70.455, kg, Star t date: 06/07/16 9:00:00 [employer], Duration: 30 day, Stop date: 07/06/16 9:00:00 [employer] Notes: Do not crush or chew.(Same As: Ecotrin) Start Date: 06/07/16 Stop Date: 06/07/16 Status: Discontinued carvedilol 6.25 mg, 1 tab, Route: PO, Drug form: TAB, BID, Dosing Weight 70.455, kg, Start date: 06/07/16 9:00:00 [employer], Duration: 30 day, Stop date: 07/06/16 17:00:00 [employer]ER Notes: Give with food. (Same As: Coreg) Start Date: 06/07/16 Stop Date: 06/07/16 Status: Discontinued ceFAZolin 2 gm, 100 mL, Route: IVPB, Drug form: INJ, ONCE, Dosing Weight 70.455, kg, Start date: 06/06/16 6:06:00 SAX[employer] PLAYER, Duration: 1 doses or times, Stop date: 06/06/16 6:0 6:00 SAX[employer]ER, Surgical Prophylaxis Only; For patients < 120 kg Notes: Same as: Ancef Start Date: 06/06/16 Stop Date: 06/06/16 Status: Completed Chantix 1 mg, 2 tab, Route: PO, Drug form: TAB, Daily, Dosing Weight 70.455, kg, Start d ate: 06/07/16 9:00:00 [employer], Duration: 30 day, Stop date: 07/06/16 9:00:00 [employer]ER Notes: Same as Chantix Start Date: 06/07/16 Stop Date: 06/07/16 Status: Discontinued Chantix 1 mg oral tablet 1 mg=1 tab, PO, Daily, # 30 tab, 0 Refill(s) Start Date: 06/06/16 Stop Date: 07/06/16 Status: Ordered clopidogrel 75 mg, 1 tab, Route: PO, Drug form: TAB, Daily, Dosing Weight 70.455, kg, Start date: 06/07/16 9:00:00 [employer], Duration: 30 day, Stop date: 07/06/16 9:00:00 [employer]ER Notes: (Same As: Plavix) Start Date: 06/07/16 Stop Date: 06/07/16 Status: Discontinued lisinopril 5 mg, 1 tab, Route: PO, Drug form: TAB, Daily, Dosing Weight 70.455, kg, Start d ate: 06/07/16 9:00:00 [employer], Duration: 30 day, Stop date: 07/06/16 9:00:00 [employer]ER Notes: (Same as: Prinivil, Zestril) Start Date: 06/07/16 Stop Date: 06/07/16 Status: Discontinued ondansetron 4 mg, 2 mL, Route: IVP, Drug form: INJ, Q8H, Dosing Weight 70.455, kg, PRN Nause a & Vomiting, Start date: 06/06/16 12:24:00 [employer], Duration: 30 day, Stop date: 07/06/16 12:23:00 [employer]ER Notes: (Same as: Heidi) MEDICATION WASTE Product Size: 4 mgProduct Was jaswinder: ___ mg Start Date: 06/06/16 Stop Date: 06/07/16 Status: Discontinued pantoprazole 40 mg, 1 tab, Route: PO, Drug form: ECTAB, Daily, Dosing Weight 70.455, kg, Star t date: 06/07/16 9:00:00 [employer], Duration: 30 day, Stop date: 07/06/16 9:00:00 [employer]ER Notes: Tablet should not be chewed or crushed.(Same as: Protonix) Start Date: 06/07/16 Stop Date: 06/07/16 Status: Discontinued pravastatin 20 mg, 1 tab, Route: PO, Drug form: TAB, Bedtime, Dosing Weight 70.455, kg, Star t date: 06/06/16 21:00:00 SA[employer]ER, Duration: 30 day, Stop date: 07/05/16 21:00:00 CS T Notes: (Same as: Pravachol) Start Date: 06/06/16 Stop Date: 06/07/16 Status: Discontinued pravastatin 20 mg oral tablet 20 mg=1 tab, PO, Bedtime, # 90 tab, 1 Refill(s) Start Date: 06/06/16 Status: Ordered predniSONE 40 mg, 2 tab, Route: PO, Drug form: TAB, Daily, Dosing Weight 70.455, kg, Start date: 06/07/16 9:00:00 [employer]ER, Duration: 30 day, Stop date: 07/06/16 9:00:00 [employer]ER Notes: Take with food. Start Date: 06/07/16 Stop Date: 06/07/16 Status: Discontinued sodium chloride 0.9% 1000 ml INJ 1,000 mL 1,000 mL, Rate: 50 ml/hr, Infuse over: 20 hr, Route: IV, Dosing Weight 70.455 kg , Total Volume: 1,000, Start date: 06/06/16 6:04:00 [employer]ER, Duration: 30 day, Stop date: 07/06/16 6:03:00 [employer]ER Start Date: 06/06/16 Stop Date: 06/07/16 Status: Discontinued Symbicort 160/4.5 inhalation aerosol with adapter 2 inhalation, Route: INHALATION, Drug Form: AERO/A, Dosing Weight 70.455, kg, BI D, Start date: 06/07/16 9:00:00 [employer]ER, Duration: 30 day, Stop date: 07/06/16 17:00 :00 [employer] PLAYER Notes: (Same as: Symbicort)WASTE: Aerosol - Return to Pharmacy Start Date: 06/07/16 Stop Date: 06/07/16 Status: Discontinued vancomycin 1,000 mg, Route: IVPB, Drug form: INJ, ABXQ8H, Dosing Weight 70.455, kg, Time Cr itical Medication, Start date: 06/06/16 17:00:00 [employer]ER, Duration: 1 day, Stop date : 06/07/16 9:00:00 [employer] PLAYER Notes: TIME CRITICAL MEDICATION(Same As: Vancocin)Infusion rate< 1000 mg: infuse over 1 [id number] - 1500 mg: infuse over 1.5 [id number] - 2000 mg: infuse over 2 hours> 2001 mg: infuse over 2.5 hours MEDICATION WASTE Product Size: 1000 mgProduct Wasted: ___ mg Start Date: 06/06/16 Stop Date: 06/07/16 Status: Completed Results BLOOD BANK RESULTS Most recent to 1 2 oldest [Reference Range]: ABO/Rh A POS *Unknown* (06/06/16 6:03 AM) Antibody Scrn Negative (06/06/16 6:03 AM) ELECTROLYTES Most recent to 1 2 oldest [Reference Range]: Sodium Lvl [135-145 142 mEq/L 139 mEq/L mEq/L] (06/07/16 3:19 AM) (06/06/16 6:03 AM) Potassium Lvl 3.7 mEq/L 3.7 mEq/L [3.5-5.1 mEq/L] (06/07/16 3:19 AM) (06/06/16 6:03 AM) Chloride Lvl [95-109 109 mEq/L 104 mEq/L mEq/L] (06/07/16 3:19 AM) (06/06/16 6:03 AM) CO2 [24-32 mEq/L] 26 mEq/L 27 mEq/L (06/07/16 3:19 AM) (06/06/16 6:03 AM) AGAP [10.0-20.0 10.7 mEq/L 11.7 mEq/L mEq/L] (06/07/16 3:19 AM) (06/06/16 6:03 AM) CHEM PANEL Most recent to 1 2 oldest [Reference Range]: Creatinine Lvl 0.65 mg/dL 0.74 mg/dL [0.50-1.40 mg/dL] (06/07/16 3:19 AM) (06/06/16 6:03 AM) eGFR 96 mL/min/1.73m2 1 88 mL/min/1.73m2 2 *NA* *NA* (06/07/16 3:19 AM) (06/06/16 6:03 AM) BUN [7-22 mg/dL] 11 mg/dL 16 mg/dL (06/07/16 3:19 AM) (06/06/16 6:03 AM) Glucose Lvl [70-99 100 mg/dL 144 mg/dL mg/dL] *HI* *HI* (06/07/16 3:19 AM) (06/06/16 6:03 AM) Calcium Lvl 8.1 mg/dL 9.0 mg/dL [8.5-10.5 mg/dL] *LOW* (06/06/16 6:03 AM) (06/07/16 3:19 AM) Magnesium Lvl 2.0 mg/dL [1.8-2.4 mg/dL] (06/06/16 6:03 AM) 1Result Comment: The eGFR is calculated [...] estimated BMI. HEMATOLOGY Most recent to 1 2 oldest [Reference Range]: WBC [3.7-10.4 K/CMM] 11.0 K/CMM 18.1 K/CMM *HI* *HI* (06/07/16 3:19 AM) (06/06/16 6:03 AM) RBC [4.20-5.40 3.65 M/CMM 3.94 M/CMM M/CMM] *LOW* *LOW* (06/07/16 3:19 AM) (06/06/16 6:03 AM) Hgb [12.0-16.0 g/dL] 11.2 g/dL 11.8 g/dL *LOW* *LOW* (06/07/16 3:19 AM) (06/06/16 6:03 AM) Hct [36.0-48.0 %] 34.3 % 36.5 % *LOW* (06/06/16 6:03 AM) (06/07/16 3:19 AM) MCV [80.0-98.0 fL] 93.9 fL 92.6 fL (06/07/16 3:19 AM) (06/06/16 6:03 AM) MCH [27.0-31.0 pg] 30.6 pg 30.1 pg (06/07/16 3:19 AM) (06/06/16 6:03 AM) MCHC [32.0-36.0 32.5 g/dL 32.4 g/dL g/dL] (06/07/16 3:19 AM) (06/06/16 6:03 AM) RDW [11.5-14.5 %] 14.3 % 14.6 % (06/07/16 3:19 AM) *HI* (06/06/16 6:03 AM) Platelet [133-450 241 K/CMM 306 K/CMM K/CMM] (06/07/16 3:19 AM) (06/06/16 6:03 AM) MPV [7.4-10.4 fL] 9.0 fL 8.6 fL (06/07/16 3:19 AM) (06/06/16 6:03 AM) Segs [45.0-75.0 %] 61.7 % 80.9 % (06/07/16 3:19 AM) *HI* (06/06/16 6:03 AM) Lymphocytes 25.5 % 10.9 % [20.0-40.0 %] (06/07/16 3:19 AM) *LOW* (06/06/16 6:03 AM) Monocytes [2.0-12.0 9.3 % 6.8 % %] (06/07/16 3:19 AM) (06/06/16 6:03 AM) Eosinophils [0.0-4.0 2.0 % 1.0 % %] (06/07/16 3:19 AM) (06/06/16 6:03 AM) Basophils [0.0-1.0 1.5 % 0.4 % %] *HI* (06/06/16 6:03 AM) (06/07/16 3:19 AM) Segs-Bands # 6.8 K/CMM 14.7 K/CMM [1.5-8.1 K/CMM] (06/07/16 3:19 AM) *HI* (06/06/16 6:03 AM) Lymphocytes # 2.8 K/CMM 2.0 K/CMM [1.0-5.5 K/CMM] (06/07/16 3:19 AM) (06/06/16 6:03 AM) Monocytes # [0.0-0.8 1.0 K/CMM 1.2 K/CMM K/CMM] *HI* *HI* (06/07/16 3:19 AM) (06/06/16 6:03 AM) Eosinophils # 0.2 K/CMM 0.2 K/CMM [0.0-0.5 K/CMM] (06/07/16 3:19 AM) (06/06/16 6:03 AM) Basophils # [0.0-0.2 0.2 K/CMM 0.1 K/CMM K/CMM] (06/07/16 3:19 AM) (06/06/16 6:03 AM) PT [12.0-14.7 13.1 seconds seconds] (06/06/16 6:03 AM) INR [0.85-1.17] 0.97 (06/06/16 6:03 AM) PTT [22.9-35.8 26.3 seconds seconds] (06/06/16 6:03 AM) Immunizations No data available for this [...] No Assessment and Plan Extracted from: Title: postop Author: Tami Bolton MD Date: 06/07/16 Comfortable and afebrile. Chest clear. Cor unchanged. Wound clean and dry. Mild edema of left hand with minimal venous prominence. WBC much improved at 11K with improved left shift. CXR - normal device position without PTX Device interrogation - normal function. Postop instructions given. She will resume her usual doxicyclin. Followup with me in 2 weeks.
--- OUTSIDE RECORDS SUMMARY | 2018-08-12 12:57 | XMS REPORT | Summary of Care ---
Author Organization Unknown Address Unknown Phone Unavailable Encounter HQ Encntr_aliibis(JUDD) [id number] Date(s): 07/10/14 - 07/10/[address] Discharge Disposition: Home Physician Attending: Timmy Jenkins MD Physician_Referring: Timmy Jenkins MD Vital Signs No data available for this section Problem List No data available for this section Allergies, Adverse Reactions, Alerts No data available for this section Medications No data available for this section Results No data available for this section Immunizations No data available for this section Procedures No data available for this section Social History No data available for this section Assessment and Plan No data available for this section
--- OUTSIDE RECORDS SUMMARY | 2018-08-12 12:57 | XMS REPORT | Summary of Care ---
Author Author [facility] Organization [facility] Address Unknown Phone Unavailable Encounter HQ Analia(JUDD) [id number] Date(s): 05/08/16 - 05/08/16 [facility] [address] [employer] provided by [employer] [facility] [place] [address]- Discharge Disposition: Home or Self Care Attending Physician: Natasha Juarez MD Admitting Physician: Natasha Juarez MD Referring Physician: Natasha Juarez MD Vital Signs 1 2 3 Most recent to oldest [Reference Range]: 161.29 cm (05/08/16 11:08 AM) Height 97.8 DegF (05/08/16 10:15 AM) Temperature Oral [96.4-99.1 DegF] 134/79 mmHg (05/08/16 9:45 PM) 134/83 mmHg (05/08/16 9:00 PM) 174/94 mmHg *HI* (05/08/16 8:45 PM) Blood Pressure [90-140/60-90 mmHg] 28 BRMIN *HI* (05/08/16 6:30 PM) 26 BRMIN *HI* (05/08/16 3:45 PM) 26 BRMIN *HI* (05/08/16 3:30 PM) Respiratory Rate [14-20 BRMIN] 71.364 kg (05/08/16 11:08 AM) Weight 27.43 m2 (05/08/16 11:08 AM) Body Mass Index Problem List Condition [...] Status chlorhexidine topical Active statins Resolved Medications Advair Diskus 100 mcg-50 mcg inhalation powder 1 puff, Route: INHALATION, Drug Form: PWDR, Dosing Weight 71.364, kg, BID, Start date: 05/08/16 17:00:00 HEALTH PROMOTER, Duration: 30 day, Stop date: 06/07/16 9:00:00 HEALTH PROMOTER Start Date: 05/08/16 Stop Date: 05/08/16 Status: Discontinued Advair Diskus 100 mcg-50 mcg inhalation powder 1 puff, INHALATION, BID, 0 Refill(s) Start Date: 05/08/16 Status: Ordered aspirin 81 mg, Route: PO, Daily, Dosing Weight 71.364, kg, Start date: 05/09/16 9:00:00 HEALTH PROMOTER, Duration: 30 day, Stop date: 06/07/16 9:00:00 HEALTH PROMOTER Start Date: 05/09/16 Stop Date: 05/08/16 Status: Discontinued aspirin 81 mg tablet, enteric coated 81 mg=1 tab, PO, Daily, 0 Refill(s) Start Date: 05/08/16 Status: Ordered aspirin 81 mg tablet, enteric coated 81 mg, 1 tab, Route: PO, Drug form: ECTAB, Daily, Dosing Weight 71.364, kg, Star t date: 05/09/16 9:00:00 HEALTH PROMOTER, Duration: 30 day, Stop date: 06/07/16 9:00:00 HEALTH PROMOTER Notes: Do not crush or chew.(Same As: Ecotrin) Start Date: 05/09/16 Stop Date: 05/08/16 Status: Canceled carvedilol 6.25 mg, 1 tab, Route: PO, Drug form: TAB, Q12H, Dosing Weight 71.364, kg, Start date: 05/08/16 21:00:00 HEALTH PROMOTER, Duration: 30 day, Stop date: 06/07/16 9:00:00 HEALTH PROMOTER Notes: Give with food. (Same As: Coreg) Start Date: 05/08/16 Stop Date: 05/08/16 Status: Discontinued carvedilol 6.25 mg oral tablet 6.25 mg=1 tab, PO, Q12H, 0 Refill(s) Start Date: 05/08/16 Status: Ordered Chantix 1 mg, Route: PO, Drug form: TAB, BID, Dosing Weight 71.364, kg, Start date: 04/20 02/03 17:00:00 HEALTH PROMOTER, Duration: 30 day, Stop date: 06/07/16 9:00:00 HEALTH PROMOTER Start Date: 05/08/16 Stop Date: 05/08/16 Status: Discontinued cilostazol 100 mg, Route: PO, Drug form: TAB, BID, Dosing Weight 71.364, kg, Start date: 17:00:00 HEALTH PROMOTER, Duration: 30 day, Stop date: 06/07/16 9:00:00 HEALTH PROMOTER Start Date: 05/08/16 Stop Date: 05/08/16 Status: Discontinued cilostazol 100 mg oral tablet 100 mg, PO, BID, 0 Refill(s) Start Date: 05/08/16 Status: Ordered clopidogrel 75 mg, 1 tab, Route: PO, Drug form: TAB, Daily, Dosing Weight 71.364, kg, Start date: 05/09/16 9:00:00 HEALTH PROMOTER, Duration: 30 day, Stop date: 06/07/16 9:00:00 HEALTH PROMOTER Notes: (Same As: Plavix) Start Date: 05/09/16 Stop Date: 05/08/16 Status: Canceled clopidogrel 75 mg oral tablet 75 mg=1 tab, PO, Daily, 0 Refill(s) Start Date: 05/08/16 Status: Ordered cyanocobalamin 1,000 microgram, Route: SL, Drug form: TAB, Daily, Dosing Weight 71.364, kg, Sta rt date: 05/09/16 9:00:00 HEALTH PROMOTER, Duration: 30 day, Stop date: 06/07/16 9:00:00 HEALTH PROMOTER Start Date: 05/09/16 Stop Date: 05/08/16 Status: Discontinued cyanocobalamin 1000 mcg with salcaprozate sodium oral tablet 1,000 microgram, SL, Daily, 0 Refill(s) Start Date: 05/08/16 Status: Ordered dextromethorphan/doxylamine/pseudoephedrine 10 mL, Route: PO, Dosing Weight 71.364, kg, Q6H, Start date: 05/08/16 18:00:[address], Duration: 30 day, Stop date: 06/07/16 12:00:00 HEALTH PROMOTER Start Date: 05/08/16 Stop Date: 05/08/16 Status: Discontinued dextromethorphan/doxylamine/pseudoephedrine 10 mL, PO, Q6H, 0 Refill(s) Start Date: 05/08/16 Status: Ordered lisinopril 5 mg, 1 tab, Route: PO, Drug form: TAB, Daily, Dosing Weight 71.364, kg, Start d ate: 05/09/16 9:00:00 HEALTH PROMOTER, Duration: 30 day, Stop date: 06/07/16 9:00:00 HEALTH PROMOTER Notes: (Same as: Prinivil, Zestril) Start Date: 05/09/16 Stop Date: 05/08/16 Status: Canceled morphine Sulfate 2 mg, 1 mL, Route: IVP, Drug form: INJ, ONCE, Dosing Weight 71.364, kg, Start da te: 05/08/16 20:11:00 HEALTH PROMOTER, Stop date: 05/08/16 20:11:00 HEALTH PROMOTER Notes: (Same as:MORPhine Sulfate) Start Date: 05/08/16 Stop Date: 05/08/16 Status: Completed multivitamin Route: PO, Drug Form: TAB, Dosing Weight 71.364, kg, Daily, Start date: 05/09/16 9:00:00 HEALTH PROMOTER, Duration: 30 day, Stop date: 06/07/16 9:00:00 HEALTH PROMOTER Start Date: 05/09/16 Stop Date: 05/08/16 Status: Discontinued nitroglycerin SL Tab 0.4 mg, 1 tab, Route: SL, Drug form: TAB, Q5Min, Dosing Weight 71.364, kg, PRN C hest Pain, Start date: 05/08/16 16:31:00 HEALTH PROMOTER, Duration: 3 doses or times, Stop d ate: Limited # of times Notes: (Same as:Nitroquick, Nitrostat)"Do Not Crush" Sublingual tablet Start Date: 05/08/16 Stop Date: 05/08/16 Status: Discontinued pantoprazole 40 mg, 1 tab, Route: PO, Drug form: ECTAB, Daily, Dosing Weight 71.364, kg, Star t date: 05/09/16 9:00:00 HEALTH PROMOTER, Duration: 30 day, Stop date: 06/07/16 9:00:00 HEALTH PROMOTER Notes: Tablet should not be chewed or crushed.(Same as: Protonix) Start Date: 05/09/16 Stop Date: 05/08/16 Status: Canceled Plavix 75 mg, Route: PO, Drug form: TAB, Daily, Dosing Weight 71.364, kg, Start date: 1 07/10/15 9:00:00 HEALTH PROMOTER, Duration: 30 day, Stop date: 06/07/16 9:00:00 HEALTH PROMOTER Start Date: 05/09/16 Stop Date: 05/08/16 Status: Discontinued Sodium Chloride 0.9% (Bolus) IV 250 mL, 250 ml/hr, Infuse Over: 1 hr, Route: IV, 250, Drug form: INJ, ONCE, Dosi ng Weight 71.364 kg, Start date: 05/08/16 16:31:00 HEALTH PROMOTER, Duration: 1 doses or gordon es, Stop date: 05/08/16 16:31:00 HEALTH PROMOTER Start Date: 05/08/16 Stop Date: 05/08/16 Status: Completed sodium chloride 0.9% 1000 ml INJ 750 mL 750 mL, Rate: 75 ml/hr, Infuse over: 10 hr, Route: IV, Dosing Weight 71.364 kg, Total Volume: 750, Start date: 05/08/16 16:31:00 HEALTH PROMOTER, Duration: 10 hr, Stop date : 05/09/16 2:30:00 HEALTH PROMOTER Start Date: 05/08/16 Stop Date: 05/08/16 Status: Discontinued Symbicort 160/4.5 inhalation aerosol with adapter 2 puff, Route: INHALATION, Drug Form: AERO/A, Dosing Weight 71.364, kg, BID, Sta rt date: 05/08/16 17:00:00 HEALTH PROMOTER, Duration: 30 day, Stop date: 06/07/16 9:00:00 CS T Start Date: 05/08/16 Stop Date: 05/08/16 Status: Discontinued Symbicort 160/4.5 inhalation aerosol with adapter 2 puff, INHALATION, BID, 0 Refill(s) Start Date: 05/08/16 Status: Ordered Vitamin B12 with Folic Acid sublingual tablet 50, PO, Daily, 0 Refill(s) Start Date: 05/08/16 Status: Ordered Results BLOOD BANK RESULTS Most recent to 1 2 oldest [Reference Range]: ABO/Rh A POS *Unknown* (05/08/16 11:12 AM) Antibody Scrn Negative (05/08/16 11:12 AM) ELECTROLYTES Most recent to 1 2 oldest [Reference Range]: Sodium Lvl [135-145 145 mEq/L mEq/L] (05/08/16 11:12 AM) Potassium Lvl 3.9 mEq/L [3.5-5.1 mEq/L] (05/08/16 11:12 AM) Chloride Lvl [95-109 108 mEq/L mEq/L] (05/08/16 11:12 AM) CO2 [24-32 mEq/L] 29 mEq/L (05/08/16 11:12 AM) AGAP [10.0-20.0 11.9 mEq/L mEq/L] (05/08/16 11:12 AM) CHEM PANEL Most recent to 1 2 oldest [Reference Range]: Creatinine Lvl 0.92 mg/dL [0.50-1.40 mg/dL] (05/08/16 11:12 AM) eGFR 67 mL/min/1.73m2 1 *NA* (05/08/16 11:12 AM) BUN [7-22 mg/dL] 16 mg/dL (05/08/16 11:12 AM) Glucose Lvl [70-99 95 mg/dL mg/dL] (05/08/16 11:12 AM) Calcium Lvl 8.9 mg/dL [8.5-10.5 mg/dL] (05/08/16 11:12 AM) Magnesium Lvl 2.0 mg/dL [1.8-2.4 mg/dL] (05/08/16 11:12 AM) 1Result Comment: The eGFR is calculated [...] 2 oldest [Reference Range]: WBC [3.7-10.4 K/CMM] 14.9 K/CMM *HI* (05/08/16 11:12 AM) RBC [4.20-5.40 4.37 M/CMM M/CMM] (05/08/16 11:12 AM) Hgb [12.0-16.0 g/dL] 13.2 g/dL (05/08/16 11:12 AM) Hct [36.0-48.0 %] 40.7 % (05/08/16 11:12 AM) MCV [80.0-98.0 fL] 93.3 fL (05/08/16 11:12 AM) MCH [27.0-31.0 pg] 30.2 pg (05/08/16 11:12 AM) MCHC [32.0-36.0 32.4 g/dL g/dL] (05/08/16 11:12 AM) RDW [11.5-14.5 %] 15.2 % *HI* (05/08/16 11:12 AM) Platelet [133-450 266 K/CMM K/CMM] (05/08/16 11:12 AM) MPV [7.4-10.4 fL] 9.5 fL (05/08/16 11:12 AM) Segs [45.0-75.0 %] 78.0 % *HI* (05/08/16 11:12 AM) Lymphocytes 13.6 % [20.0-40.0 %] *LOW* (05/08/16 11:12 AM) Monocytes [2.0-12.0 6.9 % %] (05/08/16 11:12 AM) Eosinophils [0.0-4.0 1.0 % %] (05/08/16 11:12 AM) Basophils [0.0-1.0 0.5 % %] (05/08/16 11:12 AM) Segs-Bands # 11.6 K/CMM [1.5-8.1 K/CMM] *HI* (05/08/16 11:12 AM) Lymphocytes # 2.0 K/CMM [1.0-5.5 K/CMM] (05/08/16 11:12 AM) Monocytes # [0.0-0.8 1.0 K/CMM K/CMM] *HI* (05/08/16 11:12 AM) Eosinophils # 0.1 K/CMM [0.0-0.5 K/CMM] (05/08/16 11:12 AM) Basophils # [0.0-0.2 0.1 K/CMM K/CMM] (05/08/16 11:12 AM) PT [12.0-14.7 13.1 seconds seconds] (05/08/16 11:12 AM) INR [0.85-1.17] 0.97 (05/08/16 11:12 AM) POC Activated 179 seconds 246 seconds Clotting Time *NA* *NA* (05/08/16 6:02 PM) (05/08/16 3:58 PM) PTT [22.9-35.8 25.2 seconds seconds] (05/08/16 11:12 AM) Immunizations No data available for this section Procedures Procedure Date Related Diagnosis Body Site Atherectomy Corneal transplant Tubal ligation Social History Social History Type Response Smoking Status Former smoker; Exposure to Tobacco Smoke None; Cigarette Smoking Last 365 Days No; Reg Smoking Cessation Counseling No Assessment and Plan No data available for this section
--- OUTSIDE RECORDS SUMMARY | 2018-08-12 12:57 | XMS REPORT | Summary of Care ---
Author Organization Unknown Address Unknown Phone Unavailable Encounter HQ Encntr_aliibis(JUDD) [id number] Date(s): 07/16/14 - 07/16/[address] Discharge Disposition: Home Physician Attending: Timmy [...]
--- OUTSIDE RECORDS SUMMARY | 2018-08-12 12:57 | XMS REPORT | Summary of Care ---
Author Author [facility] Organization [facility] Address Unknown Phone Unavailable Encounter TOO Helms(JUDD) [id number] Date(s): 04/10/16 - 04/11/16 [facility] [address] [employer] provided by [facility] [employer] [facility] [place] [address]- Discharge Disposition: Home or Self Care Attending Physician: Natasha Juarez MD Admitting Physician: Natasha Juarez MD Referring Physician: Natasha Juarez MD Vital Signs 1 2 3 Most recent to oldest [Reference Range]: 160.02 cm (04/10/16 11:25 AM) Height 98.0 DegF (04/11/16 8:00 AM) Temperature Oral [96.4-99.1 DegF] 121/73 mmHg (04/11/16 8:00 AM) 120/67 mmHg (04/11/16 5:44 AM) 136/82 mmHg (04/10/16 10:00 PM) Blood Pressure [90-140/60-90 mmHg] 18 BRMIN (04/11/16 8:00 AM) Respiratory Rate [14-20 BRMIN] 72.273 kg (04/10/16 11:25 AM) Weight 28.22 m2 (04/10/16 11:25 AM) Body Mass Index Problem List Condition Effective Dates Status Health Status Informant Asthma(Confirmed) Resolved Allergies, Adverse Reactions, Alerts Substance Reaction Severity Status NKDA Active statins Active Medications Advair Diskus 100 mcg-50 mcg inhalation powder 1 puff, Route: INHALATION, Drug Form: PWDR, Dosing Weight 72.273, kg, BID, Start date: 04/10/16 17:00:00 INSTRUMENT LENS GRINDER, Duration: 30 day, Stop date: 05/10/16 9:00:00 INSTRUMENT LENS GRINDER Start Date: 04/10/16 Stop Date: 04/10/16 Status: Discontinued Advair Diskus 100 mcg-50 mcg inhalation powder 1 puff, INHALATION, BID, 0 Refill(s) Start Date: 04/10/16 Status: Ordered aspirin 81 mg, 1 tab, Route: PO, Drug form: CHEWTAB, Daily, Dosing Weight 72.273, kg, St art date: 04/11/16 9:00:00 INSTRUMENT LENS GRINDER, Duration: 30 day, Stop date: 05/10/16 9:00:00 CS T Notes: Take with food. Start Date: 04/11/16 Stop Date: 04/11/16 Status: Discontinued carvedilol 6.25 mg, 1 tab, Route: PO, Drug form: TAB, BID, Dosing Weight 72.273, kg, Start date: 04/10/16 21:00:00 INSTRUMENT LENS GRINDER, Duration: 30 day, Stop date: 05/10/16 9:00:00 INSTRUMENT LENS GRINDER Start Date: 04/10/16 Stop Date: 04/11/16 Status: Discontinued carvedilol 6.25 mg oral tablet 6.25 mg=1 tab, PO, BID, 0 Refill(s) Start Date: 04/10/16 Status: Ordered Chantix 1 mg, 2 tab, Route: PO, Drug form: TAB, BID, Dosing Weight 72.273, kg, Start christian e: 04/10/16 21:00:00 INSTRUMENT LENS GRINDER, Duration: 30 day, Stop date: 05/10/16 9:00:00 INSTRUMENT LENS GRINDER Notes: Same as Chantix Start Date: 04/10/16 Stop Date: 04/11/16 Status: Discontinued cilostazol 100 mg, 1 tab, Route: PO, Drug form: TAB, BID, Dosing Weight 72.273, kg, Start d ate: 04/10/16 21:00:00 INSTRUMENT LENS GRINDER, Duration: 30 day, Stop date: 05/10/16 9:00:00 INSTRUMENT LENS GRINDER Notes: Non-Formulary Drug. (Same As: Pletal) Start Date: 04/10/16 Stop Date: 04/11/16 Status: Discontinued cilostazol 100 mg oral tablet 100 mg, PO, BID, # 90 tab, 1 Refill(s) Start Date: 04/10/16 Status: Ordered cyanocobalamin 1,000 microgram, 1 tab, Route: PO, Drug form: TAB, Daily, Dosing Weight 72.273, kg, Start date: 04/11/16 9:00:00 INSTRUMENT LENS GRINDER, Duration: 30 day, Stop date: 05/10/16 9:00 :00 INSTRUMENT LENS GRINDER Notes: (Same As: Vitamin B-12) Start Date: 04/11/16 Stop Date: 04/11/16 Status: Discontinued lisinopril 5 mg, 1 tab, Route: PO, Drug form: TAB, Daily, Dosing Weight 72.273, kg, Start d ate: 04/11/16 9:00:00 INSTRUMENT LENS GRINDER, Duration: 30 day, Stop date: 05/10/16 9:00:00 INSTRUMENT LENS GRINDER Notes: (Same as: Prinivil, Zestril) Start Date: 04/11/16 Stop Date: 04/11/16 Status: Discontinued morphine Sulfate 2 mg, Route: IVP, ONCE, Dosing Weight 72.273, kg, Start date: 04/10/16 18:18:00 INSTRUMENT LENS GRINDER, Stop date: 04/10/16 18:18:00 INSTRUMENT LENS GRINDER Start Date: 04/10/16 Stop Date: 04/10/16 Status: Completed nitroglycerin SL Tab 0.4 mg, 1 tab, Route: SL, Drug form: TAB, Q5Min, Dosing Weight 72.273, kg, PRN C hest Pain, Start date: 04/10/16 16:41:00 INSTRUMENT LENS GRINDER, Duration: 3 doses or times, Stop d ate: Limited # of times Notes: (Same as:Nitroquick, Nitrostat)"Do Not Crush" Sublingual tablet Start Date: 04/10/16 Stop Date: 04/11/16 Status: Discontinued pantoprazole 40 mg, 1 tab, Route: PO, Drug form: ECTAB, Daily, Dosing Weight 72.273, kg, Star t date: 04/11/16 9:00:00 INSTRUMENT LENS GRINDER, Duration: 30 day, Stop date: 05/10/16 9:00:00 INSTRUMENT LENS GRINDER Notes: Tablet should not be chewed or crushed.(Same as: Protonix) Start Date: 04/11/16 Stop Date: 04/11/16 Status: Discontinued Plavix 75 mg oral tablet 75 mg=1 tab, PO, Daily, # 90 tab, 1 Refill(s) Start Date: 04/11/16 Status: Ordered predniSONE 40 mg, 2 tab, Route: PO, Drug form: TAB, Daily, Dosing Weight 72.273, kg, Start date: 04/11/16 9:00:00 INSTRUMENT LENS GRINDER, Duration: 30 day, Stop date: 05/10/16 9:00:00 INSTRUMENT LENS GRINDER Start Date: 04/11/16 Stop Date: 04/11/16 Status: Discontinued predniSONE 20 mg oral tablet 40 mg=2 tab, PO, Daily, 0 Refill(s) Start Date: 04/10/16 Status: Ordered sodium chloride 0.9% 1000 ml INJ 1,000 mL 1,000 mL, Rate: 50 ml/hr, Infuse over: 20 hr, Route: IV, Dosing Weight 72.273 kg , Total Volume: 1,000, Start date: 04/10/16 13:09:00 INSTRUMENT LENS GRINDER, Duration: 30 day, Stop date: 05/10/16 13:08:00 INSTRUMENT LENS GRINDER Start Date: 04/10/16 Stop Date: 04/11/16 Status: Discontinued sodium chloride 0.9% 1000 ml INJ 250 mL 250 mL, Rate: 250 ml/hr, Infuse over: 1 hr, Route: IV, Dosing Weight 72.273 kg, Total Volume: 250, Start date: 04/10/16 13:07:00 INSTRUMENT LENS GRINDER, Duration: 1 doses or times , Stop date: 04/10/16 14:06:00 INSTRUMENT LENS GRINDER Start Date: 04/10/16 Stop Date: 04/10/16 Status: Completed sodium chloride 0.9% INJ 250 mL 250 mL, Rate: 20 ml/hr, Infuse over: 12.5 hr, Route: IV, Dosing Weight 72.273 kg , Total Volume: 250, Start date: 04/10/16 16:41:00 INSTRUMENT LENS GRINDER, Duration: 24 hr, Stop da te: 04/11/16 16:40:00 INSTRUMENT LENS GRINDER Start Date: 04/10/16 Stop Date: 04/11/16 Status: Discontinued Symbicort 160/4.5 inhalation aerosol with adapter 2 inhalation, Route: INHALATION, Drug Form: AERO/A, Dosing Weight 72.273, kg, RB ID, Start date: 04/10/16 20:00:00 INSTRUMENT LENS GRINDER, Duration: 30 day, Stop date: 05/10/16 8:0 0:00 INSTRUMENT LENS GRINDER Notes: (Same as: Symbicort)WASTE: Aerosol - Return to Pharmacy Start Date: 04/10/16 Stop Date: 04/11/16 Status: Discontinued Results BLOOD BANK RESULTS Most recent to 1 2 oldest [Reference Range]: ABO/Rh A POS *Unknown* (04/10/16 11:33 AM) Antibody Scrn Negative (04/10/16 11:33 AM) ELECTROLYTES Most recent to 1 2 oldest [Reference Range]: Sodium Lvl [135-145 142 mEq/L mEq/L] (04/10/16 11:33 AM) Potassium Lvl 4.2 mEq/L [3.5-5.1 mEq/L] (04/10/16 11:33 AM) Chloride Lvl [95-109 104 mEq/L mEq/L] (04/10/16 11:33 AM) CO2 [24-32 mEq/L] 26 mEq/L (04/10/16 11:33 AM) AGAP [10.0-20.0 16.2 mEq/L mEq/L] (04/10/16 11:33 AM) CHEM PANEL Most recent to 1 2 oldest [Reference Range]: Creatinine Lvl 0.77 mg/dL 0.92 mg/dL [0.50-1.40 mg/dL] (04/11/16 5:36 AM) (04/10/16 11:33 AM) eGFR 84 mL/min/1.73m2 1 67 mL/min/1.73m2 2 *NA* *NA* (04/11/16 5:36 AM) (04/10/16 11:33 AM) BUN [7-22 mg/dL] 20 mg/dL (04/10/16 11:33 AM) Glucose Lvl [70-99 154 mg/dL mg/dL] *HI* (04/10/16 11:33 AM) Calcium Lvl 9.5 mg/dL [8.5-10.5 mg/dL] (04/10/16 11:33 AM) Magnesium Lvl 2.0 mg/dL [1.8-2.4 mg/dL] (04/10/16 11:33 AM) 1Result Comment: The eGFR is calculated [...] 2 oldest [Reference Range]: WBC [3.7-10.4 K/CMM] 13.1 K/CMM *HI* (04/10/16 11:33 AM) RBC [4.20-5.40 4.21 M/CMM M/CMM] (04/10/16 11:33 AM) Hgb [12.0-16.0 g/dL] 12.7 g/dL (04/10/16 11:33 AM) Hct [36.0-48.0 %] 38.6 % (04/10/16 11:33 AM) MCV [80.0-98.0 fL] 91.7 fL (04/10/16 11:33 AM) MCH [27.0-31.0 pg] 30.1 pg (04/10/16 11:33 AM) MCHC [32.0-36.0 32.8 g/dL g/dL] (04/10/16 11:33 AM) RDW [11.5-14.5 %] 14.5 % (04/10/16 11:33 AM) Platelet [133-450 277 K/CMM K/CMM] (04/10/16 11:33 AM) MPV [7.4-10.4 fL] 9.3 fL (04/10/16 11:33 AM) Segs [45.0-75.0 %] 86.2 % *HI* (04/10/16 11:33 AM) Lymphocytes 9.1 % [20.0-40.0 %] *LOW* (04/10/16 11:33 AM) Monocytes [2.0-12.0 4.1 % %] (04/10/16 11:33 AM) Eosinophils [0.0-4.0 0.2 % %] (04/10/16 11: AM) Basophils [0.0-1.0 0.4 % %] (04/10/16 11:33 AM) Segs-Bands # 11.2 K/CMM [1.5-8.1 K/CMM] *HI* (04/10/16 11:33 AM) Lymphocytes # 1.2 K/CMM [1.0-5.5 K/CMM] (04/10/16 11:33 AM) Monocytes # [0.0-0.8 0.5 K/CMM K/CMM] (04/10/16 11:33 AM) Basophils # [0.0-0.2 0.1 K/CMM K/CMM] (04/10/16 11:33 AM) PT [12.0-14.7 13.9 seconds seconds] (04/10/16 11:33 AM) INR [0.85-1.17] 1.05 (04/10/16 11:33 AM) POC Activated 214 seconds Clotting Time *NA* (04/10/16 5:49 PM) PTT [22.9-35.8 27.4 seconds seconds] (04/10/16 11:33 AM) Immunizations No data available for this section Procedures No data available for this section Social History No data available for this section Assessment and Plan No data available for this section
--- OUTSIDE RECORDS SUMMARY | 2018-08-12 12:57 | XMS REPORT | Summary of Care ---
Author Author [facility] [place] Organization [facility] [place] Address Unknown Phone Unavailable Encounter HQ Encntr_aliibis(FIN) [id number] Date(s): 07/09/15 - 07/09/15 [facility] [place] [address] [place] [address]- [facility] [phone] Discharge Disposition: Home Attending Physician: Adelfo Dai MD Vital Signs No data available for this section Problem List Condition Effective Dates Status Health Status Informant Asthma(Confirmed) Resolved Allergies, Adverse Reactions, Alerts Substance Reaction Severity Status NKDA Active Medications No data available for this section Results No data available for this section Immunizations No data available for this section Procedures No data available for this section Social History No data available for this section Assessment and Plan No data available for this section
[2018-08-12] MEDS ORDERED: KETOROLAC TROMETHAMINE 30 MG/ML VIAL IV STA (13:54)
[2018-08-12] MEDS ORDERED: SODIUM CHLORIDE 0.9% 1000ML 1,000 ML IV STA (13:54)
[2018-08-12 14:38] LABS: BASOPHILS # (AUTO) 0.1 (0.0-0.1); BASOPHILS % 0.6 % (0.0-1.0); EOSINOPHILS # (AUTO) 0.1 (0.0-0.4); EOSINOPHILS % 0.7 % (0.0-6.0); HEMATOCRIT 35.8 % (34.2-44.1); HEMOGLOBIN 11.8 g/dL (12.0-16.0); LYMPHOCYTES # (AUTO) 0.6 (1.0-3.2); LYMPHOCYTES % 4.4 % (18.0-39.1); MEAN CORPUSCULAR HEMOGLOBIN 32.1 pg (28-32); MEAN CORPUSCULAR VOLUME 97.3 fL (81-99); MONOCYTES # (AUTO) 0.2 (0.2-0.8); MONOCYTES % 1.2 % (4.4-11.3); NEUTROPHILS # (AUTO) 12.7 (2.1-6.9); NEUTROPHILS % 91.9 % (38.7-80.0); PLATELET COUNT 231 x10e3/uL (140-360); RED BLOOD COUNT 3.68 x10e6/uL (3.6-5.1); RED CELL DISTRIBUTION WIDTH 14.5 % (11.7-14.4)
[2018-08-12 14:52] LABS: PROTHROMBIN TIME 13.7 seconds (11.9-14.5)
[2018-08-12 14:53] LABS: PARTIAL THROMBOPLASTIN TIME 25.8 seconds (23.8-35.5)
[2018-08-12 15:04] LABS: ALBUMIN 2.8 g/dL (3.5-5.0); ALBUMIN/GLOBULIN RATIO 0.9 (0.8-2.0); ANION GAP 14.5 mmol/L (8-16); CALCIUM 8.6 mg/dL (8.4-10.2); CREATININE, SERUM 1.13 mg/dL (0.57-1.11); POTASSIUM 3.5 mmol/L (3.5-5.1)
--- NOTE | 2018-08-12 15:12 | Diagnostic Imaging Report ---
Examination: Single AP view of the chest. COMPARISON: None. INDICATION: Shortness of breath DISCUSSION: Left subclavian approach implantable cardiac device projects over the left axilla. Lead projects over the expected region of the right ventricle. Lungs are well-inflated and without focal consolidation, pleural effusion, or pneumothorax. Heart size and pulmonary vasculature are within normal limits for portable, AP technique. No acute osseous abnormality. IMPRESSION: 1. No acute cardiopulmonary abnormalities. Signed by: Dr. Armond Zhao M.D. on 08/12/2018 3:09 PM
[2018-08-12] MEDS ORDERED: SODIUM CHLORIDE 0.9% 500ML 500 ML IV ONE (15:15)
[2018-08-12] MEDS ORDERED: ONDANSETRON HCL INJ 2MG/ML 2ML 2 MG/ML VIAL IV ONE ×2 (15:15→19:30)
[2018-08-12 15:41] LABS: CLARITY,URINE SL CLOUDY (CLEAR); COLOR,URINE YELLOW (YELLOW); LEUKOCYTE ESTERASE ,URINE TRACE (NEGATIVE); NITRITE,URINE NEGATIVE (NEGATIVE)
[2018-08-12 15:42] LABS: BILIRUBIN,URINE NEGATIVE (NEGATIVE); KETONES,URINE NEGATIVE (NEGATIVE); PROTEIN,URINE DIPSTICK 1+ (NEGATIVE); URINE UROBILINOGEN 0.2 mg/dL (0.2 - 1)
[2018-08-12 15:54] LABS: BACTERIA,URINE MANY /HPF; EPITHELIAL CELLS,URINE RARE /LPF; MUCUS,URINE FEW (RARE); TRANSITIONAL EPI CELLS,URINE MODERATE
[2018-08-12 16:14] LABS: EOSINOPHILS % (MANUAL) 1 % (0-7); LYMPHOCYTES % (MANUAL) 1 % (19-48); MONOCYTES % (MANUAL) 6 % (3.4-9.0); NEUTROPHILS % (MANUAL) 92 % (40-74)
[2018-08-12 16:15] LABS: HYPOCHROMASIA SLIGHT; PLATELET ESTIMATE ADEQUATE; PLATELET MORPHOLOGY COMMENT NORMAL; RBC MORPHOLOGY COMMENT NORMAL
--- NOTE | 2018-08-12 16:24 | Diagnostic Imaging Report ---
EXAM: CT of the abdomen and pelvis WITH contrast HISTORY: RLQ PAIN HYPOTENSION S/P RIGHT FEMORAL ARTERY CATH 5 DAYS, abdominal pain, back pain, 3 stents in femoral artery August 07, 2018 COMPARISON: None. TECHNIQUE: The abdomen and pelvis were scanned utilizing a multidetector helical scanner. Coronal and sagittal reformats are provided. PROTOCOL: Routine IV CONTRAST: 100 cc of Isovue-370. ORAL CONTRAST: None, which limits sensitivity and specificity of the exam. RADIATION DOSE: Total DLP: 446.89 mGy*cm Estimated effective dose: (DLP x 0.015 x size factor) Dose modulation, iterative reconstruction, and/or weight based adjustment of the mA/kV was utilized to reduce the radiation dose to as low as reasonably achievable. COMPLICATIONS: None FINDINGS: LOWER THORAX: Mild bilateral atelectasis. HEPATOBILIARY: Diffusely decreased attenuation. No mass. No biliary dilation. No calcified gallstone. SPLEEN: No splenomegaly. PANCREAS: No focal masses or ductal dilatation. ADRENALS: No discrete adrenal nodule. KIDNEYS/URETERS: An oval calcification within the proximal right ureter with associated mild hydronephrosis and perinephric fat stranding (coronal image 53). A nonobstructing 0.9 cm calcification near the inferior pole of the left kidney. PELVIC ORGANS/BLADDER: The urinary bladder is decompressed. GI TRACT: No dilation or wall thickening identified. Mild fat stranding adjacent to the second portion of the duodenum, likely secondary to the adjacent urinary tract stone. Incidentally, a 1.8 cm diverticulum extending inferiorly from the junction of the second and third portions of the duodenum. The appendix is normal. Postsurgical changes in the region of the sigmoid colon, with a large amount of adjacent stool. Moderate diffuse colonic fecal burden. PERITONEUM / RETROPERITONEUM: No free air or fluid. LYMPH NODES: No pathologically enlarged lymph node. VESSELS: Diffuse scattered atherosclerotic vascular calcifications. BONES: Diffusely decreased mineralization of the osseous structures limits bone detail. Multilevel degenerative changes, most notably the L4-5 facets and the L5-S1 disc. An 8 mm degenerative anterolisthesis of L4 on L5. SOFT TISSUES: Ventral midline diastases versus wide neck hernia containing a portion of a nondilated transverse colon (axial image 46 and sagittal image 68). IMPRESSION: 1. A 1 cm proximal right ureteral stone with associated mild hydronephrosis. 2. A nonobstructing 0.9 cm stone within the left kidney. 3. Ventral midline focal diastases versus wide neck abdominal wall hernia. 4. Hepatic steatosis. 5. Osseous demineralization. 6. Prominent atherosclerosis. 7. Incidental duodenal diverticulum. Signed by: Dr. Melecio Sanchez D.O., M.M.M. on 08/12/2018 4:21 PM
[2018-08-12] MEDS ORDERED: SODIUM CHLORIDE 0.9% 1000ML 1,000 ML IV SCH ×2 (19:15→20:00)
[2018-08-12] MEDS ORDERED: HYDROMORPHONE 2MG/ML 2 MG/ML ML IV ONE (19:30)
[2018-08-12] MEDS ORDERED: MEROPENEM 1GRAM 1 GM in SODIUM CHLORIDE 0.9% 100 ML 100 ML IV SCH ×2 (19:45→22:00)
[2018-08-12] MEDS ORDERED: METHYLPREDNISOLONE SOD SUCC 125 MG/2ML VIAL IV ONE (19:45)
[2018-08-12] MEDS ORDERED: PROMETHAZINE HCL (IM) 25 MG/ML VIAL IV PRN (20:00)
[2018-08-12] MEDS ORDERED: HYDROMORPHONE 1MG/1ML INJ IV PRN (20:00)
[2018-08-12] MEDS ORDERED: ASPIRIN 81 MG CHEW TAB PO ONE (20:00)
[2018-08-12] MEDS ORDERED: NITROGLYCERIN 0.4 MG SUBL SL PRN (20:00)
[2018-08-12] MEDS ORDERED: PROMETHAZINE 12.5MG/ NACL 0.9% 50 ML IV PRN (20:15)
[2018-08-12] MEDS ORDERED: HYDROMORPHONE 2MG/ML 2 MG/ML ML IV PRN (20:15)
[2018-08-12] MEDS: FAMOTIDINE 20 MG TAB PO SCH (20:49)
[2018-08-12] MEDS: MEROPENEM 1GM 100 ML IV SCH (21:02)
[2018-08-12] MEDS ORDERED: SODIUM CHLORIDE 0.9% 50ML 50 ML ONE (21:19)
[2018-08-12] MEDS ORDERED: IOPAMIDOL 370 MG/ML 200 ML INFUS..BTL INJ ONE (21:20)
[2018-08-12] MEDS ORDERED: METHYLPREDNISOLONE SOD SUCC 125 MG/2ML VIAL IV SCH (22:00)
[2018-08-12] MEDS ORDERED: MEROPENEM 1GM 100 ML IV SCH (22:00)
--- NOTE | 2018-08-12 22:42 | NUR ---
RECEIVED REPORT FROM RYAN MONCADA DAY SHIFT NURSE.
--- NOTE | 2018-08-12 22:42 | NUR ---
Verbal report given to Gisella DAVIS. Pt is in no acute distress at this time.
[2018-08-12 23:35] LABS: CREATINE KINASE MB 2.9 ng/mL (0-5.0)
[2018-08-12] MEDS: ALBUTEROL/IPRATROPIUM 3 ML NEB NEB SCH (23:45)
[2018-08-13] MEDS ORDERED: LIDOCAINE HCL 1% LOCAL INJ 20 ML VIAL ONE (00:24)
[2018-08-13] MEDS ORDERED: VANCOMYCIN 1GM/NS 250 ML 250 ML IV ONE (00:45)
--- NOTE | 2018-08-13 01:05 | NUR ---
DR. KENNEY AT BEDSIDE WITH PT.
[2018-08-13] MEDS ORDERED: SODIUM CHLORIDE 0.9% 1000ML 1,000 ML IV ONE (01:30)
[2018-08-13] MEDS ORDERED: SODIUM CHLORIDE 0.9% 1000ML 1,000 ML ONE (01:34)
--- OUTSIDE RECORDS SUMMARY | 2018-08-13 02:53 | XMS REPORT ---
Author Author [facility] Address Unknown Phone Unavailable Care Team Providers Care Weigh And Charge Worker Name Role Phone Theresa RED Unavailable Unavailable Problems This patient has no known problems. Allergies, Adverse Reactions, Alerts This patient has no known allergies or adverse reactions. Medications This patient has no known medications. Results Test Description Test Time Test Comments Text Results Atomic Results Result Comments CT ABDOMEN/PELVIS W 2018-08-12 15:51:00 [place] [address] Patient Name: HERMILO VERDE MR #: [id number] : 1955 Age/Sex: 63/F Req #: [id number] [facility] Physician: Ordered by: MEGHANN RED MD Report #: [id number] Location: ER Room/Bed: Procedure: [id number] CT/CT ABDOMEN/PELVIS W Exam Date: 08/12/18 Exam Time: 1530 REPORT STATUS: Signed EXAM: CT of the abdomen and pelvis WITH contrast HISTORY: RLQ PAIN HYPOTENSION S/P RIGHT FEMORAL ARTERY CATH 5 DAYS, abdominal pain, back pain, 3 stents in femoral artery August 07, 2018 COMPARISON: None. TECHNIQUE: The abdomen and pelvis were scanned utilizing a multidetector helical scanner. Coronal and sagittal reformats are provided. PROTOCOL: Routine IV CONTRAST: 100 cc of Isovue-370. ORAL CONTRAST: None, which limits sensitivity and specificity of the exam. RADIATION DOSE: Total DLP: 446.89 mGy*cm Estimated effective dose: (DLP x 0.015 x size factor) Dose modulation, iterative reconstruction, and/or weight based adjustment of the mA/kV was utilized to reduce the radiation dose to as low as reasonably achievable. COMPLICATIONS: None FINDINGS: LOWER THORAX: Mild bilateral atelectasis. HEPATOBILIARY: Diffusely decreased attenuation. No mass. No biliary dilation. No calcified gallstone. SPLEEN: No splenomegaly. PANCREAS: No focal masses or ductal dilatation. ADRENALS: No discrete adrenal nodule. KIDNEYS/URETERS: An oval calcification within the proximal right ureter with associated mild hydronephrosis and perinephric fat stranding (coronal image 53). A nonobstructing 0.9 cm calcification near the inferior pole of the left kidney. PELVIC ORGANS/BLADDER: The urinary bladder is decompressed. GI TRACT: No dilation or wall thickening identified. Mild fat stranding adjacent to the second portion of the duodenum, likely secondary to the adjacent urinary t ract stone. Incidentally, a 1.8 cm diverticulum extending inferiorly from the junction of the second and third portions of the duodenum. The appendix is normal. Postsurgical changes in the region of the sigmoid colon, with a large amount of adjacent stool. Moderate diffuse colonic fecal burden. PERITONEUM / RETROPERITONEUM: No free air or fluid. LYMPH NODES: No pathologically enlarged lymph node. VESSELS: Diffuse scattered atherosclerotic vascular calcifications. BONES: Diffusely decreased mineralization of the osseous structures limits bone detail. Multilevel degenerative changes, most notably the L4-5 facets and the L5-S1 disc. An 8 mm degenerative anterolisthesis of L4 on L5. SOFT TISSUES: Ventral midline diastases versus wide neck hernia containing a portion of a nondilated transverse colon (axial image 46 and sagittal image 68). IMPRESSION: 1. A 1 cm proximal right ureteral stone with associated mild hydronephrosis. 2. A nonobstructing 0.9 cm stone within the left kidney. 3. Ventral midline focal diastases versus wide neck abdominal wall hernia. 4. Hepatic steatosis. 5. Osseous demineralization. 6. Prominent atherosclerosis. 7. Incidental duodenal diverticulum. Signed by: Dr. Ann Sanchez D.O., M.M.M. on 08/12/2018 4:21 PM Dictated By: ANN SANCHEZ DO [id number] Transcribed By: ANGEL on 08/12/18 162 COPY TO: MEGHANN RED MD CHEST SINGLE (PORTABLE) 2018-08-12 15:07:00 [place] [address] Patient Name: HERMILO VERDE MR #: [id number] : 1955 Age/Sex: 63/F Req #: [id number] Adm Physician: Ordered by: MEGHANN RED MD Report #: [id number] Location: ER Room/Bed: Procedure: [id number] DX/CHEST SINGLE (PORTABLE) Exam Date: 08/12/18 Exam Time: 1439 REPORT STATUS: Signed Examination: Single AP view of the chest. RIOS RISON: None. INDICATION: Shortness of breath DISCUSSION: Left subclavian approach implantable cardiac device projects over the left axilla. Lead projects over the expected region of the right ventricle. Lungs are well-inflated and without focal consolidation, pleural effusion, or pneumothorax. Heart size and pulmonary vasculature are within normal limits for portable, AP technique. No acute osseous abnormality. IMPRESSION: 1. No acute cardiopulmonary abnormalities. Signed by: Dr. Carlee Wing M.D. on 08/12/2018 3:09 PM Dictated By: CARLEE WING MD 1500 Transcribed By: ANGEL on 08/12/18 1501 COPY TO: MEGHANN RED MD
--- NOTE | 2018-08-13 03:29 | History and Physical ---
CHIEF COMPLAINT: Right-sided abdominal and flank pain along with fever. HISTORY OF PRESENT ILLNESS: The patient is a 63-year-old woman. She has a history of severe chronic persistent asthma as well as cardiac problems. She had a prior pacemaker and AICD placed. She recently had a femoral artery stent placed for peripheral vascular disease. She came to the Emergency Department complaining of right-sided flank and abdominal pain that radiated down into her groin. Says the pain has been coming on over 2-3 days. She denies any nausea or vomiting. After coming into the Emergency Department, she had a CT scan of the abdomen and pelvis that showed a 1 cm stone in the proximal ureter on the right side with mild hydronephrosis. Her abdominopelvic CT was otherwise unremarkable. She received a liter of fluid. She also received some bronchodilators and steroids for her wheezing. PAST SURGICAL HISTORY: 1. Status post partial colectomy with a diverting colostomy that has since been reversed. 2. History of a prior pacemaker. 3. History of a recent femoral artery stent, for which the patient is still on Plavix. PAST MEDICAL HISTORY: 1. Chronic persistent asthma. 2. History of CHF with the prior pacemaker and AICD placement. 3. Chronic lower back pain. SOCIAL HISTORY: The patient is a smoker. She is not an active drinker. FAMILY HISTORY: Noncontributory. ALLERGIES: THE PATIENT HAS NO KNOWN DRUG ALLERGIES. REVIEW OF SYSTEMS: The patient has fever. She is not having any headache. She has no neck pain. She is not having any chest pain. She does have some dyspnea and wheezing. She does not complain of any nausea or vomiting. She has right-sided flank pain that radiates into her groin. She does not report any hematuria. She has no leg edema. She has no focal neurological complaints. PHYSICAL EXAMINATION: VITAL SIGNS: Blood pressure is 89/60, pulse is 121, and temperature is 101.1. HEENT: Shows no facial swelling or erythema. The oropharynx is normal. LYMPHATIC: Shows no submandibular, cervical, or supraclavicular adenopathy. NECK: Shows no JVD or thyromegaly. There is no nuchal rigidity. CARDIAC: Reveals a regular rate and rhythm with a normal S1 and S2. There are no murmurs or rubs. Auscultation of lungs reveals prolonged expiratory phase bilaterally. There are no crackles. ABDOMEN: Soft and nontender. There is no rebound or guarding anteriorly. The patient does have pain in the right costovertebral angle as well as anteriorly in the right upper quadrant. SKIN: Shows no rashes. EXTREMITIES: Shows no edema. NEUROLOGICAL: Shows no focal abnormalities. RADIOGRAPHIC DATA: CT scan of the abdomen and pelvis shows a 1 cm proximal ureteral stone with associated mild hydronephrosis. She has a possible abdominal wall hernia. There is some hepatic steatosis as well as some demineralization of the bones. LABORATORY DATA: White blood cell count is 13.8, hemoglobin is 11.8, and platelet count is 231. The BUN to creatinine ratio is 25 to 1.13, and the other electrolytes are within normal limits. The troponin I is elevated at 0.47. Urinalysis shows 10-20 white blood cells. There are no red blood cells. IMPRESSION: 1. Pyelonephritis, secondary to a ureteral stone with sepsis present on admission. 2. Chronic persistent asthma with acute exacerbation. 3. Chronic systolic congestive heart failure. 4. Chronic lower back pain. 5. Peripheral vascular disease requiring a recent femoral artery stent. PLAN: 1. Fluids along with intravenous antibiotics. 2. Panculture the patient. 3. Solu-Medrol along with continued bronchodilators. 4. Urology has been notified by the Emergency Department and their evaluation is pending. 5. Echocardiogram and Cardiology evaluation. Santy Hudson MD [facility]/MODL /[id number]
[2018-08-13] MEDS: ALBUTEROL/IPRATROPIUM 3 ML NEB NEB SCH ×5 (04:30→19:22)
[2018-08-13 05:37] LABS: BASOPHILS # (AUTO) 0.1 (0.0-0.1); BASOPHILS % 0.3 % (0.0-1.0); LYMPHOCYTES # (AUTO) 0.3 (1.0-3.2); LYMPHOCYTES % 1.5 % (18.0-39.1); MEAN CORPUSCULAR HGB CONC 32.1 g/dL (31-35); MEAN CORPUSCULAR VOLUME 99.6 fL (81-99); MONOCYTES # (AUTO) 0.4 (0.2-0.8); NEUTROPHILS # (AUTO) 18.9 (2.1-6.9); NEUTROPHILS % 89.2 % (38.7-80.0); PLATELET COUNT 155 x10e3/uL (140-360); RED BLOOD COUNT 2.81 x10e6/uL (3.6-5.1); RED CELL DISTRIBUTION WIDTH 14.9 % (11.7-14.4)
[2018-08-13 05:58] LABS: ANION GAP 12.8 mmol/L (8-16); BLOOD UREA NITROGEN 22 mg/dL (7-26); BUN/CREATININE RATIO 24 (6-25); CALCIUM 7.1 mg/dL (8.4-10.2); CARBON DIOXIDE 19 mmol/L (22-29); CHLORIDE 107 mmol/L (98-107); CHOL/HDL RATIO 3.2 (3.0-3.6); CHOLESTEROL 146 MD/DL (0-199); CREATININE, SERUM 0.92 mg/dL (0.57-1.11); EST GLOMERULAR FILTRATION RATE > 60 ML/MIN (60-); GLUCOSE 160 mg/dL (74-118); HDL CHOLESTEROL 46 MG/DL (40-60); LDL CHOLESTEROL 74 MG/DL (60-130); POTASSIUM 3.8 mmol/L (3.5-5.1); SODIUM 135 mmol/L (136-145); TRIGLYCERIDES 128 MG/DL (0-149)
--- NOTE | 2018-08-13 07:11 | Diagnostic Imaging Report ---
EXAMINATION: CHEST 2 VIEWS INDICATION: SOB COMPARISON: Chest x-ray 08/12/2018 FINDINGS: PA and lateral views TUBES and LINES: Left chest wall single lead ICD. LUNGS: Mild bibasilar atelectasis. There is no evidence of pneumonia or pulmonary edema. PLEURA: No pleural effusion or pneumothorax. HEART AND MEDIASTINUM: The cardiomediastinal silhouette is unremarkable. BONES AND SOFT TISSUES: No acute osseous lesion. Soft tissues are unremarkable. UPPER ABDOMEN: No free air under the diaphragm. IMPRESSION: No acute thoracic abnormality. Signed by: DR. Wilian Tran MD on 08/13/2018 7:07 AM
--- NOTE | 2018-08-13 07:15 | NUR ---
REPORT GIVEN TO RYAN LAGUNAS DAY SHIFT NURSE.
[2018-08-13] MEDS: MEROPENEM 1GM 100 ML IV SCH ×2 (07:21→22:59)
[2018-08-13] MEDS: SALMETEROL/FLUTICASONE 250/50 INH SCH ×2 (08:18→09:47)
[2018-08-13] MEDS: FAMOTIDINE 20 MG TAB PO SCH ×2 (08:20→23:01)
[2018-08-13] MEDS: ASPIRIN 81 MG ENTERIC COATED PO SCH (08:20)
[2018-08-13] MEDS: NICOTINE 21 MG/EA PATCH TOP SCH (08:25)
[2018-08-13 08:33] LABS: BAND NEUTROPHILS % (MANUAL) 8 %; EOSINOPHILS % (MANUAL) 1 % (0-7); LYMPHOCYTES % (MANUAL) 4 % (19-48); MONOCYTES % (MANUAL) 4 % (3.4-9.0); NEUTROPHILS % (MANUAL) 83 % (40-74)
--- NOTE | 2018-08-13 08:48 | NUR ---
INFORMED DR. LEONARD OF HYPOTENSION, 97/67 LUE, 89/59 RUE, 92/58 MANUAL, HR STABLE 80-90 A FIB. NO NEW ORDERS RECEIVED AT THIS TIME.
[2018-08-13] MEDS ORDERED: METHYLPREDNISOLONE SOD SUCC 125 MG/2ML VIAL IV SCH ×2 (09:00)
[2018-08-13] MEDS: HYDROMORPHONE 2MG/ML 2 MG/ML ML IV PRN ×2 (11:08→19:35)
[2018-08-13] MEDS: ACETAMINOPHEN 325 MG TAB PO PRN (13:05)
--- NOTE | 2018-08-13 14:43 | Consultation ---
DATE OF CONSULTATION: 08/13/2018 Urology Consultation REASON FOR CONSULTATION: Ureteral calculus. HISTORY OF PRESENT ILLNESS: Mrs. Lopez is a very pleasant 63-year-old female patient, admitted to the hospital with shortness of breath, chest pain, low back pain, found to have an NSTEMI as well as a 1 cm right proximal ureteral calculus, thus Urology consultation was requested. The patient denied fevers. No chills. Denied nausea. No vomiting. PAST MEDICAL HISTORY: Notable for hypertension, hyperlipidemia, cardiomyopathy. MEDICATIONS: Please see MAR. ALLERGIES: NKDA. SOCIAL HISTORY: Denied smoking or drinking. FAMILY HISTORY: Denied urologic stones or malignancies. REVIEW OF SYSTEMS: Noncontributory other than problems mentioned above for 12 organ systems. PHYSICAL EXAMINATION: GENERAL: Older appearing female in age, in no acute distress. VITAL SIGNS: Currently, she is afebrile with stable vital signs. HEENT: Sclerae icteric. NECK: Supple. BACK: Without costovertebral angle tenderness bilaterally. ABDOMEN: Soft. It is nontender and it is nondistended. There is no palpable mass. No palpable hernias. No palpable lymphadenopathy. : Normal female external genitalia. EXTREMITIES: Without edema. NEUROLOGIC: Moves 4 extremities. PSYCH: Alert. Mood appropriate. SKIN: Intact, normal color. PERTINENT LABORATORY DATA: CT scan revealing a 1 cm right proximal ureteral stone, mild hydronephrosis. CBC is normal except for hemoglobin 11.8, white blood cell count 13.8. Urinalysis; 10 to 20 whites, 5 to 10 reds, positive bacteria. Creatinine 1.13. IMPRESSION: 1. Right ureteral calculus. 2. Mild right-sided hydronephrosis. 3. Question urinary tract infection. 4. Leukocytosis. 5. ? myocardial infarction. PLAN: We will follow the patient as there is no complete obstruction. Since the patient is cleared cardiac-jewell, we will place a stent. Thank you for allowing me to participate in the care of your patient. We will be happy to follow along with you. MD HELLEN Davis/MODL /[id number]
[2018-08-13 14:45] LABS: CREATINE KINASE MB 2.4 ng/mL (0-5.0)
--- NOTE | 2018-08-13 14:45 | NUR ---
DR. Teetee LEONARD AT BEDSIDE FOR PT EVAL AT THIS TIME, AWAITING ORDERS.
[2018-08-13] MEDS ORDERED: MEROPENEM 1GM 100 ML IV SCH (16:00)
[2018-08-13] MEDS: CLOPIDOGREL BISULFATE 75 MG TAB PO SCH ×2 (17:20→18:20)
--- NOTE | 2018-08-13 18:54 | Progress Note ---
DATE: 08/13/2018 SUBJECTIVE: The patient says she feels better today. She has less fever. She does not complain of dyspnea or cough. PHYSICAL EXAMINATION: VITAL SIGNS: The blood pressure is 106/80 and the saturation is 96% on 2 L of oxygen. The pulse is 96. HEENT: Shows no facial swelling or erythema. The nasal mucosa is normal. Oropharynx is normal. LYMPHATIC: Shows no submandibular, cervical, or supraclavicular adenopathy. CARDIAC: Reveals regular rate and rhythm with normal S1 and S2. There are no murmurs or rubs. LUNGS: Auscultation of lungs shows clear breath sounds bilaterally. There is no wheezing. ABDOMEN: Soft and nontender. There is some CVA tenderness. MICROBIOLOGICAL DATA: Urine is growing greater than 100,000 gram-negative rods. LABORATORY DATA: White blood cell count is 21 and hemoglobin is 9. The platelet count is 155. The GZL-qr-ehxezfggix ratio is normal. The other electrolytes are within normal limits. IMPRESSION: 1. Pyelonephritis with sepsis present on admission. 2. Ureteral stone on the right side. 3. Chronic systolic congestive heart failure. 4. Chronic persistent asthma. 5. Peripheral vascular disease, requiring a recent femoral artery stent. PLAN: 1. Continue IV antibiotics. 2. Await Cardiology clearance prior to putting an ureteral stent. 3. The patient still needs Plavix because of her recent femoral artery stent. 4. Stop Solu-Medrol, but continue bronchodilators. Santy Hudson MD [facility]/CORDELL /[id number]
--- NOTE | 2018-08-13 19:40 | NUR ---
REPORT GIVEN TO WARD Almaraz RN CHRISTMAS TREE GRADER NURSE.
--- NOTE | 2018-08-13 20:00 | NUR ---
pt received. no ss of distress noted. pt co lower back pain. discussed pain mngt poc. verbalized understanding. tele in place. will cont to follow poc. call pillai within reach.
[2018-08-13 20:42] VITALS: BP 133/80
[2018-08-13 21:00] VITALS: BP 133/80
[2018-08-13] MEDS ORDERED: OXYCODONE-ACET1 EAC3 PO (22:22)
[2018-08-13] MEDS ORDERED: VENTOLIN HFA18 GM INH (22:22)
[2018-08-13] MEDS ORDERED: ATIVAN1 MG PO (22:22)
[2018-08-13] MEDS ORDERED: PREDNISONE10 MG PO (22:22)
[2018-08-13] MEDS ORDERED: B-121000 MCG PO (22:22)
[2018-08-13] MEDS ORDERED: CARVEDILOL3.125 MG PO (22:22)
[2018-08-13] MEDS ORDERED: ASPIR 8181 MG PO (22:22)
[2018-08-13] MEDS ORDERED: LISINOPRIL2.5 MG PO (22:22)
[2018-08-13] MEDS ORDERED: SOMA350 MG PO (22:22)
[2018-08-13] MEDS ORDERED: ADVAIR 100-501 EACH INH (22:22)
[2018-08-13] MEDS ORDERED: CHANTIX1 MG PO (22:22)
[2018-08-13 22:41] VITALS: BP 133/80
[2018-08-14] VITALS: BP 154/91
--- NOTE | 2018-08-14 00:44 | Consultation ---
DATE OF CONSULTATION: 08/13/2018 Cardiology Consultation REASON FOR CONSULTATION: Elevated troponin. HISTORY OF PRESENT ILLNESS: Ms. Lopez is a 63-year-old female with past medical history of hypertension, hypercholesterolemia, COPD, history of nonischemic cardiomyopathy with left ventricular ejection fraction at baseline in the 40% range, has a primary prevention ICD placed in 2014, peripheral arterial disease with prior history of bilateral lower extremity revascularization 2 years ago and subsequent revascularization most recently 5 days ago to the left proximal and distal SFA with Supera stents, who presents to this institution after experiencing severe lower abdominal pain, dull ache, starting in the left and right lower quadrant regions radiating to her groin, associated with severe right flank discomfort. The patient does have a history of lumbar spine DJD and had bilateral nerve "burning" to the spinal roots in the past; however, this felt different. The patient had subjective rigors, chills, and just not feeling well. She denied feeling any dysuria or pyuria per se, but presented with fiona sepsis with elevated white count and so forth. Infectious workup to date reveals a positive urine culture preliminary for gram negative bacillus and CTA abdomen and pelvis showed a 1 cm proximal right ureteral stone with mild hydronephrosis and a 0.9 cm stone in the left kidney region. The patient received broad spectrum IV antibiotics with vancomycin and meropenem and has subjectively felt better to date. She also reports having mild wheezing consistent with her asthma flare, which is known to be chronic persistent. The patient denies any chest pain or discomfort currently. Upon arrival, troponin was noted to be elevated at 0.47 and went down to 0.321 and 0.248. I asked her if she has ever had an ischemic evaluation and she reports that she has very close followup with [facility] and her primary kraft mill operator did a heart catheterization about 4 to 5 years ago and it was noted to be "normal." PAST MEDICAL HISTORY: 1. Hypertension, essential. 2. Hypercholesterolemia. 3. Severe COPD, smoker. 4. Chronic persistent asthma. 5. CHF, systolic, with prior history of primary prevention ICD with a Medtr[employer] device 4 years ago. 6. Nonischemic etiology for cardiomyopathy with heart catheterization 4 to 5 years ago, showing largely normal coronaries. 7. Peripheral arterial disease with prior history of bilateral lower extremity revascularization 2 years ago and most recently 5 days ago at [facility] with her primary kraft mill operator. 8. Severe lumbar spine DJD with prior history of lumbar spinal intervention. 9. Prior history of partial colectomy with reanastomosis and reversal one year ago. FAMILY HISTORY: Mother in her 80s and had congestive heart failure. Father from some sort of cancer with unclear primary in his 70s. SOCIAL HISTORY: She is a smoker, down to 4-5 cigarettes a day, has over 12-[id number]-[id number] smoking history. Denies any alcohol or illicit drug use. ALLERGIES: NO KNOWN DRUG ALLERGIES. HOME MEDICATIONS: Include Plavix 75 mg daily, Xopenex, aspirin, and rosuvastatin; however, the patient is unclear what she is taking at the present time. REVIEW OF SYSTEMS: GENERAL: Positive for fatigue, fevers, chills. HEENT: Occasional headaches. No visual complaints. No sore throat or stuffy nose. RESPIRATORY: Denies any pleuritic chest pain. Has exertional dyspnea and wheezing with a nonproductive cough. CARDIOVASCULAR: Denies any chest pressure, tightness, heaviness. Denies any orthopnea, PND. No leg swelling. GI: Positive for lower abdominal pain as noted above. Positive for nausea. No vomiting, bright red blood per rectum, melena, constipation, or diarrhea. : Denies any dysuria despite the pyuria noted. Has right flank pain that radiates down to her groin as noted as per HPI. MUSCULOSKELETAL: Has severe lower lumbar spine DJD symptoms with some radiculopathy. Does have bilateral lower extremity claudication, improved in the left leg after her revascularization. Does have Bruce 2-3 symptoms. NEUROLOGIC: Denies any focal weakness, numbness, tingling, seizures, history of TIA or stroke. Remainder of review of systems is negative, otherwise as mentioned. PHYSICAL EXAMINATION: VITAL SIGNS: Height of 63 inches, weight of 145 pounds, BMI is 25.7. T-max was 101.1, current temperature of 99.2, blood pressure is 106/80, pulse of 96, respiratory rate of 20, O2 sat 96% on 2 liters nasal cannula. GENERAL: This is a lady who appears much older than stated age, currently in no apparent distress. HEENT: Normocephalic, atraumatic. Pupils are equal, round, and reactive to light. Extraocular movements are intact. Oropharynx is clear. NECK: No elevation of jugular venous pulsation. There are bilateral carotid bruits. CARDIOVASCULAR: Regular rate and rhythm. Normal S1, S2. Soft 2/6 systolic murmur at left lower sternal border. LUNGS: Show poor airflow throughout lung ellison. Diminished air entry with significant wheezes compatible with advanced COPD-type changes. ABDOMEN: Soft. Old surgical scar. Mild discomfort to palpation of the left and right lower quadrant regions. No rebound or guarding. Normoactive bowel sounds. BACK: Mild discomfort to palpation on the right flank region. There is no Monk. EXTREMITIES: Warm with 1+ bilateral radial pulses, 1+ bilateral femoral pulses, 1+ left popliteal, 0+ right popliteal, 0+ pedal pulses. There are chronic skin changes in the bilateral lower extremities with eczema-type plaques. NEUROLOGIC: Cranial nerves II through XII are intact. Strength seems to be preserved and she appears nonfocal. LABORATORY DATA: White count of 21.1, hemoglobin 9.0, hematocrit 28.0, platelets of 155. Sodium 135, potassium 3.8, chloride 107, bicarb 19, BUN 22, creatinine 0.92, glucose of 160. Lactic acid level was 57. Calcium of 7.1. Lipid profile shows total cholesterol 146, triglycerides 128, HDL 46, LDL of 74. Troponin went from 0.470 to 0.321 to 0.248 to 0.132. INR is 1. UA shows 11-20 white cells. Urine culture is showing gram negative bacillus. Blood cultures are pending. Chest x-ray shows no acute abnormality. Abdomen and pelvis CT shows 1 cm proximal right ureteral stone with hydronephrosis, nonobstructing, 0.9 cm left renal stone. Chest x-ray shows, again no acute pulmonary process. EKG shows normal sinus rhythm and nonspecific ST wave changes. DIAGNOSES: 1. Severe sepsis secondary to pyelonephritis with ureteral stone. 2. Nonischemic cardiomyopathy, chronic systolic heart failure with EF at about 35%-40%. 3. Peripheral arterial disease, prior history of left lower extremity revascularization 5 days ago. 4. Hypertension, essential. 5. Hypercholesterolemia. 6. Chronic obstructive pulmonary disease with exacerbation. 7. Smoker, precontemplative to quitting. 8. Demand oug-UB-nangvnq elevation myocardial infarction, type 2. PLAN/RECOMMENDATIONS: 1. From a cardiovascular standpoint, we will recommend restarting Plavix therapy if no procedure needs to be done by Urology. 2. From a cardiovascular standpoint, we will go ahead and give clearance for any operation that may help with source control. 3. I appreciate primary team who started her on broad spectrum antibiotic therapy. 4. Aggressive risk factor modification medical therapy. 5. Long discussion with the patient explaining all this and we will continue to monitor. 6. We will go ahead and check arterial duplex to evaluate the status of her stents in her leg. MD DISHA Wilson/CORDELL /[id number]
[2018-08-14 04:07] VITALS: BP 148/80
[2018-08-14] MEDS: HYDROMORPHONE 2MG/ML 2 MG/ML ML IV PRN ×3 (04:30→19:17)
--- NOTE | 2018-08-14 05:11 | NUR ---
blood collected and sent to lab. pt tolerated well. no distress noted. call pillai within reach.
[2018-08-14 05:28] LABS: BASOPHILS # (AUTO) 0.1 (0.0-0.1); BASOPHILS % 0.3 % (0.0-1.0); EOSINOPHILS # (AUTO) 0.3 (0.0-0.4); HEMATOCRIT 30.3 % (34.2-44.1); HEMOGLOBIN 9.7 g/dL (12.0-16.0); LYMPHOCYTES # (AUTO) 0.6 (1.0-3.2); LYMPHOCYTES % 2.3 % (18.0-39.1); MEAN CORPUSCULAR HEMOGLOBIN 31.4 pg (28-32); MEAN CORPUSCULAR VOLUME 98.1 fL (81-99); MONOCYTES # (AUTO) 0.4 (0.2-0.8); MONOCYTES % 1.6 % (4.4-11.3); NEUTROPHILS # (AUTO) 19.6 (2.1-6.9); NEUTROPHILS % 79.9 % (38.7-80.0); PLATELET COUNT 126 x10e3/uL (140-360); RED BLOOD COUNT 3.09 x10e6/uL (3.6-5.1); RED CELL DISTRIBUTION WIDTH 14.8 % (11.7-14.4)
[2018-08-14 07:02] LABS: ALBUMIN 2.1 g/dL (3.5-5.0); ALBUMIN/GLOBULIN RATIO 0.6 (0.8-2.0); ANION GAP 14.7 mmol/L (8-16); CALCIUM 7.9 mg/dL (8.4-10.2); CREATININE, SERUM 1.21 mg/dL (0.57-1.11); POTASSIUM 3.7 mmol/L (3.5-5.1)
--- NOTE | 2018-08-14 07:21 | NUR ---
report given. walking round completed.
--- NOTE | 2018-08-14 07:35 | NUR ---
ASSUMED CARE AT THIS TIME. PATIENT AWAKE AND ALERT SITTING IN BED. RESP EVEN AND UNLABORED. SKIN WARM AND DRY. NO SIGNS OF ACUTE DISTRESS NOTED AT THIS TIME. DENIES ANY C/O AT THIS TIME.
[2018-08-14] MEDS: ACETAMINOPHEN 325 MG TAB PO PRN ×2 (07:39→15:48)
[2018-08-14 07:46] LABS: BAND NEUTROPHILS % (MANUAL) 3 %; LYMPHOCYTES % (MANUAL) 3 % (19-48); METAMYELOCYTES % (MANUAL) 2 % (0-0); MONOCYTES % (MANUAL) 3 % (3.4-9.0); MYELOCYTES % (MANUAL) 3 % (0-0); NEUTROPHILS % (MANUAL) 81 % (40-74)
[2018-08-14 07:47] LABS: ANISOCYTOSIS SLIGHT; HYPOCHROMASIA SLIGHT; PLATELET ESTIMATE ADEQUATE; PLATELET MORPHOLOGY COMMENT NORMAL; RBC MORPHOLOGY COMMENT NORMAL
[2018-08-14] MEDS: FAMOTIDINE 20 MG TAB PO SCH ×2 (08:15→20:00)
[2018-08-14] MEDS: ASPIRIN 81 MG ENTERIC COATED PO SCH (08:15)
[2018-08-14] MEDS: MEROPENEM 1GM 100 ML IV SCH (08:17)
[2018-08-14] MEDS: NICOTINE 21 MG/EA PATCH TOP SCH (08:17)
--- NOTE | 2018-08-14 11:30 | NUR ---
RECEIVED PT FROM ER. ODEN. PT DENIED NEEDS AT THIS TIME. CALL LIGHT WITH IN REACH.
[2018-08-14 12:12] VITALS: BP 119/72
[2018-08-14] MEDS ORDERED: LORAZEPAM 1 MG TAB PO PRN (14:30)
[2018-08-14] MEDS: CEFTRIAXONE SOD 1 GM/NS 50 ML 50 ML IV SCH (14:55)
--- NOTE | 2018-08-14 15:35 | Progress Note ---
DATE: Pulmonary Progress Note SUBJECTIVE: The patient feels better. She did have some elevated blood pressure last night. She is not having fevers. OBJECTIVE: VITAL SIGNS: The blood pressure is 119/72 and pulse is 87. The respiratory rate is 19. HEENT: Shows no facial swelling or erythema. Nasal mucosa is normal. LYMPHATIC: Shows no submandibular, cervical, or supraclavicular adenopathy. CARDIAC: Reveals regular rate and rhythm with normal S1 and S2. LUNGS: Auscultation of lungs reveals clear breath sounds bilaterally. There is no wheezing. ABDOMEN: Soft, nontender. There is no rebound or guarding. EXTREMITIES: Show no leg edema or calf tenderness. There is no cyanosis or clubbing. SKIN: Shows no rashes. NEUROLOGICAL: Shows no focal abnormalities. LABORATORY DATA: BUN to creatinine ratio is 29:1.21. The other electrolytes are within normal limits. The white blood cell count is 24.5 and hemoglobin is 9.7. The platelet count is 126. MICROBIOLOGICAL DATA: Urine is growing out Proteus. IMPRESSION: 1. Pyelonephritis secondary to Proteus with severe sepsis, present on admission. 2. Chronic systolic congestive heart failure. 3. Chronic persistent asthma. 4. Peripheral vascular disease with recent stent placement. 5. Ureteral stone on the right side. PLAN: 1. Change the patient to Rocephin to cover the Proteus. 2. The patient is scheduled for ureteral stent tomorrow. 3. Change nebulizer treatments to p.r.n. and continue Advair on a regular basis. Santy Hudson MD [facility]/MARTINAL /[id number]
[2018-08-14] MEDS: CLOPIDOGREL BISULFATE 75 MG TAB PO SCH ×2 (17:00→19:35)
[2018-08-14] MEDS: CARVEDILOL 3.125 MG TAB PO SCH (17:07)
[2018-08-14] MEDS: LEVALBUTEROL HCL SOLN NEBU 0.63 MG/3 ML NEB INH PRN (17:36)
[2018-08-14 18:44] VITALS: BP 134/82
--- NOTE | 2018-08-14 19:00 | NUR ---
BEDSIDE REPORT GIVEN TO ONCOMING MILLING MACHINE OPERATOR RN FOR CONTINUED CARE
[2018-08-14] MEDS: LORAZEPAM 0.5 MG TAB PO PRN (19:35)
[2018-08-14] MEDS: SALMETEROL/FLUTICASONE 100/50 INH SCH ×2 (19:45→20:00)
[2018-08-14 20:00] VITALS: BP 121/74
--- NOTE | 2018-08-14 20:09 | NUR ---
RECEIVED PT IN BED AOX3 .C/O ABD PAIN AND GIVEN ORDERED PAIN MEDICATION BY THE DAY NURSE ..CALL LIGHT WITH IN REACH .CONTINUE TO MONITOR
[2018-08-15] VITALS (8 sets, daily range): BP systolic 93–142; BP diastolic 55–82
[2018-08-15] MEDS: HYDROMORPHONE 2MG/ML 2 MG/ML ML IV PRN ×6 (00:20→22:23)
[2018-08-15] MEDS: CEFTRIAXONE SOD 1 GM/NS 50 ML 50 ML IV SCH ×2 (02:15→13:55)
[2018-08-15] MEDS: LEVALBUTEROL HCL SOLN NEBU 0.63 MG/3 ML NEB INH PRN ×2 (05:05→22:00)
[2018-08-15] MEDS: ONDANSETRON HCL INJ 2MG/ML 2ML 2 MG/ML VIAL IV PRN ×3 (05:56→19:08)
[2018-08-15] MEDS ORDERED: IOPAMIDOL 610MG/1ML 300 MG/ML VIAL IV ONE (06:21)
[2018-08-15 06:26] LABS: BASOPHILS # (AUTO) 0.1 (0.0-0.1); BASOPHILS % 0.2 % (0.0-1.0); EOSINOPHILS # (AUTO) 0.1 (0.0-0.4); EOSINOPHILS % 0.4 % (0.0-6.0); HEMATOCRIT 33.2 % (34.2-44.1); HEMOGLOBIN 10.7 g/dL (12.0-16.0); LYMPHOCYTES # (AUTO) 1.7 (1.0-3.2); MEAN CORPUSCULAR HEMOGLOBIN 31.6 pg (28-32); MEAN CORPUSCULAR HGB CONC 32.2 g/dL (31-35); MEAN CORPUSCULAR VOLUME 97.9 fL (81-99); MONOCYTES # (AUTO) 0.6 (0.2-0.8); MONOCYTES % 2.9 % (4.4-11.3); PLATELET COUNT 106 x10e3/uL (140-360); RED BLOOD COUNT 3.39 x10e6/uL (3.6-5.1); RED CELL DISTRIBUTION WIDTH 14.6 % (11.7-14.4)
--- NOTE | 2018-08-15 06:28 | NUR ---
PT C/O ANXIETY AROUND 530AM .PT IS NPO FOR THE CYSTOSCOPY .CALLED DR GOLDBERG AND TOLD SHE CANNOT HAVE THE ATIVAN NOW
[2018-08-15 06:49] LABS: ALANINE AMINOTRANSFERASE 22 IU/L (0-55); ALBUMIN 2.1 g/dL (3.5-5.0); ALBUMIN/GLOBULIN RATIO 0.6 (0.8-2.0); ALKALINE PHOSPHATASE 71 IU/L (40-150); ANION GAP 10.9 mmol/L (8-16); BLOOD UREA NITROGEN 24 mg/dL (7-26); BUN/CREATININE RATIO 32 (6-25); CALCIUM 8.3 mg/dL (8.4-10.2); CARBON DIOXIDE 23 mmol/L (22-29); CHLORIDE 108 mmol/L (98-107); CREATININE, SERUM 0.75 mg/dL (0.57-1.11); EST GLOMERULAR FILTRATION RATE > 60 ML/MIN (60-); GLUCOSE 88 mg/dL (74-118); POTASSIUM 3.9 mmol/L (3.5-5.1); SODIUM 138 mmol/L (136-145)
--- NOTE | 2018-08-15 07:00 | NUR ---
BEDSIDE SHIFT REPORT FROM NIGHT RN. PT DENIES NEEDS AT THIS TIME.
--- NOTE | 2018-08-15 07:00 | NUR ---
BEDSIDE SHIFT REPORT FROM NIGHT RN. PT DENIES NEEDS AT THIS TIME.
--- NOTE | 2018-08-15 07:15 | NUR ---
PT WAD TAKEN FOR THE PROCEDURE .REPORT GIVEN TO THE ONCOMING NURSE
--- NOTE | 2018-08-15 08:00 | NUR ---
RECEIVED PT FROM ER. AAOX3. PT DENIED NEEDS AT THIS TIME.CALL LEDESMA WITHIN REACH . BED ALARM ON.
[2018-08-15] MEDS: FAMOTIDINE 20 MG TAB PO SCH ×2 (09:24→20:00)
[2018-08-15] MEDS: ASPIRIN 81 MG ENTERIC COATED PO SCH (09:24)
[2018-08-15] MEDS: LISINOPRIL 2.5 MG TAB PO SCH (09:25)
[2018-08-15] MEDS: CARVEDILOL 3.125 MG TAB PO SCH ×2 (09:26→18:17)
[2018-08-15] MEDS: NICOTINE 21 MG/EA PATCH TOP SCH (09:28)
[2018-08-15] MEDS: LORAZEPAM 0.5 MG TAB PO PRN (10:08)
--- NOTE | 2018-08-15 17:01 | Progress Note ---
DATE: 08/15/2018 SUBJECTIVE: The patient went for a ureteral stent today. She did well. She initially required some Solu-Medrol because of wheezing and congestion. PHYSICAL EXAMINATION: VITAL SIGNS: The patient is afebrile. The blood pressure is 113/64 and saturation is 92%. The pulse is 83. HEENT: Shows no facial swelling or erythema. The nasal mucosa is normal. The oropharynx is normal. LYMPHATIC: Shows no submandibular, cervical or supraclavicular adenopathy. CARDIAC: Reveals a regular rate and rhythm with a normal S1 and S2. There are no murmurs or rubs. LUNGS: Auscultation of lungs reveals clear breath sounds bilaterally. There is no wheezing. ABDOMEN: Soft, nontender. There is no rebound or guarding. EXTREMITIES: Show no leg edema or calf tenderness. There is no cyanosis or clubbing. MICROBIOLOGICAL DATA: Urine and blood are growing out proteus. IMPRESSION: 1. Proteus mirabilis pyelonephritis with bacteremia and severe sepsis, present on admission. 2. Chronic persistent asthma. 3. Ureteral stone. 4. Peripheral vascular disease with recent stent placement. 5. Chronic systolic congestive heart failure. PLAN: 1. Continue Rocephin twice daily. 2. Ureteral stent has been placed. 3. Repeat blood counts in the morning. Santy Hudson MD [facility] /[id number]
[2018-08-15] MEDS ORDERED: LIDOCAINE HCL 2% LOCAL INJ 5 ML SDV VIAL INJ ONE (17:52)
[2018-08-15] MEDS ORDERED: ONDANSETRON HCL INJ 2MG/ML 2ML 2 MG/ML VIAL ONE (17:52)
[2018-08-15] MEDS ORDERED: HYDROCORTISONE SOD SUCCINATE 100 MG VIAL ONE (17:52)
[2018-08-15] MEDS ORDERED: PROPOFOL IV EMULSION 10 MG/ML 20 ML VIAL ONE (17:52)
[2018-08-15] MEDS ORDERED: SEVOFLURANE INHAL SOLN 250 ML PEN BTL ONE (17:52)
[2018-08-15] MEDS ORDERED: MIDAZOLAM HCL 2 MG/2 ML VIAL ONE (18:09)
[2018-08-15] MEDS ORDERED: FENTANYL CITRATE/PF 100MCG/2 ML INJ ONE (18:09)
[2018-08-15] MEDS: CLOPIDOGREL BISULFATE 75 MG TAB PO SCH (18:16)
--- NOTE | 2018-08-15 19:00 | NUR ---
patient received awake, alert, lying quietly in bed. patient medicated for c/o abd pain by day shift nurse. pm assessment complete. patient instructed to call for assistance when needed.
[2018-08-15] MEDS: SALMETEROL/FLUTICASONE 100/50 INH SCH (19:05)
--- NOTE | 2018-08-15 22:23 | NUR ---
patient medicated with dilaudid 0.5 mg ivp for c/o lower abd pain 7/10 at this time.
[2018-08-16] VITALS (8 sets, daily range): BP systolic 110–158; BP diastolic 66–89
[2018-08-16] MEDS: CEFTRIAXONE SOD 1 GM/NS 50 ML 50 ML IV SCH ×2 (01:55→12:38)
[2018-08-16] MEDS: ONDANSETRON HCL INJ 2MG/ML 2ML 2 MG/ML VIAL IV PRN ×3 (02:27→16:58)
[2018-08-16] MEDS: HYDROMORPHONE 2MG/ML 2 MG/ML ML IV PRN ×5 (02:27→21:03)
--- NOTE | 2018-08-16 02:27 | NUR ---
patient medicated with dilaudid 0.5 mg and zofran 4 mg ivp for c/o lower abd pain 7/10 at this time.
--- NOTE | 2018-08-16 04:27 | NUR ---
short run of svt noted at this time. bp 110/66 hr 84. close monitoring continues.
[2018-08-16 06:02] LABS: ALANINE AMINOTRANSFERASE 16 IU/L (0-55); ALBUMIN/GLOBULIN RATIO 0.6 (0.8-2.0); ALKALINE PHOSPHATASE 68 IU/L (40-150); ANION GAP 10.4 mmol/L (8-16); BLOOD UREA NITROGEN 19 mg/dL (7-26); BUN/CREATININE RATIO 28 (6-25); CALCIUM 8.2 mg/dL (8.4-10.2); CARBON DIOXIDE 24 mmol/L (22-29); CHLORIDE 111 mmol/L (98-107); CREATININE, SERUM 0.68 mg/dL (0.57-1.11); EST GLOMERULAR FILTRATION RATE > 60 ML/MIN (60-); GLUCOSE 96 mg/dL (74-118); POTASSIUM 3.4 mmol/L (3.5-5.1); SODIUM 142 mmol/L (136-145)
[2018-08-16 06:12] LABS: BASOPHILS % 0.2 % (0.0-1.0); EOSINOPHILS # (AUTO) 0.1 (0.0-0.4); EOSINOPHILS % 0.9 % (0.0-6.0); HEMATOCRIT 31.2 % (34.2-44.1); LYMPHOCYTES # (AUTO) 1.8 (1.0-3.2); LYMPHOCYTES % 14.9 % (18.0-39.1); MEAN CORPUSCULAR HEMOGLOBIN 31.2 pg (28-32); MEAN CORPUSCULAR HGB CONC 32.1 g/dL (31-35); MEAN CORPUSCULAR VOLUME 97.2 fL (81-99); MONOCYTES # (AUTO) 0.9 (0.2-0.8); MONOCYTES % 7.7 % (4.4-11.3); NEUTROPHILS # (AUTO) 8.9 (2.1-6.9); NEUTROPHILS % 75.2 % (38.7-80.0); PLATELET COUNT 80 x10e3/uL (140-360); RED BLOOD COUNT 3.21 x10e6/uL (3.6-5.1); RED CELL DISTRIBUTION WIDTH 14.5 % (11.7-14.4)
--- NOTE | 2018-08-16 09:15 | NUR ---
Pt received resting in bed. Alert and oriented x4, pt with left IJ saline lock. Oriented to staff and surroundings. Encouraged to press call pillai if help needed. All meds given as ordered. Emotional support given. Call pillai within reach. Will monitor
[2018-08-16] MEDS: FAMOTIDINE 20 MG TAB PO SCH ×2 (09:17→19:50)
[2018-08-16] MEDS: ASPIRIN 81 MG ENTERIC COATED PO SCH (09:17)
[2018-08-16] MEDS: NICOTINE 21 MG/EA PATCH TOP SCH (09:17)
[2018-08-16] MEDS: CARVEDILOL 3.125 MG TAB PO SCH ×2 (09:18→16:58)
[2018-08-16] MEDS: LISINOPRIL 2.5 MG TAB PO SCH (09:19)
--- NOTE | 2018-08-16 10:44 | Progress Note ---
DATE: SUBJECTIVE: The patient feels better. She is not having fevers. Her white blood cell count has returned to normal. PHYSICAL EXAMINATION: VITAL SIGNS: The blood pressure is 110/66 and the pulse is 84. Saturation 92%. HEENT: Shows no facial swelling or erythema. CARDIAC: Reveals a regular rate and rhythm with normal S1 and S2. LUNGS: Auscultation of lungs reveals a few expiratory wheezes bilaterally. ABDOMEN: Soft, nontender. There is no rebound or guarding. EXTREMITIES: Show no leg edema or calf tenderness. There is no cyanosis or clubbing. SKIN: Shows no rashes. IMPRESSION: 1. Proteus mirabilis pyelonephritis with bacteremia and severe sepsis present on admission. 2. Ureteral stone. 3. Chronic persistent asthma. 4. Peripheral vascular disease with recent stent placement. 5. Chronic congestive heart failure. PLAN: 1. Continue antibiotics. 2. Discuss course of therapy and outpatient followup with Urology. 3. Continue bronchodilators. 4. Continue current cardiac regimen. Santy Hudson MD [facility] /[id number]
[2018-08-16 11:07] LABS: ANISOCYTOSIS SLIGHT; BAND NEUTROPHILS % (MANUAL) 5 %; EOSINOPHILS % (MANUAL) 3 % (0-7); HYPOCHROMASIA SLIGHT; LYMPHOCYTES % (MANUAL) 20 % (19-48); MONOCYTES % (MANUAL) 5 % (3.4-9.0); NEUTROPHILS % (MANUAL) 65 % (40-74); PLATELET ESTIMATE ADEQUATE; PLATELET MORPHOLOGY COMMENT NORMAL; RBC MORPHOLOGY COMMENT NORMAL
--- NOTE | 2018-08-16 12:05 | Operative Report ---
DATE OF PROCEDURE: 08/15/2018 SURGEON: Cole Azul MD PREOPERATIVE DIAGNOSES: 1. Microscopic hematuria. 2. Right hydronephrosis. POSTOPERATIVE DIAGNOSES: 1. Microscopic hematuria. 2. Right hydronephrosis. PROCEDURES: 1. Cystourethroscopy with left ureteral catheterization and left retrograde pyelogram (separate procedure for microscopic hematuria). 2. Cystourethroscopy with right ureteral stent placement indwelling (entirely separate procedure for right hydronephrosis). 3. Supervision on fluoroscopy. 4. Interpretation of retrograde pyelography. ANESTHESIA: General. ESTIMATED BLOOD LOSS: Minimal. COMPLICATIONS: None. INDICATIONS FOR PROCEDURE: Ms. Lopez is a very pleasant 63-year-old female, who is admitted to hospital with urinary tract infection and found to have myocardial infarction, found to have obstructed infected stone. She and I had a long discussion about alternatives, risks, and benefits including doing nothing, stent placement, percutaneous nephrostomy, open surgery. She voiced understanding of the options, alternatives, the risks and the benefits, and she elected to proceed. PROCEDURE IN DETAIL: After informed consent was obtained, the patient was taken to the operative suite, she was placed supine on the operating table, underwent general anesthesia by the Anesthesia service. She was placed in the dorsal lithotomy position, sterilely prepped and draped in a standard fashion for cystoscopy. A 21-[place] cystoscope was inserted per urethra. Normal urethra was noted. stone. Both ureteral orifices were normal anatomic location efflux of urine only on the left side. Bilateral retrograde pyelogram was performed with a 5-[place] open-ended catheter. On the left there was a normal collecting system. On the right there was a large obstructing proximal ureteral calculus, proximal hydronephrosis with moderate difficulty. Ureteral stent was deployed with coil in the renal pelvis and a coil in the bladder. The patient's bladder was drained. She was awakened from anesthesia and transported to the recovery room in excellent condition. Supervision of fluoroscopy, interpretation of retrograde pyelography: I was present for the entire procedure and I supervised the use of fluoroscopy as no radiologist was present . Attention was turned towards the left and right ureters, which were catheterized with a 5-[place] open-ended catheter. Retrograde pyelogram was performed revealing left collecting system, on the right obstructing 1 cm ureteral calculus with proximal hydronephrosis. Postoperative views on the right side revealed stent in adequate position. MD [facility] /[id number]
[2018-08-16] MEDS: CLOPIDOGREL BISULFATE 75 MG TAB PO SCH (16:58)
[2018-08-16] MEDS ORDERED: LOPERAMIDE HCL 2 MG CAP PO PRN (18:45)
--- NOTE | 2018-08-16 18:45 | NUR ---
patient received awake, alert, lying quietly in bed. no c/o pain noted. patient c/o loose diarrhea today. call to be placed to re:diarrhea. pm assessment complete. patient instructed to call for assistance when needed.
[2018-08-16] MEDS: ACETAMINOPHEN 325 MG TAB PO PRN (21:03)
--- NOTE | 2018-08-16 21:03 | NUR ---
patient medicated for elevated temp and lower abd pain 6/10 per orders at this time per patients request.
--- NOTE | 2018-08-17 | NUR ---
patient appears to be resting quietly. no c/o pain noted.
[2018-08-17 00:28] VITALS: BP 138/77
[2018-08-17] MEDS: CEFTRIAXONE SOD 1 GM/NS 50 ML 50 ML IV SCH (02:15)
[2018-08-17] MEDS: HYDROMORPHONE 2MG/ML 2 MG/ML ML IV PRN ×2 (02:50→07:20)
[2018-08-17] MEDS: ONDANSETRON HCL INJ 2MG/ML 2ML 2 MG/ML VIAL IV PRN (02:50)
--- NOTE | 2018-08-17 02:50 | NUR ---
patient medicated with dilaudid 0.5 mg and zofran 4 mg ivp for c/o lower abd pain 6/10 at this time.
[2018-08-17 04:46] VITALS: BP 136/81
--- NOTE | 2018-08-17 05:15 | NUR ---
patient oob to bathroom. no further c/o diarrhea noted throughout the night.
[2018-08-17 06:34] LABS: BASOPHILS % 0.1 % (0.0-1.0); EOSINOPHILS % 0.4 % (0.0-6.0); HEMATOCRIT 29.8 % (34.2-44.1); HEMOGLOBIN 9.6 g/dL (12.0-16.0); LYMPHOCYTES # (AUTO) 1.4 (1.0-3.2); LYMPHOCYTES % 15.5 % (18.0-39.1); MEAN CORPUSCULAR HEMOGLOBIN 31.1 pg (28-32); MEAN CORPUSCULAR HGB CONC 32.2 g/dL (31-35); MEAN CORPUSCULAR VOLUME 96.4 fL (81-99); MONOCYTES % 10.9 % (4.4-11.3); NEUTROPHILS # (AUTO) 6.6 (2.1-6.9); NEUTROPHILS % 71.1 % (38.7-80.0); PLATELET COUNT 89 x10e3/uL (140-360); RED BLOOD COUNT 3.09 x10e6/uL (3.6-5.1); RED CELL DISTRIBUTION WIDTH 14.2 % (11.7-14.4)
[2018-08-17] MEDS: SALMETEROL/FLUTICASONE 100/50 INH SCH (07:28)
[2018-08-17 08:00] VITALS: BP 116/57
[2018-08-17] MEDS: ASPIRIN 81 MG ENTERIC COATED PO SCH (08:41)
[2018-08-17] MEDS: FAMOTIDINE 20 MG TAB PO SCH (08:41)
[2018-08-17] MEDS: NICOTINE 21 MG/EA PATCH TOP SCH (08:42)
[2018-08-17] MEDS: CARVEDILOL 3.125 MG TAB PO SCH (08:42)
[2018-08-17] MEDS: LISINOPRIL 2.5 MG TAB PO SCH (08:42)
[2018-08-17 08:43] VITALS: BP 116/57
--- NOTE | 2018-08-17 08:43 | NUR ---
Pt received resting in bed. All meds given as ordered. Call pillai within reach. Emotional support given. Will monitor
[2018-08-17] MEDS ORDERED: CEFDINIR 300 MG CAP PO SCH (09:00)
[2018-08-17] MEDS ORDERED: CEFDINIR300 MG PO (09:08)
--- NOTE | 2018-08-17 09:58 | NUR ---
Pt given discharge instructions regarding meds, diet, activities, and follow up appointment. Pt verbalized understanding of teaching. Awaiting for knot picker cloth
--- NOTE | 2018-08-17 11:37 | NUR ---
Pt left in wheelchair to 's car
--- NOTE | 2018-08-17 13:57 | NUR ---
Spoke to pt's regarding continuation of Plavix. verbalized understanding of teaching
--- NOTE | 2018-08-17 14:27 | Discharge Summary ---
DISCHARGE MEDICATIONS: 1. Albuterol sulfate HFA two puffs q.4 h. p.r.n. 2. Aspirin 81 mg p.o. daily. 3. Carvedilol 6.25 mg p.o. b.i.d. 4. Omnicef 300 mg p.o. b.i.d. 5. Advair 100/50 one puff p.o. b.i.d. 6. Lisinopril 2.5 mg p.o. daily. 7. Lorazepam 1 p.o. b.i.d. p.r.n. 8. Oxycodone 10/325 one p.o. q.6 h. p.r.n. 9. Prednisone 5 mg p.o. b.i.d. DISCHARGE DIAGNOSES: 1. Proteus mirabilis pyelonephritis with bacteremia and severe sepsis, present on admission. 2. Ureteral stone on the right side. 3. Chronic persistent asthma. 4. Peripheral vascular disease with recent stent placement. 5. Chronic congestive heart failure. CONSULTING PHYSICIANS: 1. Dr. Martina Silveira of Cardiology. 2. Dr. Azul of Urology. PROCEDURES: Ureteral stent placement by Urology with retrograde pyelogram. RADIOGRAPHIC DATA: CT scan of the abdomen and pelvis shows some mild left hydronephrosis with a proximal ureteral stone. Chest x-ray shows no active disease. HISTORY OF PRESENT ILLNESS: The patient is a 63-year-old woman. She has a history of asthma. She also has a history of a recent stent in the femoral artery. The patient came in complaining of some right-sided flank pain and low-grade fevers. HOSPITAL COURSE: The patient was admitted. A CT scan showed pyelonephritis with a ureteral stone. The patient had an elevated white blood cell count and low blood pressure. The patient received IV fluids along with antibiotics. She had subsequent cultures, which showed proteus growing from the urine. She was seen in consultation by Cardiology because of an elevated troponin. They felt this was secondary to hypotension and decreased myocardial perfusion. The patient was cleared by Cardiology and then went to surgery. The patient had a retrograde pyelogram and a cystoscopy. She had ureteral stent placed without complications. The patient continued to improve. Her white blood cell count returned to normal. Her blood pressure was normal and she felt much better at the time of discharge. She was restarted on her Plavix during the hospitalization because of her recent carotid artery stent. DISPOSITION: The patient was discharged home. She will follow up with Dr. Stevens of Internal Medicine as well as Dr. Azul of Urology. Santy Hudson MD [facility] /[id number]
== END 2018-08-17 14:41 | disposition home or self-care (01) | DRG 853 ==
LOC: ER 12:48 → ERHOLD 08-13 02:44 → MED/SURG3 08-14 12:07
PROVIDERS: ADMIT Internal Medicine Critical Care Medicine; ATTEND Internal Medicine Critical Care Medicine
PROC: BT141ZZ Fluoroscopy of Kidneys, Ureters and Bladder using Low Osmolar Contrast (ICD-10-PCS; 2018-08-15)
PROC: 0T768DZ Dilation of Right Ureter with Intraluminal Device, Via Natural or Artificial Opening Endoscopic (ICD-10-PCS; principal; 2018-08-15 07:00)
DX: A41.89 Other specified sepsis (principal); I21.A1 Myocardial infarction type 2; N13.6 Pyonephrosis; I50.22 Chronic systolic (congestive) heart failure; J45.31 Mild persistent asthma with (acute) exacerbation; J44.1 Chronic obstructive pulmonary disease with (acute) exacerbation; I42.9 Cardiomyopathy, unspecified; R65.20 Severe sepsis without septic shock; I11.0 Hypertensive heart disease with heart failure; I73.9 Peripheral vascular disease, unspecified; F17.210 Nicotine dependence, cigarettes, uncomplicated; M47.26 Other spondylosis with radiculopathy, lumbar region; I95.9 Hypotension, unspecified; E78.00 Pure hypercholesterolemia, unspecified; Z95.810 Presence of automatic (implantable) cardiac defibrillator; Z95.820 Peripheral vascular angioplasty status with implants and grafts; Z79.02 Long term (current) use of antithrombotics/antiplatelets; Z79.82 Long term (current) use of aspirin; Z79.52 Long term (current) use of systemic steroids
CPT/HCPCS: 36415; 71045; 71046; 74177; 74420; 80048; 80053; 80061; 81001; 82150; 82550; 82553; 82948; 83605; 83690; 84484; 85025; 85610; 85730; 87040; 87071; 87081; 87086; 87186; 87205; 87400; 93005; 93306; 93925; 94640; 96367; 96376; 99284; C1758; J0696; J1720; J1885; J2001; J2250; J2405; J2930; J3370; J7030; J7040; Q9967

== ENCOUNTER → 2018-09-06 | Day surgery (SDC) | payer MEDICARE, BC ==
[~2018-09-06] MED LIST: ADVAIR 100-501 EACH INH; ASPIR 8181 MG PO; ATIVAN1 MG PO; B-121000 MCG PO; CARVEDILOL3.125 MG PO; CEFDINIR300 MG PO; CHANTIX1 MG PO; CLOPIDOGREL75 MG PO; DEXAMETHASONE SOD PHOS INJ 4 MG/ML VIAL ONE; GENTAMICIN 120MG/NS 100ML 100 ML ONE; IOPAMIDOL 610MG/1ML 300 MG/ML VIAL IV ONE; LIDOCAINE HCL 2% LOCAL INJ 5 ML SDV VIAL INJ ONE; LISINOPRIL2.5 MG PO; MIDAZOLAM HCL 2 MG/2 ML VIAL ONE; ONDANSETRON HCL INJ 2MG/ML 2ML 2 MG/ML VIAL ONE; OXYCODONE-ACET1 EAC3 PO; PANTOPRAZOLE SO40 MG PO; PREDNISONE10 MG PO; PROPOFOL IV EMULSION 10 MG/ML 20 ML VIAL ONE; SEVOFLURANE INHAL SOLN 250 ML PEN BTL ONE; SOMA350 MG PO; VENTOLIN HFA18 GM INH; VIT D PO
--- OUTSIDE RECORDS SUMMARY | 2018-09-06 08:28 | XMS REPORT | Continuity of Care Document ---
Author Author [facility] Interface Address Unknown Phone Unavailable Problems Problem Status Onset Date Classification Date Reported Comments Source CCL / HIGHER EDUCATION ADMINISTRATOR LEFT COMMON FEMORAL SFA / LEFT Active 08/02/2018 [facility] S02.2XXA FRACTURE OF NASAL BONES, INITIA Active 08/24/2017 [facility] Encounter for screening for malignant neoplasm of colon 07/27/2017 10/26/2017 [facility] COLORECTAL CANCER SCREENING Active 07/10/2017 [facility] COLON CONSULT - PRE OP COLOSTOMY REVERSA Active 07/06/2017 [facility] I50.9 Active 02/26/2017 [facility] ABD ABSCESS Active 11/17/2016 [facility] R10 - ABDOMINAL AND PELVIC PAIN Active 11/08[facility] ACUTE DIVERTICULITIS, ABDOMINAL PAIN/FEV Active 11/08/2016 [facility] ABDOMINAL PAIN/FEVER Active 11/08/2016 [facility] CHRONIC SYSTOLIC HF Active 05/24/2016 [facility] CCL/SINGLE CHAMBER ICD IMPLANT/MEDTRONIC Active 05/24/2016 [facility] PAD, CLAUDICATION Active 05/01/2016 [facility] CCL/LEFT LEG ANGIO/HIGHER EDUCATION ADMINISTRATOR/STENT/DX: PAD, CL Active 05/01/2016 [facility] CCL/BILATERAL LOWER EXTREMITY ANGIO/RIGH Active 04/04/2016 [facility] R91.1 - SOLITARY PULMONARY NODULE Active 07/06/2015 [facility] CCL / R Active 09/02/2014 [facility] DX: DYSPNEA L HEART FAILURE Active 09/02/2014 [facility] 786.05 Active 07/08/2014 [facility] V12.69, 786.05 Active 07/08/2014 [facility] Asthma Resolved Problem 08/09/2018 [place],[facility] Cardiomyopathy Resolved Problem 08/09/2018 [facility], [facility] COPD (<span ID="[id number]">Confirmed</span>) Resolved Problem 08/09/2018 [facility] Claudication Resolved Problem 08/09/2018 [facility] CHF (<span ID="[id number]">Confirmed</span>) Resolved Problem 08/09/2018 [facility] Diabetes mellitus Resolved Problem 08/09/2018 [facility] Shortness of breath Resolved Problem 08/09/2018 [facility] Hyperlipemia Resolved Problem 08/09/2018 [facility] Hypertension Resolved Problem 08/09/2018 [facility] Skin cancer Resolved Problem 08/09/2018 [facility] Obesity Resolved Problem 08/09/2018 [facility] Peripheral vascular disease Resolved Problem 08/09/2018 [facility] Psoriasis Resolved Problem 11/17/2016 [facility] Asthma Resolved Problem 03/04/2017 [facility] [place],[facility] Diverticulosis of large intestine without perforation or abscess without bleeding 10/15/2017 [facility] Obesity, unspecified 10/15/2017 [facility] Body mass index 27.0-27.9, adult 10/15/2017 [facility] Hypertensive heart disease with heart failure 10/26/2017 [facility] Chronic systolic heart failure 10/15/2017 [facility] Hyperlipidemia, unspecified 10/15/2017 [facility] Cardiomyopathy, unspecified 10/26/2017 [facility] Chronic obstructive pulmonary disease, unspecified 10/15/2017 [facility] Type 2 diabetes mellitus with diabetic peripheral angiopathy without gangrene 10/15/2017 [facility] Presence of cardiac pacemaker 10/15/2017 [facility] Nicotine dependence, cigarettes, uncomplicated 10/15/2017 [facility] Presence of automatic cardiac defibrillator 10/26/2017 [facility] Eczema Resolved Problem 08/09/2018 [facility] Heart failure, unspecified 10/26/2017 [facility] Peripheral vascular disease, unspecified 10/26/2017 [facility] Obstructive sleep apnea (pediatric) 10/26/2017 [facility] Emphysema, unspecified 10/26/2017 [facility] Gastro-esophageal reflux disease without esophagitis 10/26/2017 [facility] Prediabetes 10/26/2017 [facility] Acquired absence of other specified parts of digestive tract 10/26/2017 [facility] Colostomy status 10/26/2017 [facility] nurses aide use of systemic steroids 10/26/2017 [facility] half-way use of aspirin 10/26/2017 [facility] Parastomal hernia without obstruction or gangrene 09/26/2017 [facility] Peritoneal adhesions (postinfection) 09/26/2017 [facility] Elevated white blood cell count, unspecified 09/26/2017 [facility] Personal history of nicotine dependence 09/26/2017 [facility] DVTRCLI OF INTEST, PART UNSP, W/O PERF O Active [facility] Medications Medication Details Route Status Patient Instructions Ordering Provider Order Date Source Carisoprodol (Soma) 350 Mg Tablet, 350 Mg Oral Four Times Daily as needed for Mild Pain (1-3) Or Fever>100.8 Active 08/17/2018 [facility] Morphine 2 mg, Route: IVP, ONCE, Dosing Weight 66.818, kg, Start date: 08/07/18 15:04:00 CDT, Stop date: 08/07/18 15:04:00 CDT Inactive 08/07/2018 [facility] clopidogrel 75 MG Oral Tablet [Plavix] 75 mg=1 tab, PO, Daily, # 90 tab, 3 Refill(s) Active 08/07/2018 [facility] Nitroglycerin 0.4 mg, 1 tab, Route: SL, Drug form: TAB, Q5Min, Dosing Weight 66.818, kg, PRN Chest Pain, Start date: 08/07/18 14:41:00 CDT, Duration: 3 doses or times, Stop date: Limited # of timesNotes: (Same as: Nitroquick, Nitrostat) "Do Not Crush" Sublingual tablet Inactive 08/07/2018 [facility] normal saline 0.9% IV 250 mL 250 mL, Rate: 250 ml/hr, Infuse over: 1 hr, Route: IV, Dosing Weight 66.818 kg, Total Volume: 250, Start date: 08/07/18 12:28:00 CDT, Duration: 30 day, Stop date: 09/06/18 12:27:00 CDT, 1.74, m2 Inactive 08/07/2018 [facility] Docusate Sodium 100 MG Oral Capsule [Colace] 100 mg=1 cap, PO, BID, # 60 cap, 0 Refill(s) Active 09/17/2017 [facility] gabapentin 300 MG Oral Capsule 300 mg=1 cap, PO, Q8H, # 90 cap, 0 Refill(s) Active 09/17/2017 [facility] tramadol hydrochloride 50 MG Oral Tablet 50 mg=1 tab, PO, Q4H, PRN Pain Score 1-5, # 24 tab, 0 Refill(s) Active 09/17/2017 [facility] vitamin A 10,000 units oral capsule 10,000 IntlUnit=1 cap, PO, Daily, # 30 cap, 0 Refill(s) Active 09/17/2017 [facility] Oxycodone Hydrochloride 5 MG Oral Tablet 10 mg, 2 tab, Route: PO, Drug form: TAB, Q4H, Dosing Weight 72.727, kg, PRN Pain Score 6-10, Start date: 09/17/17 11:32:00 CDT, Duration: 30 day, Stop date: 10/17/17 11:31:00 CDTNotes: (Same as: Roxicodone) Inactive 09/17/2017 [facility] tramadol hydrochloride 50 MG Oral Tablet 50 mg, 1 tab, Route: PO, Drug form: TAB, Q4H, Dosing Weight 72.727, kg, Start date: 09/17/17 4:00:00 CDT, Duration: 30 day, Stop date: 10/17/17 0:00:00 CDTNotes: Not to exceed 400mg/day. (Same As: Ultram) Inactive 09/17/2017 [facility] Albuterol 0.833 MG/ML / Ipratropium [place] 0.167 MG/ML Inhalant Solution [DuoNeb] 3 ml, Route: NEB, Drug Form: SOLN, Dosing Weight 72.727, kg, RQ4H, Start date: 09/15/17 11:00:00 CDT, Duration: 30 day, Stop date: 10/15/17 7:00:00 CDTNotes: (Same as: Duoneb) No Longer Active 09/15/2017 [facility] 24 HR tramadol hydrochloride 100 MG Extended Release Tablet 100 mg, 2 tab, Route: PO, Drug form: TAB, Q12H, Priority: NOW, Start date: 09/15/17 10:30:00 CDT, Duration: 30 day, Stop date: 10/15/17 9:00:00 CDTNotes: Not to exceed 400mg/day. (Same As: Ultram) No Longer Active 09/15/2017 [facility] potassium chloride 20 mEq oral tablet, extended [...] Patient’s with feeding tube less than 14 [place] (Dobhoff, J-tube etc) and pediatric and patients. With food and full glass of water Inactive 09/14/2017 [facility] carvedilol 6.25 mg, Route: PO, Drug form: TAB, BID, Dosing Weight 72.727, kg, Start date: 09/13/17 17:00:00 CDT, Duration: 30 day, Stop date: 10/13/17 9:00:00 CDT Inactive 09/13/2017 [facility] remove patch 1 patch, Route: TOP, Bedtime, Drug form: ERFILM, Start date: 09/13/17 15:00:00 CDT, Duration: 30 day, Stop date: 10/12/17 15:00:00 CDT No Longer Active 09/13/2017 [facility] albuterol 90 mcg/inh inhalation aerosol 2 puff, Route: INHALATION, Drug Form: AERO/A, Dosing Weight 72.727, kg, QID, PRN Shortness of breath, Start date: 09/13/17 12:59:00 CDT, Duration: 30 day, Stop date: 10/13/17 12:58:00 CDTNotes: Albuterol 90 microgram/inh 8gm HFA WASTE: Aerosol - Return to Pharmacy Same as: Rufus Jessica No Longer Active 09/13/2017 [facility] Aspirin 81 MG Enteric Coated Tablet 81 mg, 1 tab, Route: PO, Drug form: CHEWTAB, Daily, Dosing Weight 72.727, kg, Start date: 09/13/17 11:00:00 CDT, Duration: 30 day, Stop date: 10/13/17 9:00:00 CDTNotes: Take with food. No Longer Active 09/13/2017 [facility] Ativan 1 mg, 1 tab, Route: PO, Drug form: TAB, BID, Dosing Weight 72.727, kg, Start date: 09/13/17 11:00:00 CDT, Duration: 30 day, Stop date: 10/13/17 9:00:00 CDTNotes: (Same as: Ativan) No Longer Active 09/13/2017 [facility] Vitamin D3 1000 intl units oral tablet 1,000 IntlUnit, 1 tab, Route: PO, Drug form: TAB, Daily, Dosing Weight 72.727, kg, Start date: 09/13/17 11:00:00 CDT, Duration: 30 day, Stop date: 10/13/17 9:00:00 CDTNotes: Same as : Vitamin D3 No Longer Active 09/13/2017 [facility] budesonide-formoterol 80 mcg-4.5 mcg/inh inhalation aerosol with adapter 2 inhalation, Route: INHALATION, Drug Form: AERO/A, RBID, Start date: 09/13/17 10:56:00 CDT, Duration: 30 day, Stop date: 10/13/17 8:00:00 CDTNotes: (Same as: Symbicort) WASTE: Aerosol - Return to Pharmacy No Longer Active 09/13/2017 [facility] Acetaminophen 325 MG / Oxycodone Hydrochloride 10 MG Oral Tablet [Percocet 10/325] 1 tab, PO, Q8H, PRN Pain Score 1-3, # 20 tab, 0 Refill(s) No Longer Active 09/13/2017 [facility] Fluticasone propionate 0.1 MG/ACTUAT / salmeterol 0.05 MG/ACTUAT Dry Powder Inhaler 2 inhalation, Route: INHALER, Drug Form: PWDR, Dosing Weight 72.727, kg, RBID, Start date: 09/13/17 10:17:00 CDT, Duration: 30 day, Stop date: 10/13/17 8:00:00 CDT Inactive 09/13/2017 [facility] phenol 1 spray, Route: TOP, ONCE, Drug form: SPRY, PRN as needed for sore throat, Start date: 09/13/17 10:15:00 CDTNotes: Chloraseptic [place] (Same as: Chloraseptic, Sore Throat [place]) WASTE: F/P - Black; E - Municipal Trash Bin No Longer Active 09/13/2017 [facility] Albuterol 0.83 MG/ML Inhalant Solution 1.245 mg, 1.5 mL, Route: PO, Drug form: SOLN, RQ4H, Dosing Weight 72.727, kg, PRN Wheezing, Start date: 09/13/17 10:12:00 CDT, Duration: 30 day, Stop date: 10/13/17 10:11:00 CDTNotes: SEE RT DOCUMENTATION (Same as: Proventil) Inactive 09/13/2017 [facility] pantoprazole 40 mg, Route: IVP, Drug form: INJ, Daily, Dosing Weight 72.727, kg, Start date: 09/13/17 10:00:00 CDT, Duration: 30 day, Stop date: 10/13/17 9:00:00 CDTNotes: For IV push reconstitute with 10 ml 0.9% sodium chloride and push over 2 minutes. (Same as: Protonix) No Longer Active 09/13/2017 [facility] Lidocaine 0.05 MG/MG Transdermal Patch 1 patch, Route: TOP, Daily, Drug form: FILM, Start date: 09/13/17 9:00:00 CDT, Duration: 30 day, Stop date: 10/12/17 9:00:00 CDT Inactive 09/13/2017 [facility] Protonix 40 mg, 1 tab, Route: PO, Drug form: ECTAB, Daily, Start date: 09/13/17 9:00:00 CDT, Duration: 30 day, Stop date: 10/12/17 9:00:00 CDT Inactive 09/13/2017 [facility] Vitamin A 10,000 unit, 1 cap, Route: PO, Drug form: CAP, Daily, Dosing Weight 72.727, kg, Start date: 09/13/17 9:00:00 CDT, Duration: 2 week, Stop date: 09/26/17 9:00:00 CDT No Longer Active 09/13/2017 [facility] Lisinopril 5 mg, 1 tab, Route: PO, Drug form: TAB, Daily, Dosing Weight 72.727, kg, Start date: 09/13/17 9:00:00 CDT, Stop date: 10/12/17 9:00:00 CDTNotes: (Same as: Prinivil, Zestril) No Longer Active 09/13/2017 [facility] Docusate Sodium 100 MG Oral Capsule [Colace] 100 mg, 1 cap, Route: PO, Drug form: CAP, BID, Dosing Weight 72.727, kg, Start date: 09/13/17 9:00:00 CDT, Stop date: 10/12/17 17:00:00 CDTNotes: (Same as: Colace) (Do Not Crush) No Longer Active 09/13/2017 [facility] carvedilol 6.25 mg, 1 tab, Route: PO, Drug form: TAB, Q12H, Dosing Weight 72.727, kg, Start date: 09/13/17 9:00:00 CDT, Duration: 30 day, Stop date: 10/12/17 21:00:00 CDT No Longer Active 09/13/2017 [facility] Prednisone 10 mg, 1 tab, Route: PO, Drug form: TAB, Daily, Dosing Weight 72.727, kg, Start date: 09/13/17 9:00:00 CDT, Duration: 30 day, Stop date: 10/12/17 9:00:00 CDT No Longer Active 09/13/2017 [facility] Lidocaine 0.05 MG/MG Transdermal Patch 1 patch, Route: TOP, Daily, Drug form: FILM, Start date: 09/13/17 3:00:00 CDT, Duration: 30 day, Stop date: 10/12/17 3:00:00 CDTNotes: Apply only once for up to 12 hours in a 24-hour period (12 hours on and 12 hours off). (Same as: Lidoderm) "Remove old patch before application of new patch" No Longer Active 09/13/2017 [facility] Morphine 2 mg, 0.5 mL, Route: IVP, Drug form: SOLN, Q2H, Dosing Weight 72.727, kg, PRN Pain Score 7-10, Start date: 09/13/17 1:11:00 CDT, Duration: 30 day, Stop date: 10/13/17 1:10:00 CDTNotes: (Same as:MORPhine Sulfate) No Longer Active 09/13/2017 [facility] gabapentin 300 MG Oral Capsule 300 mg, 1 cap, Route: PO, Drug form: CAP, Q8H, Dosing Weight 72.727, kg, (CrCl > 60 ml/min), Start date: 09/13/17 0:00:00 CDT, Stop date: 10/12/17 16:00:00 CDTNotes: (Same as: Neurontin) No Longer Active 09/13/2017 [facility] Tramadol 100 mg, 2 tab, Route: PO, Drug form: TAB, Q6H, Dosing Weight 72.727, kg, Start date: 09/13/17 0:00:00 CDT, Duration: 30 day, Stop date: 10/12/17 18:00:00 CDT Inactive 09/13/2017 [facility] Ofirmev 1,000 mg, 100 mL, Route: IVPB, Drug form: INJ, Q6H, Dosing Weight 72.727, kg, for > or=50 kg, Start date: 09/13/17 0:00:00 CDT, Duration: 30 day, Stop date: 10/14/17 18:00:00 CDTNotes: MEDICATION WASTE Product Size: 1000 mg Product Wasted: ___ mg No Longer Active 09/13/2017 [facility] Pravastatin 20 mg, 1 tab, Route: PO, Drug form: TAB, Bedtime, Dosing Weight 72.727, kg, Start date: 09/12/17 21:00:00 CDT, Duration: 30 day, Stop date: 10/11/17 21:00:00 CDTNotes: (Same as: Pravachol) No Longer Active 09/13/2017 [facility] ondansetron (ANES) Route: IV, Drug form: INJ, ONCE, Stop date: 09/12/17 20:06:00 CDT Inactive 09/13/2017 [facility] Ondansetron 4 mg, 2 mL, Route: IVP, Drug form: INJ, ONCE, Dosing Weight 72.727, kg, PRN Nausea & Vomiting, Start date: 09/12/17 20:03:00 CDTNotes: (Same as: Zofran) MEDICATION WASTE Product Size: 4 mg Product Wasted: ___ mg Inactive 09/13/2017 [facility] Naloxone 0.4 mg, 1 mL, Route: IVP, Drug form: INJ, Q2MIN, Dosing Weight 72.727, kg, PRN Narcotic Reversal, Start date: 09/12/17 20:03:00 CDT, Duration: 8 doses or times, Stop date: 09/13/17 0:00:00 CDTNotes: Same as Narcan Inactive 09/13/2017 [facility] Flumazenil 0.2 mg, 2 mL, Route: IVP, Drug form: INJ, PRN, Dosing Weight 72.727, kg, PRN Benzodiazepine Reversal, Initial dose, Start date: 09/12/17 20:03:00 CDT, Duration: 1 day, Stop date: 09/13/17 20:02:00 CD TNotes: (Same as: Romazicon) Inactive 09/13/2017 [facility] Hydromorphone 0.5 mg, 0.25 mL, Route: IVP, Drug form: INJ, Q5Min, Dosing Weight 72.727, kg, PRN Pain Score 7-10, Start date: 09/12/17 20:03:00 CDT, Duration: 4 doses or times, Stop date: 09/13/17 0:00:00 CDTNotes: Same as Dilaudid Inactive 09/13/2017 [facility] Ketorolac 30 mg, Route: IVP, ONCE, Dosing Weight 72.727, kg, Start date: 09/12/17 20:03:00 CDT, Stop date: 09/12/17 20:03:00 CDT Inactive 09/13/2017 [facility] Flagyl 500 mg, 100 mL, Route: IVPB, Drug form: INJ, ABXQ8H, Dosing Weight 72.727, kg, Start date: 09/12/17 20:00:00 CDT, Duration: 3 day, Stop date: 09/15/17 13:00:00 CDT, ABX Indication: Intra-abdominal Infec tionNotes: (Same as: Flagyl) Avoid alcohol. No Longer Active 09/13/2017 [facility] Ancef 2 gm, 20 mL, Route: IVPB, Drug form: SOLN, ABXQ8H, Dosing Weight 72.727, kg, Start date: 09/12/17 20:00:00 CDT, Stop date: 09/15/17 14:00:00 CDT, ABX Indication: Intra-abdominal InfectionNotes: (Same as Ancef) No Longer Active 09/13/2017 [facility] Enoxaparin 40 mg, 0.4 mL, Route: SUB-Q, Drug form: INJ, [id number], Dosing Weight 72.727, kg, Start date: 09/12/17 20:00:00 CDT, Stop date: 10/11/17 20:00:00 CDTNotes: (Same as: Lovenox) No Longer Active 09/13/2017 [facility] ketAMINE (ANES) Route: IV, Drug form: INJ, ONCE, Stop date: 09/12/17 19:43:00 CDT Inactive 09/13/2017 [facility] dexmedetomidine (ANES) + Sodium Chloride 0.9% IV (ANES) 98 mL Route: IV, Drug form: INJ, ONCE, Stop date: 09/12/17 19:33:00 CDT Inactive 09/13/2017 [facility] Morphine 2 mg, 0.5 mL, Route: IVP, Drug form: SOLN, Q4H, Dosing Weight 72.727, kg, PRN Pain Score 7-10, Start date: 09/12/17 19:23:00 CDT, Duration: 30 day, Stop date: 10/12/17 19:22:00 CDTNotes: (Same as:MORPhine Sulfate) No Longer Active 09/13/2017 [facility] Oxycodone Hydrochloride 5 MG Oral Tablet 5 mg, 5 mL, Route: PO, Drug form: LIQ, Q4H, Dosing Weight 72.727, kg, PRN Pain Score 4-6, Start date: 09/12/17 19:23:00 CDT, Stop date: 10/12/17 19:22:00 CDTNotes: (Same as: 'Roxicodone) No Longer Active 09/13/2017 [facility] Isolyte S PH 7.4 1,000 mL 1,000 mL, Rate: 125 ml/hr, Infuse over: 8 hr, Route: IV, Dosing Weight 72.727 kg, Total Volume: 1,000, Start date: 09/12/17 19:19:00 CDT, Duration: 30 day, Stop date: 10/12/17 19:18:00 CDT, 1.82, m0Hkxdr: (Same as: Isolyte S PH 7.4) No Longer Active 09/13/2017 [facility] rocuronium (ANES) Route: IV, Drug form: INJ, ONCE, Stop date: 09/12/17 17:53:00 CDT Inactive 09/12/2017 [facility] niCARdipine (ANES) + sodium chloride (ANES) 9 mL Route: IV, Drug form: INJ, ONCE, Stop date: 09/12/17 16:38:00 CDT Inactive 09/12/2017 [facility] dexmedetomidine (ANES) + Sodium Chloride 0.9% IV (ANES) 98 mL Route: IV, Drug form: INJ, ONCE, Stop date: 09/12/17 16:38:00 CDT Inactive 09/12/2017 [facility] esmolol (ANES) Route: IV, Drug form: INJ, ONCE, Stop date: 09/12/17 16:12:00 CDT Inactive 09/12/2017 [facility] metoprolol (ANES) Route: IV, Drug form: INJ, ONCE, Stop date: 09/12/17 16:12:00 CDT Inactive 09/12/2017 [facility] hydromorphone (ANES) Route: IV, Drug form: INJ, ONCE, Stop date: 09/12/17 16:02:00 CDT Inactive 09/12/2017 [facility] hydromorphone (ANES) Route: IV, Drug form: INJ, ONCE, Stop date: 09/12/17 15:12:00 CDT Inactive 09/12/2017 [facility] propofol (ANES) Route: IV, Drug form: INJ, ONCE, Stop date: 09/12/17 15:12:00 CDT Inactive 09/12/2017 [facility] lidocaine (ANES) Route: IV, Drug form: INJ, ONCE, Stop date: 09/12/17 15:12:00 CDT Inactive 09/12/2017 [facility] midazolam (ANES) Route: IV, Drug form: SOLN, ONCE, Stop date: 09/12/17 15:12:00 CDT Inactive 09/12/2017 [facility] ketAMINE (ANES) Route: IV, Drug form: INJ, ONCE, Stop date: 09/12/17 15:07:00 CDT Inactive 09/12/2017 [facility] hydrocortisone (ANES) Route: IV, Drug form: INJ, ONCE, Stop date: 09/12/17 14:57:00 CDT Inactive 09/12/2017 [facility] ertapenem (ANES) Route: IV, Drug form: INJ, ONCE, Stop date: 09/12/17 14:57:00 CDT Inactive 09/12/2017 [facility] Lactated Ringers Injection IV (ANES) 1000 mL Route: IV, Total Volume: 1,000, Start date: 09/12/17 13:57:00 CDT, Stop date: 09/12/17 14:57:00 CDT Inactive 09/12/2017 [facility] INVanz 1 gm, Route: IV, Drug form: INJ, PRE OP, Start date: 09/12/17 12:00:00 CDT, Duration: 1 day, Stop date: 09/13/17 11:59:00 CDT, ABX Indication: Surgical ProphylaxisNotes: (Same as: INVanz) Refrigerate. NOT COMPATIBLE WITH D5W. Stable in refrigerator for 24 hours MEDICATION WASTE Product Size: 1000 mg Product Wasted: ___ mg No Longer Active 09/12/2017 [facility] Naloxone 0.4 mg, 1 mL, Route: IVP, Drug form: INJ, Q2MIN, Dosing Weight 72.727, kg, PRN Narcotic Reversal, Start date: 07/20/17 10:32:00 DUAL HOSE CEMENTER, Duration: 8 doses or times, Stop date: 07/21/17 0:00:00 CSTNotes: Same as Narcan No Longer Active 07/20/2017 [facility] Ondansetron 4 mg, 2 mL, Route: IVP, Drug form: INJ, ONCE, Dosing Weight 72.727, kg, PRN Nausea & Vomiting, Start date: 07/20/17 10:32:00 CSTNotes: (Same as: Zofran) MEDICATION WASTE Product Size: 4 mg Product Wasted: ___ mg No Longer Active 07/20/2017 [facility] Hydralazine 10 mg, 0.5 mL, Route: IVP, Drug form: INJ, Q20Min, Dosing Weight 72.727, kg, PRN Elevated BP, Start date: 07/20/17 10:32:00 DUAL HOSE CEMENTER, Duration: 2 doses or times, Stop date: 07/21/17 0:00:00 CSTNotes: (Same as: Apresoline) Push over 5 minutes No Longer Active 07/20/2017 [facility] Flumazenil 0.2 mg, 2 mL, Route: IVP, Drug form: INJ, PRN, Dosing Weight 72.727, kg, PRN Benzodiazepine Reversal, Initial dose, Start date: 07/20/17 10:32:00 DUAL HOSE CEMENTER, Duration: 30 day, Stop date: 08/19/17 11:31:00 C DTNotes: (Same as: Romazicon) No Longer Active 07/20/2017 [facility] Acetaminophen 1,000 mg, 2 tab, Route: PO, Drug form: TAB, ONCE, Dosing Weight 72.727, kg, PRN Pain Score 1-3, Start date: 07/20/17 10:32:00 CSTNotes: Max acetaminophen 4000 mg/day (4 gm/day). (Same as: Tylenol Extra Strength) No Longer Active 07/20/2017 [facility] Carisoprodol 350 MG Oral Tablet [Soma] 350 mg=1 tab, PO, QID, 0 Refill(s) Active 07/18/2017 [facility] Lorazepam 1 MG Oral Tablet [Ativan] 1 mg=1 tab, PO, TID, 0 Refill(s) Active 07/18/2017 [facility] pantoprazole 20 MG Enteric Coated Tablet [Protonix] 20 mg=1 tab, PO, Daily, 0 Refill(s) Active 07/18/2017 [facility] Vitamin D3 1000 intl units oral tablet 1,000 IntlUnit=1 tab, PO, Daily, # 30 tab, 0 Refill(s) Active 07/18/2017 [facility] Ventolin HFA 2 puff, INHALATION, QID, 0 Refill(s) Active 07/18/2017 [facility] GoLYTELY oral powder for reconstitution 240 mL, PO, Q15Min, # 4,000 mL, 0 Refill(s), Pharmacy: [facility] [id number] Active 07/09/2017 [facility] Amoxicillin 875 MG / Clavulanate 125 MG Oral Tablet [Augmentin 875-mg] 1 tab, PO, Q12H, X 5 day, # 10 tab, 0 Refill(s) Active 11/29/2016 [facility] psyllium 3.4 g/3.7 g oral powder 3.4 gm=, PO, Daily, X 30 day, # 300 gm, 0 Refill(s) Active 11/29/2016 [facility] Docusate Sodium 100 MG Oral Capsule 100 mg=1 cap, PO, Q12H, # 60 cap, 0 Refill(s) Active 11/29/2016 [facility] gabapentin 300 MG Oral Capsule 300 mg=1 cap, PO, TID, # 90 cap, 0 Refill(s) Active 11/29/2016 [facility] acetaminophen 500 mg oral tablet 1,000 mg=2 tab, PO, Q6H, PRN Pain Score 4-6, not to exceed 3000 mg/day Only take as needed for pain, X 14 day, # 112 tab, 0 Refill(s) Active 11/29/2016 [facility] Oxycodone Hydrochloride 5 MG Oral Tablet 10 mg=2 tab, PO, Q4H, PRN Pain Score 6-10, 0 Refill(s) Active 11/29/2016 [facility] senna 8.6 mg oral tablet 8.6 mg=1 tab, PO, BID, X 14 day, # 28 tab, 0 Refill(s) Active 11/29/2016 [facility] tramadol hydrochloride 50 MG Oral Tablet 100 mg=2 tab, PO, Q6Hnow, X 30 day, # 240 tab, 0 Refill(s) Active 11/29/2016 [facility] Unasyn 3 gm, 1 ea, Route: IVPB, Drug form: PDR/INJ, ABXQ6H, Start date: 11/28/16 12:00:00 CDT, Duration: 30 day, Stop date: 12/28/16 6:00:00 CDTNotes: Dosing based on Ampicillin component (Same as: Unasyn) No Longer Active 11/28/2016 [facility] Dilaudid 0.5 mg, 0.25 mL, Route: IV, Drug form: INJ, Q24H, Dosing Weight 68.182, kg, PRN Other -See Comment, Start date: 11/26/16 12:41:00 CDT, Duration: 10 day, Stop date: 12/06/16 12:40:00 CDTNotes: Same as: Dilaudid Inactive 11/26/2016 [facility] Celebrex 200 mg, 1 cap, Route: PO, Drug form: CAP, BID, Dosing Weight 68.182, kg, Start date: 11/25/16 17:00:00 CDT, Duration: 30 day, Stop date: 12/25/16 9:00:00 CDTNotes: NSAID. Please check indication. Not for seizure. (Same As: CeleBREX) No Longer Active 11/25/2016 [facility] gabapentin 300 MG Oral Capsule 300 mg, 1 cap, Route: PO, Drug form: CAP, Q12H, Dosing Weight 68.182, kg, (CrCl 30 - 59 ml/min), Start date: 11/25/16 14:00:00 CDT, Duration: 30 day, Stop date: 12/25/16 9:00:00 CDTNotes: (Same as: Neurontin) No Longer Active 11/25/2016 [facility] Oxycodone Hydrochloride 5 MG Oral Tablet 10 mg, 2 tab, Route: PO, Drug form: TAB, Q4H, Dosing Weight 68.182, kg, PRN Pain Score 6-10, Start date: 11/25/16 12:45:00 CDT, Duration: 30 day, Stop date: 12/25/16 12:44:00 CDTNotes: (Same as: Roxicodone) No Longer Active 11/25/2016 [facility] Oxycodone Hydrochloride 5 MG Oral Tablet 10 mg, 2 tab, Route: PO, Drug form: TAB, Q6H, Dosing Weight 68.182, kg, PRN Pain Score 7-10, Start date: 11/25/16 10:47:00 CDT, Duration: 30 day, Stop date: 12/25/16 10:46:00 CDTNotes: (Same as: Roxicodone) Inactive 11/25/2016 [facility] Ampicillin 1 gm, Route: IVPB, Drug form: PDR/INJ, ABXQ6H, Dosing Weight 68.182, kg, Start date: 11/24/16 18:00:00 CDT, Duration: 30 day, Stop date: 12/24/16 14:00:00 CDTNotes: (Same as: Von) MEDICATION WASTE Product Size: 1000 mg Product Wasted: ___ mg No Longer Active 11/24/2016 [facility] Ibuprofen 400 MG Oral Tablet 400 mg, 1 tab, Route: PO, Drug form: TAB, Q6H-02, Dosing Weight 68.182, kg, Start date: 11/24/16 14:00:00 CDT, Duration: 30 day, Stop date: 12/24/16 8:00:00 CDTNotes: (Same as: Motrin) "Do Not Crush" Give with food. No Longer Active 11/24/2016 [facility] ketOROLAC 30 mg/mL injectable solution 30 mg, [...] mg Product Wasted: ___ mg Inactive 11/24/2016 [facility] Ketorolac 15 mg, 1 mL, Route: IVP, Drug form: INJ, Q6H, Dosing Weight 68.182, kg, PRN Pain Score 4-6, Start date: 11/24/16 8:27:00 CDT, Duration: 4 day, Stop date: 11/28/16 8:26:00 CDTNotes: (Same as:Toradol) IV bolus must be given >15 seconds. Give IM administration slowly and deeply into the muscle. Not for use > 4 days. Inactive 11/24/2016 [facility] Unasyn 1.5 gm, 1 ea, Route: IVPB, Drug form: PDR/INJ, ABXQ6H, Dosing Weight 68.182, kg, Start date: 11/23/16 12:00:00 CDT, Duration: 7 day, Stop date: 11/30/16 6:00:00 CDTNotes: Dosing based on Ampicillin component (Same as: Unasyn) No Longer Active 11/23/2016 [facility] Fluconazole 400 mg, 2 tab, Route: PO, Drug form: TAB, [id number], Dosing Weight 68.182, kg, Start date: 11/22/16 12:00:00 CDT, Stop date: 11/24/16 12:00:00 CDTNotes: (Same as: Diflucan) No Longer Active 11/22/2016 [facility] Psyllium 3.4 gm, 1 pkt, Route: PO, Drug Form: PDR/REC, Dosing Weight 68.182, kg, Daily, Start date: 11/22/16 9:00:00 CDT, Duration: 30 day, Stop date: 12/21/16 9:00:00 CDTNotes: (Same as: Metamucil) Mix in 8 oz liquid with meal. No Longer Active 11/22/2016 [facility] Pravastatin 20 mg, 1 tab, Route: PO, Drug form: TAB, Bedtime, Dosing Weight 68.182, kg, Start date: 11/21/16 21:00:00 CDT, Duration: 30 day, Stop date: 12/20/16 21:00:00 CDTNotes: (Same as: Pravachol) No Longer Active 11/22/2016 [facility] Oxycodone Hydrochloride 5 MG Oral Tablet 5 mg, 1 tab, Route: PO, Drug form: TAB, Q6H, Dosing Weight 68.182, kg, Start date: 11/21/16 12:00:00 CDT, Duration: 30 day, Stop date: 12/21/16 6:00:00 CDTNotes: (Same as: Roxicodone) No Longer Active 11/21/2016 [facility] Acetaminophen 1,000 mg, 2 tab, Route: PO, Drug form: TAB, Q6H, Dosing Weight 68.182, kg, Start date: 11/21/16 12:00:00 CDT, Duration: 30 day, Stop date: 12/21/16 6:00:00 CDTNotes: Max acetaminophen 4000 mg/day (4 gm/day). (Same as: Tylenol Extra Strength) No Longer Active 11/21/2016 [facility] Miralax 17 gm, 1 pkt, Route: PO, Drug form: PWDR, Daily, Dosing Weight 68.182, kg, Start date: 11/21/16 9:00:00 CDT, Duration: 30 day, Stop date: 12/20/16 9:00:00 CDTNotes: Dissolve in 8 oz of water or juice. (Same as: Miralax) No Longer Active 11/21/2016 [facility] Docusate Sodium 100 MG Oral Capsule 100 mg, 1 cap, Route: PO, Drug form: CAP, BID, Dosing Weight 68.182, kg, Start date: 11/21/16 9:00:00 CDT, Duration: 30 day, Stop date: 12/20/16 17:00:00 CDTNotes: (Same as: Colace) (Do Not Crush) No Longer Active 11/21/2016 [facility] Zosyn 3.375 gm, Route: IVPB, Drug form: PDR/INJ, ABXQ8H, Dosing Weight 68.182, kg, CrCl >=20 ml/min infuse over 4 hours, Start date: 11/21/16 9:00:00 CDT, Duration: 4 day, Stop date: 11/25/16 1:00:00 CDT, ABX Indication: Intra-abdominal InfectionNotes: (Same as: Zosyn) Dosing based on Piperacillin component MEDICATION WASTE Product Size: 3375 mg Product Wasted: ___ mg No Longer Active 11/21/2016 [facility] aspirin 81 mg tablet, enteric coated 81 mg, 1 tab, Route: PO, Drug form: CHEWTAB, Daily, Dosing Weight 68.182, kg, Start date: 11/21/16 9:00:00 CDT, Duration: 30 day, Stop date: 12/20/16 9:00:00 CDTNotes: Take with food. No Longer Active 11/21/2016 [facility] Lisinopril 5 mg, 1 tab, Route: PO, Drug form: TAB, Daily, Dosing Weight 68.182, kg, Start date: 11/21/16 9:00:00 CDT, Duration: 30 day, Stop date: 12/20/16 9:00:00 CDTNotes: (Same as: Prinivil, Zestril) No Longer Active 11/21/2016 [facility] Lovenox 40 mg, 0.4 mL, Route: SUB-Q, Drug form: INJ, [id number], Dosing Weight 68.182, kg, Start date: 11/21/16 9:00:00 CDT, Duration: 30 day, Stop date: 12/20/16 9:00:00 CDTNotes: (Same as: Lovenox) No Longer Active 11/21/2016 [facility] sennosides, INTERMEDIATE 8.6 mg, 1 tab, Route: PO, Drug Form: TAB, Dosing Weight 68.182, kg, BID, Start date: 11/21/16 9:00:00 CDT, Duration: 30 day, Stop date: 12/20/16 17:00:00 CDTNotes: (Same as: Senokot) No Longer Active 11/21/2016 [facility] Oxycodone Hydrochloride 5 MG Oral Tablet 5 mg, 1 tab, Route: PO, Drug form: TAB, Q6H, Dosing Weight 68.182, kg, PRN Pain Score 4-6, Start date: 11/21/16 8:21:00 CDT, Duration: 30 day, Stop date: 12/21/16 8:20:00 CDTNotes: (Same as: Roxicodone) No Longer Active 11/21/2016 [facility] Albuterol 0.833 MG/ML / Ipratropium [place] 0.167 MG/ML Inhalant Solution 3 ml, Route: NEB, Drug Form: SOLN, Dosing Weight 68.182, kg, PRN, PRN Respiratory Protocol, Start date: 11/21/16 8:16:00 CDT, Duration: 30 day, Stop date: 12/21/16 8:15:00 CDTNotes: (Same as: Duoneb) No Longer Active 11/21/2016 [facility] Oxycodone Hydrochloride 5 MG Oral Tablet 5 mg, Route: PO, Drug form: TAB, Q6H, Dosing Weight 68.182, kg, PRN Pain Score 4-6, Start date: 11/21/16 8:14:00 CDT, Duration: 30 day, Stop date: 12/21/16 8:13:00 CDT Inactive 11/21/2016 [facility] Ofirmev 1 gm, Route: IV, Drug form: SOLN, Q6H, Dosing Weight 68.182, kg, PRN Pain Score 1-3, Start date: 11/21/16 8:10:00 CDT, Duration: 30 day, Stop date: 12/21/16 8:09:00 CDT, pain Inactive 11/21/2016 [facility] Hydrocortisone 100 mg, 2 mL, Route: IV, Drug form: PDR/INJ, ONCE, Dosing Weight 68.182, kg, Start date: 11/21/16 6:30:00 CDT, Stop date: 11/21/16 6:30:00 CDTNotes: (Same as: Solu-CORTEF) Inactive 11/21/2016 [facility] Insulin regular 8 unit, 0.08 mL, Route: [...] days from Date No Longer Active 11/21/2016 [facility] Dextrose 50% Syringe 12.5 gm, 25 mL, Route: IVP, Drug Form: INJ, Dosing Weight 68.182, kg, PRN, PRN Abnormal Lab Result, Start date: 11/21/16 6:19:00 CDT, Duration: 30 day, Stop date: 12/21/16 6:18:00 CDT, For FSBG 40 mg/dL - 60 mg/dL No Longer Active 11/21/2016 [facility] ketOROLAC 15 mg/mL injectable solution 15 mg, 1 mL, Route: IVP, Drug form: INJ, Q6H, Dosing Weight 68.182, kg, Start date: 11/21/16 6:00:00 CDT, Duration: 4 day, Stop date: 11/25/16 0:00:00 CDTNotes: (Same as:Toradol) IV bolus must be given >15 seconds. Give IM administration slowly and deeply into the muscle. Not for use > 4 days. Inactive 11/21/2016 [facility] Methadone 10 mg, Route: IV, ONCE, Dosing Weight 68.182, kg, Start date: 11/21/16 5:55:00 CDT, Stop date: 11/21/16 5:55:00 CDT Inactive 11/21/2016 [facility] Zofran 4 mg, 2 mL, Route: IV, Drug form: INJ, Q6H, Dosing Weight 68.182, kg, PRN Nausea, Start date: 11/21/16 5:50:00 CDT, Duration: 30 day, Stop date: 12/21/16 5:49:00 CDTNotes: (Same as: Zofran) MEDICATION WASTE Product Size: 4 mg Product Wasted: ___ mg No Longer Active 11/21/2016 [facility] Methadone 10 mg, 1 tab, Route: PO, Drug form: TAB, ONCE, Dosing Weight 68.182, kg, Start date: 11/21/16 5:48:00 CDT, Stop date: 11/21/16 5:48:00 CDTNotes: (Same as: Dolophine) Inactive 11/21/2016 [facility] Ofirmev 650 mg, 65 mL, Route: IV, Drug form: SOLN, Q6H, Dosing Weight 68.182, kg, PRN Pain Score 1-3, Start date: 11/21/16 4:25:00 CDT, Duration: 30 day, Stop date: 12/21/16 4:24:00 CDT, painNotes: (Same as: Ofirmev) Inactive 11/21/2016 [facility] Zofran 4 mg, 2 mL, Route: IV, Drug form: INJ, Q6H, Dosing Weight 68.182, kg, Start date: 11/21/16 0:00:00 CDT, Duration: 30 day, Stop date: 12/20/16 18:00:00 CDTNotes: (Same as: Zofran) MEDICATION WASTE Product Size: 4 mg Product Wasted: ___ mg Inactive 11/21/2016 [facility] Acetaminophen 1,000 mg, 100 mL, Route: IV, Drug form: INJ, Q6H, Dosing Weight 68.182, kg, Start date: 11/21/16 0:00:00 CDT, Duration: 30 day, Stop date: 12/20/16 18:00:00 CDTNotes: Infuse over 15 minutes Do not exce ed 4gm/day of acetaminophen MEDICATION WASTE Product Size: 1000 mg Product Wasted: ___ mg No Longer Active 11/21/2016 [facility] Methadone 10 mg, 1 mL, Route: IV, Drug form: INJ, Q6H, Dosing Weight 68.182, kg, Start date: 11/21/16 0:00:00 CDT, Duration: 30 day, Stop date: 12/20/16 18:00:00 CDTNotes: (Same as: Dolophine) Inactive 11/21/2016 [facility] Ketorolac 15 mg, 1 mL, Route: IVP, Drug form: INJ, Q6H, Dosing Weight 68.182, kg, Start date: 11/21/16 0:00:00 CDT, Duration: 4 day, Stop date: 11/24/16 18:00:00 CDTNotes: (Same as:Toradol) IV bolus must be given >15 seconds. Give IM administration slowly and deeply into the muscle. Not for use > 4 days. No Longer Active 11/21/2016 [facility] Lovenox 30 mg, 0.3 mL, Route: SUB-Q, Drug form: INJ, Q12H, Dosing Weight 68.182, kg, Start date: 11/20/16 23:19:00 CDT, Duration: 30 day, Stop date: 12/20/16 16:00:00 CDTNotes: (Same as: Lovenox) No Longer Active 11/21/2016 [facility] Hydrocortisone 100 mg, 2 mL, Route: IV, Drug form: PDR/INJ, ONCE, Dosing Weight 68.182, kg, Start date: 11/20/16 22:30:00 CDT, Stop date: 11/20/16 22:30:00 CDTNotes: (Same as: Rolando) Inactive 11/21/2016 [facility] Morphine 1 mg, 0.5 mL, Route: IVP, Drug form: INJ, Q2H, Dosing Weight 68.182, kg, PRN Pain Score 4-6, Start date: 11/20/16 21:50:00 CDT, Duration: 30 day, Stop date: 12/20/16 21:49:00 CDTNotes: (Same as:MORPhine Sulfate) No Longer Active 11/21/2016 [facility] Isolyte S (PH 7.4) 1000 mL 1,000 mL 1,000 mL, Rate: 50 ml/hr, Infuse over: 20 hr, Route: IV, Dosing Weight 68.182 kg, Total Volume: 1,000, Start date: 11/20/16 21:28:00 CDT, Duration: 30 day, Stop date: 12/20/16 21:27:00 CDTNotes: (Same as: Isolyte S PH 7.4) No Longer Active 11/21/2016 [facility] Tramadol 100 mg, 2 tab, Route: PO, Drug form: TAB, Q6Hnow, Dosing Weight 68.182, kg, Start date: 11/20/16 21:00:00 CDT, Duration: 30 day, Stop date: 12/20/16 15:00:00 CDTNotes: Not to exceed 400mg/day. (Same As: Ultram) No Longer Active 11/21/2016 [facility] Ketorolac 30 mg, 1 mL, Route: IVP, [...] mg Product Wasted: ___ mg Inactive 11/21/2016 [facility] Ofirmev 650 mg, Route: IV, Drug form: INJ, Q4H, Dosing Weight 68.182, kg, PRN Pain Score 4-6, for > or=50 kg, Start date: 11/20/16 20:32:00 CDT, Duration: 30 day, Stop date: 12/20/16 20:31:00 CDT Inactive 11/21/2016 [facility] Morphine 1 mg, 0.5 mL, Route: IVP, Drug form: INJ, Q2H, Dosing Weight 68.182, kg, PRN Pain Score 7-10, Start date: 11/20/16 20:31:00 CDT, Duration: 30 day, Stop date: 12/20/16 20:30:00 CDTNotes: (Same as:MORPhine Sulfate) No Longer Active 11/21/2016 [facility] Oxycodone Hydrochloride 5 MG Oral Tablet 5 mg, 1 tab, Route: PO, Drug form: TAB, Q4H, Dosing Weight 68.182, kg, PRN Pain Score 4-6, Start date: 11/20/16 20:05:00 CDT, Duration: 30 day, Stop date: 12/20/16 20:04:00 CDTNotes: (Same as: Roxicodone) Inactive 11/21/2016 [facility] Oxycodone Hydrochloride 5 MG Oral Tablet 5 mg, Route: PO, Drug form: TAB, Q4H, Dosing Weight 68.182, kg, PRN Pain Score 4-6, Start date: 11/20/16 19:38:00 CDT, Duration: 30 day, Stop date: 12/20/16 19:37:00 CDT Inactive 11/21/2016 [facility] celecoxib 200 mg, Route: PO, Q12H, Dosing Weight 68.182, kg, Priority: NOW, Start date: 11/20/16 19:38:00 CDT, Duration: 48 hr, Stop date: 11/22/16 9:00:00 CDT Inactive 11/21/2016 [facility] Acetaminophen 1,000 mg, Route: PO, Q6H, Dosing Weight 68.182, kg, Priority: NOW, Start date: 11/20/16 19:38:00 CDT, Duration: 30 day, Stop date: 12/20/16 18:00:00 CDT Inactive 11/21/2016 [facility] Ketorolac 30 mg, 1 mL, Route: IVP, [...] mg Product Wasted: ___ mg Inactive 11/21/2016 [facility] Flumazenil 0.2 mg, 2 mL, Route: IVP, Drug form: INJ, PRN, Dosing Weight 68.182, kg, PRN Benzodiazepine Reversal, Initial dose, Start date: 11/20/16 16:40:00 CDT, Stop date: 11/21/16 0:00:00 CDTNotes: (Same as: Romazicon) Inactive 11/20/2016 [facility] Naloxone 0.4 mg, 1 mL, Route: IVP, Drug form: INJ, Q2MIN, Dosing Weight 68.182, kg, PRN Narcotic Reversal, Start date: 11/20/16 16:40:00 CDT, Duration: 8 doses or times, Stop date: 11/21/16 0:00:00 CDTNotes: Same as Narcan Inactive 11/20/2016 [facility] Ondansetron 4 mg, 2 mL, Route: IVP, Drug form: INJ, ONCE, Dosing Weight 68.182, kg, PRN Nausea & Vomiting, Start date: 11/20/16 16:40:00 CDTNotes: (Same as: Zofran) MEDICATION WASTE Product Size: 4 mg Product Wasted: ___ mg Inactive 11/20/2016 [facility] Hydromorphone 0.5 mg, 0.25 mL, Route: IVP, Drug form: INJ, Q5Min, Dosing Weight 68.182, kg, PRN Pain Score 7-10, Start date: 11/20/16 16:40:00 CDT, Duration: 4 doses or times, Stop date: 11/21/16 0:00:00 CDTNotes: Same as: Dilaudid Inactive 11/20/2016 [facility] albuterol (ANES) Route: INHALATION, Drug form: AERO/A, ONCE, Stop date: 11/20/16 16:29:00 CDT Inactive 11/20/2016 [facility] neostigmine (ANES) Route: IV, Drug form: INJ, ONCE, Stop date: 11/20/16 16:29:00 CDT Inactive 11/20/2016 [facility] glycopyrrolate (ANES) Route: IV, Drug form: INJ, ONCE, Stop date: 11/20/16 16:29:00 CDT Inactive 11/20/2016 [facility] ondansetron (ANES) Route: IV, Drug form: INJ, ONCE, Stop date: 11/20/16 16:29:00 CDT Inactive 11/20/2016 [facility] metoprolol (ANES) Route: IV, Drug form: INJ, ONCE, Stop date: 11/20/16 16:15:00 CDT Inactive 11/20/2016 [facility] rocuronium (ANES) Route: IV, Drug form: INJ, ONCE, Stop date: 11/20/16 15:55:00 CDT Inactive 11/20/2016 [facility] acetaminophen (ANES) (ANES) Route: IV, Drug form: INJ, Start date: 11/20/16 15:52:00 CDT, Stop date: 11/20/16 16:52:00 CDT Inactive 11/20/2016 [facility] fentaNYL (ANES) Route: IV, Drug form: INJ, ONCE, Stop date: 11/20/16 15:50:00 CDT Inactive 11/20/2016 [facility] sodium chloride 0.9% 50 ml INJ (ANES) + dexmedetomidine (ANES) (ANES) Route: IV, Drug form: INJ, Start date: 11/20/16 15:20:00 CDT, Stop date: 11/20/16 16:20:00 CDT Inactive 11/20/2016 [facility] metoprolol (ANES) Route: IV, Drug form: INJ, ONCE, Stop date: 11/20/16 15:11:00 CDT Inactive 11/20/2016 [facility] rocuronium (ANES) Route: IV, Drug form: INJ, ONCE, Stop date: 11/20/16 14:51:00 CDT Inactive 11/20/2016 [facility] hydrocortisone (ANES) Route: IV, Drug form: INJ, ONCE, Stop date: 11/20/16 14:24:00 CDT Inactive 11/20/2016 [facility] propofol (ANES) Route: IV, Drug form: INJ, ONCE, Stop date: 11/20/16 14:19:00 CDT Inactive 11/20/2016 [facility] rocuronium (ANES) Route: IV, Drug form: INJ, ONCE, Stop date: 11/20/16 14:19:00 CDT Inactive 11/20/2016 [facility] lidocaine (ANES) Route: IV, Drug form: INJ, ONCE, Stop date: 11/20/16 14:19:00 CDT Inactive 11/20/2016 [facility] fentaNYL (ANES) Route: IV, Drug form: INJ, ONCE, Stop date: 11/20/16 14:19:00 CDT Inactive 11/20/2016 [facility] midazolam (ANES) Route: IV, Drug form: SOLN, ONCE, Stop date: 11/20/16 14:19:00 CDT Inactive 11/20/2016 [facility] piperacillin-tazobactam (ANES) (ANES) Route: IV, Drug form: INJ, Start date: 11/20/16 13:45:00 CDT, Stop date: 11/20/16 14:45:00 CDT Inactive 11/20/2016 [facility] LR 1000 mL INJ (ANES) Route: IV, Total Volume: 1,000, Start date: 11/20/16 13:15:00 CDT, Stop date: 11/20/16 14:15:00 CDT Inactive 11/20/2016 [facility] heparin 5,000 unit, 1 mL, Route: SUB-Q, Drug form: INJ, Q8H, Dosing Weight 68.182, kg, Start date: 11/19/16 12:00:00 CDT, Duration: 30 day, Stop date: 12/19/16 4:00:00 CDTNotes: porcine heparin No Longer Active 11/19/2016 [facility] carvedilol 6.25 mg, 1 tab, Route: PO, Drug form: TAB, BID, Dosing Weight 68.182, kg, Start date: 11/18/16 21:00:00 CDT, Duration: 30 day, Stop date: 12/18/16 9:00:00 CDTNotes: Give with food. (Same As: Coreg) No Longer Active 11/19/2016 [facility] Prednisone 10 mg, 1 tab, Route: PO, Drug form: TAB, Daily, Dosing Weight 68.182, kg, Start date: 11/18/16 9:00:00 CDT, Duration: 30 day, Stop date: 12/17/16 9:00:00 CDTNotes: (Same as: PredniSONE) Take with food. No Longer Active 11/18/2016 [facility] pantoprazole 40 mg, 1 tab, Route: PO, Drug form: ECTAB, Daily, Dosing Weight 68.182, kg, Start date: 11/18/16 9:00:00 CDT, Duration: 30 day, Stop date: 12/17/16 9:00:00 CDTNotes: Tablet should not be chewed or cr ushed. (Same as: Protonix) No Longer Active 11/18/2016 [facility] Iohexol 100 mL, Route: IVP, Drug Form: SOLN, Dosing Weight 68.182, kg, ONCALL, STAT, Start date: 11/18/16 1:49:00 CDT, Duration: 1 doses or times, Dose=2.2ml/kg, Max [id number] -- "To be infused by Radiology Staff ONLY"Notes: (same as:Omnipaque 350). WASTE: F/P - Black; E - Municipal Trash Bin No Longer Active 11/18/2016 [facility] Acetaminophen 650 mg, 2 tab, Route: PO, Drug form: TAB, Q6H, Dosing Weight 68.182, kg, PRN For Temp > 100.4 F, Start date: 11/17/16 21:09:00 CDT, Duration: 30 day, Stop date: 12/17/16 21:08:00 CDTNotes: Do not exceed 4 gm/day. (Same as: Tylenol) No Longer Active 11/18/2016 [facility] Morphine 2 mg, 1 mL, Route: IVP, Drug form: INJ, Q4H, Dosing Weight 68.182, kg, PRN Pain Score 7-10, Start date: 11/17/16 21:03:00 CDT, Duration: 30 day, Stop date: 12/17/16 21:02:00 CDTNotes: (Same as:MORPhine Sulfate) No Longer Active 11/18/2016 [facility] Acetaminophen 325 MG / Hydrocodone Bitartrate 5 MG Oral Tablet [[place] 5/325] 1 tab, Route: PO, Drug Form: TAB, Dosing Weight 68.182, kg, Q4H, PRN Pain Score 1-3, Start date: 11/17/16 21:02:00 CDT, Duration: 30 day, Stop date: 12/17/16 21:01:00 CDTNotes: (Same as: [place] 325/5) Do not exceed 4gm/day of acetaminophen. No Longer Active 11/18/2016 [facility] Lactated Ringers 1,000 mL 1,000 mL, Rate: 125 ml/hr, Infuse over: 8 hr, Route: IV, Dosing Weight 68.182 kg, Total Volume: 1,000, Start date: 11/17/16 18:58:00 CDT, Duration: 30 day, Stop date: 12/17/16 18:57:00 CDT No Longer Active 11/17/2016 [facility] Symbicort 160/4.5 inhalation aerosol with adapter 2 puff, Route: INHALATION, Drug Form: AERO/A, Dosing Weight 68.182, kg, RBID, Start date: 11/17/16 18:23:00 CDT, Duration: 30 day, Stop date: 12/17/16 8:00:00 CDTNotes: (Same as: Symbicort) WASTE: Aerosol - Return to Pharmacy No Longer Active 11/17/2016 [facility] Zosyn 3.375 gm, Route: IVPB, Drug form: PDR/INJ, [id number], Dosing Weight 68.182, kg, CrCl >=20 ml/min infuse over 4 hours, Start date: 11/17/16 18:00:00 CDT, Duration: 14 day, Stop date: 12/01/16 10:00:00 CDT, ABX Indication: Intra-abdominal InfectionNotes: (Same as: Zosyn) Dosing based on Piperacillin component MEDICATION WASTE Product Size: 3375 mg Product Wasted: ___ mg No Longer Active 11/17/2016 [facility] tramadol hydrochloride 50 MG Oral Tablet 100 mg, 2 tab, Route: PO, Drug form: TAB, Q6H, Dosing Weight 68.182, kg, PRN Pain Score 4-6, Start date: 11/17/16 17:58:00 CDT, Duration: 30 day, Stop date: 12/17/16 17:57:00 CDTNotes: Not to exceed 400mg/day. (Same As: Ultram) No Longer Active 11/17/2016 [facility] Fluticasone propionate 0.1 MG/ACTUAT / salmeterol 0.05 MG/ACTUAT Dry Powder Inhaler 2 inhalation, Route: INHALER, Drug Form: AERO, Dosing Weight 68.182, kg, RBID, Start date: 11/17/16 17:58:00 CDT, Duration: 30 day, Stop date: 12/17/16 8:00:00 CDTNotes: Non-Formulary Drug (Same as: Advair) No Longer Active 11/17/2016 [facility] Fluticasone propionate 0.1 MG/ACTUAT / salmeterol 0.05 MG/ACTUAT Dry Powder Inhaler 2 inhalation, INHALER, RBID, 0 Refill(s) Active 11/14/2016 [facility] tramadol hydrochloride 50 MG Oral Tablet 100 mg=2 tab, PO, Q6H, PRN Pain Score 4-6, X 7 day, # 56 tab, 0 Refill(s) Active 11/14/2016 [facility] psyllium 3.4 g/3.7 g oral powder 3.4 gm=, PO, Daily, X 30 day, # 300 gm, 0 Refill(s) Active 11/14/2016 [facility] ciprofloxacin 500 mg oral tablet 500 mg=1 tab, PO, [id number], X 7 day, # 14 tab, 0 Refill(s) Active 11/14/2016 [facility] clopidogrel 75 mg oral tablet 75 mg=1 tab, PO, Q24H, 0 Refill(s) Active 11/14/2016 [facility] Docusate Sodium 100 MG Oral Capsule 100 mg=1 cap, PO, Q12H, # 60 cap, 0 Refill(s) Active 11/14/2016 [facility] carvedilol 6.25 mg oral tablet 6.25 mg=1 tab, PO, BID, 0 Refill(s) Active 11/14/2016 [facility] aspirin 81 mg tablet, enteric coated 81 mg=1 tab, PO, Daily, 0 Refill(s) Active 11/14/2016 [facility] Metronidazole 500 MG Oral Tablet 500 mg=1 tab, PO, Q8H, X 7 day, # 21 tab, 0 Refill(s) Active 11/14/2016 [facility] methocarbamol 500 mg oral tablet 1,000 mg=2 tab, PO, Q8H, X 14 day, # 84 tab, 0 Refill(s) Active 11/14/2016 [facility] predniSONE 10 mg oral tablet 10 mg=1 tab, PO, Daily, 0 Refill(s) Active 11/14/2016 [facility] pravastatin 20 mg oral tablet 20 mg=1 tab, PO, Bedtime, 0 Refill(s) Active 11/14/2016 [facility] pantoprazole 40 mg oral enteric coated tablet 40 mg=1 tab, PO, Daily, 0 Refill(s) Active 11/14/2016 [facility] lisinopril 5 mg oral tablet 5 mg=1 tab, PO, Daily, 0 Refill(s) Active 11/14/2016 [facility] glycerin adult rectal suppository 1 supp, Route: RI, Drug Form: SUPP, Dosing Weight 70.909, kg, ONCE, NOW, Start date: 11/14/16 10:24:00 CDT, Stop date: 11/14/16 10:24:00 CDT Inactive 11/14/2016 [facility] Celebrex 200 mg, 1 cap, Route: PO, Drug form: CAP, BID, Dosing Weight 70.909, kg, Start date: 11/13/16 17:00:00 CDT, Duration: 30 day, Stop date: 12/13/16 9:00:00 CDTNotes: NSAID. Please check indication. Not for seizure. (Same As: CeleBREX) No Longer Active 11/13/2016 [facility] Acetaminophen 325 mg, 1 tab, Route: PO, Drug form: TAB, Q6H, Dosing Weight 70.909, kg, PRN Pain Score 1-3, Start date: 11/13/16 15:50:00 CDT, Duration: 30 day, Stop date: 12/13/16 15:49:00 CDTNotes: Do not exceed 4 gm/day. (Same as: Tylenol) No Longer Active 11/13/2016 [facility] Roxicodone 5 mg, 1 tab, Route: PO, Drug form: TAB, Q6H, PRN Pain Score 7-10, Start date: 11/13/16 9:33:00 CDT, Duration: 30 day, Stop date: 12/13/16 9:32:00 CDTNotes: (Same as: Roxicodone) Inactive 11/13/2016 [facility] Metamucil 3.4 gm, 1 pkt, Route: PO, Drug Form: PDR/REC, Dosing Weight 70.909, kg, Daily, Start date: 11/13/16 9:00:00 CDT, Duration: 30 day, Stop date: 12/12/16 9:00:00 CDTNotes: (Same as: Metamucil) Mix in 8 oz liquid with meal. No Longer Active 11/13/2016 [facility] Ibuprofen 400 mg, Route: PO, Drug form: TAB, Q4H, Dosing Weight 70.909, kg, PRN Pain Score 1-3, Start date: 11/13/16 8:56:00 CDT, Duration: 30 day, Stop date: 12/13/16 8:55:00 CDT Inactive 11/13/2016 [facility] Tramadol 100 mg, 2 tab, Route: PO, Drug form: TAB, Q6H, Dosing Weight 70.909, kg, PRN Pain Score 4-6, Start date: 11/13/16 8:55:00 CDT, Duration: 30 day, Stop date: 12/13/16 8:54:00 CDTNotes: Not to exceed 400mg/day. (Same As: Ultram) No Longer Active 11/13/2016 [facility] Flagyl 500 mg, 1 tab, Route: PO, Drug form: TAB, Q8H, Dosing Weight 70.909, kg, Start date: 11/11/16 16:00:00 CDT, Duration: 7 day, Stop date: 11/18/16 8:00:00 CDT, ABX Indication: Intra-abdominal InfectionNotes: (Same as: Flagyl) Take with food/ avoid alcohol No Longer Active 11/11/2016 [facility] Robaxin 1,000 mg, 2 tab, Route: PO, Drug form: TAB, Q8H, Start date: 11/11/16 16:00:00 CDT, Duration: 30 day, Stop date: 12/11/16 8:00:00 CDTNotes: (Same as:Robaxin) No Longer Active 11/11/2016 [facility] Lisinopril 5 mg, 1 tab, Route: PO, Drug form: TAB, Daily, Dosing Weight 70.909, kg, Start date: 11/11/16 14:00:00 CDT, Duration: 30 day, Stop date: 12/11/16 9:00:00 CDTNotes: (Same as: Prinivil, Zestril) No Longer Active 11/11/2016 [facility] fluticasone-salmeterol 2 inhalation, Route: INHALER, Drug Form: AERO, RBID, Start date: 11/11/16 14:00:00 CDT, Duration: 30 day, Stop date: 12/11/16 8:00:00 CDTNotes: Non-Formulary Drug (Same as: Advair) No Longer Active 11/11/2016 [facility] Cipro 500 mg, 1 tab, Route: PO, Drug form: TAB, [id number], Dosing Weight 70.909, kg, Start date: 11/11/16 10:00:00 CDT, Duration: 7 day, Stop date: 11/17/16 22:00:00 CDT, ABX Indication: Intra-abdominal Infecti onNotes: May interfere w/enteral feedings - Take 1 hr before or 2 hrs after antacids, dairy pdt & minerals. On empty stomach. No Longer Active 11/11/2016 [facility] clopidogrel 75 mg, Route: PO, Drug form: TAB, Daily, Dosing Weight 70.909, kg, Start date: 11/11/16 9:00:00 CDT, Duration: 30 day, Stop date: 12/10/16 9:00:00 CDT No Longer Active 11/11/2016 [facility] Hydrocortisone 5 mg, Route: PO, Daily, Dosing Weight 70.909, kg, Start date: 11/11/16 9:00:00 CDT, Duration: 30 day, Stop date: 12/10/16 9:00:00 CDT No Longer Active 11/11/2016 [facility] Advair Diskus 100 mcg-50 mcg inhalation powder 1 puff, Route: INHALATION, Drug Form: PWDR, Dosing Weight 70.909, kg, BID, Start date: 11/11/16 9:00:00 CDT, Duration: 30 day, Stop date: 12/10/16 17:00:00 CDT Inactive 11/11/2016 [facility] Pravastatin 20 mg, 1 tab, Route: PO, Drug form: TAB, Bedtime, Dosing Weight 70.909, kg, Start date: 11/10/16 21:00:00 CDT, Duration: 30 day, Stop date: 12/09/16 21:00:00 CDTNotes: (Same as: Pravachol) No Longer Active 11/11/2016 [facility] clopidogrel 75 mg, 1 tab, Route: PO, Drug form: TAB, Q24H, Dosing Weight 70.909, kg, Start date: 11/10/16 17:13:00 CDT, Duration: 30 day, Stop date: 12/09/16 17:13:00 CDTNotes: (Same As: Plavix) No Longer Active 11/10/2016 [facility] Prednisone 10 mg, 1 tab, Route: PO, Drug form: TAB, Daily, Dosing Weight 70.909, kg, Start date: 11/10/16 9:00:00 CDT, Stop date: 12/11/16 9:00:00 CDTNotes: (Same as: PredniSONE) Take with food. No Longer Active 11/10/2016 [facility] pantoprazole 40 mg, 1 tab, Route: PO, Drug form: ECTAB, Daily, Dosing Weight 70.909, kg, Start date: 11/10/16 9:00:00 CDT, Duration: 30 day, Stop date: 12/09/16 9:00:00 CDTNotes: Tablet should not be chewed or cr ushed. (Same as: Protonix) No Longer Active 11/10/2016 [facility] Advair Diskus 100 mcg-50 mcg inhalation powder 1 puff, Route: INHALATION, Drug Form: PWDR, Dosing Weight 70.909, kg, BID, Start date: 11/10/16 9:00:00 CDT, Duration: 30 day, Stop date: 12/09/16 17:00:00 CDT Inactive 11/10/2016 [facility] Symbicort 160/4.5 inhalation aerosol with adapter 2 inhalation, Route: INHALATION, Drug Form: AERO/A, Dosing Weight 70.909, kg, BID, Start date: 11/10/16 9:00:00 CDT, Duration: 30 day, Stop date: 12/09/16 17:00:00 CDTNotes: (Same as: Symbicort) WASTE: Aerosol - Return to Pharmacy No Longer Active 11/10/2016 [facility] carvedilol 6.25 mg, 1 tab, Route: PO, Drug form: TAB, BID, Dosing Weight 70.909, kg, Start date: 11/10/16 9:00:00 CDT, Duration: 30 day, Stop date: 12/09/16 17:00:00 CDTNotes: Give with food. (Same As: Coreg) No Longer Active 11/10/2016 [facility] aspirin 81 mg tablet, enteric coated 81 mg, 1 tab, Route: PO, Drug form: CHEWTAB, Daily, Dosing Weight 70.909, kg, Start date: 11/10/16 9:00:00 CDT, Duration: 30 day, Stop date: 12/09/16 9:00:00 CDTNotes: Take with food. No Longer Active 11/10/2016 [facility] predniSONE 5 mg oral tablet 10 mg=2 tab, PO, Daily, Give with food., # 30 tab, 0 Refill(s) No Longer Active 11/10/2016 [facility] Lovenox 40 mg, 0.4 mL, Route: SUB-Q, Drug form: INJ, [id number], Dosing Weight 70.909, kg, Priority: Routine, Start date: 11/09/16 16:00:00 CDT, Duration: 30 day, Stop date: 12/08/16 16:00:00 CDTNotes: (Same as: Lovenox) No Longer Active 11/09/2016 [facility] Miralax 17 gm, 1 pkt, Route: PO, Drug form: PWDR, Daily, Dosing Weight 70.909, kg, Start date: 11/09/16 9:00:00 CDT, Duration: 30 day, Stop date: 12/08/16 9:00:00 CDTNotes: Dissolve in 8 oz of water or juice. (Same as: Miralax) No Longer Active 11/09/2016 [facility] cefepime 1 gm, Route: IVPB, Drug form: INJ, [id number], Dosing Weight 70.909, kg, (CrCl >/=50 ml/min), Start date: 11/08/16 23:00:00 CDT, Duration: 14 day, Stop date: 11/22/16 11:00:00 CDT, ABX Indication: Intra- abdominal InfectionNotes: (Same As: Maxipime) MEDICATION WASTE Product Size: 1000 mg Product Wasted: ___ mg No Longer Active 11/09/2016 [facility] Ofirmev 1,000 mg, 100 mL, Route: IV, Drug form: INJ, Q6H, Dosing Weight 70.909, kg, for > or=50 kg, Priority: STAT, Start date: 11/08/16 22:01:00 CDT, Duration: 48 hr, Stop date: 11/10/16 18:00:00 CDTNotes: Infuse over 15 minutes Do not exceed 4gm/day of acetaminophen MEDICATION WASTE Product Size: 1000 mg Product Wasted: ___ mg No Longer Active 11/09/2016 [facility] Dilaudid 0.2 mg, 0.1 mL, Route: IVP, Drug form: INJ, Q3H, Dosing Weight 70.909, kg, PRN Pain Score 7-10, Start date: 11/08/16 21:59:00 CDT, Duration: 30 day, Stop date: 12/08/16 21:58:00 CDTNotes: Same as: Dilaudid No Longer Active 11/09/2016 [facility] Flagyl 500 mg, 100 mL, Route: IVPB, Drug form: INJ, [id number], Dosing Weight 70.909, kg, Start date: 11/08/16 19:00:00 CDT, Duration: 14 day, Stop date: 11/22/16 10:00:00 CDT, ABX Indication: Intra-abdominal Infe ctionNotes: (Same as: Flagyl) Avoid alcohol. No Longer Active 11/09/2016 [facility] Hydrocortisone 100 mg, 2 mL, Route: IV, Drug form: PDR/INJ, Q8H, Dosing Weight 70.909, kg, Priority: NOW, Start date: 11/08/16 18:24:00 CDT, Duration: 30 day, Stop date: 12/08/16 18:00:00 CDTNotes: (Same as: Apryl-Haley ONEILTEF) No Longer Active 11/08/2016 [facility] Ofirmev 1,000 mg, 100 mL, Route: IV, Drug form: INJ, Q6H, Dosing Weight 70.909, kg, for > or=50 kg, Start date: 11/08/16 18:00:00 CDT, Stop date: 11/10/16 12:00:00 CDTNotes: Infuse over 15 minutes Do not exceed 4gm/day of acetaminophen MEDICATION WASTE Product Size: 1000 mg Product Wasted: ___ mg Inactive 11/08/2016 [facility] Docusate 100 mg, 1 cap, Route: PO, Drug form: CAP, Q12H, Dosing Weight 70.909, kg, Start date: 11/08/16 17:00:00 CDT, Stop date: 12/08/16 9:00:00 CDTNotes: (Same as: Colace) (Do Not Crush) No Longer Active 11/08/2016 [facility] Insulin regular 5 unit, 0.05 mL, Route: [...] days from Date No Longer Active 11/08/2016 [facility] Glucagon 1 mg, Route: IM, Drug form: PDR/INJ, PRN, Dosing Weight 70.909, kg, PRN Blood Glucose Results, Start date: 11/08/16 16:48:00 CDT, Stop date: 12/08/16 16:47:00 CDT No Longer Active 11/08/2016 [facility] Dextrose 50% Syringe 12.5 gm, 25 mL, Route: IVP, Drug Form: INJ, Dosing Weight 70.909, kg, PRN, PRN Blood Glucose Results, Start date: 11/08/16 16:48:00 CDT, Stop date: 12/08/16 16:47:00 CDT No Longer Active 11/08/2016 [facility] Robaxin 1,000 mg, 10 mL, Route: IV, Drug form: INJ, Q8H, Dosing Weight 70.909, kg, Start date: 11/08/16 16:00:00 CDT, Stop date: 12/08/16 8:00:00 CDTNotes: (Same as:Robaxin) No Longer Active 11/08/2016 [facility] Fluconazole 200 mg, 100 mL, Route: IVPB, Drug form: INJ, [id number], Dosing Weight 70.909, kg, Start date: 11/08/16 16:00:00 CDT, Stop date: 11/21/16 16:00:00 CDTNotes: (Same as: Diflucan) No Longer Active 11/08/2016 [facility] Rocephin 1 gm, Route: IVPB, Drug form: PDR/INJ, [id number], Dosing Weight 70.909, kg, Start date: 11/08/16 16:00:00 CDT, Duration: 14 day, Stop date: 11/21/16 16:00:00 CDT, ABX Indication: Intra-abdominal Infection Notes: (Same As: Rocephin). Use with 100 mL NS and infuse over 30 min MEDICATION WASTE Product Size: 1000 mg Product Wasted: ___ mg Inactive 11/08/2016 [facility] Saline Flush 0.9% 10 ml, Route: IVP, Drug Form: INJ, Dosing Weight 70.909, kg, PRN, PRN Line Flush, Start date: 11/08/16 15:30:00 CDT, Stop date: 12/08/16 15:29:00 CDTNotes: (Same as: BD Posiflush) No Longer Active 11/08/2016 [facility] Lactated Ringers 1,000 mL 1,000 mL, Rate: 75 ml/hr, Infuse over: 13.3 hr, Route: IV, Dosing Weight 70.909 kg, Total Volume: 1,000, Start date: 11/08/16 15:30:00 CDT, Stop date: 12/08/16 15:29:00 CDT No Longer Active 11/08/2016 [facility] Bisacodyl 10 mg, 1 supp, Route: RI, Drug form: SUPP, Daily, Dosing Weight 70.909, kg, PRN Constipation, Start date: 11/08/16 15:30:00 CDT, Stop date: 12/08/16 15:29:00 CDTNotes: (Same As: Dulcolax, Bisco-Lax) No Longer Active 11/08/2016 [facility] Dilaudid 0.2 mg, 0.1 mL, Route: IVP, Drug form: INJ, Q3H, Dosing Weight 70.909, kg, PRN Pain Score 7-10, Start date: 11/08/16 15:30:00 CDT, Stop date: 12/08/16 15:29:00 CDTNotes: Same as: Dilaudid Inactive 11/08/2016 [facility] Lovenox 40 mg, 0.4 mL, Route: SUB-Q, Drug form: INJ, [id number], Dosing Weight 70.909, kg, Priority: STAT, Start date: 11/08/16 15:30:00 CDT, Stop date: 12/07/16 15:30:00 CDTNotes: (Same as: Lovenox) No Longer Active 11/08/2016 [facility] Tylenol 1,000 mg, Route: PO, ONCE, Dosing Weight 70.909, kg, Start date: 11/08/16 14:40:00 CDT, Stop date: 11/08/16 14:40:00 CDT Inactive 11/08/2016 [facility] Albuterol 0.833 MG/ML / Ipratropium [place] 0.167 MG/ML Inhalant Solution [DuoNeb] 3 ml, Route: NEB, Drug Form: SOLN, Dosing Weight 70.909, kg, PRN, PRN Respiratory Protocol, Start date: 11/08/16 12:32:00 CDT, Stop date: 12/08/16 12:31:00 CDTNotes: (Same as: Duoneb) No Longer Active 11/08/2016 [facility] iodixanol 100 mL, Route: IVP, Drug Form: SOLN, Dosing Weight 70.909, kg, ONCALL, STAT, Start date: 11/08/16 11:18:00 CDT, Duration: 1 doses or times, Dose=2.2ml/kg, Max sbds=[id number] -- "To be infused by Radiology Staff ONLY" Inactive 11/08/2016 [facility] cefepime 1 gm, Route: IVPB, Drug form: INJ, ONCE, Dosing Weight 70.909, kg, Priority: STAT, Start date: 11/08/16 10:45:00 CDT, Duration: 1 doses or times, Stop date: 11/08/16 10:45:00 CDT, ABX Indication: Intra- abdominal InfectionNotes: (Same As: Maxipime) MEDICATION WASTE Product Size: 1000 mg Product Wasted: ___ mg Inactive 11/08/2016 [facility] Vancomycin 1,500 mg, Route: IVPB, ONCE, Dosing Weight 70.909, kg, Priority: STAT, Start date: 11/08/16 10:45:00 CDT, Duration: 1 doses or times, Stop date: 11/08/16 10:45:00 CDT, ABX Indication: Intra-abdominal In fectionNotes: TIME CRITICAL MEDICATION (Same As: Vancocin) Infusion rate 2001 mg: infuse over 2.5 hours MEDICATION WASTE Product Size: 1000 mg Product Wasted: ___ mg Inactive 11/08/2016 [facility] Flagyl 500 mg, 100 mL, Route: IVPB, Drug form: INJ, ONCE, Dosing Weight 70.909, kg, Priority: STAT, Start date: 11/08/16 10:45:00 CDT, Duration: 1 doses or times, Stop date: 11/08/16 10:45:00 CDT, ABX Indication: Intra-abdominal InfectionNotes: (Same as: Flagyl) Avoid alcohol. Inactive 11/08/2016 [facility] Saline Flush 0.9% 10 mL, Route: IVP, Drug Form: INJ, Dosing Weight 70.909, kg, PRN, PRN Line Flush, Start date: 11/08/16 10:44:00 CDT, Stop date: 12/08/16 10:43:00 CDTNotes: Same as: BD Posiflush Sterile No Longer Active 11/08/2016 [facility] Sodium Chloride 0.154 MEQ/ML Injectable Solution 2,250 mL, 2045.45 ml/hr, Infuse Over: 1.1 hr, Route: IV, 2,250, Drug form: INJ, ONCE, Priority: STAT, Dosing Weight 70.909 kg, Start date: 11/08/16 10:44:00 CDT, Duration: 1 doses or times, Stop date: 11/08/16 10:44:00 CDT Inactive 11/08/2016 [facility] Zofran 4 mg, 2 mL, Route: IVP, Drug form: INJ, ONCE, Dosing Weight 70.909, kg, Priority: STAT, Start date: 11/08/16 10:44:00 CDT, Stop date: 11/08/16 10:44:00 CDTNotes: (Same as: Zofran) MEDICATION WASTE Product Size: 4 mg Product Wasted: ___ mg Inactive 11/08/2016 [facility] pantoprazole 40 mg, 1 tab, Route: PO, Drug form: ECTAB, Daily, Dosing Weight 70.455, kg, Start date: 06/07/16 9:00:00 DUAL HOSE CEMENTER, Duration: 30 day, Stop date: 07/06/16 9:00:00 CSTNotes: Tablet should not be chewed or cr ushed. (Same as: Protonix) Inactive 06/07/2016 [facility] Lisinopril 5 mg, 1 tab, Route: PO, Drug form: TAB, Daily, Dosing Weight 70.455, kg, Start date: 06/07/16 9:00:00 DUAL HOSE CEMENTER, Duration: 30 day, Stop date: 07/06/16 9:00:00 CSTNotes: (Same as: Prinivil, Zestril) Inactive 06/07/2016 [facility] Advair Diskus 100 mcg-50 mcg inhalation powder 1 puff, Route: INHALATION, Drug Form: PWDR, Dosing Weight 70.455, kg, BID, Start date: 06/07/16 9:00:00 DUAL HOSE CEMENTER, Duration: 30 day, Stop date: 07/06/16 17:00:00 DUAL HOSE CEMENTER No Longer Active 06/07/2016 [facility] clopidogrel 75 mg, 1 tab, Route: PO, Drug form: TAB, Daily, Dosing Weight 70.455, kg, Start date: 06/07/16 9:00:00 DUAL HOSE CEMENTER, Duration: 30 day, Stop date: 07/06/16 9:00:00 CSTNotes: (Same As: Plavix) Inactive 06/07/2016 [facility] carvedilol 6.25 mg, 1 tab, Route: PO, Drug form: TAB, BID, Dosing Weight 70.455, kg, Start date: 06/07/16 9:00:00 DUAL HOSE CEMENTER, Duration: 30 day, Stop date: 07/06/16 17:00:00 CSTNotes: Give with food. (Same As: Coreg) Inactive 06/07/2016 [facility] Symbicort 160/4.5 inhalation aerosol with adapter 2 inhalation, Route: INHALATION, Drug Form: AERO/A, Dosing Weight 70.455, kg, BID, Start date: 06/07/16 9:00:00 DUAL HOSE CEMENTER, Duration: 30 day, Stop date: 07/06/16 17:00:00 CSTNotes: (Same as: Symbicort) WASTE: Aerosol - Return to Pharmacy Inactive 06/07/2016 [facility] aspirin 81 mg tablet, enteric coated 81 mg, 1 tab, Route: PO, Drug form: ECTAB, Daily, Dosing Weight 70.455, kg, Start date: 06/07/16 9:00:00 DUAL HOSE CEMENTER, Duration: 30 day, Stop date: 07/06/16 9:00:00 CSTNotes: Do not crush or chew. (Same As: Ecotrin) Inactive 06/07/2016 [facility] Chantix 1 mg, 2 tab, Route: PO, Drug form: TAB, Daily, Dosing Weight 70.455, kg, Start date: 06/07/16 9:00:00 DUAL HOSE CEMENTER, Duration: 30 day, Stop date: 07/06/16 9:00:00 CSTNotes: Same as Chantix Inactive 06/07/2016 [facility] Prednisone 40 mg, 2 tab, Route: PO, Drug form: TAB, Daily, Dosing Weight 70.455, kg, Start date: 06/07/16 9:00:00 DUAL HOSE CEMENTER, Duration: 30 day, Stop date: 07/06/16 9:00:00 CSTNotes: Take with food. Inactive 06/07/2016 [facility] [facility] Acetaminophen 300 MG / Codeine Phosphate 30 MG Oral Tablet 2 tab, PO, Q4H, PRN Pain Score 4-6, X 5 day, # 60 tab, 0 Refill(s) Active 06/07/2016 [facility] Pravastatin 20 mg, 1 tab, Route: PO, Drug form: TAB, Bedtime, Dosing Weight 70.455, kg, Start date: 06/06/16 21:00:00 D[employer]ER, Duration: 30 day, Stop date: 07/05/16 21:00:00 CSTNotes: (Same as: Pravachol) No Longer Active 06/07/2016 [facility] Vancomycin 1,000 mg, Route: IVPB, Drug form: INJ, ABXQ8H, Dosing Weight 70.455, kg, Time Critical Medication, Start date: 06/06/16 17:00:00 DUAL HOSE C[employer]ER, Duration: 1 day, Stop date: 06/07/16 9:00:00 CSTNotes: TIME CRITI LESLIE MEDICATION (Same As: Vancocin) Infusion rate 2001 mg: infuse over 2.5 hours MEDICATION WASTE Product Size: 1000 mg Product Wasted: ___ mg No Longer Active 06/06/2016 [facility] acetaminophen-codeine #3 2 tab, Route: PO, Drug Form: TAB, Dosing Weight 70.455, kg, Q4H, PRN Pain Score 7-10, Start date: 06/06/16 12:24:00 DUAL HOSE C[employer]ER, Duration: 30 day, Stop date: 07/06/16 12:23:00 CSTNotes: Do not exceed 4gm/day of acetaminophen. (Same as: Tylenol with Codeine # 3) No Longer Active 06/06/2016 [facility] Ondansetron 4 mg, 2 mL, Route: IVP, Drug form: INJ, Q8H, Dosing Weight 70.455, kg, PRN Nausea & Vomiting, Start date: 06/06/16 12:24:00 D[employer] HO[employer] C[employer]ER, Duration: 30 day, Stop date: 07/06/16 12:23:00 CSTNotes: (Same as: Zofran) MEDICATION WASTE Product Size: 4 mg Product Wasted: ___ mg No Longer Active 06/06/2016 [facility] Chantix 1 mg oral tablet 1 mg=1 tab, PO, Daily, # 30 tab, 0 Refill(s) Active 06/06/2016 [facility] pravastatin 20 mg oral tablet 20 mg=1 tab, PO, Bedtime, # 90 tab, 1 Refill(s) Active 06/06/2016 [facility] Cefazolin 2 gm, 100 mL, Route: IVPB, Drug form: INJ, ONCE, Dosing Weight 70.455, kg, Start date: 06/06/16 6:06:00 D[employer]ER, Duration: 1 doses or times, Stop date: 06/06/16 6:06:00 DUAL HOSE C[employer]ER, Surgical Prophylaxis Only; For patients Notes: Same as: Ancef Inactive 06/06/2016 [facility] sodium chloride 0.9% 1000 ml INJ 1,000 mL 1,000 mL, Rate: 50 ml/hr, Infuse over: 20 hr, Route: IV, Dosing Weight 70.455 kg, Total Volume: 1,000, Start date: 06/06/16 6:04:00 D[employer] C[employer]ER, Duration: 30 day, Stop date: 07/06/16 6:03:00 DUAL HOSE C[employer]ER No Longer Active 06/06/2016 [facility] pantoprazole 40 mg, 1 tab, Route: PO, Drug form: ECTAB, Daily, Dosing Weight 71.364, kg, Start date: 05/09/16 9:00:00 D[employer] C[employer]ER, Duration: 30 day, Stop date: 06/07/16 9:00:00 CSTNotes: Tablet should not be chewed or cr ushed. (Same as: Protonix) No Longer Active 05/09/2016 [facility] multivitamin Route: PO, Drug Form: TAB, Dosing Weight 71.364, kg, Daily, Start date: 05/09/16 9:00:00 DUAL HOSE C[employer]ER, Duration: 30 day, Stop date: 06/07/16 9:00:00 DUAL HOSE C[employer]ER No Longer Active 05/09/2016 [facility] Lisinopril 5 mg, 1 tab, Route: PO, Drug form: TAB, Daily, Dosing Weight 71.364, kg, Start date: 05/09/16 9:00:00 D[employer] HO[employer] C[employer]ER, Duration: 30 day, Stop date: 06/07/16 9:00:00 CSTNotes: (Same as: Prinivil, Zestril) No Longer Active 05/09/2016 [facility] clopidogrel 75 mg, 1 tab, Route: PO, Drug form: TAB, Daily, Dosing Weight 71.364, kg, Start date: 05/09/16 9:00:00 D[employer] HOSE C[employer]ER, Duration: 30 day, Stop date: 06/07/16 9:00:00 CSTNotes: (Same As: Plavix) No Longer Active 05/09/2016 [facility] aspirin 81 mg tablet, enteric coated 81 mg, 1 tab, Route: PO, Drug form: ECTAB, Daily, Dosing Weight 71.364, kg, Start date: 05/09/16 9:00:00 D[employer] C[employer]ER, Duration: 30 day, Stop date: 06/07/16 9:00:00 CSTNotes: Do not crush or chew. (Same As: Ecotrin) No Longer Active 05/09/2016 [facility] Vitamin B 12 1,000 microgram, Route: SL, Drug form: TAB, Daily, Dosing Weight 71.364, kg, Start date: 05/09/16 9:00:00 DUAL HOSE C[employer]ER, Duration: 30 day, Stop date: 06/07/16 9:00:00 DUAL HOSE CEMENTER No Longer Active 05/09/2016 [facility] Plavix 75 mg, Route: PO, Drug form: TAB, Daily, Dosing Weight 71.364, kg, Start date: 05/09/16 9:00:00 DUAL HOSE CEMENTER, Duration: 30 day, Stop date: 06/07/16 9:00:00 DUAL HOSE CEMENTER No Longer Active 05/09/2016 [facility] Aspirin 81 mg, Route: PO, Daily, Dosing Weight 71.364, kg, Start date: 05/09/16 9:00:00 DUAL HOSE CEMENTER, Duration: 30 day, Stop date: 06/07/16 9:00:00 DUAL HOSE CEMENTER No Longer Active 05/09/2016 [facility] carvedilol 6.25 mg, 1 tab, Route: PO, Drug form: TAB, Q12H, Dosing Weight 71.364, kg, Start date: 05/08/16 21:00:00 DUAL HOSE C[employer]ER, Duration: 30 day, Stop date: 06/07/16 9:00:00 CSTNotes: Give with food. (Same As: Coreg) Inactive 05/09/2016 [facility] Morphine 2 mg, 1 mL, Route: IVP, Drug form: INJ, ONCE, Dosing Weight 71.364, kg, Start date: 05/08/16 20:11:00 DUAL HOSE C[employer]ER, Stop date: 05/08/16 20:11:00 CSTNotes: (Same as:MORPhine Sulfate) Inactive 05/09/2016 [facility] aspirin 81 mg tablet, enteric coated 81 mg=1 tab, PO, Daily, 0 Refill(s) Active 05/09/2016 [facility] cilostazol 100 mg oral tablet 100 mg, PO, BID, 0 Refill(s) Active 05/09/2016 [facility] cyanocobalamin 1000 mcg with salcaprozate sodium oral tablet 1,000 microgram, SL, Daily, 0 Refill(s) Active 05/09/2016 [facility] clopidogrel 75 mg oral tablet 75 mg=1 tab, PO, Daily, 0 Refill(s) Active 05/09/2016 [facility] carvedilol 6.25 mg oral tablet 6.25 mg=1 tab, PO, Q12H, 0 Refill(s) Active 05/09/2016 [facility] Symbicort 160/4.5 inhalation aerosol with adapter 2 puff, INHALATION, BID, 0 Refill(s) Active 05/09/2016 [facility] Vitamin B12 with Folic Acid sublingual tablet 50, PO, Daily, 0 Refill(s) Active 05/09/2016 [facility] Dextromethorphan / Doxylamine / Pseudoephedrine 10 mL, PO, Q6H, 0 Refill(s) Active 05/09/2016 [facility] Advair Diskus 100 mcg-50 mcg inhalation powder 1 puff, INHALATION, BID, 0 Refill(s) Active 05/09/2016 [facility] Dextromethorphan / Doxylamine / Pseudoephedrine 10 mL, Route: PO, Dosing Weight 71.364, kg, Q6H, Start date: 05/08/16 18:00:00 DUAL HOSE C[employer]ER, Duration: 30 day, Stop date: 06/07/16 12:00:00 DUAL HOSE CEMENTER Inactive 05/09/2016 [facility] Chantix 1 mg, Route: PO, Drug form: TAB, BID, Dosing Weight 71.364, kg, Start date: 05/08/16 17:00:00 DUAL HOSE CEMENTER, Duration: 30 day, Stop date: 06/07/16 9:00:00 DUAL HOSE CEMENTER Inactive 05/08/2016 [facility] Advair Diskus 100 mcg-50 mcg inhalation powder 1 puff, Route: INHALATION, Drug Form: PWDR, Dosing Weight 71.364, kg, BID, Start date: 05/08/16 17:00:00 DUAL HOSE CEMENTER, Duration: 30 day, Stop date: 06/07/16 9:00:00 DUAL HOSE CEMENTER Inactive 05/08/2016 [facility] cilostazol 100 mg, Route: PO, Drug form: TAB, BID, Dosing Weight 71.364, kg, Start date: 05/08/16 17:00:00 DUAL HOSE CEMENTER, Duration: 30 day, Stop date: 06/07/16 9:00:00 DUAL HOSE CEMENTER Inactive 05/08/2016 [facility] Symbicort 160/4.5 inhalation aerosol with adapter 2 puff, Route: INHALATION, Drug Form: AERO/A, Dosing Weight 71.364, kg, BID, Start date: 05/08/16 17:00:00 DUAL HOSE CEMENTER, Duration: 30 day, Stop date: 06/07/16 9:00:00 DUAL HOSE CEMENTER Inactive 05/08/2016 [facility] Nitroglycerin 0.4 mg, 1 tab, Route: SL, Drug form: TAB, Q5Min, Dosing Weight 71.364, kg, PRN Chest Pain, Start date: 05/08/16 16:31:00 DUAL HOSE CEMENTER, Duration: 3 doses or times, Stop date: Limited # of timesNotes: (Same as: Nitroquick, Nitrostat) "Do Not Crush" Sublingual tablet Inactive 05/08/2016 [facility] Sodium Chloride 0.154 MEQ/ML Injectable Solution 250 mL, 250 ml/hr, Infuse Over: 1 hr, Route: IV, 250, Drug form: INJ, ONCE, Dosing Weight 71.364 kg, Start date: 05/08/16 16:31:00 DUAL HOSE CEMENTER, Duration: 1 doses or times, Stop date: 05/08/16 16:31:00 DUAL HOSE CEMENTER Inactive 05/08/2016 [facility] Prednisone 40 mg, 2 tab, Route: PO, Drug form: TAB, Daily, Dosing Weight 72.273, kg, Start date: 04/11/16 9:00:00 DUAL HOSE CEMENTER, Duration: 30 day, Stop date: 05/10/16 9:00:00 DUAL HOSE CEMENTER Inactive 04/11/2016 [facility] pantoprazole 40 mg, 1 tab, Route: PO, Drug form: ECTAB, Daily, Dosing Weight 72.273, kg, Start date: 04/11/16 9:00:00 DUAL HOSE CEMENTER, Duration: 30 day, Stop date: 05/10/16 9:00:00 CSTNotes: Tablet should not be chewed or cr ushed. (Same as: Protonix) Inactive 04/11/2016 [facility] Lisinopril 5 mg, 1 tab, Route: PO, Drug form: TAB, Daily, Dosing Weight 72.273, kg, Start date: 04/11/16 9:00:00 DUAL HOSE CEMENTER, Duration: 30 day, Stop date: 05/10/16 9:00:00 CSTNotes: (Same as: Prinivil, Zestril) Inactive 04/11/2016 [facility] Vitamin B 12 1,000 microgram, 1 tab, Route: PO, Drug form: TAB, Daily, Dosing Weight 72.273, kg, Start date: 04/11/16 9:00:00 DUAL HOSE CEMENTER, Duration: 30 day, Stop date: 05/10/16 9:00:00 CSTNotes: (Same As: Vitamin B-12) Inactive 04/11/2016 [facility] Aspirin 81 mg, 1 tab, Route: PO, Drug form: CHEWTAB, Daily, Dosing Weight 72.273, kg, Start date: 04/11/16 9:00:00 DUAL HOSE CEMENTER, Duration: 30 day, Stop date: 05/10/16 9:00:00 CSTNotes: Take with food. Inactive 04/11/2016 [facility] clopidogrel 75 MG Oral Tablet [Plavix] 75 mg=1 tab, PO, Daily, # 90 tab, 1 Refill(s) Active 04/11/2016 [facility] cilostazol 100 mg, 1 tab, Route: PO, Drug form: TAB, BID, Dosing Weight 72.273, kg, Start date: 04/10/16 21:00:00 DUAL HOSE CEMENTER, Duration: 30 day, Stop date: 05/10/16 9:00:00 CSTNotes: Non-Formulary Drug. (Same As: Pletal) No Longer Active 04/11/2016 [facility] Chantix 1 mg, 2 tab, Route: PO, Drug form: TAB, BID, Dosing Weight 72.273, kg, Start date: 04/10/16 21:00:00 DUAL HOSE CEMENTER, Duration: 30 day, Stop date: 05/10/16 9:00:00 CSTNotes: Same as Chantix No Longer Active 04/11/2016 [facility] carvedilol 6.25 mg, 1 tab, Route: PO, Drug form: TAB, BID, Dosing Weight 72.273, kg, Start date: 04/10/16 21:00:00 DUAL HOSE CEMENTER, Duration: 30 day, Stop date: 05/10/16 9:00:00 DUAL HOSE CEMENTER No Longer Active 04/11/2016 [facility] Symbicort 160/4.5 inhalation aerosol with adapter 2 inhalation, Route: INHALATION, Drug Form: AERO/A, Dosing Weight 72.273, kg, RBID, Start date: 04/10/16 20:00:00 DUAL HOSE CEMENTER, Duration: 30 day, Stop date: 05/10/16 8:00:00 CSTNotes: (Same as: Symbicort) WASTE: Aerosol - Return to Pharmacy No Longer Active 04/11/2016 [facility] Morphine 2 mg, Route: IVP, ONCE, Dosing Weight 72.273, kg, Start date: 04/10/16 18:18:00 DUAL HOSE CEMENTER, Stop date: 04/10/16 18:18:00 DUAL HOSE CEMENTER Inactive 04/11/2016 [facility] Advair Diskus 100 mcg-50 mcg inhalation powder 1 puff, Route: INHALATION, Drug Form: PWDR, Dosing Weight 72.273, kg, BID, Start date: 04/10/16 17:00:00 DUAL HOSE CEMENTER, Duration: 30 day, Stop date: 05/10/16 9:00:00 DUAL HOSE CEMENTER Inactive 04/10/2016 [facility] cilostazol 100 mg oral tablet 100 mg, PO, BID, # 90 tab, 1 Refill(s) Active 04/10/2016 [facility] Nitroglycerin 0.4 mg, 1 tab, Route: SL, Drug form: TAB, Q5Min, Dosing Weight 72.273, kg, PRN Chest Pain, Start date: 04/10/16 16:41:00 DUAL HOSE CEMENTER, Duration: 3 doses or times, Stop date: Limited # of timesNotes: (Same as: Nitroquick, Nitrostat) "Do Not Crush" Sublingual tablet No Longer Active 04/10/2016 [facility] Sodium Chloride 0.154 MEQ/ML Injectable Solution 250 mL, Rate: 20 ml/hr, Infuse over: 12.5 hr, Route: IV, Dosing Weight 72.273 kg, Total Volume: 250, Start date: 04/10/16 16:41:00 DUAL HOSE CEMENTER, Duration: 24 hr, Stop date: 04/11/16 16:40:00 DUAL HOSE CEMENTER No Longer Active 04/10/2016 [facility] sodium chloride 0.9% 1000 ml INJ 1,000 mL 1,000 mL, Rate: 50 ml/hr, Infuse over: 20 hr, Route: IV, Dosing Weight 72.273 kg, Total Volume: 1,000, Start date: 04/10/16 13:09:00 DUAL HOSE CEMENTER, Duration: 30 day, Stop date: 05/10/16 13:08:00 DUAL HOSE CEMENTER No Longer Active 04/10/2016 [facility] sodium chloride 0.9% 1000 ml INJ 250 mL 250 mL, Rate: 250 ml/hr, Infuse over: 1 hr, Route: IV, Dosing Weight 72.273 kg, Total Volume: 250, Start date: 04/10/16 13:07:00 DUAL HOSE CEMENTER, Duration: 1 doses or times, Stop date: 04/10/16 14:06:00 DUAL HOSE CEMENTER Inactive 04/10/2016 [facility] carvedilol 6.25 mg oral tablet 6.25 mg=1 tab, PO, BID, 0 Refill(s) Active 04/10/2016 [facility] predniSONE 20 mg oral tablet 40 mg=2 tab, PO, Daily, 0 Refill(s) Active 04/10/2016 [facility] Advair Diskus 100 mcg-50 mcg inhalation powder 1 puff, INHALATION, BID, 0 Refill(s) Active 04/10/2016 [facility] Sodium Chloride 0.154 MEQ/ML Injectable Solution 750 mL, Rate: 75 ml/hr, Infuse over: 10 hr, Route: IV, Dosing Weight 72.727 kg, Total Volume: 750, Start date: 09/10/14 10:49:00, Duration: 1 doses or times, Stop date: 09/10/14 20:48:00 Inactive 09/10/2014 [facility] Hydroxyzine Hydrochloride 25 MG Oral Tablet 25 mg=1 tab, PO, QID, PRN Itching, # 40 tab, 0 Refill(s) Active 09/10/2014 [facility] Ephedrine hydrochloride 12.5 MG / Guaifenesin 200 MG Oral Tablet [Primatene] PO, 0 Refill(s) Active 09/10/2014 [facility] pantoprazole 40 mg oral enteric coated tablet 40 mg=1 tab, PO, Daily, # 30 tab, 0 Refill(s) Active 09/10/2014 [facility] Vitamin B-12 1000 mcg sublingual tablet 1,000 microgram=1 tab, SL, Daily, 0 Refill(s) Active 09/10/2014 [facility] Loratadine 10 MG Oral Tablet [Claritin] 10 mg=1 tab, PO, Daily, 0 Refill(s) Active 09/10/2014 [facility] One-A-Day 50+ oral tablet 1 tab, PO, Daily, # 30 tab, 0 Refill(s) Active 09/10/2014 [facility] predniSONE 10 mg oral tablet 10 mg=1 tab, PO, as directed, 0 Refill(s)Special Instructions: as directed Active 09/10/2014 [facility] Aspirin Low Dose 81 mg oral tablet =1 tab, PO, Daily, 0 Refill(s) Active 09/10/2014 [facility] Symbicort 160/4.5 inhalation aerosol with adapter 2 puff, INHALATION, BID, # 6 gm, 0 Refill(s) Active 09/10/2014 [facility] Chantix 1 mg oral tablet 1 mg=1 tab, PO, BID, # 60 tab, 0 Refill(s) Active 09/10/2014 [facility] lisinopril 5 mg oral tablet 5 mg=1 tab, PO, Daily, # 30 tab, 0 Refill(s) Active 09/10/2014 [facility] Sodium Chloride 0.154 MEQ/ML Injectable Solution 250 mL, 250 ml/hr, Infuse Over: 1 hr, Route: IV, 250, Drug form: INJ, ONCE, Priority: Routine, Dosing Weight 72.727 kg, Start date: 09/10/14 7:14:00, Duration: 1 doses or times, Stop date: 09/10/14 7:14:00 Inactive 09/10/2014 [facility] Albuterol Sulfate (Ventolin Hfa) 18 Gm Hfa.aer.ad Daily as needed for Shortness Of Breath Active [facility] Aspirin (Aspir 81) 81 Mg Tablet.dr Lambert Active [facility] Carvedilol 3.125 Mg Tablet Twice A Day Active [facility] Cefdinir (Omnicef) 300 Mg Capsule Twice A Day Active [facility] Cyanocobalamin (Vitamin B-12) (B-12) 1,000 Mcg Tablet.er Daily Active [facility] Fluticasone/Salmeterol (Advair 100-50 Diskus) 1 Each Disk.w.dev Twice A Day Active [facility] Lisinopril 2.5 Mg Tablet Daily Active [facility] Lorazepam (Ativan) 1 Mg Tablet Twice A Day [facility] Oxycodone Hcl/Acetaminophen (Oxycodone-Acetaminophen 10-325) 1 Each Tablet Every 6 Hours as needed for Mild Pain (1-3) Or Fever>100.8 Active [facility] Prednisone 10 Mg Tab Daily Active [facility] Varenicline Tartrate (Chantix) 1 Mg Tablet Daily Active [facility] Allergies, Adverse Reactions, Alerts Substance Category Reaction Severity Reaction type Status Date Reported Comments Source chlorhexidine topical Assertion Drug allergy Active [facility] statins Assertion Drug allergy Active [facility] Immunizations Immunization Date Given Site Status Last Updated Comments Source Results Order Name Results Value Reference Range Date Interpretation Comments Source Blood leukocytes automated count (number/volume) 9.28 4.8 - 10.8 08/17/2018 [facility] Blood erythrocytes automated count (number/volume) 3.09 3.6 - 5.1 08/17/2018 [facility] Blood hemoglobin measurement (moles/volume) 9.6 12.0 - 16.0 08/17/2018 [facility] Automated blood hematocrit (volume fraction) 29.8 34.2 - 44.1 08/17/2018 [facility] Automated erythrocyte mean corpuscular volume 96.4 81 - 99 08/17/2018 [facility] Automated erythrocyte mean corpuscular hemoglobin (mass per erythrocyte) 31.1 28 - 32 08/17/2018 [facility] Automated erythrocyte mean corpuscular hemoglobin concentration measurement (mass/volume) 32.2 31 - 35 08/17/2018 [facility] RDW BldCo-Rto 14.2 11.7 - 14.4 08/17/2018 [facility] Automated blood platelet count (count/volume) 89 140 - 360 08/17/2018 [facility] Automated blood segmented neutrophil count as percentage of total leukocytes 71.1 38.7 - 80.0 08/17/2018 [facility] Automated blood lymphocyte count as percentage ot total leukocytes 15.5 18.0 - 39.1 08/17/2018 [facility] Automated blood monocyte count as percentage of total leukocytes 10.9 4.4 - 11.3 08/17/2018 [facility] Automated blood eosinophil count as percentage of total leukocytes 0.4 0.0 - 6.0 08/17/2018 [facility] Automated blood basophil count as percentage of total leukocytes 0.1 0.0 - 1.0 08/17/2018 [facility] IM GRANULOCYTES % 2.0 0.0 - 1.0 08/17/2018 [facility] Automated blood neutrophil count 6.6 2.1 - 6.9 08/17/2018 [facility] Blood lymphocytes count (number/volume) 1.4 1.0 - 3.2 08/17/2018 [facility] Blood monocytes automated count (number/volume) 1.0 0.2 - 0.8 08/17/2018 [facility] Automated blood eosinophil count 0.0 0.0 - 0.4 08/17/2018 [facility] Automated blood basophil count (count/volume) 0.0 0.0 - 0.1 08/17/2018 [facility] Absolute Immature Granulocyte (auto 0.19 0 - 0.1 08/17/2018 [facility] Differential Total Cells Counted 100 08/16/2018 [facility] Manual blood neutrophils/100 leukocytes 65 40 - 74 08/16/2018 [facility] Manual blood band neutrophils form/100 leukocytes 5 08/16/2018 [facility] Manual blood lymphocytes/100 leukocytes 20 19 - 48 08/16/2018 [facility] Manual blood monocytes/100 leukocytes 5 3.4 - 9.0 08/16/2018 [facility] Manual blood eosinophil count as percentage of total leukocytes 3 0 - 7 08/16/2018 [facility] Blood lymphocytes variant count (number/volume) 2 08/16/2018 [facility] Blood platelets count by estimate (number/volume) ADEQUATE 08/16/2018 [facility] Platelet morphology NORMAL 08/16/2018 [facility] Blood hypochromia detection by light microscopy SLIGHT 08/16/2018 [facility] Blood anisocytosis detection by light microscopy SLIGHT 08/16/2018 [facility] RBC morphology NORMAL 08/16/2018 [facility] Serum or plasma sodium measurement (moles/volume) 142 136 - 145 08/16/2018 [facility] Serum or plasma potassium measurement (moles/volume) 3.4 3.5 - 5.1 08/16/2018 [facility] Serum or plasma chloride measurement (moles/volume) 111 98 - 107 08/16/2018 [facility] Serum or plasma carbon dioxide, total measurement (moles/volume) 24 22 - 29 08/16/2018 [facility] Serum or plasma anion gap 10.4 8 - 16 08/16/2018 [facility] Serum or plasma urea nitrogen measurement (mass/volume) 19 7 - 26 08/16/2018 [facility] Serum or plasma creatinine measurement (mass/volume) 0.68 0.57 - 1.11 08/16/2018 [facility] Serum or plasma urea nitrogen/creatinine mass ratio 28 6 - 25 08/16/2018 [facility] Estimated glomerular filtration rate (GFR) determination > 60 60 08/16/2018 [facility] Glucose measurement 96 74 - 118 08/16/2018 [facility] Serum or plasma calcium measurement (mass/volume) 8.2 8.4 - 10.2 08/16/2018 [facility] Serum or plasma total bilirubin measurement (mass/volume) 0.2 0.2 - 1.2 08/16/2018 [facility] Aspartate Amino Transf (AST/SGOT) 12 5 - 34 08/16/2018 [facility] Serum or plasma alanine aminotransferase measurement (enzymatic activity/volume) 16 0 - 55 08/16/2018 [facility] Serum or plasma protein measurement (mass/volume) 5.3 6.5 - 8.1 08/16/2018 [facility] Serum or plasma albumin measurement (mass/volume) 2.0 3.5 - 5.0 08/16/2018 [facility] Plasma globulin measurement (mass/volume) 3.3 2.3 - 3.5 08/16/2018 [facility] Serum or plasma albumin/globulin mass ratio 0.6 0.8 - 2.0 08/16/2018 [facility] Serum or plasma alkaline phosphatase measurement (enzymatic activity/volume) 68 40 - 150 08/16/2018 [facility] Capillary blood glucose measurement by glucometer (mass/volume) 90 70 - 120 08/15/2018 [facility] Manual blood metamyelocytes/100 leukocytes 2 0 - 0 08/14/2018 [facility] Manual blood myelocytes/100 leukocytes 3 0 - 0 08/14/2018 [facility] Serum or plasma creatine kinase measurement (enzymatic activity/volume) 324 29 - 168 08/13/2018 [facility] Serum or plasma creatine kinase MB measurement (mass/volume) 2.40 0 - 5.0 08/13/2018 [facility] Troponin I measurement by highly sensitive enzyme immunoassay 0.132 0 - 0.300 08/13/2018 [facility] Serum or plasma triglyceride measurement (mass/volume) 128 0 - 149 08/13/2018 [facility] Serum or plasma cholesterol measurement (mass/volume) 146 0 - 199 08/13/2018 [facility] Serum or plasma cholesterol in LDL measurement (mass/volume) 74 60 - 130 08/13/2018 [facility] Serum or plasma cholesterol in HDL measurement (mass/volume) 46 40 - 60 08/13/2018 [facility] Serum or plasma total cholesterol/cholesterol in HDL mass ratio 3.2 3.0 - 3.6 08/13/2018 [facility] Influenza virus A and B antigen identification by immunofluorescence NEGATIVE NEGATIVE 08/13/2018 [facility] Lactic Acid Level 56.8 4.5 - 19.8 08/12/2018 [facility] Urine color determination YELLOW YELLOW 08/12/2018 [facility] Urine clarity SL CLOUDY CLEAR 08/12/2018 [facility] Specific gravity of Urine by Test strip 1.020 1.010 - 1.025 08/12/2018 [facility] Urine pH measurement by automated test strip 5 5 - 7 08/12/2018 [facility] Urine leukocyte esterase detection by dipstick TRACE NEGATIVE 08/12/2018 [facility] Urine nitrite detection NEGATIVE NEGATIVE 08/12/2018 [facility] Urine protein measurement by test strip (mass/volume) 1+ NEGATIVE 08/12/2018 [facility] Urine glucose detection NEGATIVE NEGATIVE 08/12/2018 [facility] Urine ketones detection by automated test strip NEGATIVE NEGATIVE 08/12/2018 [facility] Urine urobilinogen measurement by test strip (mass/volume) 0.2 0.2 - 1 08/12/2018 [facility] Urine total bilirubin measurement (mass/volume) NEGATIVE NEGATIVE 08/12/2018 [facility] Urine erythrocytes detection NEGATIVE NEGATIVE 08/12/2018 [facility] Automated urine sediment leukocyte count by microscopy (number/high power field) 11-20 0 - 5 08/12/2018 [facility] Erythrocytes detection in urine sediment by light microscopy NONE 0 - 5 08/12/2018 [facility] Bacteria detection in urine sediment by light microscopy MANY NONE 08/12/2018 [facility] Epithelial cells detection in urine sediment by light microscopy RARE NONE 08/12/2018 [facility] Transitional cells detection in urine sediment by light microscopy MODERATE NONE 08/12/2018 [facility] Mucus detection in urine sediment by light microscopy FEW RARE 08/12/2018 [facility] Prothrombin time (PT) in platelet poor plasma by coagulation assay 13.7 11.9 - 14.5 08/12/2018 [facility] INR in Platelet poor plasma by Coagulation assay 1.00 08/12/2018 [facility] Activated partial thromboplastin time (aPTT) in platelet poor plasma bycoagulation assay 25.8 23.8 - 35.5 08/12/2018 [facility] Serum or plasma amylase measurement (enzymatic activity/volume) 21 25 - 125 08/12/2018 [facility] Serum or plasma lipase measurement (enzymatic activity/volume) 8 8 - 78 08/12/2018 [facility] Blood culture Growth detected. Culture workup ordered. 08/12/2018 [facility] Bacterial blood culture Organism: PROTEUS MIRABILIS 08/12/2018 [facility] HEMATOLOGY POC Activated Clotting Time 179 s 08/07/2018 [facility] BLOOD BANK RESULTS ABO/Rh A POS 08/07/2018 [facility] BLOOD BANK RESULTS Antibody Scrn Negative (08/07/18 10:43 AM) 08/07/2018 [facility] ELECTROLYTES AGAP 9.9 meq/L 10.0 - 20.0 08/07/2018 [facility] ELECTROLYTES eGFR 85 mL/min/1.73m2 08/07/2018 Result Comment: [...] should be multiplied by the estimated BMI. [facility] ELECTROLYTES Chloride Lvl 109 meq/L 95 - 109 08/07/2018 [facility] ELECTROLYTES CO2 25 meq/L 24 - 32 08/07/2018 [facility] ELECTROLYTES Creatinine Lvl 0.75 mg/dL 0.50 - 1.40 08/07/2018 [facility] ELECTROLYTES Potassium Lvl 3.9 meq/L 3.5 - 5.1 08/07/2018 [facility] ELECTROLYTES Sodium Lvl 140 meq/L 135 - 145 08/07/2018 [facility] ELECTROLYTES BUN 23 mg/dL 7 - 22 08/07/2018 [facility] ELECTROLYTES Glucose Lvl 92 mg/dL 70 - 99 08/07/2018 [facility] ELECTROLYTES Calcium Lvl 9.1 mg/dL 8.5 - 10.5 08/07/2018 [facility] HEMATOLOGY PT 12.8 s 12.0 - 14.7 08/07/2018 [facility] HEMATOLOGY PTT 27.3 s 22.9 - 35.8 08/07/2018 [facility] HEMATOLOGY INR 0.98 0.85 - 1.17 08/07/2018 [facility] HEMATOLOGY MCV 96.6 fL 80.0 - 98.0 08/07/2018 [facility] HEMATOLOGY Hct 42.1 % 36.0 - 48.0 08/07/2018 [facility] HEMATOLOGY MCHC 32.8 g/dL 32.0 - 36.0 08/07/2018 [facility] HEMATOLOGY MCH 31.7 pg 27.0 - 31.0 08/07/2018 [facility] HEMATOLOGY RDW 14.5 % 11.5 - 14.5 08/07/2018 [facility] HEMATOLOGY Platelet 292 K/CMM 133 - 450 08/07/2018 [facility] HEMATOLOGY MPV 9.7 fL 7.4 - 10.4 08/07/2018 [facility] HEMATOLOGY Hgb 13.8 g/dL 12.0 - 16.0 08/07/2018 [facility] HEMATOLOGY RBC 4.36 M/CMM 4.20 - 5.40 08/07/2018 [facility] HEMATOLOGY WBC 13.1 K/CMM 3.7 - 10.4 08/07/2018 [facility] HEMATOLOGY RBC Morph Normal (08/07/18 10:43 AM) 08/07/2018 [facility] HEMATOLOGY Atypical Lymphs 0.0 % <=0.0 % 08/07/2018 [facility] HEMATOLOGY Eosinophils 1.0 % 0.0 - 4.0 08/07/2018 [facility] HEMATOLOGY Monocytes 7.0 % 2.0 - 12.0 08/07/2018 [facility] HEMATOLOGY Plt Morph Normal (08/07/18 10:43 AM) 08/07/2018 [facility] HEMATOLOGY Lymphocytes 27.0 % 20.0 - 40.0 08/07/2018 [facility] HEMATOLOGY Segs 65.0 % 45.0 - 75.0 08/07/2018 [facility] HEMATOLOGY Eosinophils # 0.1 K/CMM 0.0 - 0.5 08/07/2018 [facility] HEMATOLOGY Bands 0.0 % 0.0 - 11.0 08/07/2018 [facility] HEMATOLOGY Neutrophils # 8.5 K/CMM 1.5 - 8.1 08/07/2018 [facility] HEMATOLOGY Lymphocytes # 3.5 K/CMM 1.0 - 5.5 08/07/2018 [facility] HEMATOLOGY Monocytes # 0.9 K/CMM 0.0 - 0.8 08/07/2018 [facility] HEMATOLOGY Basophils 0.8 % 0.0 - 1.0 09/17/2017 [facility] HEMATOLOGY Segs-Bands # 6.7 K/CMM 1.5 - 8.1 09/17/2017 [facility] HEMATOLOGY Eosinophils 3.1 % 0.0 - 4.0 09/17/2017 [facility] HEMATOLOGY Monocytes 7.7 % 2.0 - 12.0 09/17/2017 [facility] HEMATOLOGY Lymphocytes 27.2 % 20.0 - 40.0 09/17/2017 [facility] HEMATOLOGY Segs 61.2 % 45.0 - 75.0 09/17/2017 [facility] HEMATOLOGY Eosinophils # 0.3 K/CMM 0.0 - 0.5 09/17/2017 [facility] HEMATOLOGY Basophils # 0.1 K/CMM 0.0 - 0.2 09/17/2017 [facility] HEMATOLOGY Monocytes # 0.8 K/CMM 0.0 - 0.8 09/17/2017 [facility] HEMATOLOGY Lymphocytes # 3.0 K/CMM 1.0 - 5.5 09/17/2017 [facility] HEMATOLOGY RDW 17.8 % 11.5 - 14.5 09/17/2017 [facility] HEMATOLOGY Platelet 388 K/CMM 133 - 450 09/17/2017 [facility] HEMATOLOGY MCHC 32.2 g/dL 32.0 - 36.0 09/17/2017 [facility] HEMATOLOGY MCV 87.9 fL 80.0 - 98.0 09/17/2017 [facility] HEMATOLOGY MCH 28.3 pg 27.0 - 31.0 09/17/2017 [facility] HEMATOLOGY MPV 8.7 fL 7.4 - 10.4 09/17/2017 [facility] HEMATOLOGY WBC 11.0 K/CMM 3.7 - 10.4 09/17/2017 [facility] HEMATOLOGY Hgb 10.5 g/dL 12.0 - 16.0 09/17/2017 [facility] HEMATOLOGY Hct 32.6 % 36.0 - 48.0 09/17/2017 [facility] HEMATOLOGY RBC 3.71 M/CMM 4.20 - 5.40 09/17/2017 [facility] ELECTROLYTES AGAP 12.5 meq/L 10.0 - 20.0 09/16/2017 [facility] ELECTROLYTES eGFR 105 mL/min/1.73m2 09/16/2017 Result Comment: [...] should be multiplied by the estimated BMI. [facility] ELECTROLYTES CO2 24 meq/L 24 - 32 09/16/2017 [facility] ELECTROLYTES Chloride Lvl 110 meq/L 95 - 109 09/16/2017 [facility] ELECTROLYTES Calcium Lvl 8.0 mg/dL 8.5 - 10.5 09/16/2017 [facility] ELECTROLYTES BUN 6 mg/dL 7 - 22 09/16/2017 [facility] ELECTROLYTES Glucose Lvl 88 mg/dL 70 - 99 09/16/2017 [facility] ELECTROLYTES Creatinine Lvl 0.49 mg/dL 0.50 - 1.40 09/16/2017 [facility] ELECTROLYTES Sodium Lvl 143 meq/L 135 - 145 09/16/2017 [facility] ELECTROLYTES Potassium Lvl 3.5 meq/L 3.5 - 5.1 09/16/2017 [facility] HEMATOLOGY Monocytes # 0.8 K/CMM 0.0 - 0.8 09/16/2017 [facility] HEMATOLOGY Lymphocytes # 2.6 K/CMM 1.0 - 5.5 09/16/2017 [facility] HEMATOLOGY Eosinophils # 0.4 K/CMM 0.0 - 0.5 09/16/2017 [facility] HEMATOLOGY Segs-Bands # 8.3 K/CMM 1.5 - 8.1 09/16/2017 [facility] HEMATOLOGY Monocytes 6.3 % 2.0 - 12.0 09/16/2017 [facility] HEMATOLOGY Segs 68.6 % 45.0 - 75.0 09/16/2017 [facility] HEMATOLOGY Lymphocytes 21.7 % 20.0 - 40.0 09/16/2017 [facility] HEMATOLOGY Eosinophils 3.1 % 0.0 - 4.0 09/16/2017 [facility] HEMATOLOGY Basophils 0.3 % 0.0 - 1.0 09/16/2017 [facility] HEMATOLOGY MPV 9.4 fL 7.4 - 10.4 09/16/2017 [facility] HEMATOLOGY Platelet 309 K/CMM 133 - 450 09/16/2017 [facility] HEMATOLOGY RDW 17.7 % 11.5 - 14.5 09/16/2017 [facility] HEMATOLOGY MCHC 31.9 g/dL 32.0 - 36.0 09/16/2017 [facility] HEMATOLOGY MCH 28.0 pg 27.0 - 31.0 09/16/2017 [facility] HEMATOLOGY MCV 87.9 fL 80.0 - 98.0 09/16/2017 [facility] HEMATOLOGY Hct 29.0 % 36.0 - 48.0 09/16/2017 [facility] HEMATOLOGY Hgb 9.3 g/dL 12.0 - 16.0 09/16/2017 [facility] HEMATOLOGY WBC 12.1 K/CMM 3.7 - 10.4 09/16/2017 [facility] HEMATOLOGY RBC 3.30 M/CMM 4.20 - 5.40 09/16/2017 [facility] CHEM PANEL eGFR 102 mL/min/1.73m2 09/15/2017 Result [...] should be multiplied by the estimated BMI. [facility] CHEM PANEL Calcium Lvl 7.8 mg/dL 8.5 - 10.5 09/15/2017 [facility] CHEM PANEL AGAP 10.9 meq/L 10.0 - 20.0 09/15/2017 [facility] CHEM PANEL Creatinine Lvl 0.53 mg/dL 0.50 - 1.40 09/15/2017 [facility] CHEM PANEL Chloride Lvl 108 meq/L 95 - 109 09/15/2017 [facility] CHEM PANEL CO2 28 meq/L 24 - 32 09/15/2017 [facility] CHEM PANEL Sodium Lvl 143 meq/L 135 - 145 09/15/2017 [facility] CHEM PANEL Potassium Lvl 3.9 meq/L 3.5 - 5.1 09/15/2017 [facility] CHEM PANEL Glucose Lvl 103 mg/dL 70 - 99 09/15/2017 [facility] CHEM PANEL BUN 9 mg/dL 7 - 22 09/15/2017 [facility] HEMATOLOGY MCHC 32.0 g/dL 32.0 - 36.0 09/15/2017 [facility] HEMATOLOGY MCH 28.3 pg 27.0 - 31.0 09/15/2017 [facility] HEMATOLOGY MCV 88.4 fL 80.0 - 98.0 09/15/2017 [facility] HEMATOLOGY Hct 28.2 % 36.0 - 48.0 09/15/2017 [facility] HEMATOLOGY Hgb 9.1 g/dL 12.0 - 16.0 09/15/2017 [facility] HEMATOLOGY WBC 15.0 K/CMM 3.7 - 10.4 09/15/2017 [facility] HEMATOLOGY RBC 3.19 M/CMM 4.20 - 5.40 09/15/2017 [facility] HEMATOLOGY MPV 9.2 fL 7.4 - 10.4 09/15/2017 [facility] HEMATOLOGY RDW 17.6 % 11.5 - 14.5 09/15/2017 [facility] HEMATOLOGY Platelet 312 K/CMM 133 - 450 09/15/2017 [facility] HEMATOLOGY Basophils 0.5 % 0.0 - 1.0 09/15/2017 [facility] HEMATOLOGY Monocytes # 1.1 K/CMM 0.0 - 0.8 09/15/2017 [facility] HEMATOLOGY Lymphocytes # 1.9 K/CMM 1.0 - 5.5 09/15/2017 [facility] HEMATOLOGY Basophils # 0.1 K/CMM 0.0 - 0.2 09/15/2017 [facility] HEMATOLOGY Eosinophils # 0.2 K/CMM 0.0 - 0.5 09/15/2017 [facility] HEMATOLOGY Segs-Bands # 11.8 K/CMM 1.5 - 8.1 09/15/2017 [facility] HEMATOLOGY Monocytes 7.1 % 2.0 - 12.0 09/15/2017 [facility] HEMATOLOGY Lymphocytes 12.8 % 20.0 - 40.0 09/15/2017 [facility] HEMATOLOGY Eosinophils 1.1 % 0.0 - 4.0 09/15/2017 [facility] HEMATOLOGY Segs 78.5 % 45.0 - 75.0 09/15/2017 [facility] Chest 1view DX Chest 1view DX EXAM: [...] Eliane Pierre MD 09/15/17 10:[address] [facility] CHEM PANEL eGFR 87 mL/min/1.73m2 09/14/2017 Result [...] should be multiplied by the estimated BMI. [facility] CHEM PANEL Chloride Lvl 105 meq/L 95 - 109 09/14/2017 [facility] CHEM PANEL Potassium Lvl 3.4 meq/L 3.5 - 5.1 09/14/2017 [facility] CHEM PANEL Sodium Lvl 143 meq/L 135 - 145 09/14/2017 [facility] CHEM PANEL CO2 28 meq/L 24 - 32 09/14/2017 [facility] CHEM PANEL Calcium Lvl 8.0 mg/dL 8.5 - 10.5 09/14/2017 [facility] CHEM PANEL AGAP 13.4 meq/L 10.0 - 20.0 09/14/2017 [facility] CHEM PANEL Glucose Lvl 90 mg/dL 70 - 99 09/14/2017 [facility] CHEM PANEL Creatinine Lvl 0.74 mg/dL 0.50 - 1.40 09/14/2017 [facility] CHEM PANEL BUN 12 mg/dL 7 - 22 09/14/2017 [facility] CHEM PANEL Magnesium Lvl 2.1 mg/dL 1.8 - 2.4 09/13/2017 [facility] CHEM PANEL Phosphorus 3.5 mg/dL 2.5 - 4.5 09/13/2017 [facility] Chest 1view DX Chest 1view DX EXAM: [...] - This report was dictated by a War[employer] Y[employer] Sorter/Fellow. I have personally reviewed the images as well as the Resident's interpretation and agree with the findings. Read by: Cecil Cast MD Resident: Cecil Cast MD Dictated Date/time: 09/13/17 11:01 Electronically Signed by: Isaias Purcell MD 09/14/17 18:[address] [facility] URINE AND STOOL UA Ketones TR 09/13/2017 [facility] URINE AND STOOL UA Urobilinogen <=1.0 mg/dL 0.1 - 1.0 09/13/2017 [facility] URINE AND STOOL UA Glucose Negative mg/dL Negative mg/dL 09/13/2017 [facility] URINE AND STOOL UA Blood Moderate *ABN* (4/25/18 9:09 PM) Negative 09/13/2017 [facility] URINE AND STOOL UA Bili Negative *NA* (09/12/17 9:09 PM) Negative 09/13/2017 [facility] URINE AND STOOL UA Protein >=300 mg/dL Negative mg/dL 09/13/2017 [facility] URINE AND STOOL UA Spec Grav 1.017 <=1.030 09/13/2017 [facility] URINE AND STOOL UA Color Yellow *NA* (09/12/17 9:09 PM) Yellow 09/13/2017 [facility] URINE AND STOOL UA pH 6.0 5.0 - 8.0 09/13/2017 [facility] URINE AND STOOL UA Turbidity Slight *ABN* (09/12/17 9:09 PM) Clear 09/13/2017 [facility] URINE AND STOOL UA RBC 87 /HPF 0 - 2 09/13/2017 [facility] URINE AND STOOL UA Hyal Cast 3 /LPF 0 - 2 09/13/2017 [facility] URINE AND STOOL UA Bacteria Occasional /HPF None Seen /HPF 09/13/2017 [facility] URINE AND STOOL UA Mucus Few /LPF None Seen /LPF 09/13/2017 [facility] URINE AND STOOL UA Nitrite Negative (09/12/17 9:09 PM) Negative 09/13/2017 [facility] URINE AND STOOL UA WBC 10 /HPF 0 - 5 09/13/2017 [facility] URINE AND STOOL UA Leuk Est Negative (09/12/17 9:09 PM) Negative 09/13/2017 [facility] URINE AND STOOL UA Sq Epi None Seen 09/13/2017 [facility] BLOOD BANK RESULTS ABO/Rh A POS 09/12/2017 [facility] BLOOD BANK RESULTS Antibody Scrn Negative (09/12/17 12:20 PM) 09/12/2017 [facility] CHEM PANEL A/G Ratio 0.7 0.7 - 1.6 09/12/2017 [facility] CHEM PANEL Globulin 4.6 g/dL 2.7 - 4.2 09/12/2017 [facility] CHEM PANEL B/C Ratio 16 6 - 25 09/12/2017 [facility] CHEM PANEL Alk Phos 92 unit/L 39 - 136 09/12/2017 [facility] CHEM PANEL Bili Total 0.5 mg/dL 0.2 - 1.3 09/12/2017 [facility] CHEM PANEL Albumin Lvl 3.4 g/dL 3.5 - 5.0 09/12/2017 [facility] CHEM PANEL Total Protein 8.0 g/dL 6.4 - 8.4 09/12/2017 [facility] CHEM PANEL AST 11 unit/L 0 - 37 09/12/2017 [facility] CHEM PANEL ALT 21 unit/L 0 - 65 09/12/2017 [facility] HEMATOLOGY Basophils # 0.1 K/CMM 0.0 - 0.2 09/12/2017 [facility] CARDIAC ENZYMES BNP 11 pg/mL <=100 pg/mL 07/18/2017 [facility] CHEM PANEL eGFR 80 mL/min/1.73m2 07/18/2017 Result [...] should be multiplied by the estimated BMI. [facility] CHEM PANEL Calcium Lvl 9.9 mg/dL 8.5 - 10.5 07/18/2017 [facility] CHEM PANEL CO2 29 meq/L 24 - 32 07/18/2017 [facility] CHEM PANEL Chloride Lvl 101 meq/L 95 - 109 07/18/2017 [facility] CHEM PANEL Creatinine Lvl 0.79 mg/dL 0.50 - 1.40 07/18/2017 [facility] CHEM PANEL Potassium Lvl 5.3 meq/L 3.5 - 5.1 07/18/2017 [facility] CHEM PANEL Sodium Lvl 139 meq/L 135 - 145 07/18/2017 [facility] CHEM PANEL BUN 13 mg/dL 7 - 07/18/2017 [facility] CHEM PANEL Glucose Lvl 118 mg/dL 70 - 99 07/18/2017 [facility] CHEM PANEL AGAP 14.3 meq/L 10.0 - 20.0 07/18/2017 [facility] HEMATOLOGY Platelet 395 K/CMM 133 - 450 07/18/2017 [facility] HEMATOLOGY MPV 11.0 fL 7.4 - 10.4 07/18/2017 [facility] HEMATOLOGY MCV 86.3 fL 80.0 - 98.0 07/18/2017 [facility] HEMATOLOGY Hgb 12.3 g/dL 12.0 - 16.0 07/18/2017 [facility] HEMATOLOGY Hct 37.9 % 36.0 - 48.0 07/18/2017 [facility] HEMATOLOGY MCH 28.0 pg 27.0 - 31.0 07/18/2017 [facility] HEMATOLOGY MCHC 32.5 g/dL 32.0 - 36.0 07/18/2017 [facility] HEMATOLOGY WBC 14.2 K/CMM 3.7 - 10.4 07/18/2017 [facility] HEMATOLOGY RBC 4.39 M/CMM 4.20 - 5.40 07/18/2017 [facility] HEMATOLOGY RDW 15.9 % 11.5 - 14.5 07/18/2017 [facility] HEMATOLOGY Eosinophils # 0.2 K/CMM 0.0 - 0.5 07/18/2017 [facility] HEMATOLOGY Segs 75.2 % 45.0 - 75.0 07/18/2017 [facility] HEMATOLOGY Segs-Bands # 10.7 K/CMM 1.5 - 8.1 07/18/2017 [facility] HEMATOLOGY Monocytes # 0.9 K/CMM 0.0 - 0.8 07/18/2017 [facility] HEMATOLOGY Lymphocytes # 2.3 K/CMM 1.0 - 5.5 07/18/2017 [facility] HEMATOLOGY Basophils # 0.1 K/CMM 0.0 - 0.2 07/18/2017 [facility] HEMATOLOGY Eosinophils 1.7 % 0.0 - 4.0 07/18/2017 [facility] HEMATOLOGY Basophils 0.6 % 0.0 - 1.0 07/18/2017 [facility] HEMATOLOGY Monocytes 6.4 % 2.0 - 12.0 07/18/2017 [facility] HEMATOLOGY Lymphocytes 16.1 % 20.0 - 40.0 07/18/2017 [facility] SPECIAL CHEMISTRY Hgb A1C 6.6 % <=5.6 % 07/18/2017 [facility] Abdomen/Pelvis w IV contrast CT Abdomen/Pelvis w [...] - This report was dictated by a [employer] Y[employer] Sorter/Fellow. I have personally reviewed the images as well as the Resident's interpretation and agree with the findings. Read by: Chapo Lewis MD Resident: Chapo Lewis MD Dictated Date/time: 11/28/16 17:04 Electronically Signed by: Seb Cheng MD 11/28/16 18:[address] [facility] CHEM PANEL Phosphorus 3.7 mg/dL 2.5 - 4.5 11/28/2016 [facility] CHEM PANEL eGFR 104 mL/min/1.73m2 11/28/2016 Result [...] should be multiplied by the estimated BMI. [facility] CHEM PANEL Glucose Lvl 76 mg/dL 70 - 99 11/28/2016 [facility] CHEM PANEL BUN 9 mg/dL 7 - 22 11/28/2016 [facility] CHEM PANEL Creatinine Lvl 0.51 mg/dL 0.50 - 1.40 11/28/2016 [facility] CHEM PANEL Potassium Lvl 4.2 meq/L 3.5 - 5.1 11/28/2016 [facility] CHEM PANEL Sodium Lvl 145 meq/L 135 - 145 11/28/2016 [facility] CHEM PANEL Chloride Lvl 109 meq/L 95 - 109 11/28/2016 [facility] CHEM PANEL CO2 27 meq/L 24 - 32 11/28/2016 [facility] CHEM PANEL AGAP 13.2 meq/L 10.0 - 20.0 11/28/2016 [facility] CHEM PANEL Calcium Lvl 8.3 mg/dL 8.5 - 10.5 11/28/2016 [facility] CHEM PANEL Magnesium Lvl 2.0 mg/dL 1.8 - 2.4 11/28/2016 [facility] HEMATOLOGY Eosinophils # 0.2 K/CMM 0.0 - 0.5 11/28/2016 [facility] HEMATOLOGY Basophils # 0.1 K/CMM 0.0 - 0.2 11/28/2016 [facility] HEMATOLOGY Monocytes # 1.2 K/CMM 0.0 - 0.8 11/28/2016 [facility] HEMATOLOGY Eosinophils 1.1 % 0.0 - 4.0 11/28/2016 [facility] HEMATOLOGY Basophils 0.7 % 0.0 - 1.0 11/28/2016 [facility] HEMATOLOGY Segs-Bands # 10.9 K/CMM 1.5 - 8.1 11/28/2016 [facility] HEMATOLOGY Lymphocytes # 2.8 K/CMM 1.0 - 5.5 11/28/2016 [facility] HEMATOLOGY Segs 71.7 % 45.0 - 75.0 11/28/2016 [facility] HEMATOLOGY Lymphocytes 18.6 % 20.0 - 40.0 11/28/2016 [facility] HEMATOLOGY Monocytes 7.9 % 2.0 - 12.0 11/28/2016 [facility] HEMATOLOGY RDW 15.4 % 11.5 - 14.5 11/28/2016 [facility] HEMATOLOGY Platelet 542 K/CMM 133 - 450 11/28/2016 [facility] HEMATOLOGY MPV 9.6 fL 7.4 - 10.4 11/28/2016 [facility] HEMATOLOGY MCH 28.1 pg 27.0 - 31.0 11/28/2016 [facility] HEMATOLOGY MCHC 31.0 g/dL 32.0 - 36.0 11/28/2016 [facility] HEMATOLOGY Hgb 9.2 g/dL 12.0 - 16.0 11/28/2016 [facility] HEMATOLOGY RBC 3.27 M/CMM 4.20 - 5.40 11/28/2016 [facility] HEMATOLOGY WBC 15.2 K/CMM 3.7 - 10.4 11/28/2016 [facility] HEMATOLOGY MCV 90.8 fL 80.0 - 98.0 11/28/2016 [facility] HEMATOLOGY Hct 29.7 % 36.0 - 48.0 11/28/2016 [facility] ELECTROLYTES AGAP 13.6 meq/L 10.0 - 20.0 11/27/2016 [facility] ELECTROLYTES Glucose Lvl 154 mg/dL 70 - 99 11/27/2016 [facility] ELECTROLYTES Creatinine Lvl 0.62 mg/dL 0.50 - 1.40 11/27/2016 [facility] ELECTROLYTES Chloride Lvl 108 meq/L 95 - 109 11/27/2016 [facility] ELECTROLYTES Sodium Lvl 142 meq/L 135 - 145 11/27/2016 [facility] ELECTROLYTES BUN 11 mg/dL 7 - 22 11/27/2016 [facility] ELECTROLYTES Potassium Lvl 4.6 meq/L 3.5 - 5.1 11/27/2016 [facility] ELECTROLYTES CO2 25 meq/L 24 - 32 11/27/2016 [facility] ELECTROLYTES Calcium Lvl 8.1 mg/dL 8.5 - 10.5 11/27/2016 [facility] ELECTROLYTES eGFR 98 mL/min/1.73m2 11/27/2016 Result Comment: [...] should be multiplied by the estimated BMI. [facility] HEMATOLOGY Basophils # 0.1 K/CMM 0.0 - 0.2 11/27/2016 [facility] HEMATOLOGY Monocytes # 1.0 K/CMM 0.0 - 0.8 11/27/2016 [facility] HEMATOLOGY Monocytes 4.0 % 2.0 - 12.0 11/27/2016 [facility] HEMATOLOGY Eosinophils # 0.1 K/CMM 0.0 - 0.5 11/27/2016 [facility] HEMATOLOGY Segs-Bands # 20.9 K/CMM 1.5 - 8.1 11/27/2016 [facility] HEMATOLOGY Lymphocytes # 1.8 K/CMM 1.0 - 5.5 11/27/2016 [facility] HEMATOLOGY Basophils 0.3 % 0.0 - 1.0 11/27/2016 [facility] HEMATOLOGY Eosinophils 0.4 % 0.0 - 4.0 11/27/2016 [facility] HEMATOLOGY Lymphocytes 7.5 % 20.0 - 40.0 11/27/2016 [facility] HEMATOLOGY Segs 87.8 % 45.0 - 75.0 11/27/2016 [facility] HEMATOLOGY MCH 28.7 pg 27.0 - 31.0 11/27/2016 [facility] HEMATOLOGY MCV 90.0 fL 80.0 - 98.0 11/27/2016 [facility] HEMATOLOGY Hct 30.0 % 36.0 - 48.0 11/27/2016 [facility] HEMATOLOGY Hgb 9.5 g/dL 12.0 - 16.0 11/27/2016 [facility] HEMATOLOGY Platelet 465 K/CMM 133 - 450 11/27/2016 [facility] HEMATOLOGY MPV 8.4 fL 7.4 - 10.4 11/27/2016 [facility] HEMATOLOGY WBC 23.8 K/CMM 3.7 - 10.4 11/27/2016 [facility] HEMATOLOGY RBC 3.33 M/CMM 4.20 - 5.40 11/27/2016 [facility] HEMATOLOGY RDW 15.8 % 11.5 - 14.5 11/27/2016 [facility] HEMATOLOGY MCHC 31.9 g/dL 32.0 - 36.0 11/27/2016 [facility] CHEM PANEL eGFR 103 mL/min/1.73m2 11/24/2016 Result [...] should be multiplied by the estimated BMI. [facility] CHEM PANEL BUN 10 mg/dL 7 - 22 11/24/2016 [facility] CHEM PANEL Glucose Lvl 75 mg/dL 70 - 99 11/24/2016 [facility] CHEM PANEL Potassium Lvl 3.2 meq/L 3.5 - 5.1 11/24/2016 [facility] CHEM PANEL Creatinine Lvl 0.53 mg/dL 0.50 - 1.40 11/24/2016 [facility] CHEM PANEL Sodium Lvl 144 meq/L 135 - 145 11/24/2016 [facility] CHEM PANEL Chloride Lvl 108 meq/L 95 - 109 11/24/2016 [facility] CHEM PANEL CO2 28 meq/L 24 - 32 11/24/2016 [facility] CHEM PANEL Calcium Lvl 8.3 mg/dL 8.5 - 10.5 11/24/2016 [facility] CHEM PANEL AGAP 11.2 meq/L 10.0 - 20.0 11/24/2016 [facility] HEMATOLOGY RBC 3.11 M/CMM 4.20 - 5.40 11/24/2016 [facility] HEMATOLOGY Hgb 8.6 g/dL 12.0 - 16.0 11/24/2016 [facility] HEMATOLOGY Hct 27.7 % 36.0 - 48.0 11/24/2016 [facility] HEMATOLOGY MCV 89.1 fL 80.0 - 98.0 11/24/2016 [facility] HEMATOLOGY MPV 10.1 fL 7.4 - 10.4 11/24/2016 [facility] HEMATOLOGY MCHC 31.0 g/dL 32.0 - 36.0 11/24/2016 [facility] HEMATOLOGY Platelet 517 K/CMM 133 - 450 11/24/2016 [facility] HEMATOLOGY MCH 27.6 pg 27.0 - 31.0 11/24/2016 [facility] HEMATOLOGY RDW 15.1 % 11.5 - 14.5 11/24/2016 [facility] HEMATOLOGY WBC 16.9 K/CMM 3.7 - 10.4 11/24/2016 [facility] HEMATOLOGY Plt Morph Normal (11/24/16 3:24 AM) 11/24/2016 [facility] HEMATOLOGY Segs 74.0 % 45.0 - 75.0 11/24/2016 [facility] HEMATOLOGY Segs-Bands # 12.5 K/CMM 1.5 - 8.1 11/24/2016 [facility] HEMATOLOGY Eosinophils 0.8 % 0.0 - 4.0 11/24/2016 [facility] HEMATOLOGY Monocytes 6.5 % 2.0 - 12.0 11/24/2016 [facility] HEMATOLOGY Basophils 0.7 % 0.0 - 1.0 11/24/2016 [facility] HEMATOLOGY Monocytes # 1.1 K/CMM 0.0 - 0.8 11/24/2016 [facility] HEMATOLOGY Eosinophils # 0.1 K/CMM 0.0 - 0.5 11/24/2016 [facility] HEMATOLOGY Lymphocytes # 3.1 K/CMM 1.0 - 5.5 11/24/2016 [facility] HEMATOLOGY Basophils # 0.1 K/CMM 0.0 - 0.2 11/24/2016 [facility] HEMATOLOGY Lymphocytes 18.0 % 20.0 - 40.0 11/24/2016 [facility] CHEM PANEL Phosphorus 2.7 mg/dL 2.5 - 4.5 11/22/2016 [facility] CHEM PANEL Magnesium Lvl 2.3 mg/dL 1.8 - 2.4 11/22/2016 [facility] CHEM PANEL Magnesium Lvl 2.0 mg/dL 1.8 - 2.4 11/21/2016 [facility] CHEM PANEL Phosphorus 4.4 mg/dL 2.5 - 4.5 11/21/2016 [facility] HEMATOLOGY RBC Morph Normal (11/21/16 2:50 AM) 11/21/2016 [facility] HEMATOLOGY Plt Morph Normal (11/21/16 2:50 AM) 11/21/2016 [facility] PARATHYROID PROFILE Ca Ion WB 1.05 mMol/L 1.05 - 1.25 11/21/2016 [facility] PARATHYROID PROFILE Ca Norm WB 1.09 mMol/L 1.05 - 1.25 11/21/2016 [facility] CARDIAC ENZYMES proBNP 1850 pg/mL 0 - 125 11/21/2016 [facility] BLOOD BANK RESULTS Antibody Scrn Negative (11/20/16 3:08 AM) 11/20/2016 [facility] BLOOD BANK RESULTS ABO/Rh A POS 11/20/2016 [facility] CHEM PANEL Lactic Acid Lvl 0.8 mMol/L 0.5 - 2.2 11/18/2016 [facility] Abdomen/Pelvis w IV contrast CT Abdomen/Pelvis w [...] - This report was dictated by a War[employer] Yarn Sorter/Fellow. I have personally reviewed the images as well as the Resident's interpretation and agree with the findings. Read by: Lynn George MD Resident: Lynn George MD Dictated Date/time: 11/18/16 08:53 Electronically Signed by: Carele Watkins MD 11/18/16 11:[address] [facility] URINE AND STOOL UA Sq Epi None Seen 11/18/2016 [facility] URINE AND STOOL UA Urobilinogen <=1.0 mg/dL 0.1 - 1.0 11/18/2016 [facility] URINE AND STOOL UA Leuk Est Negative (11/17/16 9:56 PM) Negative 11/18/2016 [facility] URINE AND STOOL UA WBC 1 /HPF 0 - 5 11/18/2016 [facility] URINE AND STOOL UA RBC null 0 - 2 11/18/2016 [facility] URINE AND STOOL UA Mucus Few /LPF None Seen /LPF 11/18/2016 [facility] URINE AND STOOL UA Glucose Negative mg/dL Negative mg/dL 11/18/2016 [facility] URINE AND STOOL UA Ketones 60 mg/dL Negative mg/dL 11/18/2016 [facility] URINE AND STOOL UA Bili Negative *NA* (11/17/16 9:56 PM) Negative 11/18/2016 [facility] URINE AND STOOL UA Blood Negative (11/17/16 9:56 PM) Negative 11/18/2016 [facility] URINE AND STOOL UA Nitrite Negative (11/17/16 9:56 PM) Negative 11/18/2016 [facility] URINE AND STOOL UA Color Yellow *NA* (11/17/16 9:56 PM) Yellow 11/18/2016 [facility] URINE AND STOOL UA Turbidity Clear (11/17/16 9:56 PM) Clear 11/18/2016 [facility] URINE AND STOOL UA Spec Grav 1.013 <=1.030 11/18/2016 [facility] URINE AND STOOL UA pH 6.0 5.0 - 8.0 11/18/2016 [facility] URINE AND STOOL UA Protein 20 mg/dL Negative mg/dL 11/18/2016 [facility] Chest 2 views DX Chest 2 views [...] Diane Moser MD 11/18/16 12:[address] [facility] CHEM PANEL A/G Ratio 0.5 0.7 - 1.6 11/18/2016 [facility] CHEM PANEL B/C Ratio 16 6 - 25 11/18/2016 [facility] CHEM PANEL Globulin 4.3 g/dL 2.7 - 4.2 11/18/2016 [facility] CHEM PANEL Alk Phos 84 unit/L 39 - 136 11/18/2016 [facility] CHEM PANEL Bili Total 0.2 mg/dL 0.2 - 1.3 11/18/2016 [facility] CHEM PANEL AST 8 unit/L 0 - 37 11/18/2016 [facility] CHEM PANEL Albumin Lvl 2.2 g/dL 3.5 - 5.0 11/18/2016 [facility] CHEM PANEL ALT 15 unit/L 0 - 65 11/18/2016 [facility] CHEM PANEL Total Protein 6.5 g/dL 6.4 - 8.4 11/18/2016 [facility] CHEM PANEL Lactic Acid Lvl 1.2 mMol/L 0.5 - 2.2 11/18/2016 [facility] HEMATOLOGY INR 1.27 0.85 - 1.17 11/18/2016 [facility] HEMATOLOGY PT 16.2 s 12.0 - 14.7 11/18/2016 [facility] HEMATOLOGY PTT 33.8 s 22.9 - 35.8 11/18/2016 [facility] CHEM PANEL eGFR 96 mL/min/1.73m2 11/14/2016 Result [...] should be multiplied by the estimated BMI. [facility] CHEM PANEL CO2 28 meq/L 24 - 32 11/14/2016 [facility] CHEM PANEL AGAP 13.3 meq/L 10.0 - 20.0 11/14/2016 [facility] CHEM PANEL Sodium Lvl 141 meq/L 135 - 145 11/14/2016 [facility] CHEM PANEL Potassium Lvl 3.3 meq/L 3.5 - 5.1 11/14/2016 [facility] CHEM PANEL Chloride Lvl 103 meq/L 95 - 109 11/14/2016 [facility] CHEM PANEL Calcium Lvl 8.3 mg/dL 8.5 - 10.5 11/14/2016 [facility] CHEM PANEL Glucose Lvl 119 mg/dL 70 - 99 11/14/2016 [facility] CHEM PANEL Creatinine Lvl 0.66 mg/dL 0.50 - 1.40 11/14/2016 [facility] CHEM PANEL BUN 11 mg/dL 7 - 22 11/14/2016 [facility] CHEM PANEL Magnesium Lvl 2.1 mg/dL 1.8 - 2.4 11/14/2016 [facility] CHEM PANEL Phosphorus 3.0 mg/dL 2.5 - 4.5 11/14/2016 [facility] HEMATOLOGY Eosinophils 0.5 % 0.0 - 4.0 11/14/2016 [facility] HEMATOLOGY Lymphocytes 12.7 % 20.0 - 40.0 11/14/2016 [facility] HEMATOLOGY Monocytes 9.5 % 2.0 - 12.0 11/14/2016 [facility] HEMATOLOGY Segs 75.8 % 45.0 - 75.0 11/14/2016 [facility] HEMATOLOGY Segs-Bands # 12.7 K/CMM 1.5 - 8.1 11/14/2016 [facility] HEMATOLOGY Basophils # 0.2 K/CMM 0.0 - 0.2 11/14/2016 [facility] HEMATOLOGY Eosinophils # 0.1 K/CMM 0.0 - 0.5 11/14/2016 [facility] HEMATOLOGY Basophils 1.5 % 0.0 - 1.0 11/14/2016 [facility] HEMATOLOGY Monocytes # 1.6 K/CMM 0.0 - 0.8 11/14/2016 [facility] HEMATOLOGY Lymphocytes # 2.1 K/CMM 1.0 - 5.5 11/14/2016 [facility] HEMATOLOGY Platelet 362 K/CMM 133 - 450 11/14/2016 [facility] HEMATOLOGY MPV 10.3 fL 7.4 - 10.4 11/14/2016 [facility] HEMATOLOGY WBC 16.8 K/CMM 3.7 - 10.4 11/14/2016 [facility] HEMATOLOGY RBC 4.01 M/CMM 4.20 - 5.40 11/14/2016 [facility] HEMATOLOGY MCV 89.5 fL 80.0 - 98.0 11/14/2016 [facility] HEMATOLOGY Hct 35.9 % 36.0 - 48.0 11/14/2016 [facility] HEMATOLOGY RDW 14.5 % 11.5 - 14.5 11/14/2016 [facility] HEMATOLOGY MCH 29.3 pg 27.0 - 31.0 11/14/2016 [facility] HEMATOLOGY MCHC 32.8 g/dL 32.0 - 36.0 11/14/2016 [facility] HEMATOLOGY Hgb 11.8 g/dL 12.0 - 16.0 11/14/2016 [facility] HEMATOLOGY Segs 76.6 % 45.0 - 75.0 11/13/2016 [facility] HEMATOLOGY Monocytes 7.6 % 2.0 - 12.0 11/13/2016 [facility] HEMATOLOGY Eosinophils 0.5 % 0.0 - 4.0 11/13/2016 [facility] HEMATOLOGY Lymphocytes 15.0 % 20.0 - 40.0 11/13/2016 [facility] HEMATOLOGY Segs-Bands # 12.9 K/CMM 1.5 - 8.1 11/13/2016 [facility] HEMATOLOGY Basophils 0.3 % 0.0 - 1.0 11/13/2016 [facility] HEMATOLOGY Monocytes # 1.3 K/CMM 0.0 - 0.8 11/13/2016 [facility] HEMATOLOGY Eosinophils # 0.1 K/CMM 0.0 - 0.5 11/13/2016 [facility] HEMATOLOGY Lymphocytes # 2.5 K/CMM 1.0 - 5.5 11/13/2016 [facility] HEMATOLOGY Basophils # 0.1 K/CMM 0.0 - 0.2 11/13/2016 [facility] HEMATOLOGY WBC 16.8 K/CMM 3.7 - 10.4 11/13/2016 [facility] HEMATOLOGY RDW 14.5 % 11.5 - 14.5 11/13/2016 [facility] HEMATOLOGY Platelet 334 K/CMM 133 - 450 11/13/2016 [facility] HEMATOLOGY MPV 8.8 fL 7.4 - 10.4 11/13/2016 [facility] HEMATOLOGY Hgb 11.3 g/dL 12.0 - 16.0 11/13/2016 [facility] HEMATOLOGY Hct 34.3 % 36.0 - 48.0 11/13/2016 [facility] HEMATOLOGY RBC 3.88 M/CMM 4.20 - 5.40 11/13/2016 [facility] HEMATOLOGY MCH 29.1 pg 27.0 - 31.0 11/13/2016 [facility] HEMATOLOGY MCHC 32.9 g/dL 32.0 - 36.0 11/13/2016 [facility] HEMATOLOGY MCV 88.4 fL 80.0 - 98.0 11/13/2016 [facility] CHEM PANEL Magnesium Lvl 1.8 mg/dL 1.8 - 2.4 11/13/2016 [facility] CHEM PANEL Phosphorus 2.9 mg/dL 2.5 - 4.5 11/13/2016 [facility] ELECTROLYTES AGAP 15.7 meq/L 10.0 - 20.0 11/13/2016 [facility] ELECTROLYTES eGFR 104 mL/min/1.73m2 11/13/2016 Result Comment: [...] should be multiplied by the estimated BMI. [facility] ELECTROLYTES Calcium Lvl 8.2 mg/dL 8.5 - 10.5 11/13/2016 [facility] ELECTROLYTES Creatinine Lvl 0.51 mg/dL 0.50 - 1.40 11/13/2016 [facility] ELECTROLYTES Sodium Lvl 137 meq/L 135 - 145 11/13/2016 [facility] ELECTROLYTES Chloride Lvl 107 meq/L 95 - 109 11/13/2016 [facility] ELECTROLYTES CO2 18 meq/L 24 - 32 11/13/2016 [facility] ELECTROLYTES Potassium Lvl 3.7 meq/L 3.5 - 5.1 11/13/2016 [facility] ELECTROLYTES Glucose Lvl 85 mg/dL 70 - 99 11/13/2016 [facility] ELECTROLYTES BUN 7 mg/dL 7 - 11/13/2016 [facility] CHEM PANEL Phosphorus 2.7 mg/dL 2.5 - 4.5 11/12/2016 [facility] CHEM PANEL eGFR 100 mL/min/1.73m2 11/12/2016 Result [...] should be multiplied by the estimated BMI. [facility] CHEM PANEL CO2 20 meq/L 24 - 32 11/12/2016 [facility] CHEM PANEL Calcium Lvl 8.4 mg/dL 8.5 - 10.5 11/12/2016 [facility] CHEM PANEL Chloride Lvl 111 meq/L 95 - 109 11/12/2016 [facility] CHEM PANEL Glucose Lvl 81 mg/dL 70 - 99 11/12/2016 [facility] CHEM PANEL Creatinine Lvl 0.58 mg/dL 0.50 - 1.40 11/12/2016 [facility] CHEM PANEL Potassium Lvl 3.4 meq/L 3.5 - 5.1 11/12/2016 [facility] CHEM PANEL BUN 10 mg/dL 7 - 11/12/2016 [facility] CHEM PANEL Sodium Lvl 140 meq/L 135 - 145 11/12/2016 [facility] CHEM PANEL AGAP 12.4 meq/L 10.0 - 20.0 11/12/2016 [facility] CHEM PANEL Magnesium Lvl 1.9 mg/dL 1.8 - 2.4 11/12/2016 [facility] HEMATOLOGY MCV 90.7 fL 80.0 - 98.0 11/12/2016 [facility] HEMATOLOGY RDW 14.7 % 11.5 - 14.5 11/12/2016 [facility] HEMATOLOGY MCHC 32.8 g/dL 32.0 - 36.0 11/12/2016 [facility] HEMATOLOGY Hct 32.5 % 36.0 - 48.0 11/12/2016 [facility] HEMATOLOGY MCH 29.7 pg 27.0 - 31.0 11/12/2016 [facility] HEMATOLOGY MPV 9.9 fL 7.4 - 10.4 11/12/2016 [facility] HEMATOLOGY Platelet 285 K/CMM 133 - 450 11/12/2016 [facility] HEMATOLOGY WBC 15.5 K/CMM 3.7 - 10.4 11/12/2016 [facility] HEMATOLOGY Hgb 10.7 g/dL 12.0 - 16.0 11/12/2016 [facility] HEMATOLOGY RBC 3.58 M/CMM 4.20 - 5.40 11/12/2016 [facility] HEMATOLOGY Eosinophils # 0.1 K/CMM 0.0 - 0.5 11/12/2016 [facility] HEMATOLOGY Monocytes # 1.5 K/CMM 0.0 - 0.8 11/12/2016 [facility] HEMATOLOGY Lymphocytes 14.1 % 20.0 - 40.0 11/12/2016 [facility] HEMATOLOGY Segs 75.2 % 45.0 - 75.0 11/12/2016 [facility] HEMATOLOGY Lymphocytes # 2.2 K/CMM 1.0 - 5.5 11/12/2016 [facility] HEMATOLOGY Eosinophils 0.4 % 0.0 - 4.0 11/12/2016 [facility] HEMATOLOGY Monocytes 10.0 % 2.0 - 12.0 11/12/2016 [facility] HEMATOLOGY Segs-Bands # 11.6 K/CMM 1.5 - 8.1 11/12/2016 [facility] HEMATOLOGY Basophils 0.3 % 0.0 - 1.0 11/12/2016 [facility] HEMATOLOGY Basophils # 0.1 K/CMM 0.0 - 0.2 11/11/2016 [facility] CHEM PANEL Lactic Acid Lvl 0.8 mMol/L 0.5 - 2.2 11/09/2016 [facility] Chest 1view DX Chest 1view DX EXAM: [...] by: Clarence Myrick 11/09/16 07:[address] [facility] CHEM PANEL Lactic Acid WB 1.6 mmol/L 0.5 - 2.2 11/08/2016 [facility] BLOOD BANK RESULTS Antibody Scrn Negative (11/08/16 3:20 PM) 11/08/2016 [facility] BLOOD BANK RESULTS ABO/Rh A POS 11/08/2016 [facility] URINE AND STOOL UA Spec Grav 1.070 <=1.030 11/08/2016 [facility] URINE AND STOOL UA Nitrite Negative (11/08/16 2:30 PM) Negative 11/08/2016 [facility] URINE AND STOOL UA Urobilinogen 0.2 EU/dL 0.1 - 1.0 11/08/2016 [facility] URINE AND STOOL UA Leuk Est Small *ABN* (11/08/16 2:30 PM) Negative 11/08/2016 [facility] URINE AND STOOL UA Bili Negative *NA* (11/08/16 2:30 PM) Negative 11/08/2016 [facility] URINE AND STOOL UA Ketones Negative *NA* (11/08/16 2:30 PM) Negative 11/08/2016 [facility] URINE AND STOOL UA Blood Small *ABN* (11/08/16 2:30 PM) Negative 11/08/2016 [facility] URINE AND STOOL UA pH 6.0 5.0 - 8.0 11/08/2016 [facility] URINE AND STOOL UA Protein 30 mg/dL Negative mg/dL 11/08/2016 [facility] URINE AND STOOL UA Glucose Negative (11/08/16 2:30 PM) Negative 11/08/2016 [facility] URINE AND STOOL UA Turbidity Slight Cloudy (11/08/16 2:30 PM) Clear 11/08/2016 [facility] URINE AND STOOL UA Color Yellow *NA* (11/08/16 2:30 PM) Yellow 11/08/2016 [facility] URINE AND STOOL UA WBC 21-50 /HPF None Seen /HPF 11/08/2016 [facility] URINE AND STOOL UA Sq Epi Moderate /LPF Few /LPF 11/08/2016 [facility] URINE AND STOOL UA Bacteria Moderate /HPF None Seen /HPF 11/08/2016 [facility] URINE AND STOOL UA RBC 3-5 /HPF 0 - 2 11/08/2016 [facility] CARDIAC ENZYMES Troponin-I null 0.00 - 0.40 11/08/2016 [facility] CHEM PANEL B/C Ratio 9 6 - 25 11/08/2016 [facility] CHEM PANEL A/G Ratio 0.6 0.7 - 1.6 11/08/2016 [facility] CHEM PANEL Globulin 4.7 g/dL 2.7 - 4.2 11/08/2016 [facility] CHEM PANEL Alk Phos 77 unit/L 39 - 136 11/08/2016 [facility] CHEM PANEL AST 21 unit/L 0 - 37 11/08/2016 [facility] CHEM PANEL Albumin Lvl 3.0 g/dL 3.5 - 5.0 11/08/2016 [facility] CHEM PANEL Total Protein 7.7 g/dL 6.4 - 8.4 11/08/2016 [facility] CHEM PANEL ALT 22 unit/L 0 - 65 11/08/2016 [facility] CHEM PANEL Bili Total 0.8 mg/dL 0.2 - 1.3 11/08/2016 [facility] HEMATOLOGY PT 15.7 s 12.0 - 14.7 11/08/2016 [facility] HEMATOLOGY INR 1.22 0.85 - 1.17 11/08/2016 [facility] HEMATOLOGY PTT 28.5 s 22.9 - 35.8 11/08/2016 [facility] CHEM PANEL Lactic Acid WB 2.5 mmol/L 0.5 - 2.2 11/08/2016 [facility] HEMATOLOGY Bands 0.0 % 0.0 - 11.0 11/08/2016 [facility] HEMATOLOGY Atypical Lymphs 0.0 % <=0.0 % 11/08/2016 [facility] HEMATOLOGY Anisocyte 1+ *ABN* (11/08/16 10:48 AM) None Seen 11/08/2016 [facility] HEMATOLOGY Tot Cell Ct 200 11/08/2016 [facility] HEMATOLOGY Plt Morph See Note 1 (11/08/16 10:48 AM) 11/08/2016 Result Comment: Due to occassional clumps, the actual count may be slightly higher. [facility] Abdomen/Pelvis w IV contrast CT Abdomen/Pelvis w [...] These findings were discussed with Dr. Kahn, [facility] ER on 11/08/2016 at 12:[address] Seb Cheng. 11/08/2016 - - Read by: Seb Cheng MD Dictated Date/time: 11/08/16 12:19 Electronically Signed by: Seb Cheng MD 11/08/16 12:[address] [facility] Chest 1view DX Chest 1view DX EXAM: [...] Jose Ozuna MD 11/08/16 11:[address] [facility] CHEM PANEL eGFR 96 mL/min/1.73m2 06/07/2016 Result [...] should be multiplied by the estimated BMI. [facility] CHEM PANEL BUN 11 mg/dL 7 - 22 06/07/2016 [facility] CHEM PANEL Calcium Lvl 8.1 mg/dL 8.5 - 10.5 06/07/2016 [facility] CHEM PANEL CO2 26 meq/L 24 - 32 06/07/2016 [facility] CHEM PANEL AGAP 10.7 meq/L 10.0 - 20.0 06/07/2016 [facility] CHEM PANEL Chloride Lvl 109 meq/L 95 - 109 06/07/2016 [facility] CHEM PANEL Sodium Lvl 142 meq/L 135 - 145 06/07/2016 [facility] CHEM PANEL Creatinine Lvl 0.65 mg/dL 0.50 - 1.40 06/07/2016 [facility] CHEM PANEL Potassium Lvl 3.7 meq/L 3.5 - 5.1 06/07/2016 [facility] CHEM PANEL Glucose Lvl 100 mg/dL 70 - 99 06/07/2016 [facility] HEMATOLOGY RBC 3.65 M/CMM 4.20 - 5.40 06/07/2016 [facility] HEMATOLOGY WBC 11.0 K/CMM 3.7 - 10.4 06/07/2016 [facility] HEMATOLOGY MCHC 32.5 g/dL 32.0 - 36.0 06/07/2016 [facility] HEMATOLOGY MCH 30.6 pg 27.0 - 31.0 06/07/2016 [facility] HEMATOLOGY MCV 93.9 fL 80.0 - 98.0 06/07/2016 [facility] HEMATOLOGY Hct 34.3 % 36.0 - 48.0 06/07/2016 [facility] HEMATOLOGY Hgb 11.2 g/dL 12.0 - 16.0 06/07/2016 [facility] HEMATOLOGY MPV 9.0 fL 7.4 - 10.4 06/07/2016 [facility] HEMATOLOGY Platelet 241 K/CMM 133 - 450 06/07/2016 [facility] HEMATOLOGY RDW 14.3 % 11.5 - 14.5 06/07/2016 [facility] HEMATOLOGY Segs-Bands # 6.8 K/CMM 1.5 - 8.1 06/07/2016 [facility] HEMATOLOGY Basophils 1.5 % 0.0 - 1.0 06/07/2016 [facility] HEMATOLOGY Eosinophils 2.0 % 0.0 - 4.0 06/07/2016 [facility] HEMATOLOGY Monocytes 9.3 % 2.0 - 12.0 06/07/2016 [facility] HEMATOLOGY Lymphocytes 25.5 % 20.0 - 40.0 06/07/2016 [facility] HEMATOLOGY Segs 61.7 % 45.0 - 75.0 06/07/2016 [facility] HEMATOLOGY Basophils # 0.2 K/CMM 0.0 - 0.2 06/07/2016 [facility] HEMATOLOGY Eosinophils # 0.2 K/CMM 0.0 - 0.5 06/07/2016 [facility] HEMATOLOGY Monocytes # 1.0 K/CMM 0.0 - 0.8 06/07/2016 [facility] HEMATOLOGY Lymphocytes # 2.8 K/CMM 1.0 - 5.5 06/07/2016 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 FINDINGS: Comparison is made [...] Diane Moser MD 06/06/16 13:[address] [facility] BLOOD BANK RESULTS ABO/Rh A POS 06/06/2016 [facility] BLOOD BANK RESULTS Antibody Scrn Negative (06/06/16 6:03 AM) 06/06/2016 [facility] CHEM PANEL Magnesium Lvl 2.0 mg/dL 1.8 - 2.4 06/06/2016 [facility] ELECTROLYTES AGAP 11.7 meq/L 10.0 - 20.0 06/06/2016 [facility] ELECTROLYTES eGFR 88 mL/min/1.73m2 06/06/2016 Result Comment: [...] should be multiplied by the estimated BMI. [facility] ELECTROLYTES CO2 27 meq/L 24 - 32 06/06/2016 [facility] ELECTROLYTES Chloride Lvl 104 meq/L 95 - 109 06/06/2016 [facility] ELECTROLYTES Calcium Lvl 9.0 mg/dL 8.5 - 10.5 06/06/2016 [facility] ELECTROLYTES Glucose Lvl 144 mg/dL 70 - 99 06/06/2016 [facility] ELECTROLYTES Sodium Lvl 139 meq/L 135 - 145 06/06/2016 [facility] ELECTROLYTES BUN 16 mg/dL 7 - 22 06/06/2016 [facility] ELECTROLYTES Creatinine Lvl 0.74 mg/dL 0.50 - 1.40 06/06/2016 [facility] ELECTROLYTES Potassium Lvl 3.7 meq/L 3.5 - 5.1 06/06/2016 [facility] HEMATOLOGY Eosinophils 1.0 % 0.0 - 4.0 06/06/2016 [facility] HEMATOLOGY Basophils 0.4 % 0.0 - 1.0 06/06/2016 [facility] HEMATOLOGY Segs-Bands # 14.7 K/CMM 1.5 - 8.1 06/06/2016 [facility] HEMATOLOGY Lymphocytes # 2.0 K/CMM 1.0 - 5.5 06/06/2016 [facility] HEMATOLOGY Monocytes # 1.2 K/CMM 0.0 - 0.8 06/06/2016 [facility] HEMATOLOGY Basophils # 0.1 K/CMM 0.0 - 0.2 06/06/2016 [facility] HEMATOLOGY Eosinophils # 0.2 K/CMM 0.0 - 0.5 06/06/2016 [facility] HEMATOLOGY Segs 80.9 % 45.0 - 75.0 06/06/2016 [facility] HEMATOLOGY Monocytes 6.8 % 2.0 - 12.0 06/06/2016 [facility] HEMATOLOGY Lymphocytes 10.9 % 20.0 - 40.0 06/06/2016 [facility] HEMATOLOGY MCHC 32.4 g/dL 32.0 - 36.0 06/06/2016 [facility] HEMATOLOGY RBC 3.94 M/CMM 4.20 - 5.40 06/06/2016 [facility] HEMATOLOGY WBC 18.1 K/CMM 3.7 - 10.4 06/06/2016 [facility] HEMATOLOGY MCH 30.1 pg 27.0 - 31.0 06/06/2016 [facility] HEMATOLOGY MCV 92.6 fL 80.0 - 98.0 06/06/2016 [facility] HEMATOLOGY RDW 14.6 % 11.5 - 14.5 06/06/2016 [facility] HEMATOLOGY Platelet 306 K/CMM 133 - 450 06/06/2016 [facility] HEMATOLOGY MPV 8.6 fL 7.4 - 10.4 06/06/2016 [facility] HEMATOLOGY Hgb 11.8 g/dL 12.0 - 16.0 06/06/2016 [facility] HEMATOLOGY Hct 36.5 % 36.0 - 48.0 06/06/2016 [facility] HEMATOLOGY INR 0.97 0.85 - 1.17 06/06/2016 [facility] HEMATOLOGY PT 13.1 s 12.0 - 14.7 06/06/2016 [facility] HEMATOLOGY PTT 26.3 s 22.9 - 35.8 06/06/2016 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 HEMATOLOGY POC Activated Clotting Time 179 s 05/09/2016 [facility] HEMATOLOGY POC Activated Clotting Time 246 s 05/08/2016 [facility] BLOOD BANK RESULTS ABO/Rh A POS 05/08/2016 [facility] BLOOD BANK RESULTS Antibody Scrn Negative (05/08/16 11:12 AM) 05/08/2016 [facility] CHEM PANEL eGFR 67 mL/min/1.73m2 05/08/2016 Result [...] should be multiplied by the estimated BMI. [facility] CHEM PANEL BUN 16 mg/dL 7 - 22 05/08/2016 [facility] CHEM PANEL Creatinine Lvl 0.92 mg/dL 0.50 - 1.40 05/08/2016 [facility] CHEM PANEL Glucose Lvl 95 mg/dL 70 - 99 05/08/2016 [facility] CHEM PANEL CO2 29 meq/L 24 - 32 05/08/2016 [facility] CHEM PANEL Chloride Lvl 108 meq/L 95 - 109 05/08/2016 [facility] CHEM PANEL Potassium Lvl 3.9 meq/L 3.5 - 5.1 05/08/2016 [facility] CHEM PANEL Sodium Lvl 145 meq/L 135 - 145 05/08/2016 [facility] CHEM PANEL Calcium Lvl 8.9 mg/dL 8.5 - 10.5 05/08/2016 [facility] CHEM PANEL AGAP 11.9 meq/L 10.0 - 20.0 05/08/2016 [facility] CHEM PANEL Magnesium Lvl 2.0 mg/dL 1.8 - 2.4 05/08/2016 [facility] HEMATOLOGY Hgb 13.2 g/dL 12.0 - 16.0 05/08/2016 [facility] HEMATOLOGY Hct 40.7 % 36.0 - 48.0 05/08/2016 [facility] HEMATOLOGY MCV 93.3 fL 80.0 - 98.0 05/08/2016 [facility] HEMATOLOGY WBC 14.9 K/CMM 3.7 - 10.4 05/08/2016 [facility] HEMATOLOGY RBC 4.37 M/CMM 4.20 - 5.40 05/08/2016 [facility] HEMATOLOGY MCH 30.2 pg 27.0 - 31.0 05/08/2016 [facility] HEMATOLOGY MCHC 32.4 g/dL 32.0 - 36.0 05/08/2016 [facility] HEMATOLOGY RDW 15.2 % 11.5 - 14.5 05/08/2016 [facility] HEMATOLOGY MPV 9.5 fL 7.4 - 10.4 05/08/2016 [facility] HEMATOLOGY Platelet 266 K/CMM 133 - 450 05/08/2016 [facility] HEMATOLOGY PT 13.1 s 12.0 - 14.7 05/08/2016 [facility] HEMATOLOGY PTT 25.2 s 22.9 - 35.8 05/08/2016 [facility] HEMATOLOGY INR 0.97 0.85 - 1.17 05/08/2016 [facility] HEMATOLOGY Monocytes # 1.0 K/CMM 0.0 - 0.8 05/08/2016 [facility] HEMATOLOGY Eosinophils # 0.1 K/CMM 0.0 - 0.5 05/08/2016 [facility] HEMATOLOGY Basophils # 0.1 K/CMM 0.0 - 0.2 05/08/2016 [facility] HEMATOLOGY Lymphocytes # 2.0 K/CMM 1.0 - 5.5 05/08/2016 [facility] HEMATOLOGY Basophils 0.5 % 0.0 - 1.0 05/08/2016 [facility] HEMATOLOGY Segs-Bands # 11.6 K/CMM 1.5 - 8.1 05/08/2016 [facility] HEMATOLOGY Monocytes 6.9 % 2.0 - 12.0 05/08/2016 [facility] HEMATOLOGY Eosinophils 1.0 % 0.0 - 4.0 05/08/2016 [facility] HEMATOLOGY Lymphocytes 13.6 % 20.0 - 40.0 05/08/2016 [facility] HEMATOLOGY Segs 78.0 % 45.0 - 75.0 05/08/2016 [facility] CHEM PANEL Creatinine Lvl 0.77 mg/dL 0.50 - 1.40 04/11/2016 [facility] CHEM PANEL eGFR 84 mL/min/1.73m2 04/11/2016 Result [...] should be multiplied by the estimated BMI. [facility] HEMATOLOGY POC Activated Clotting Time 214 s 04/10/2016 [facility] BLOOD BANK RESULTS ABO/Rh A POS 04/10/2016 [facility] BLOOD BANK RESULTS Antibody Scrn Negative (04/10/16 11:33 AM) 04/10/2016 [facility] CHEM PANEL Magnesium Lvl 2.0 mg/dL 1.8 - 2.4 04/10/2016 [facility] ELECTROLYTES AGAP 16.2 meq/L 10.0 - 20.0 04/10/2016 [facility] ELECTROLYTES eGFR 67 mL/min/1.73m2 04/10/2016 Result Comment: [...] should be multiplied by the estimated BMI. [facility] ELECTROLYTES Glucose Lvl 154 mg/dL 70 - 99 04/10/2016 [facility] ELECTROLYTES BUN 20 mg/dL 7 - 22 04/10/2016 [facility] ELECTROLYTES Creatinine Lvl 0.92 mg/dL 0.50 - 1.40 04/10/2016 [facility] ELECTROLYTES Calcium Lvl 9.5 mg/dL 8.5 - 10.5 04/10/2016 [facility] ELECTROLYTES Potassium Lvl 4.2 meq/L 3.5 - 5.1 04/10/2016 [facility] ELECTROLYTES Sodium Lvl 142 meq/L 135 - 145 04/10/2016 [facility] ELECTROLYTES Chloride Lvl 104 meq/L 95 - 109 04/10/2016 [facility] ELECTROLYTES CO2 26 meq/L 24 - 32 04/10/2016 [facility] HEMATOLOGY Monocytes # 0.5 K/CMM 0.0 - 0.8 04/10/2016 [facility] HEMATOLOGY Segs-Bands # 11.2 K/CMM 1.5 - 8.1 04/10/2016 [facility] HEMATOLOGY Lymphocytes # 1.2 K/CMM 1.0 - 5.5 04/10/2016 [facility] HEMATOLOGY Basophils # 0.1 K/CMM 0.0 - 0.2 04/10/2016 [facility] HEMATOLOGY Eosinophils 0.2 % 0.0 - 4.0 04/10/2016 [facility] HEMATOLOGY Basophils 0.4 % 0.0 - 1.0 04/10/2016 [facility] HEMATOLOGY Lymphocytes 9.1 % 20.0 - 40.0 04/10/2016 [facility] HEMATOLOGY Monocytes 4.1 % 2.0 - 12.0 04/10/2016 [facility] HEMATOLOGY Segs 86.2 % 45.0 - 75.0 04/10/2016 [facility] HEMATOLOGY RDW 14.5 % 11.5 - 14.5 04/10/2016 [facility] HEMATOLOGY MPV 9.3 fL 7.4 - 10.4 04/10/2016 [facility] HEMATOLOGY Platelet 277 K/CMM 133 - 450 04/10/2016 [facility] HEMATOLOGY MCH 30.1 pg 27.0 - 31.0 04/10/2016 [facility] HEMATOLOGY MCV 91.7 fL 80.0 - 98.0 04/10/2016 [facility] HEMATOLOGY Hct 38.6 % 36.0 - 48.0 04/10/2016 [facility] HEMATOLOGY MCHC 32.8 g/dL 32.0 - 36.0 04/10/2016 [facility] HEMATOLOGY Hgb 12.7 g/dL 12.0 - 16.0 04/10/2016 [facility] HEMATOLOGY WBC 13.1 K/CMM 3.7 - 10.4 04/10/2016 [facility] HEMATOLOGY RBC 4.21 M/CMM 4.20 - 5.40 04/10/2016 [facility] HEMATOLOGY INR 1.05 0.85 - 1.17 04/10/2016 [facility] HEMATOLOGY PT 13.9 s 12.0 - 14.7 04/10/2016 [facility] HEMATOLOGY PTT 27.4 s 22.9 - 35.8 04/10/2016 [facility] Chest wo contrast CT Chest wo contrast [...] BLOOD BANK RESULTS ABO/Rh A POS 09/10/2014 [facility] BLOOD BANK RESULTS Antibody Scrn Negative (09/10/14 7:24 AM) 09/10/2014 [facility] CHEM PANEL Magnesium Lvl 2.0 mg/dL 1.8 - 2.4 09/10/2014 [facility] ELECTROLYTES AGAP 14.4 meq/L 10.0 - 20.0 09/10/2014 [facility] ELECTROLYTES eGFR 95 mL/min/1.73m2 09/10/2014 1Result Comment: [...] should be multiplied by the estimated BMI. [facility] ELECTROLYTES Glucose Lvl 139 mg/dL 70 - 99 09/10/2014 2Interpretive Data: Adult reference range values reflect the clinical guidelines of the [place] [employer]. [facility] ELECTROLYTES Sodium Lvl 142 meq/L 135 - 145 09/10/2014 [facility] ELECTROLYTES BUN 14 mg/dL 7 - 22 09/10/2014 [facility] ELECTROLYTES Creatinine Lvl 0.7 mg/dL 0.5 - 1.4 09/10/2014 [facility] ELECTROLYTES Potassium Lvl 4.4 meq/L 3.5 - 5.1 09/10/2014 [facility] ELECTROLYTES Chloride Lvl 106 meq/L 95 - 109 09/10/2014 [facility] ELECTROLYTES CO2 26 meq/L 24 - 32 09/10/2014 [facility] ELECTROLYTES Calcium Lvl 9.2 mg/dL 8.5 - 10.5 09/10/2014 [facility] HEMATOLOGY MPV 9.6 fL 7.4 - 10.4 09/10/2014 [facility] HEMATOLOGY RBC 4.24 M/CMM 4.20 - 5.40 09/10/2014 [facility] HEMATOLOGY WBC 12.5 K/CMM 3.7 - 10.4 09/10/2014 [facility] HEMATOLOGY RDW 14.5 % 11.5 - 14.5 09/10/2014 [facility] HEMATOLOGY Platelet 277 K/CMM 133 - 450 09/10/2014 [facility] HEMATOLOGY Hct 40.2 % 36.0 - 48.0 09/10/2014 [facility] HEMATOLOGY Hgb 13.0 g/dL 12.0 - 16.0 09/10/2014 [facility] HEMATOLOGY MCHC 32.3 g/dL 32.0 - 36.0 09/10/2014 [facility] HEMATOLOGY MCV 94.8 fL 80.0 - 98.0 09/10/2014 [facility] HEMATOLOGY MCH 30.6 pg 27.0 - 31.0 09/10/2014 [facility] HEMATOLOGY PT 13.4 s 12.0 - 14.7 09/10/2014 [facility] HEMATOLOGY PTT 26.0 s 22.9 - 35.8 09/10/2014 5Interpretive Data: Heparin Therapeutic Range: 57 - [address] [facility] HEMATOLOGY INR 1.02 0.85 - 1.17 09/10/2014 4Interpretive Data: RECOMMENDED RANGES FOR PROTIME INR: 2.0-3.0 for most medical and surgical thromboembolic states. 2.5-3.5 for artificial heart valves and recurrent embolism. INR SHOULD BE USED ONLY FOR PATIENTS ON STABLE ANTICOAGULANT THERAPY. [facility] HEMATOLOGY Monocytes # 0.9 K/CMM 0.0 - 0.8 09/10/2014 [facility] HEMATOLOGY Eosinophils # 0.1 K/CMM 0.0 - 0.5 09/10/2014 [facility] HEMATOLOGY Lymphocytes # 1.4 K/CMM 1.0 - 5.5 09/10/2014 [facility] HEMATOLOGY Segs-Bands # 10.1 K/CMM 1.5 - 8.1 09/10/2014 [facility] HEMATOLOGY Basophils 0.2 % 0.0 - 1.0 09/10/2014 [facility] HEMATOLOGY RBC Morph Normal (09/10/14 7:24 AM) 09/10/2014 [facility] HEMATOLOGY Eosinophils 0.5 % 0.0 - 4.0 09/10/2014 [facility] HEMATOLOGY Monocytes 7.6 % 2.0 - 12.0 09/10/2014 [facility] HEMATOLOGY Lymphocytes 11.0 % 20.0 - 40.0 09/10/2014 [facility] HEMATOLOGY Plt Morph See Note 3 (09/10/14 7:24 AM) 09/10/2014 3Result Comment: Due to occassional clumps, the actual count may be slightly higher. [facility] HEMATOLOGY Segs 80.7 % 45.0 - 75.0 09/10/2014 [facility] HEMATOLOGY Basophils # 0.4 K/CMM 0.0 - 0.2 09/10/2014 [facility] Chest wo contrast CT Chest wo contrast [...] - This report was dictated by a [employer] Sorter/Fellow. I have personally reviewed the images as well as the Resident's interpretation and agree with the findings. Read by: Cecil Hackett MD Resident: Cecil Hackett MD Dictated Date/time: 07/10/14 08:53 Electronically Signed by: Diane Moser MD 07/10/14 10:[address] [facility] Bacterial urine culture Urine Culture [facility] Vital Signs Vital Sign Value Date Comments Source Systolic (mm Hg) 93 08/07/2018 [facility] Diastolic (mm Hg) 60 08/07/2018 [facility] Systolic (mm Hg) 104 08/07/2018 [facility] Diastolic (mm Hg) 55 08/07/2018 [facility] Systolic (mm Hg) 97 08/07/2018 [facility] Diastolic (mm Hg) 59 08/07/2018 [facility] BMI Calculated 26.09 08/07/2018 [facility] Weight 66.818 08/07/2018 [facility] Height 160.02 cm 08/07/2018 [facility] Systolic (mm Hg) 147 09/17/2017 [facility] Diastolic (mm Hg) 87 09/17/2017 [facility] Respitory Rate 18 09/17/2017 [facility] Heart Rate 88 09/17/2017 [facility] Temperature Oral (F) 98.3 F 09/17/2017 [facility] Systolic (mm Hg) 154 09/17/2017 [facility] Diastolic (mm Hg) 93 09/17/2017 [facility] Temperature Oral (F) 98.4 F 09/17/2017 [facility] Heart Rate 84 09/17/2017 [facility] Respitory Rate 18 09/17/2017 [facility] Temperature Oral (F) 98.4 F 09/17/2017 [facility] Systolic (mm Hg) 164 09/17/2017 [facility] Diastolic (mm Hg) 89 09/17/2017 [facility] Respitory Rate 18 09/17/2017 [facility] Heart Rate 78 09/17/2017 [facility] Height 160.02 cm 09/13/2017 [facility] Weight 72.727 09/13/2017 [facility] BMI Calculated 28.4 09/13/2017 [facility] BMI Calculated 28.4 09/07/2017 [facility] Height 160.02 cm 09/07/2017 [facility] Weight 72.727 09/07/2017 [facility] Systolic (mm Hg) 120 07/20/2017 [facility] Diastolic (mm Hg) 74 07/20/2017 [facility] Respitory Rate 17 07/20/2017 [facility] Respitory Rate 23 07/20/2017 [facility] Systolic (mm Hg) 115 07/20/2017 [facility] Diastolic (mm Hg) 71 07/20/2017 [facility] Systolic (mm Hg) 115 07/20/2017 [facility] Diastolic (mm Hg) 74 07/20/2017 [facility] Respitory Rate 23 07/20/2017 [facility] Heart Rate 95 07/20/2017 [facility] Weight 72.727 07/20/2017 [facility] BMI Calculated 28.4 07/20/2017 [facility] Height 160.02 cm 07/20/2017 [facility] BMI Calculated 27.96 07/18/2017 [facility] Weight 72.727 07/18/2017 [facility] Height 161.29 cm 07/18/2017 [facility] Height 161.29 cm 07/09/2017 [facility] BMI Calculated 27.96 07/09/2017 [facility] Weight 72.727 07/09/2017 [facility] Heart Rate 89 07/09/2017 [facility] Respitory Rate 16 07/09/2017 [facility] Systolic (mm Hg) 124 07/09/2017 [facility] Diastolic (mm Hg) 79 07/09/2017 [facility] BMI Calculated 26.98 03/01/2017 [facility] Weight 69.091 03/01/2017 [facility] Height 160.02 cm 03/01/2017 [facility] Respitory Rate 18 11/29/2016 [facility] Systolic (mm Hg) 120 11/29/2016 [facility] Diastolic (mm Hg) 69 11/29/2016 [facility] Heart Rate 88 11/29/2016 [facility] Temperature Oral (F) 98.6 F 11/29/2016 [facility] Systolic (mm Hg) 152 11/29/2016 [facility] Diastolic (mm Hg) 76 11/29/2016 [facility] Respitory Rate 18 11/29/2016 [facility] Heart Rate 99 11/29/2016 [facility] Temperature Oral (F) 98.2 F 11/29/2016 [facility] Respitory Rate 18 11/29/2016 [facility] Systolic (mm Hg) 145 11/29/2016 [facility] Diastolic (mm Hg) 92 11/29/2016 [facility] Heart Rate 83 11/29/2016 [facility] Temperature Oral (F) 97.6 F 11/29/2016 [facility] Weight 68.182 11/17/2016 [facility] Height 160.02 cm 11/17/2016 [facility] BMI Calculated 26.63 11/17/2016 [facility] Heart Rate 80 11/14/2016 [facility] Respitory Rate 18 11/14/2016 [facility] Systolic (mm Hg) 116 11/14/2016 [facility] Diastolic (mm Hg) 72 11/14/2016 [facility] Temperature Oral (F) 98.5 F 11/14/2016 [facility] Respitory Rate 18 11/14/2016 [facility] Respitory Rate 18 11/14/2016 [facility] Heart Rate 90 11/14/2016 [facility] Systolic (mm Hg) 148 11/14/2016 [facility] Diastolic (mm Hg) 88 11/14/2016 [facility] Temperature Oral (F) 98.5 F 11/14/2016 [facility] Systolic (mm Hg) 116 11/14/2016 [facility] Diastolic (mm Hg) 70 11/14/2016 [facility] Temperature Oral (F) 98.1 F 11/14/2016 [facility] Heart Rate 88 11/14/2016 [facility] Weight 70.909 11/08/2016 [facility] Height 160.02 cm 11/08/2016 [facility] BMI Calculated 27.69 11/08/2016 [facility] Systolic (mm Hg) 130 06/07/2016 [facility] Diastolic (mm Hg) 78 06/07/2016 [facility] Systolic (mm Hg) 132 06/07/2016 [facility] Diastolic (mm Hg) 63 06/07/2016 [facility] Systolic (mm Hg) 128 06/07/2016 [facility] Diastolic (mm Hg) 66 06/07/2016 [facility] Temperature Oral (F) 97.7 F 06/07/2016 [facility] Temperature Oral (F) 97.8 F 06/06/2016 [facility] Temperature Oral (F) 98.2 F 06/06/2016 [facility] Weight 70.455 06/06/2016 [facility] Height 160.02 cm 06/06/2016 [facility] BMI Calculated 27.51 06/06/2016 [facility] Systolic (mm Hg) 134 05/09/2016 [facility] Diastolic (mm Hg) 79 05/09/2016 [facility] Systolic (mm Hg) 134 05/09/2016 [facility] Diastolic (mm Hg) 83 05/09/2016 [facility] Systolic (mm Hg) 174 05/09/2016 [facility] Diastolic (mm Hg) 94 05/09/2016 [facility] Respitory Rate 28 05/09/2016 [facility] Respitory Rate 26 05/08/2016 [facility] Respitory Rate 26 05/08/2016 [facility] Weight 71.364 05/08/2016 [facility] Height 161.29 cm 05/08/2016 [facility] BMI Calculated 27.43 05/08/2016 [facility] Temperature Oral (F) 97.8 F 05/08/2016 [facility] Temperature Oral (F) 98.0 F 04/11/2016 [facility] Respitory Rate 18 04/11/2016 [facility] Systolic (mm Hg) 121 04/11/2016 [facility] Diastolic (mm Hg) 73 04/11/2016 [facility] Systolic (mm Hg) 120 04/11/2016 [facility] Diastolic (mm Hg) 67 04/11/2016 [facility] Systolic (mm Hg) 136 04/11/2016 [facility] Diastolic (mm Hg) 82 04/11/2016 [facility] Height 160.02 cm 04/10/2016 [facility] BMI Calculated 28.22 04/10/2016 [facility] Weight 72.273 04/10/2016 [facility] Systolic (mm Hg) 134 09/10/2014 [facility] Diastolic (mm Hg) 82 09/10/2014 [facility] Systolic (mm Hg) 134 09/10/2014 [facility] Diastolic (mm Hg) 82 09/10/2014 [facility] Systolic (mm Hg) 124 09/10/2014 [facility] Diastolic (mm Hg) 77 09/10/2014 [facility] Temperature Oral (F) 97.5 F 09/10/2014 [facility] Weight 72.727 09/10/2014 [facility] Height 160.02 cm 09/10/2014 [facility] BMI Calculated 28.4 09/10/2014 [facility] Weight 72.727 09/10/2014 [facility] BMI Calculated 28.4 09/10/2014 [facility] Height 160.02 cm 09/10/2014 [facility] Encounters Location Location Details Encounter Type Encounter Number Reason For Visit Attending Provider ADM Date DC Date Status Source [facility] Outpatient [id number] Timmy Hill 07/10/2014 07/11/2014 [facility] Outpatient [id number] Timmy Hill 07/16/2014 07/17/2014 [facility] Bedded Outpatient [id number] Natasha Juarez 09/10/2014 09/10/2014 [facility] [id number] Adelfo Graf Jr 07/09/2015 07/10/2015 [facility] Bedded Outpatient [id number] Natasha Juarez 04/10/2016 04/11/2016 [facility] Bedded Outpatient [id number] Natasha Juarez 05/08/2016 05/09/2016 [facility] Bedded Outpatient [id number] Tami Bolton 06/06/2016 06/07/2016 [facility] Inpatient [id number] Chilo Reina 11/08/2016 11/14/2016 [facility] Inpatient [id number] Catherine Turner 11/17/2016 11/29/2016 [facility] Outpatient [id number] Jaime Dorantes 03/01/2017 03/02/2017 [facility] Outpatient [id number] Lyle Thosani 07/09/2017 07/10/2017 [facility] Day Surgery [id number] Lyle Thosani 07/20/2017 07/21/2017 [facility] Inpatient [id number] Chilo Reina 09/12/2017 09/17/2017 [facility] Bedded Outpatient [id number] Natasha Juarez 08/07/2018 08/07/2018 [facility] Discharged Inpatient [id number] ESTHELA KENNEY MD 08/13/2018 08/17/2018 [facility] Procedures Procedure Code Date Perfomer Comments Source Cystoscopy with retrograde pyelography [id number] 08/15/2018 GIN [facility] X-ray of chest, two views [id number] 08/13/2018 PABLITO [facility] Computed tomography of abdomen and pelvis with contrast [id number] 08/12/2018 NEDA [facility] Atherectomy [id number] [facility] Corneal transplant [id number] [facility] Tubal ligation [id number] [facility] Atherectomy [id number] [facility] Corneal transplant [id number] [facility] Tubal ligation [id number] [facility] ICD - Internal cardiac defibrillator procedure [id number] [facility]
[2018-09-06 10:54] VITALS: BP 128/77
--- NOTE | 2018-09-06 18:52 | Operative Report ---
DATE OF PROCEDURE: 09/06/2018 SURGEON: Cole Azul MD PREOPERATIVE DIAGNOSES: 1. Indwelling right ureteral stent. 2. Right hydronephrosis. 3. Right ureteral calculi. POSTOPERATIVE DIAGNOSES: 1. Indwelling right ureteral stent. 2. Right hydronephrosis. 3. Passed right ureteral calculi. ANESTHESIA: General. ESTIMATED BLOOD LOSS: Minimal. COMPLICATION: None. PROCEDURES DONE: 1. Cystourethroscopy with removal of the right indwelling stent (high sensitive right indwelling stent). 2. Right-sided ureteroscopy (entirely separate procedure for hydronephrosis and passed ureteral calculi. 3. Supervision of fluoroscopy for ureteroscopic and stent removal portions. 4. Supervision of fluoroscopy. ANESTHESIA: General. ESTIMATED BLOOD LOSS: Minimal. COMPLICATIONS: None. INDICATION FOR PROCEDURE: Ms. Lopez is a very pleasant 63-year-old female with a history of ureteral calculi and hydronephrosis. She had a long discussion regarding alternatives, risks, and benefits including doing nothing, stent removal, ureteroscopy, percutaneous surgery or open surgery. She voiced understanding of the options, alternatives, risks, and benefits of the procedure. PROCEDURE IN DETAIL: After informed consent was obtained, the patient was taken to the operative suite, underwent general anesthesia by the Anesthesia Service, placed in dorsal lithotomy position and sterilely prepped and draped in standard fashion for cystoscopy. A 21-Algerian cystoscope was inserted per urethra. Normal urethra was noted. Panendoscopy of the bladder revealed no tumors or stones. Right ureteral orifice was grasped and removed intact. Guidewire was inserted through the stent, seen to coil at the level of the renal pelvis on the fluoroscopy. Rigid ureteroscope was then advanced and a prior area of impaction of the distal ureter was seen and was edematous. There were no stones seen at this time. Ureteroscope was driven all the way to the level of the renal pelvis. Retrograde pyelogram was performed through the ureteroscope, revealing slightly dilated collecting system with no evidence of filling defects or stones. At this time, the ureteroscope was withdrawn and the guidewire was removed. The bladder was drained. The patient was awakened from anesthesia and transferred to recovery room. Supervision of fluoroscopy and interpretation of retrograde pyelography: I was present for the entire procedure and I supervised fluoroscopy for the ureteroscopic portion of the case. There was no radiologist present. Retrograde pyelogram was performed through ureteroscope revealing slightly dilated collecting system. No evidence of stones Interim. Passage of right ureteral calculi. MD HELLEN Davis/MODL /[id number] ELANA
== END | disposition home or self-care (01) ==
LOC: OR 08:23
PROVIDERS: ATTEND Urology
DX: N13.30 Unspecified hydronephrosis (principal); Z46.6 Encounter for fitting and adjustment of urinary device; N39.0 Urinary tract infection, site not specified; Z87.442 Personal history of urinary calculi; J44.9 Chronic obstructive pulmonary disease, unspecified; I11.0 Hypertensive heart disease with heart failure; I50.9 Heart failure, unspecified; R00.0 Tachycardia, unspecified; G89.29 Other chronic pain; F41.9 Anxiety disorder, unspecified; F17.210 Nicotine dependence, cigarettes, uncomplicated; Z79.02 Long term (current) use of antithrombotics/antiplatelets; Z79.82 Long term (current) use of aspirin; Z85.828 Personal history of other malignant neoplasm of skin; Z95.810 Presence of automatic (implantable) cardiac defibrillator
CPT/HCPCS: 52351; 74420; J1100; J1580; J2001; J2250; J2405; J2704; Q9967